=== PATIENT | female | born 1970 | race Caucasian/White ===

== ENCOUNTER 2017-02-18 22:52 | Inpatient (IN) | payer OTHER ==
[~2017-02-18] VITALS: Ht 149.9 cm; Wt 57.0 kg
[~2017-02-18 22:52] MED LIST: ATOR40TA68 PO; ESCI10TA48 PO; Hydrocodone/Apap (10/325) PO; IBUP-1542 PO; LANT3I SC; METF500T PO; TERB250T9 PO
[2017-02-18] MEDS ORDERED: ONDANSETRON 4 MG INJ IV STA (23:28)
[2017-02-18] MEDS ORDERED: morphine 4 MG/ML VIAL IV STA (23:28)
[2017-02-18 23:46] LABS: ADD UMIC YES; UR ASCORBIC ACID NEGATIVE (NEGATIVE); UR BILIRUBIN (Dip) NEGATIVE (NEGATIVE); UR BLOOD (Dip) NEGATIVE (NEGATIVE); UR CLARITY CLEAR (CLEAR); UR COLOR COLORLESS (YELLOW); UR GLUCOSE (Dip) 3+ mg/dL (NEGATIVE); UR KETONES (Dip) NEGATIVE (NEGATIVE); UR LEUKOCYTE ESTERASE (Dip) 1+ Leu/ul (NEGATIVE); UR NITRITE (Dip) NEGATIVE (NEGATIVE); UR RBC 0 /HPF (0-5); UR SPECIFIC GRAVITY (Dip) 1.002 (1.003-1.030); UR TOTAL PROTEIN (Dip) NEGATIVE (NEGATIVE); UR UROBILINOGEN (Dip) NEGATIVE (NEGATIVE)
[2017-02-18] MEDS ORDERED: HYDROmorphONE 1 MG/ML SYG ONE (23:50)
[2017-02-18] MEDS ORDERED: HYDROmorphONE 1 MG/ML SYG IV STA (23:57)
[2017-02-19 00:04] LABS: BASOPHILS % 0.1 % (0.0-2.0); EOSINOPHILS # 0.2 10^3/ul (0.0-0.5); EOSINOPHILS % 1.1 % (0.0-7.0); HEMATOCRIT 42.8 % (37.0-47.0); HEMOGLOBIN 14.7 g/dl (12.0-16.0); LYMPHOCYTES # 2.7 10^3/ul (0.8-2.9); MEAN CORPUSCULAR HEMOGLOBIN 29.6 pg (29.0-33.0); MEAN CORPUSCULAR HGB CONC 34.3 g/dl (32.0-37.0); MEAN CORPUSCULAR VOLUME 86.1 fl (82.0-101.0); MEAN PLATELET VOLUME 9.9 fl (7.4-10.4); MONOCYTE # 0.9 10^3/ul (0.3-0.9); MONOCYTES % 6.6 % (0.0-11.0); NEUTROPHIL # 10.3 10^3/ul (1.6-7.5); NEUTROPHILS % 72.8 % (39.0-77.0); PLATELET COUNT 345 10^3/UL (140-415); RED BLOOD COUNT 4.97 10^6/ul (4.20-5.40); RED CELL DISTRIBUTION WIDTH 12.4 % (11.5-14.5); WHITE BLOOD COUNT 14.2 10^3/ul (4.8-10.8)
[2017-02-19 00:33] LABS: ALBUMIN 4.2 g/dl (3.3-4.9); ALBUMIN/GLOBULIN RATIO 1.13; BILIRUBIN,INDIRECT 0.2 mg/dl (0-1.1); BILIRUBIN,TOTAL 0.2 mg/dl (0.2-1.3); CALCIUM 9.9 mg/dl (8.4-10.2); CREATININE 0.59 mg/dl (0.44-1.00); POTASSIUM 3.3 mmol/L (3.5-5.1); TOTAL PROTEIN 7.9 g/dl (6.1-8.1)
--- NOTE | 2017-02-19 01:05 | RADRPT ---
PROCEDURE: CT abdomen and pelvis with intravenous contrast. CLINICAL INDICATION: Pain. TECHNIQUE: CT of the abdomen/pelvis was performed utilizing axial images with reconstructions in s agittal and coronal planes after uneventful administration of 80 cc Omnipaque 300. The administered radiation dose is CTDI 8 mGy, DLP 450 mGy-cm. COMPARISON: 03/24/2016 FINDINGS: Visualized Chest: The visualized lung bases are clear. Abdomen: The spleen, pancreas, gallbladder,and adrenal glands are unremarkable. There is a new, hypoattenuating lesion with heterogeneous enhancement within the posterior aspect of the right hepatic lobe. This measures up to 2.2 cm in greatest axial dimension. There is a small amount of perihepatic free fluid. Small amounts of free fluid are scattered throughout the abdomen, mostly in the lower anterior abdomen. Some of this may be loculated against the anterior peritoneu m. There is possibly some minimal thickening of the peritoneum anteriorly in the left abdomen, for e xample on image 120 of series 3. Some mild mesenteric inflammatory changes are also present througho ut the abdomen. The kidneys are without hydronephrosis. No definite urinary calculi are seen. A small right renal c yst is noted. Prior partial resection of the rectosigmoid colon is noted. There is no evidence of bowel obstructi on. Prior appendectomy is noted. No intra-abdominal free air is seen. There is no evidence of intra-abdominal adenopathy. Pelvis: Prior hysterectomy is noted. The urinary bladder is unremarkable. There is no pelvic adenopathy of free fluid. Osseous structures: A 6 mm rounded sclerotic lesion within the right sacral ala is unchanged. IMPRESSION: New enhancing liver lesion which is of indeterminate origin. Neoplasm should be considered, especia lly given other findings of mild intra-abdominal free fluid with questionable loculation and periton eal thickening. Unchanged small sclerotic lesion in the right sacral ala. RPTAT: HIKT .Adan Lorenzo MD, MD Date Time Electronically viewed and signed by .Adan Lorenzo MD, on 02/19/2017 01:05 .T/
[2017-02-19] MEDS ORDERED: CEFTRIAXONE 1 GM/50 ML (PMX) 50 ML IVPB STA (01:09)
[2017-02-19] MEDS ORDERED: metroNIDAZOLE 500 MG/NS (PMX) 100 ML IVPB STA (01:09)
[2017-02-19] MEDS ORDERED: IOHEXOL 300MG/ML 150 ML BTL ONE (01:18)
[2017-02-19] MEDS ORDERED: SOD CHLORIDE 0.9% 100 ML ONE (01:18)
[2017-02-19] MEDS ORDERED: ONDANSETRON 4 MG INJ IV STA (01:46)
[2017-02-19] MEDS ORDERED: SOD CHLORIDE 0.9% 1,000 ML IV SCH (02:09)
[2017-02-19] MEDS ORDERED: SODIUM CHLORIDE 0.9% 1L BAG IV* STA (02:16)
--- NOTE | 2017-02-19 02:16 | ERA ---
ER Documentation Chief Complaint Date/Time DATE: 02/19/17 TIME: 02:12 Chief Complaint abdominal pain radiating to back HPI This is a 46-year-old female who presents to the emergency room for evaluation of abdominal pain. The patient does state she has a history of ovarian cancer with previous chemotherapy in 2013. She localizes the abdominal pain to the right portion of her abdomen with mild radiation to her back and is associated with mild nausea and one episode of vomiting. No fevers diarrhea. She describes her pain as a sharp pain with no relieving factors at this time. She does state that she had a previous oophorectomy done ROS All systems reviewed and are negative except as per history of present illness. Medications Home Meds Active Scripts Insulin Glargine* (Lantus*) 100 Unit/Ml Soln, 10 UNIT SC DAILY for 30 Days, #1 VIAL 1 Refill Prov:ARLINE QUINTANILLAAlejandro Meyer 04/06/16 [Hydrocodone/Apap ()] 1 TAB TAB No Conflict Check, 1 TAB PO Q6H Y for pain , #30 Prov:EUGENE QUINTANILLA Mitch 04/06/16 Reported Medications Atorvastatin* (Atorvastatin*) 40 Mg Tablet, 40 MG PO DAILY, #30 TAB 03/27/16 Metformin Hcl (Glucophage) 500 Mg Tablet, 1000 MG PO WITH BREAKFAST, #30 TAB 03/27/16 Ibuprofen* (Ibuprofen*) 600 Mg Tablet, 600 MG PO Q6 Y for PAIN, TAB 03/27/16 Terbinafine Hcl* (Terbinafine Hcl*) 250 Mg Tablet, 250 MG PO DAILY for INFECTION , TAB 03/27/16 Escitalopram Oxalate* (Escitalopram Oxalate*) 10 Mg Tablet, 10 MG PO DAILY Y for DEPRESSION, #30 TAB 03/27/16 Allergies Allergies: Coded Allergies: No Known Allergy (Unverified , 04/05/16) PMhx/Soc History of Surgery: Yes (OVARIAN SURGERY 2013 AND 2014, COLON RESECTION) Anesthesia Reaction: No (DENIES) Hx Neurological Disorder: Yes (C/O HEADACHE) Hx Respiratory Disorders: No (DENIES) Hx Cardiac Disorders: No (DENIES) Hx Psychiatric Problems: No (DENIES) Hx Alcohol Use: No (DENIES) Hx Substance Use: No (DENIES) Smoking Status: Unknown if ever smoked Physical Exam Vitals Vital Signs Date Time Temp Pulse Resp B/P Pulse Ox O2 Delivery O2 Flow Rate FiO2 02/18/17 23:08 98.3 120 22 145/66 100 Physical Exam INITIAL VITAL SIGNS: Reviewed by me GENERAL: The patient appears to be in moderate distress secondary to pain HEENT: Pupils equal, round, and reactive to light. EOMI. There is no scleral icterus. NECK: C-spine is soft and supple, there is no meningismus. There is no cervical lymphadenopathy. LUNGS: Clear to auscultation bilaterally. There are no rales, wheezes or rhonchi. HEART: Regular rate and rhythm, no murmurs, clicks, rubs or gallops. ABDOMEN: Right upper quadrant tenderness palpation, right lower quadrant tenderness to palpation, mild rebound and guarding tenderness, no CVAT EXTREMITIES: There is no peripheral cyanosis or edema. No focal swelling or erythema. NEUROLOGICAL: The patient moves all four extremities with 5/5 strength. Cranial nerves II - XII are intact. Normal gait. Alert and oriented SKIN: There is no apparent rash or petechiae. HEME/LYMPHATIC: There is no evidence of excessive bruising or lymphedema. PSYCHIATRIC: The patient does not appear anxious or depressed. Result Diagram: 02/18/17 2335 02/18/17 2335 Results 24 hrs Laboratory Tests Test 02/18/17 23:24 02/18/17 23:35 Urine Color COLORLESS Urine Clarity CLEAR Urine pH 7.0 Urine Specific [place] 1.002 Urine Ketones NEGATIVEmg/dL Urine Nitrite NEGATIVEmg/dL Urine Bilirubin NEGATIVEmg/dL Urine Urobilinogen NEGATIVEmg/dL Urine Leukocyte Esterase 1+Devang/ul Urine Microscopic RBC 0/HPF Urine Microscopic WBC 1/HPF Urine Hemoglobin NEGATIVEmg/dL Urine Glucose 3+mg/dL Urine Total Protein NEGATIVEmg/dl White Blood Count 14.210^3/ul Red Blood Count 4.9710^6/ul Hemoglobin 14.7g/dl Hematocrit 42.8% Mean Corpuscular Volume 86.1fl Mean Corpuscular Hemoglobin 29.6pg Mean Corpuscular Hemoglobin Concent 34.3g/dl Red Cell Distribution Width 12.4% Platelet Count 18904^3/UL Mean Platelet Volume 9.9fl Neutrophils % 72.8% Lymphocytes % 19.0% Monocytes % 6.6% Eosinophils % 1.1% Basophils % 0.1% Nucleated Red Blood Cells % 0.0/100WBC Neutrophils # 10.310^3/ul Lymphocytes # 2.710^3/ul Monocytes # 0.910^3/ul Eosinophils # 0.210^3/ul Basophils # 0.010^3/ul Nucleated Red Blood Cells # 0.010^3/ul Sodium Level 140mmol/L Potassium Level 3.3mmol/L Chloride Level 93mmol/L Carbon Dioxide Level 31mmol/L Anion Gap 19 Blood Urea Nitrogen 16mg/dl Creatinine 0.59mg/dl Glucose Level 269mg/dl Calcium Level 9.9mg/dl Total Bilirubin 0.2mg/dl Direct Bilirubin 0.00mg/dl Indirect Bilirubin 0.2mg/dl Aspartate Amino Transf (AST/SGOT) 21IU/L Alanine Aminotransferase (ALT/SGPT) 31IU/L Alkaline Phosphatase 154IU/L Total Protein 7.9g/dl Albumin 4.2g/dl Globulin 3.70g/dl Albumin/Globulin Ratio 1.13 Lipase 157U/L Current Medications Medications (Trade) Dose Ordered Sig/Zane Route PRN Reason Start Time Stop Time Status Last Admin Dose Admin Ondansetron HCl (Zofran Inj) 4 mg ONCE STAT IV 02/18/17 23:28 02/18/17 23:30 DC 02/18/17 23:38 Morphine Sulfate (morphine) 4 mg ONCE STAT IV 02/18/17 23:28 02/18/17 23:30 DC 02/18/17 23:38 Hydromorphone HCl (Dilaudid) 1 mg STK-MED ONCE .ROUTE 02/18/17 23:50 02/18/17 23:51 DC Hydromorphone HCl 1 mg 1 mg ONCE STAT IV 02/18/17 23:57 02/18/17 23:58 DC 02/19/17 00:03 Ceftriaxone Sodium 50 ml @ 100 mls/hr ONCE STAT IVPB 02/19/17 01:09 02/19/17 01:38 DC 02/19/17 01:53 Metronidazole (Flagyl 500 Mg (Pmx)) 100 ml @ 100 mls/hr ONCE STAT IVPB 02/19/17 01:09 02/19/17 02:08 DC 02/19/17 01:54 IV Flush 10 ml 10 ml STK-MED ONCE .ROUTE 02/19/17 01:18 02/19/17 01:19 DC 02/19/17 01:33 Sodium Chloride (NS) 100 ml @ ud STK-MED ONCE .ROUTE 02/19/17 01:18 02/19/17 01:19 DC 02/19/17 01:33 Iohexol (Omnipaque 300mg/ ml) 150 ml STK-MED ONCE .ROUTE 02/19/17 01:18 02/19/17 01:19 DC 02/19/17 01:33 Ondansetron HCl 4 mg 4 mg ONCE STAT IV 02/19/17 01:46 02/19/17 01:47 DC 02/19/17 01:53 Sodium Chloride (NS) 1,000 ml @ 80 mls/hr [id number] IV 02/19/17 02:09 02/19/17 14:38 Ondansetron HCl (Zofran Inj) 4 mg BRIDGE ORDER PRN IV NAUSEA AND/OR VOMITING 02/19/17 02:30 02/20/17 02:29 Acetaminophen (Tylenol Tab) 650 mg ER BRIDGE PRN PO MILD PAIN/FEVER 02/19/17 02:30 02/20/17 02:29 Procedures/MDM New enhancing liver lesion which is of indeterminate origin. Neoplasm should be considered, especially given other findings of mild intra-abdominal free fluid with questionable loculation and peritoneal thickening. Unchanged small sclerotic lesion in the right sacral ala. This is a 46-year-old female who presents to the emergency room for evaluation of abdominal pain. This patient does have a history of previous ovarian cancer with oophorectomy. She does see her surgeon, Dr. tapia. When I evaluated this patient she was in a moderate amount of pain. The patient was given morphine without relief of pain, she was given Dilaudid with moderate relief of her pain. I did obtain lab work and a CAT scan which does show a leukocytosis with some mild intra-abdominal free fluid in peritoneal thickening possibly peritonitis. This patient had blood cultures drawn. She was started on Rocephin and Flagyl. She was given 30 cc/kg of IV normal saline as she does meet criteria with tachycardia, leukocytosis and source of infection I have spoken to Dr. Tapia who is in agreement with the plan of care for admission to [facility] at this time. This patient is afebrile, with no signs of hemodynamic instability. Critical Care: Time: 35 minutes Treatments/Evaluations: Close monitoring and treatment of unstable vital signs, cardiorespiratory, and neurologic status, while maintaining tight balance of fluid, respiratory, and cardiac interventions. Departure Diagnosis: Primary Impression: Sepsis Additional Impressions: Peritonitis Liver metastases Condition: Stable SAMANTHA JIMENEZ DO Feb 19, 2017 02:16
[2017-02-19] MEDS ORDERED: ACETAMINOPHEN 325 MG TAB PO PRN (02:30)
[2017-02-19] MEDS ORDERED: ONDANSETRON 4 MG INJ IV PRN (02:30)
[2017-02-19 03:00] VITALS: Ht 149.9 cm; Wt 57.0 kg
[2017-02-19] MEDS ORDERED: GLUCOSE GEL 15 GRAM TUBE PO PRN ×2 (04:30)
[2017-02-19] MEDS ORDERED: GLUCAGON 1 MG INJ IM PRN (04:30)
[2017-02-19] MEDS ORDERED: GLUCOSE GEL 15 GRAM TUBE BUCCAL PRN (04:30)
[2017-02-19] MEDS ORDERED: DEXTROSE 50% 50 ML SYRINGE IV PRN ×2 (04:30)
[2017-02-19] MEDS: HYDROmorphONE 1 MG/ML SYG IV PRN ×3 (05:22→21:48)
[2017-02-19 05:37] LABS: BASOPHILS % 0.1 % (0.0-2.0); EOSINOPHILS % 0.2 % (0.0-7.0); HEMATOCRIT 41.1 % (37.0-47.0); HEMOGLOBIN 13.7 g/dl (12.0-16.0); LYMPHOCYTES # 1.4 10^3/ul (0.8-2.9); LYMPHOCYTES % 8.4 % (15.0-51.0); MEAN CORPUSCULAR HEMOGLOBIN 28.8 pg (29.0-33.0); MEAN CORPUSCULAR HGB CONC 33.3 g/dl (32.0-37.0); MEAN CORPUSCULAR VOLUME 86.3 fl (82.0-101.0); MEAN PLATELET VOLUME 10.3 fl (7.4-10.4); MONOCYTE # 0.7 10^3/ul (0.3-0.9); MONOCYTES % 4.2 % (0.0-11.0); NEUTROPHIL # 14.5 10^3/ul (1.6-7.5); NEUTROPHILS % 86.6 % (39.0-77.0); PLATELET COUNT 300 10^3/UL (140-415); RED BLOOD COUNT 4.76 10^6/ul (4.20-5.40); RED CELL DISTRIBUTION WIDTH 12.6 % (11.5-14.5); WHITE BLOOD COUNT 16.7 10^3/ul (4.8-10.8)
[2017-02-19 07:30] LABS: ALBUMIN 4.1 g/dl (3.3-4.9); ALBUMIN/GLOBULIN RATIO 1.28; BILIRUBIN,INDIRECT 0.1 mg/dl (0-1.1); BILIRUBIN,TOTAL 0.1 mg/dl (0.2-1.3); CALCIUM 9.3 mg/dl (8.4-10.2); CREATININE 0.46 mg/dl (0.44-1.00); POTASSIUM 3.4 mmol/L (3.5-5.1); TOTAL PROTEIN 7.3 g/dl (6.1-8.1)
[2017-02-19 08:01] VITALS: BP 119/55; RESP 20
[2017-02-19] MEDS: INSULIN ASPART [NOVOLOG] 3 ML PEN SC SCH ×4 (09:14→20:19)
[2017-02-19] MEDS: ONDANSETRON 4 MG INJ IV PRN ×3 (09:19→23:45)
[2017-02-19 14:11] VITALS: BP 99/52; RESP 19
[2017-02-19] MEDS ORDERED: POTASSIUM CHLORIDE (SR) 10 MEQ TAB PO ONE (16:00)
--- NOTE | 2017-02-19 17:02 | HP ---
Date/Time of Note Date/Time of Note DATE: 02/19/17 TIME: 17:00 Assessment/Plan VTE Prophylaxis VTE Prophylaxis Intervention: SCD's Lines/Catheters IV [facility]ter Type (from [facility] HPI/ROS Admit Date/Time Admit Date/Time Feb 19, 2017 at 02:10 Hx of Present Illness Obi Morris M.D. [facility] History and Physical Examination Bianca Calzada Feb 19, 2017 Age:46 :1970 Physicians: Fact Checker Jewel Hole Driller Oncologist: Referring MD: History of the Present Illness: This is a 46 year old female who had a primary ovarian cancer operated on with a complete response to [place]-based chemotherapy. The operation was 2013. Now, 26 months after completion of primary therapy she has recurrent disease.Ca 125-541, He4-121 and pelvic nodes on PET/CT. She is admitted prior to the schuled procedure due to intactable pain 12 hours and developed nausea as well. Medical history/ROS: Thyroid d/o,High Cholesterol, Diabetes, Depression. Ab1 Surgical history: Appendectomy, CSx2, Primary Cytoreduction 2013. Flu yes, 2 yrs ago, Pneumococcal no, declined Colonoscopy: never Medications: Allergies: No active allergies recorded Family History: Noncontributory Social History: Noncontributory Review of Systems: Negative except for above noted Physical Examination Vitals (02/18/2017): Weight 127, Height 58.5, BP 130/80, BMI 26.5. General: Alert. HEENT: Pupils are equal, round, reactive to light and accommodation. Neck: Supple with no masses of lymphadenopathy. Breast: Deferred due to recent examination and responsibility of primary care physician. Chest: Clear to auscultation and percussion with no rales, ronchi, or wheeze. Heart: Normal rhythm with no murmur. Abdominal exam: mild s/p and RLQ tender, mildly distended, no masses, no ascites. location: N/A Pelvic exam: no masses or cul-de-sac nodularity noted Rectal: confirmatory with pelvic exam. Neurological: Grossly intact Assessment: Ovarian cancer with recurrence. Plan: Pain management and will involve IM. Will possibly repeat CT with oral contrast and try to bowel prep and possible move up scheduled surgery. Secondary cytoreduction, possible bowel resection, possible fecal diversion. All risks and benefits of this procedure have been discussed in detail with the patient, as well as alternative treatment strategies and their implications. The patient is aware that there is some possibility of a blood transfusion and its associated risks and benefits. She wishes to proceed and gives her informed consent. Obi Morris M.D. PMH/Family/Social Past Surgical History Past Surgical Hx: appendectomy Social History Smoking Status: Never smoker Exam/Review of Systems Vital Signs Vitals Vital Signs Date Time Temp Pulse Resp B/P Pulse Ox O2 Delivery O2 Flow Rate FiO2 02/19/17 14:11 98.0 71 19 99/52 97 02/19/17 02:37 Room Air Intake and Output 02/18/17 02/18/17 02/19/17 15:00 23:00 07:00 Intake Total 580 ml Balance 580 ml Labs Result Diagram: 02/19/17 0426 02/19/17 0426 Medications Medications Current Medications Hydromorphone HCl (Dilaudid) 0.5 mg Q3H PRN IV PAIN Last administered on 08:59; Admin Dose 0.5 MG; Start 02/19/17 at 04:00 Ondansetron HCl (Zofran Inj) 4 mg Q6H PRN IV NAUSEA AND/OR VOMITING Last administered on 02/19/17 09:19; Admin Dose 4 MG; Start 02/19/17 at 04:00 Diagnostic Test (Pha) (Accu-Chek) 1 ea 02 XX ; Start 02/20/17 at 02:00 Diagnostic Test (Pha) (Accu-Chek) 1 ea 02 XX ; Start 02/20/17 at 02:00 Miscellaneous Information 1 ea NOTE XX ; Start 02/19/17 at 04:30 Glucose (Glutose) 15 gm Q15M PRN PO DECREASED GLUCOSE; Start 02/19/17 at 04:30 Glucose (Glutose) 22.5 gm Q15M PRN PO DECREASED GLUCOSE; Start 02/19/17 at 04:30 Dextrose (D50w Syringe) 25 ml Q15M PRN IV DECREASED GLUCOSE; Start 02/19/17 at 04:30 Dextrose (D50w Syringe) 50 ml Q15M PRN IV DECREASED GLUCOSE; Start 02/19/17 at 04:30 Glucagon (Glucagen) 1 mg Q15M PRN IM DECREASED GLUCOSE; Start 02/19/17 at 04:30 Glucose 15 gm 15 gm Q15M PRN BUCCAL DECREASED GLUCOSE; Start 02/19/17 at 04:30 Potassium Chloride/Sodium Chloride (NS-KCl 20 Meq) 1,000 ml @ 80 mls/hr [id number] IV ; Start 02/19/17 at 16:00 OBI MORRIS MD Feb 19, 2017 17:02
[2017-02-19] MEDS: NS + KCL 20 MEQ 1,000 ML IV SCH (17:28)
[2017-02-19 19:38] VITALS: BP 108/55; RESP 18
[2017-02-19 23:56] VITALS: BP 100/61; PULSE 74; RESP 18
[2017-02-20] MEDS: ACCU-CHEK XX SCH ×2 (02:00)
[2017-02-20] MEDS: NS + KCL 20 MEQ 1,000 ML IV SCH ×2 (04:35→18:17)
[2017-02-20 04:42] VITALS: BP 114/55; PULSE 66; RESP 18
[2017-02-20 05:21] LABS: WHITE BLOOD COUNT 8.8 10^3/ul (4.8-10.8)
[2017-02-20 05:22] LABS: BASOPHILS % 0.2 % (0.0-2.0); EOSINOPHILS # 0.1 10^3/ul (0.0-0.5); EOSINOPHILS % 1.5 % (0.0-7.0); HEMATOCRIT 37.2 % (37.0-47.0); HEMOGLOBIN 12.6 g/dl (12.0-16.0); LYMPHOCYTES # 2.3 10^3/ul (0.8-2.9); LYMPHOCYTES % 26.2 % (15.0-51.0); MEAN CORPUSCULAR HEMOGLOBIN 29.7 pg (29.0-33.0); MEAN CORPUSCULAR HGB CONC 33.9 g/dl (32.0-37.0); MEAN CORPUSCULAR VOLUME 87.7 fl (82.0-101.0); MONOCYTE # 0.5 10^3/ul (0.3-0.9); MONOCYTES % 5.5 % (0.0-11.0); NEUTROPHIL # 5.8 10^3/ul (1.6-7.5); NEUTROPHILS % 66.4 % (39.0-77.0); PLATELET COUNT 288 10^3/UL (140-415); RED BLOOD COUNT 4.24 10^6/ul (4.20-5.40); RED CELL DISTRIBUTION WIDTH 12.8 % (11.5-14.5)
[2017-02-20] MEDS: ONDANSETRON 4 MG INJ IV PRN ×3 (05:32→23:23)
[2017-02-20 05:41] LABS: INR 0.99; PROTIME 13.1 Sec (12.2-14.2)
[2017-02-20 06:05] LABS: ALBUMIN 3.5 g/dl (3.3-4.9); ALBUMIN/GLOBULIN RATIO 1.2; BILIRUBIN,INDIRECT 0.2 mg/dl (0-1.1); BILIRUBIN,TOTAL 0.2 mg/dl (0.2-1.3); CALCIUM 8.6 mg/dl (8.4-10.2); CREATININE 0.49 mg/dl (0.44-1.00); POTASSIUM 3.9 mmol/L (3.5-5.1); TOTAL PROTEIN 6.4 g/dl (6.1-8.1)
[2017-02-20] MEDS: HYDROmorphONE 1 MG/ML SYG IV PRN ×3 (07:35→19:54)
[2017-02-20 07:47] VITALS: BP 92/53; RESP 19
[2017-02-20] MEDS: INSULIN ASPART [NOVOLOG] 3 ML PEN SC SCH ×4 (08:38→20:36)
--- NOTE | 2017-02-20 13:01 | HP ---
Date/Time of Note Date/Time of Note DATE: 02/20/17 TIME: 12:56 Assessment/Plan VTE Prophylaxis VTE Prophylaxis Intervention: SCD's Lines/Catheters IV Catheter Type (from Nrsg): Peripheral IV Assessment/Plan Assessment/Plan -Intractable of abdominal pain, nausea and vomiting secondary to recurrent ovarian cancer. Continue Zofran as needed for nausea and Dilaudid as needed for pain. -Recurrent Ovarian CA, status post primary cytoreduction chemotherapy. Patient is followed by Dr. Morris. Plan for secondary cytoreduction on Monday. -Diabetes mellitus type 2, will check hemoglobin A1c, continue metformin Lantus and NovoLog. -Hyperlipidemia, continue statin. Further recommendations based on clinical course. Plan of care discussed with Dr. Hester. HPI/ROS Admit Date/Time Admit Date/Time Feb 19, 2017 at 02:10 Hx of Present Illness The patient is a 46-year-old female with history of ovarian cancer, status post primary cytoreduction in February 2014, status post [place] based chemotherapy. Patient noted to have recurrent disease and pelvic nodes on PET scan. Patient presented with increased abdominal pain as well as nausea and vomiting. Patient is admitted for possible secondary cytoreduction by Dr. Morris. Patient has a history of diabetes mellitus type 2 and hyperlipidemia. Patient is started on Dilaudid for pain and Zofran as needed for nausea. Patient denies any fever chills denies any shortness of breath denies any chest pain. ROS Per HPI PMH/Family/Social Past Medical History Medical History: diabetes, high cholesterol, other (Ovarian CA) Past Surgical History Primary cytoreduction in February 2014, 2 Past Surgical Hx: appendectomy Family History Significant Family History: no pertinent family hx Social History Alcohol Use: none Smoking Status: Former smoker Drug Use: none Exam/Review of Systems Vital Signs Vitals Vital Signs Date Time Temp Pulse Resp B/P Pulse Ox O2 Delivery O2 Flow Rate FiO2 02/20/17 07:47 97.5 83 19 92/53 96 02/20/17 04:42 Room Air Intake and Output 02/19/17 02/19/17 02/20/17 15:00 23:00 07:00 Intake Total 1040 ml 1600 ml Balance 1040 ml 1600 ml Exam Constitutional: alert, oriented Psych: no complaints Head: normocephalic Eyes: nl conjunctiva ENMT: nl external ears & nose Neck: supple Respiratory: normal air movement Cardiovascular: nl pulses Gastrointestinal: soft, tender Musculoskeletal: nl extremities to inspection Extremities: normal pulses Neurological: nl mental status Skin: nl turgor Labs Result Diagram: 02/20/1743202/20/173 Medications Medications Current Medications Hydromorphone HCl (Dilaudid) 0.5 mg Q3H PRN IV PAIN Last administered on 07:35; Admin Dose 0.5 MG; Start 02/19/17 at 04:00 Ondansetron HCl (Zofran Inj) 4 mg Q6H PRN IV NAUSEA AND/OR VOMITING Last administered on 02/20/17 05:32; Admin Dose 4 MG; Start 02/19/17 at 04:00 Diagnostic Test (Pha) (Accu-Chek) 1 ea 02 XX ; Start 02/20/17 at 02:00 Diagnostic Test (Pha) (Accu-Chek) 1 ea 02 XX ; Start 02/20/17 at 02:00 Miscellaneous Information 1 ea NOTE XX ; Start 02/19/17 at 04:30 Glucose (Glutose) 15 gm Q15M PRN PO DECREASED GLUCOSE; Start 02/19/17 at 04:30 Glucose (Glutose) 22.5 gm Q15M PRN PO DECREASED GLUCOSE; Start 02/19/17 at 04:30 Dextrose (D50w Syringe) 25 ml Q15M PRN IV DECREASED GLUCOSE; Start 02/19/17 at 04:30 Dextrose (D50w Syringe) 50 ml Q15M PRN IV DECREASED GLUCOSE; Start 02/19/17 at 04:30 Glucagon (Glucagen) 1 mg Q15M PRN IM DECREASED GLUCOSE; Start 02/19/17 at 04:30 Glucose 15 gm 15 gm Q15M PRN BUCCAL DECREASED GLUCOSE; Start 02/19/17 at 04:30 Potassium Chloride/Sodium Chloride (NS-KCl 20 Meq) 1,000 ml @ 80 mls/hr [id number] IV Last administered on 02/20/17 04:35; Admin Dose 80 MLS/HR; Start 02/19/17 at 16:00 GLENN PALMER Feb 20, 2017 13:01
[2017-02-20] MEDS ORDERED: Discontinue current oral sulfonylureas (glyburide, glipizide, and/or glimepiride) prior to XX ONE (13:30)
[2017-02-20] MEDS ORDERED: HYPOGLYCEMIA PROTOCOL when Glucose is <70 mg/dL or symptomatic <90 mg/dL. XX ONE (13:30)
[2017-02-20 15:15] VITALS: BP 109/53; RESP 18
[2017-02-20 19:30] VITALS: BP_SYST 107; BP_SYST 147; BP_DIAS 52; BP_DIAS 64; RESP 18; RESP 20
[2017-02-20 23:58] VITALS: BP 98/52; PULSE 58; RESP 18
[2017-02-21] MEDS: ACCU-CHEK XX SCH ×2 (01:50)
[2017-02-21] MEDS ORDERED: ACCU-CHEK XX SCH (02:00)
[2017-02-21 02:21] VITALS: BP 119/60; RESP 17
[2017-02-21] MEDS: ONDANSETRON 4 MG INJ IV PRN ×4 (05:01→22:29)
[2017-02-21] MEDS: NS + KCL 20 MEQ 1,000 ML IV SCH ×2 (05:07→17:55)
[2017-02-21 05:31] VITALS: BP 100/54; PULSE 60; RESP 18
[2017-02-21 05:33] LABS: BASOPHILS % 0.2 % (0.0-2.0); EOSINOPHILS # 0.2 10^3/ul (0.0-0.5); EOSINOPHILS % 1.9 % (0.0-7.0); HEMATOCRIT 41.7 % (37.0-47.0); HEMOGLOBIN 13.7 g/dl (12.0-16.0); LYMPHOCYTES # 2.2 10^3/ul (0.8-2.9); LYMPHOCYTES % 24.5 % (15.0-51.0); MEAN CORPUSCULAR HGB CONC 32.9 g/dl (32.0-37.0); MEAN CORPUSCULAR VOLUME 88.2 fl (82.0-101.0); MEAN PLATELET VOLUME 9.8 fl (7.4-10.4); MONOCYTE # 0.5 10^3/ul (0.3-0.9); MONOCYTES % 5.3 % (0.0-11.0); NEUTROPHIL # 6.2 10^3/ul (1.6-7.5); NEUTROPHILS % 67.8 % (39.0-77.0); PLATELET COUNT 332 10^3/UL (140-415); RED BLOOD COUNT 4.73 10^6/ul (4.20-5.40); RED CELL DISTRIBUTION WIDTH 12.6 % (11.5-14.5); WHITE BLOOD COUNT 9.2 10^3/ul (4.8-10.8)
[2017-02-21 05:57] LABS: CALCIUM 9.3 mg/dl (8.4-10.2); CREATININE 0.52 mg/dl (0.44-1.00); POTASSIUM 3.9 mmol/L (3.5-5.1)
[2017-02-21] MEDS ORDERED: metFORMIN 500 MG TAB PO SCH (07:50)
[2017-02-21 08:07] VITALS: BP 110/56; RESP 18
[2017-02-21] MEDS: ATORVASTATIN 40 MG TAB PO SCH (08:59)
[2017-02-21] MEDS: INSULIN ASPART [NOVOLOG] 3 ML PEN SC SCH ×5 (09:03→20:34)
[2017-02-21] MEDS: HYDROmorphONE 1 MG/ML SYG IV PRN ×3 (09:07→20:34)
[2017-02-21 13:17] VITALS: BP 125/61; RESP 18
--- NOTE | 2017-02-21 13:28 | QN ---
Documentation Comment Will start bowel prep today as surgery must occur on as scheduled due to OR time and assistat availability; and will be better tolerated over two days MARIA DE JESUS MENDOZA MD Feb 21, 2017 13:28
[2017-02-21] MEDS ORDERED: PEG/ELECTROLYTES 4L BTL PO ONE (14:00)
--- NOTE | 2017-02-21 14:55 | PN ---
Date/Time of Note Date/Time of Note DATE: 02/21/17 TIME: 14:52 Assessment/Plan VTE Prophylaxis VTE Prophylaxis Intervention: SCD's Lines/Catheters IV Catheter Type (from Nrs): Peripheral IV Assessment/Plan Chief Complaint/Hosp Course Patient pain is well controlled, patient tolerates clear liquid diet well, denies any nausea vomiting. Assessment/Plan -Intractable of abdominal pain, nausea and vomiting secondary to recurrent ovarian cancer. Continue Zofran as needed for nausea and Dilaudid as needed for pain. -Recurrent Ovarian CA, status post primary cytoreduction chemotherapy. Patient is followed by Dr. Morris. Plan for secondary cytoreduction on . -Diabetes mellitus type 2, hemoglobin A1c is 8.6, continue metformin, Lantus and NovoLog. -Hyperlipidemia, continue statin. Further recommendations based on clinical course. Plan of care discussed with Dr. Hester. Problems: Exam/Review of Systems Vital Signs Vitals Vital Signs Date Time Temp Pulse Resp B/P Pulse Ox O2 Delivery O2 Flow Rate FiO2 02/21/17 13:17 98.1 71 18 125/61 99 02/20/17 23:58 Room Air Intake and Output 02/20/17 02/20/17 02/21/17 15:00 23:00 07:00 Intake Total 920 ml 1920 ml Balance 920 ml 1920 ml Exam Constitutional: alert, oriented Head: normocephalic Neck: supple Respiratory: normal air movement Cardiovascular: nl pulses Gastrointestinal: soft, tender Extremities: normal pulses Neurological: nl mental status Skin: nl turgor Results Result Diagram: 02/21/17 0448 02/21/17 0448 Results 24 hrs Laboratory Tests Test 02/20/17 18:12 02/20/17 20:31 02/21/17 01:44 02/21/17 04:48 Bedside Glucose 154 195 135 White Blood Count 9.2 Red Blood Count 4.73 Hemoglobin 13.7 Hematocrit 41.7 Mean Corpuscular Volume 88.2 Mean Corpuscular Hemoglobin 29.0 Mean Corpuscular Hemoglobin Concent 32.9 Red Cell Distribution Width 12.6 Platelet Count 332 Mean Platelet Volume 9.8 Neutrophils % 67.8 Lymphocytes % 24.5 Monocytes % 5.3 Eosinophils % 1.9 Basophils % 0.2 Nucleated Red Blood Cells % 0.0 Neutrophils # 6.2 Lymphocytes # 2.2 Monocytes # 0.5 Eosinophils # 0.2 Basophils # 0.0 Nucleated Red Blood Cells # 0.0 Sodium Level 144 Potassium Level 3.9 Chloride Level 103 Carbon Dioxide Level 27 Anion Gap 18 H Blood Urea Nitrogen 8 Creatinine 0.52 Glucose Level 179 Hemoglobin A1c 8.6 H Calcium Level 9.3 Test 02/21/17 08:27 02/21/17 12:36 Bedside Glucose 153 192 Medications Medications Current Medications Hydromorphone HCl (Dilaudid) 0.5 mg Q3H PRN IV PAIN Last administered on 09:07; Admin Dose 0.5 MG; Start 02/19/17 at 04:00 Ondansetron HCl (Zofran Inj) 4 mg Q6H PRN IV NAUSEA AND/OR VOMITING Last administered on 02/21/17 13:17; Admin Dose 4 MG; Start 02/19/17 at 04:00 Diagnostic Test (Pha) (Accu-Chek) 1 ea 02 XX ; Start 02/20/17 at 02:00 Diagnostic Test (Pha) (Accu-Chek) 1 ea 02 XX ; Start 02/20/17 at 02:00 Miscellaneous Information 1 ea NOTE XX ; Start 02/19/17 at 04:30 Glucose (Glutose) 15 gm Q15M PRN PO DECREASED GLUCOSE; Start 02/19/17 at 04:30 Glucose (Glutose) 22.5 gm Q15M PRN PO DECREASED GLUCOSE; Start 02/19/17 at 04:30 Dextrose (D50w Syringe) 25 ml Q15M PRN IV DECREASED GLUCOSE; Start 02/19/17 at 04:30 Dextrose (D50w Syringe) 50 ml Q15M PRN IV DECREASED GLUCOSE; Start 02/19/17 at 04:30 Glucagon (Glucagen) 1 mg Q15M PRN IM DECREASED GLUCOSE; Start 02/19/17 at 04:30 Glucose 15 gm 15 gm Q15M PRN BUCCAL DECREASED GLUCOSE; Start 02/19/17 at 04:30 Potassium Chloride/Sodium Chloride (NS-KCl 20 Meq) 1,000 ml @ 80 mls/hr [id number] IV Last administered on 02/21/17 05:07; Admin Dose 80 MLS/HR; Start 02/19/17 at 16:00 Atorvastatin Calcium (Lipitor) 40 mg DAILY PO Last administered on 02/21/17t 08: 59; Admin Dose 40 MG; Start 02/21/17 at 09:00 Escitalopram Oxalate (Lexapro) 10 mg DAILY PRN PO DEPRESSION; Start 02/20/17 at 13:30 Insulin Glargine (Lantus) 9 unit DAILY SC ; Start 02/21/17 at 20:00 Diagnostic Test (Pha) (Accu-Chek) 1 ea 02 XX ; Start 02/21/17 at 02:00 GLENN PALMER Feb 21, 2017 14:55
--- NOTE | 2017-02-21 17:40 | RADRPT ---
Vent Rate: 71 bpm RR Interval: 0 msec TX Interval: 148 msec QRS Duration: 76 msec QT Interval: 402 msec QTC Interval: 436 msec P-R-T [place]: 65 - 56 - 61 degrees Normal sinus rhythm Normal ECG Electronically Signed By: Daljit Olson [id number]
[2017-02-21] MEDS ORDERED: INSULIN GLARGINE [LANtus] 3 ML PEN SC SCH ×3 (20:00→21:00)
[2017-02-21 20:34] VITALS: BP 111/59; RESP 18
[2017-02-21] MEDS: FAMOTIDINE 20 MG INJ IV SCH (20:34)
[2017-02-22] MEDS ORDERED: ACCU-CHEK XX SCH (02:00)
[2017-02-22] MEDS: ONDANSETRON 4 MG INJ IV PRN ×4 (02:27→22:03)
[2017-02-22 05:44] LABS: BASOPHILS % 0.2 % (0.0-2.0); EOSINOPHILS # 0.1 10^3/ul (0.0-0.5); HEMATOCRIT 40.6 % (37.0-47.0); HEMOGLOBIN 13.7 g/dl (12.0-16.0); LYMPHOCYTES # 2.5 10^3/ul (0.8-2.9); LYMPHOCYTES % 22.5 % (15.0-51.0); MEAN CORPUSCULAR HEMOGLOBIN 29.4 pg (29.0-33.0); MEAN CORPUSCULAR HGB CONC 33.7 g/dl (32.0-37.0); MEAN CORPUSCULAR VOLUME 87.1 fl (82.0-101.0); MEAN PLATELET VOLUME 9.8 fl (7.4-10.4); MONOCYTE # 0.5 10^3/ul (0.3-0.9); MONOCYTES % 4.9 % (0.0-11.0); NEUTROPHIL # 7.8 10^3/ul (1.6-7.5); NEUTROPHILS % 71.2 % (39.0-77.0); PLATELET COUNT 354 10^3/UL (140-415); RED BLOOD COUNT 4.66 10^6/ul (4.20-5.40); RED CELL DISTRIBUTION WIDTH 12.6 % (11.5-14.5)
[2017-02-22] MEDS: NS + KCL 20 MEQ 1,000 ML IV SCH ×2 (06:08→18:08)
[2017-02-22 06:23] LABS: CALCIUM 9.2 mg/dl (8.4-10.2); CREATININE 0.47 mg/dl (0.44-1.00); POTASSIUM 3.7 mmol/L (3.5-5.1)
[2017-02-22 08:17] VITALS: BP 124/60; RESP 18
[2017-02-22] MEDS: ATORVASTATIN 40 MG TAB PO SCH (08:42)
[2017-02-22] MEDS: FAMOTIDINE 20 MG INJ IV SCH ×2 (08:43→20:41)
[2017-02-22] MEDS: INSULIN ASPART [NOVOLOG] 3 ML PEN SC SCH ×7 (08:44→20:43)
[2017-02-22] MEDS: HYDROmorphONE 1 MG/ML SYG IV PRN ×4 (08:53→22:03)
--- NOTE | 2017-02-22 12:55 | PN ---
Date/Time of Note Date/Time of Note DATE: 02/22/17 TIME: 12:54 Assessment/Plan VTE Prophylaxis VTE Prophylaxis Intervention: SCD's Lines/Catheters IV Catheter Type (from Nrs): Peripheral IV Assessment/Plan Chief Complaint/Hosp Course Patient's complains of nausea, abdominal pain is well controlled. Plan for surgery by Dr. Leandro Matta tomorrow. Assessment/Plan -Intractable of abdominal pain, nausea and vomiting secondary to recurrent ovarian cancer. Continue Zofran as needed for nausea and Dilaudid as needed for pain. -Recurrent Ovarian CA, status post primary cytoreduction chemotherapy. Patient is followed by Dr. Morris. Plan for secondary cytoreduction on . -Diabetes mellitus type 2, hemoglobin A1c is 8.6, continue metformin, Lantus and NovoLog. -Hyperlipidemia, continue statin. Further recommendations based on clinical course. Plan of care discussed with Dr. Hester. Problems: Exam/Review of Systems Vital Signs Vitals Vital Signs Date Time Temp Pulse Resp B/P Pulse Ox O2 Delivery O2 Flow Rate FiO2 02/22/17 08:17 98.2 62 18 124/60 100 02/20/17 23:58 Room Air Intake and Output 02/21/17 02/21/17 02/22/17 15:00 23:00 07:00 Intake Total 2100 ml 2140 ml Balance 2100 ml 2140 ml Exam Constitutional: alert, oriented Head: normocephalic Neck: supple Respiratory: normal air movement Cardiovascular: nl pulses Gastrointestinal: soft, tender Extremities: normal pulses Neurological: nl mental status Skin: nl turgor Results Result Diagram: 02/22/17 0456 02/22/17 0457 Results 24 hrs Laboratory Tests Test 02/21/17 17:37 02/21/17 20:33 02/22/17 02:27 02/22/17 04:56 Bedside Glucose 122 132 139 White Blood Count 11.0 H Red Blood Count 4.66 Hemoglobin 13.7 Hematocrit 40.6 Mean Corpuscular Volume 87.1 Mean Corpuscular Hemoglobin 29.4 Mean Corpuscular Hemoglobin Concent 33.7 Red Cell Distribution Width 12.6 Platelet Count 354 Mean Platelet Volume 9.8 Neutrophils % 71.2 Lymphocytes % 22.5 Monocytes % 4.9 Eosinophils % 1.0 Basophils % 0.2 Nucleated Red Blood Cells % 0.0 Neutrophils # 7.8 H Lymphocytes # 2.5 Monocytes # 0.5 Eosinophils # 0.1 Basophils # 0.0 Nucleated Red Blood Cells # 0.0 Test 02/22/17 04:57 02/22/17 08:41 02/22/17 12:49 Sodium Level 141 Potassium Level 3.7 Chloride Level 98 Carbon Dioxide Level 28 Anion Gap 19 H Blood Urea Nitrogen 7 Creatinine 0.47 Glucose Level 131 # Calcium Level 9.2 Bedside Glucose 221 H 272 H Medications Medications Current Medications Hydromorphone HCl (Dilaudid) 0.5 mg Q3H PRN IV PAIN Last administered on 08:53; Admin Dose 0.5 MG; Start 02/19/17 at 04:00 Miscellaneous Information 1 ea NOTE XX ; Start 02/19/17 at 04:30 Glucose (Glutose) 15 gm Q15M PRN PO DECREASED GLUCOSE; Start 02/19/17 at 04:30 Glucose (Glutose) 22.5 gm Q15M PRN PO DECREASED GLUCOSE; Start 02/19/17 at 04:30 Dextrose (D50w Syringe) 25 ml Q15M PRN IV DECREASED GLUCOSE; Start 02/19/17 at 04:30 Dextrose (D50w Syringe) 50 ml Q15M PRN IV DECREASED GLUCOSE; Start 02/19/17 at 04:30 Glucagon (Glucagen) 1 mg Q15M PRN IM DECREASED GLUCOSE; Start 02/19/17 at 04:30 Glucose 15 gm 15 gm Q15M PRN BUCCAL DECREASED GLUCOSE; Start 02/19/17 at 04:30 Potassium Chloride/Sodium Chloride (NS-KCl 20 Meq) 1,000 ml @ 80 mls/hr [id number] IV Last administered on 02/22/17 06:08; Admin Dose 80 MLS/HR; Start 02/19/17 at 16:00 Atorvastatin Calcium (Lipitor) 40 mg DAILY PO Last administered on 02/22/17 08: 42; Admin Dose 40 MG; Start 02/21/17 at 09:00 Escitalopram Oxalate (Lexapro) 10 mg DAILY PRN PO DEPRESSION; Start 02/20/17 at 13:30 Diagnostic Test (Pha) (Accu-Chek) 1 ea 02 XX ; Start 02/22/17 at 02:00 Ondansetron HCl (Zofran Inj) 4 mg Q4 PRN IV NAUSEA AND/OR VOMITING Last administered on 02/22/17 06:08; Admin Dose 4 MG; Start 02/21/17 at 17:00 Famotidine (Pepcid Iv) 20 mg BID IV Last administered on 02/22/17 08:43; Admin Dose 20 MG; Start 02/21/17 at 21:00 Insulin Glargine (Lantus) 6 unit DAILY@20 SC Last administered on 02/21/17 21: 24; Admin Dose 6 UNIT; Start 02/21/17 at 21:00 GLENN PALMER Feb 22, 2017 12:55
[2017-02-22 15:33] VITALS: BP 117/58; RESP 18
--- NOTE | 2017-02-22 16:46 | RADRPT ---
PROCEDURE: XR Chest. CLINICAL INDICATION: Preoperative. TECHNIQUE: Single frontal view. COMPARISON: None. FINDINGS: The lungs are clear. There is right internal jugular vein implanted port central venous catheter wi th the tip in the cavoatrial junction region. The heart size is normal. There is no pleural effusion. There is no pneumothorax. IMPRESSION: 1. Central line in satisfactory position. 2. Clear lungs. RPTAT: QQ .Alfonzo Bullock MD, MD Date Time Electronically viewed and signed by .Alfonzo Bullock MD, MD on 02/22/2017 16:46 .R/
[2017-02-22 20:02] VITALS: BP 132/62; RESP 18
[2017-02-22] MEDS: INSULIN GLARGINE [LANtus] 3 ML PEN SC SCH (20:44)
[2017-02-22] MEDS: METOCLOPRAMIDE 10 MG INJ IV SCH (20:50)
[2017-02-23] VITALS (35 sets, daily range): BP systolic 115–160; BP diastolic 41–83; PULSE 65–147; RESP 9–29
[2017-02-23] MEDS ORDERED: D5-NS + KCL 20 MEQ 1,000 ML IV SCH
[2017-02-23] MEDS: INSULIN ASPART [NOVOLOG] 3 ML PEN SC SCH ×6 (01:45→20:29)
[2017-02-23] MEDS: METOCLOPRAMIDE 10 MG INJ IV SCH ×4 (02:00→18:09)
[2017-02-23] MEDS ORDERED: ACCU-CHEK XX SCH (02:00)
[2017-02-23] MEDS: HYDROmorphONE 1 MG/ML SYG IV PRN (02:26)
[2017-02-23 05:14] LABS: BASOPHILS % 0.2 % (0.0-2.0); EOSINOPHILS # 0.2 10^3/ul (0.0-0.5); EOSINOPHILS % 1.7 % (0.0-7.0); HEMATOCRIT 39.5 % (37.0-47.0); HEMOGLOBIN 12.9 g/dl (12.0-16.0); LYMPHOCYTES # 2.7 10^3/ul (0.8-2.9); LYMPHOCYTES % 27.3 % (15.0-51.0); MEAN CORPUSCULAR HEMOGLOBIN 28.2 pg (29.0-33.0); MEAN CORPUSCULAR HGB CONC 32.7 g/dl (32.0-37.0); MEAN CORPUSCULAR VOLUME 86.2 fl (82.0-101.0); MEAN PLATELET VOLUME 10.6 fl (7.4-10.4); MONOCYTE # 0.6 10^3/ul (0.3-0.9); MONOCYTES % 6.1 % (0.0-11.0); NEUTROPHIL # 6.4 10^3/ul (1.6-7.5); NEUTROPHILS % 64.4 % (39.0-77.0); PLATELET COUNT 292 10^3/UL (140-415); RED BLOOD COUNT 4.58 10^6/ul (4.20-5.40); RED CELL DISTRIBUTION WIDTH 12.9 % (11.5-14.5)
[2017-02-23 05:29] LABS: INR 0.97; PARTIAL THROMBOPLASTIN TIME 20.2 Sec (25.0-35.0); PROTIME 12.9 Sec (12.2-14.2)
[2017-02-23 05:30] LABS: THROMBIN TIME 14.8 SEC (13.8-19.1)
[2017-02-23 05:46] LABS: CALCIUM 9.1 mg/dl (8.4-10.2); CREATININE 0.48 mg/dl (0.44-1.00); POTASSIUM 3.6 mmol/L (3.5-5.1)
[2017-02-23] MEDS ORDERED: THROMBIN 5000 UNIT VIAL ONE (06:56)
[2017-02-23] MEDS ORDERED: VASOPRESSIN 20 UNITS INJ ONE (06:56)
[2017-02-23] MEDS ORDERED: GELATIN SIZE 100 SPONGE ONE (06:56)
[2017-02-23] MEDS ORDERED: METHYLENE BLUE 1% 10 ML INJ ONE (06:57)
[2017-02-23] MEDS ORDERED: FENTAnyl 50 MCG/ML VIAL ONE ×3 (07:16→13:49)
[2017-02-23] MEDS ORDERED: SUCCINYLCHOLINE CHLORIDE 100 MG/5 ML SYG IV ONE (07:16)
[2017-02-23] MEDS ORDERED: PROPOFOL 20 ML ONE (07:16)
[2017-02-23] MEDS ORDERED: MIDAZOLAM 1 MG/ML 2 ML INJ ONE (07:16)
[2017-02-23] MEDS ORDERED: LIDOCAINE 2% (SDV) 5 ML INJ ONE (07:16)
--- NOTE | 2017-02-23 07:25 | HPN ---
Date/Time of Note Date/Time of Note DATE: 02/23/17 TIME: 07:25 Interval H&P Admission Note Pt. seen H&P reviewed: No system changes MARIA DE JESUS MENDOZA MD Feb 23, 2017 07:25
[2017-02-23] MEDS ORDERED: ONDANSETRON 4 MG INJ IV PRN (08:00)
[2017-02-23] MEDS ORDERED: HYDROmorphONE (0.2 MG/ML) 10ML SYG IV PRN (08:00)
[2017-02-23] MEDS ORDERED: FENTAnyl 50 MCG/ML VIAL IV PRN (08:00)
[2017-02-23] MEDS ORDERED: DIPHENHYDRAMINE 50 MG INJ IV PRN (08:00)
[2017-02-23] MEDS ORDERED: MEPERIDINE 25 MG INJ IV PRN (08:00)
[2017-02-23] MEDS ORDERED: PROCHLORPERAZINE 10 MG INJ IV PRN (08:00)
[2017-02-23] MEDS: FAMOTIDINE 20 MG INJ IV SCH ×2 (08:15→20:34)
[2017-02-23] MEDS: ATORVASTATIN 40 MG TAB PO SCH (08:15)
[2017-02-23] MEDS ORDERED: ACETAMINOPHEN 1000MG/100ML IV 100 ML ONE ×2 (09:11→13:59)
[2017-02-23] MEDS ORDERED: metroNIDAZOLE 500 MG/NS (PMX) 100 ML IVPB ONE (09:11)
[2017-02-23] MEDS ORDERED: ROCURONIUM 50 MG INJ ONE ×2 (09:11→11:14)
[2017-02-23] MEDS ORDERED: CEFAZOLIN 1 GM INJ ONE ×2 (09:11→12:09)
[2017-02-23] MEDS ORDERED: METOCLOPRAMIDE 10 MG INJ ONE (09:13)
[2017-02-23] MEDS ORDERED: ONDANSETRON 4 MG INJ ONE ×2 (09:13→14:22)
[2017-02-23] MEDS ORDERED: EPHEDrine SULFATE 50 MG/5 ML SYG ONE (09:16)
[2017-02-23] MEDS ORDERED: HYDROmorphONE 2 MG/ML SYG ONE (09:39)
[2017-02-23] MEDS ORDERED: KETAMINE 500 MG INJ ONE (10:24)
[2017-02-23] MEDS ORDERED: ALBUMIN HUMAN 5% 250 ML ONE ×2 (10:55→13:25)
[2017-02-23] MEDS ORDERED: PHENYLephrine (100 MCG/ML) 5ML SYG ONE (12:46)
--- NOTE | 2017-02-23 13:08 | QN ---
Documentation Comment Patient off floor for surgery. staff CUATE HAGEN Feb 23, 2017 13:08
[2017-02-23] MEDS ORDERED: ROPIVACAINE 0.2% 20 ML VIAL ONE (13:46)
[2017-02-23] MEDS ORDERED: SUGAMMADEX SODIUM 200 MG/2 ML VIAL IV ONE (14:00)
[2017-02-23] MEDS: HYDROmorphONE (0.2 MG/ML) 10ML SYG IV PRN ×3 (15:28→15:52)
[2017-02-23] MEDS ORDERED: HYDROmorphONE 1 MG/ML SYG IV PRN (15:30)
--- NOTE | 2017-02-23 15:35 | OPPN ---
Date/Time of Note Date/Time of Note DATE: 02/23/17 TIME: 15:29 Operative Report Preoperative Diagnosis recurrent ov ca Postoperative Diagnosis same with partial SBO, LBO and ureteral stricture Operation/Procedure Performed 1- Low rectal resection and anastamosis 2- bilateral UD 3- small bowel resection and anastamosis x2 4- extensive cytoreduction 5- retroperitoneal LND Provider: MARIA DE JESUS MENDOZA MD investigative assistant: MISTY CALABRESE MD Anesthesia Type: general Estimated blood loss: 250 - 300 ml's Transfusion Required: no Specimens multiple Complications: no MARIA DE JESUS MENDOZA MD Feb 23, 2017 15:35
[2017-02-23 15:52] LABS: BASOPHILS % 0.2 % (0.0-2.0); HEMATOCRIT 35.9 % (37.0-47.0); HEMOGLOBIN 11.9 g/dl (12.0-16.0); LYMPHOCYTES # 1.2 10^3/ul (0.8-2.9); LYMPHOCYTES % 9.4 % (15.0-51.0); MEAN CORPUSCULAR HGB CONC 33.1 g/dl (32.0-37.0); MEAN CORPUSCULAR VOLUME 87.3 fl (82.0-101.0); MEAN PLATELET VOLUME 9.3 fl (7.4-10.4); MONOCYTE # 0.9 10^3/ul (0.3-0.9); MONOCYTES % 6.9 % (0.0-11.0); NEUTROPHIL # 10.8 10^3/ul (1.6-7.5); NEUTROPHILS % 83.3 % (39.0-77.0); PLATELET COUNT 319 10^3/UL (140-415); RED BLOOD COUNT 4.11 10^6/ul (4.20-5.40); RED CELL DISTRIBUTION WIDTH 12.7 % (11.5-14.5)
[2017-02-23 16:14] LABS: ALBUMIN 3.3 g/dl (3.3-4.9); ALBUMIN/GLOBULIN RATIO 1.57; BILIRUBIN,INDIRECT 0.3 mg/dl (0-1.1); BILIRUBIN,TOTAL 0.3 mg/dl (0.2-1.3); TOTAL PROTEIN 5.4 g/dl (6.1-8.1)
[2017-02-23 16:15] LABS: CALCIUM 7.6 mg/dl (8.4-10.2); CREATININE 0.47 mg/dl (0.44-1.00); POTASSIUM 3.7 mmol/L (3.5-5.1)
[2017-02-23 16:19] LABS: HOLD TRANSMISSIONS 1
[2017-02-23] MEDS ORDERED: CEFAZOLIN 1 GM in SOD CHLORIDE 0.9% 100 ML IVPB SCH (17:30)
[2017-02-23] MEDS: metroNIDAZOLE 500 MG/NS (PMX) 100 ML IVPB SCH (18:02)
[2017-02-23] MEDS: POTASSIUM CHLORIDE 20 MEQ in LACTATED RINGER'S 1,000 ML IV SCH (18:04)
[2017-02-23] MEDS: CEFAZOLIN 1 GM/50 ML (PMX) 50 ML IVPB SCH (18:09)
[2017-02-23] MEDS: INSULIN GLARGINE [LANtus] 3 ML PEN SC SCH (20:25)
[2017-02-23] MEDS: HYDROmorphONE 0.2 MG/ML PCA IV SCH (20:36)
--- NOTE | 2017-02-23 22:11 | PN ---
Date/Time of Note Date/Time of Note DATE: 02/23/17 TIME: 21:58 Assessment/Plan VTE Prophylaxis VTE Prophylaxis Intervention: SCD's Lines/Catheters IV Catheter Type (from Nrsg): A Line Urinary Cath still in place: Yes Reason Cath still needed: urinary retention Assessment/Plan Assessment/Plan - SP Low rectal resection and anastomosis, bilateral UD, small bowel resection and anastamosis x2. extensive cytoreduction, retroperitoneal LND today - per surgery - ICU monitoring - IVF - Dilaudid [employer] LEAD[employer] - NPO -Intractable of abdominal pain, nausea and vomiting secondary to recurrent ovarian cancer. -Continue Zofran as needed for nausea and Dilaudid as needed for pain. - Partial Small Bowel Obstruction - Ureteral stricture -Recurrent Ovarian CA, status post primary cytoreduction chemotherapy. Patient is followed by Dr. Morris. Plan for secondary cytoreduction on . -Diabetes mellitus type 2, hemoglobin A1c is 8.6, Lantus and NovoLog. -Hyperlipidemia,will hold off po statin. Total critical care time spent in 45 mins.. Further recommendations based on clinical course. Plan of care discussed with Dr. Hester/ staff Subjective 24 Hr Interval Summary Free Text/Dictation alert/awake/ answers simple Qs. family at bed side. 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 Constitutional: requiring IVF, requiring O2 Respiratory: no complaints Cardiovascular: no complaints Gastrointestinal: other (surgical pain) Genitourinary: no complaints Musculoskeletal: no complaints Exam/Review of Systems Vital Signs Vitals Vital Signs Date Time Temp Pulse Resp B/P Pulse Ox O2 Delivery O2 Flow Rate FiO2 02/23/17 21:00 120 14 130/78 100 02/23/17 20:00 Nasal Cannula 4.0 02/23/17 20:00 96.8 Intake and Output 02/22/17 02/22/17 02/23/17 15:00 23:00 07:00 Intake Total 2720 ml 2440 ml Balance 2720 ml 2440 ml Exam Constitutional: alert, oriented, well developed Respiratory: diminished breath sounds Cardiovascular: nl pulses, other (tachycardia) Gastrointestinal: other (surgical abdomen- abdominal dressing noted- DDI.), tender Musculoskeletal: nl extremities to inspection Extremities: normal pulses Neurological: nl speech, other (sleepy but is able to answer simple questions) Results Result Diagram: 02/23/17 1537 02/23/17 1537 Results 24 hrs Laboratory Tests Test 02/23/17 01:39 02/23/17 04:39 02/23/17 05:02 02/23/17 07:05 Bedside Glucose 75 122 White Blood Count 10.0 Red Blood Count 4.58 Hemoglobin 12.9 Hematocrit 39.5 Mean Corpuscular Volume 86.2 Mean Corpuscular Hemoglobin 28.2 L Mean Corpuscular Hemoglobin Concent 32.7 Red Cell Distribution Width 12.9 Platelet Count 320 Mean Platelet Volume 10.6 H Neutrophils % 64.4 Lymphocytes % 27.3 Monocytes % 6.1 Eosinophils % 1.7 Basophils % 0.2 Nucleated Red Blood Cells % 0.0 Neutrophils # 6.4 Lymphocytes # 2.7 Monocytes # 0.6 Eosinophils # 0.2 Basophils # 0.0 Nucleated Red Blood Cells # 0.0 Prothrombin Time 12.9 Prothrombin Time Ratio 1.0 INR International Normalized Ratio 0.97 Activated Partial Thromboplast Time 20.2 L Thrombin Time 14.8 Sodium Level 142 Potassium Level 3.6 Chloride Level 100 Carbon Dioxide Level 27 Anion Gap 19 H Blood Urea Nitrogen 5 L Creatinine 0.48 Glucose Level 126 Calcium Level 9.1 Urine Test NEGATIVE Test 02/23/17 07:50 02/23/17 15:13 02/23/17 15:37 02/23/17 18:00 Bedside Glucose 115 158 193 White Blood Count 13.0 #H Red Blood Count 4.11 L Hemoglobin 11.9 L Hematocrit 35.9 L Mean Corpuscular Volume 87.3 Mean Corpuscular Hemoglobin 29.0 Mean Corpuscular Hemoglobin Concent 33.1 Red Cell Distribution Width 12.7 Platelet Count 319 Mean Platelet Volume 9.3 Neutrophils % 83.3 H Lymphocytes % 9.4 L Monocytes % 6.9 Eosinophils % 0.0 Basophils % 0.2 Nucleated Red Blood Cells % 0.0 Neutrophils # 10.8 H Lymphocytes # 1.2 Monocytes # 0.9 Eosinophils # 0.0 Basophils # 0.0 Nucleated Red Blood Cells # 0.0 CBC Results Faxed/Phoned 1 *H Sodium Level 139 Potassium Level 3.7 Chloride Level 104 Carbon Dioxide Level 22 Anion Gap 17 H Blood Urea Nitrogen 5 L Creatinine 0.47 Glucose Level 201 Calcium Level 7.6 L Total Bilirubin 0.3 Direct Bilirubin 0.00 Indirect Bilirubin 0.3 Aspartate Amino Transf (AST/SGOT) 299 H Alanine Aminotransferase (ALT/SGPT) 269 H Alkaline Phosphatase 69 Total Protein 5.4 L Albumin 3.3 Globulin 2.10 Albumin/Globulin Ratio 1.57 Test 02/23/17 20:20 Bedside Glucose 197 Medications Medications Current Medications Hydromorphone HCl (Dilaudid) 0.5 mg Q3H PRN IV PAIN Last administered on 02:26; Admin Dose 0.5 MG; Start 02/19/17 at 04:00 Miscellaneous Information 1 ea NOTE XX ; Start 02/19/17 at 04:30 Glucose (Glutose) 15 gm Q15M PRN PO DECREASED GLUCOSE; Start 02/19/17 at 04:30 Glucose (Glutose) 22.5 gm Q15M PRN PO DECREASED GLUCOSE; Start 02/19/17 at 04:30 Dextrose (D50w Syringe) 25 ml Q15M PRN IV DECREASED GLUCOSE; Start 02/19/17 at 04:30 Dextrose (D50w Syringe) 50 ml Q15M PRN IV DECREASED GLUCOSE; Start 02/19/17 at 04:30 Glucagon (Glucagen) 1 mg Q15M PRN IM DECREASED GLUCOSE; Start 02/19/17 at 04:30 Glucose (Glutose) 15 gm Q15M PRN BUCCAL DECREASED GLUCOSE; Start 02/19/17 at 04: 30 Atorvastatin Calcium (Lipitor) 40 mg DAILY PO Last administered on 02/22/17 08: 42; Admin Dose 40 MG; Start 02/21/17 at 09:00 Escitalopram Oxalate (Lexapro) 10 mg DAILY PRN PO DEPRESSION; Start 02/20/17 at 13:30 Ondansetron HCl (Zofran Inj) 4 mg Q4 PRN IV NAUSEA AND/OR VOMITING Last administered on 02/22/17 22:03; Admin Dose 4 MG; Start 02/21/17 at 17:00 Insulin Glargine (Lantus) 10 unit DAILY@20 SC Last administered on 02/23/17 20 :25; Admin Dose 10 UNIT; Start 02/22/17 at 20:00 Metoclopramide HCl (Reglan) 10 mg Q6 IV Last administered on 02/23/17 18:09; Admin Dose 10 MG; Start 02/22/17 at 21:00 Insulin Aspart NOVOLOG *MILD* ALGORI... Q4 SC Last administered on 02/23/17 20 :29; Admin Dose 2 UNIT; Start 02/23/17 at 01:00 Metronidazole (Flagyl 500 Mg (Pmx)) 100 ml @ 100 mls/hr Q8H IVPB Last administered on 02/23/17 18:02; Admin Dose 100 MLS/HR; Start 02/23/17 at 17:30 ; Stop 02/24/17 at 17:29 Hydromorphone HCl (Dilaudid) 1 mg Q2H PRN IV PAIN LEVEL 6-10 Last administered on 02/23/17 17:46; Admin Dose 1 MG; Start 02/23/17 at 15:30 Ondansetron HCl (Zofran Inj) 4 mg Q6H PRN IV NAUSEA AND/OR VOMITING; Start 05/02 at 15:30 Famotidine 20 mg 20 mg Q12 IV Last administered on 02/23/17 20:34; Admin Dose 20 MG; Start 02/23/17 at 21:00 Potassium Chloride 20 meq/ Lactated Ringer's 1,010 ml @ 150 mls/hr Q6H44M IV Last administered on 02/23/17 18:04; Admin Dose 150 MLS/HR; Start 02/23/17 at 17:30 Cefazolin Sodium (Ancef 1 Gm/50 ml (Pmx)) 50 ml @ 100 mls/hr Q8H IVPB Last administered on 02/23/17 18:09; Admin Dose 100 MLS/HR; Start 02/23/17 at 18:00 ; Stop 02/24/17 at 10:29 Hydromorphone HCl (Dilaudid [employer] TE[employer] LEADER) MG/HR CONTINUOUS RATE ... Q4PCA IV Last administered on 02/23/17 20:36; Admin Dose 0.2 MG; Start 02/23/17 at 19:30 CUATE HAGEN Feb 23, 2017 22:08
[2017-02-24] VITALS (63 sets, daily range): BP systolic 85–140; BP diastolic 45–119; PULSE 124–158; RESP 11–32
[2017-02-24] MEDS: METOCLOPRAMIDE 10 MG INJ IV SCH ×5 (00:37→23:51)
[2017-02-24] MEDS: POTASSIUM CHLORIDE 20 MEQ in LACTATED RINGER'S 1,000 ML IV SCH ×4 (00:38→19:41)
[2017-02-24] MEDS: metroNIDAZOLE 500 MG/NS (PMX) 100 ML IVPB SCH ×2 (00:38→08:52)
[2017-02-24] MEDS: INSULIN ASPART [NOVOLOG] 3 ML PEN SC SCH ×6 (01:00→20:53)
[2017-02-24] MEDS: CEFAZOLIN 1 GM/50 ML (PMX) 50 ML IVPB SCH ×2 (01:52→09:59)
[2017-02-24] MEDS: HYDROmorphONE 0.2 MG/ML PCA IV SCH ×2 (05:49→17:42)
[2017-02-24 05:55] LABS: BASOPHILS % 0.1 % (0.0-2.0); HEMATOCRIT 40.1 % (37.0-47.0); HEMOGLOBIN 13.2 g/dl (12.0-16.0); LYMPHOCYTES % 5.3 % (15.0-51.0); MEAN CORPUSCULAR HEMOGLOBIN 28.8 pg (29.0-33.0); MEAN CORPUSCULAR HGB CONC 32.9 g/dl (32.0-37.0); MEAN CORPUSCULAR VOLUME 87.4 fl (82.0-101.0); MEAN PLATELET VOLUME 9.9 fl (7.4-10.4); MONOCYTE # 0.9 10^3/ul (0.3-0.9); MONOCYTES % 4.6 % (0.0-11.0); NEUTROPHIL # 17.3 10^3/ul (1.6-7.5); NEUTROPHILS % 89.5 % (39.0-77.0); PLATELET COUNT 402 10^3/UL (140-415); RED BLOOD COUNT 4.59 10^6/ul (4.20-5.40); RED CELL DISTRIBUTION WIDTH 12.9 % (11.5-14.5); WHITE BLOOD COUNT 19.4 10^3/ul (4.8-10.8)
[2017-02-24 06:17] LABS: INR 1.17; PT RATIO 1.2
[2017-02-24 06:39] LABS: ALBUMIN/GLOBULIN RATIO 1.36; BILIRUBIN,INDIRECT 0.3 mg/dl (0-1.1); BILIRUBIN,TOTAL 0.3 mg/dl (0.2-1.3); CALCIUM 8.2 mg/dl (8.4-10.2); CREATININE 0.62 mg/dl (0.44-1.00); POTASSIUM 4.1 mmol/L (3.5-5.1); TOTAL PROTEIN 5.2 g/dl (6.1-8.1)
[2017-02-24] MEDS: FAMOTIDINE 20 MG INJ IV SCH ×2 (08:52→20:45)
[2017-02-24] MEDS: ATORVASTATIN 40 MG TAB PO SCH (09:49)
--- NOTE | 2017-02-24 12:50 | PN ---
Date/Time of Note Date/Time of Note DATE: 02/24/17 TIME: 12:46 Assessment/Plan VTE Prophylaxis VTE Prophylaxis Intervention: SCD's Lines/Catheters IV Catheter Type (from Nrs): A Line Urinary Cath still in place: Yes Reason Cath still needed: urinary retention Assessment/Plan Chief Complaint/Hosp Course Patient is postop day #1. Patient it currently on [employer] morphine for pain control. Patient is tachycardic, with a borderline BP, awake alert, currently on IV fluids at 150 cc/h, adequate urine output. Continue ICU care. Will increased Lantus continue NovoLog per sliding scale with Accu-Chek every 4 hours. Assessment/Plan -Recurrent Ovarian CA, status post secondary cytoreduction by Dr. Morris on . Continue to follow-up surgical recommendation. -Intractable of abdominal pain, nausea and vomiting secondary to recurrent ovarian cancer. Continue Zofran as needed for nausea and Dilaudid as needed for pain. -Diabetes mellitus type 2, hemoglobin A1c is 8.6, continue Lantus and NovoLog. -Hyperlipidemia, continue statin. Further recommendations based on clinical course. Plan of care discussed with Dr. Hester. Problems: Exam/Review of Systems Vital Signs Vitals Vital Signs Date Time Temp Pulse Resp B/P Pulse Ox O2 Delivery O2 Flow Rate FiO2 02/24/17 11:15 131 13 91/56 98 02/24/17 11:00 Nasal Cannula 2.0 02/24/17 08:00 98.2 Intake and Output 02/23/17 02/23/17 02/24/17 15:00 23:00 07:00 Intake Total 4950 ml 1275 ml Output Total 920 ml 460 ml Balance 4030 ml 815 ml Exam Constitutional: alert, oriented Neck: supple Respiratory: normal air movement Cardiovascular: nl pulses, other Gastrointestinal: other (Status post surgery), soft, tender Extremities: normal pulses Neurological: nl mental status Results Result Diagram: 02/24/17 0524 02/24/17 0524 Results 24 hrs Laboratory Tests Test 02/23/17 15:13 02/23/17 15:37 02/23/17 18:00 02/23/17 20:20 Bedside Glucose 158 193 197 White Blood Count 13.0 #H Red Blood Count 4.11 L Hemoglobin 11.9 L Hematocrit 35.9 L Mean Corpuscular Volume 87.3 Mean Corpuscular Hemoglobin 29.0 Mean Corpuscular Hemoglobin Concent 33.1 Red Cell Distribution Width 12.7 Platelet Count 319 Mean Platelet Volume 9.3 Neutrophils % 83.3 H Lymphocytes % 9.4 L Monocytes % 6.9 Eosinophils % 0.0 Basophils % 0.2 Nucleated Red Blood Cells % 0.0 Neutrophils # 10.8 H Lymphocytes # 1.2 Monocytes # 0.9 Eosinophils # 0.0 Basophils # 0.0 Nucleated Red Blood Cells # 0.0 CBC Results Faxed/Phoned 1 *H Sodium Level 139 Potassium Level 3.7 Chloride Level 104 Carbon Dioxide Level 22 Anion Gap 17 H Blood Urea Nitrogen 5 L Creatinine 0.47 Glucose Level 201 Calcium Level 7.6 L Total Bilirubin 0.3 Direct Bilirubin 0.00 Indirect Bilirubin 0.3 Aspartate Amino Transf (AST/SGOT) 299 H Alanine Aminotransferase (ALT/SGPT) 269 H Alkaline Phosphatase 69 Total Protein 5.4 L Albumin 3.3 Globulin 2.10 Albumin/Globulin Ratio 1.57 Test 02/24/17 00:52 02/24/17 04:49 02/24/17 05:24 02/24/17 09:02 Bedside Glucose 195 205 181 White Blood Count 19.4 #H Red Blood Count 4.59 Hemoglobin 13.2 Hematocrit 40.1 Mean Corpuscular Volume 87.4 Mean Corpuscular Hemoglobin 28.8 L Mean Corpuscular Hemoglobin Concent 32.9 Red Cell Distribution Width 12.9 Platelet Count 402 # Mean Platelet Volume 9.9 Neutrophils % 89.5 H Lymphocytes % 5.3 L Monocytes % 4.6 Eosinophils % 0.0 Basophils % 0.1 Nucleated Red Blood Cells % 0.0 Neutrophils # 17.3 H Lymphocytes # 1.0 Monocytes # 0.9 Eosinophils # 0.0 Basophils # 0.0 Nucleated Red Blood Cells # 0.0 Prothrombin Time 15.0 H Prothrombin Time Ratio 1.2 INR International Normalized Ratio 1.17 Sodium Level 141 Potassium Level 4.1 Chloride Level 102 Carbon Dioxide Level 24 Anion Gap 19 H Blood Urea Nitrogen 9 Creatinine 0.62 Glucose Level 224 H Calcium Level 8.2 L Total Bilirubin 0.3 Direct Bilirubin 0.00 Indirect Bilirubin 0.3 Aspartate Amino Transf (AST/SGOT) 110 H Alanine Aminotransferase (ALT/SGPT) 150 H Alkaline Phosphatase 63 Total Protein 5.2 L Albumin 3.0 L Globulin 2.20 Albumin/Globulin Ratio 1.36 Medications Medications Current Medications Hydromorphone HCl (Dilaudid) 0.5 mg Q3H PRN IV PAIN Last administered on 02:26; Admin Dose 0.5 MG; Start 02/19/17 at 04:00 Miscellaneous Information 1 ea NOTE XX ; Start 02/19/17 at 04:30 Glucose (Glutose) 15 gm Q15M PRN PO DECREASED GLUCOSE; Start 02/19/17 at 04:30 Glucose (Glutose) 22.5 gm Q15M PRN PO DECREASED GLUCOSE; Start 02/19/17 at 04:30 Dextrose (D50w Syringe) 25 ml Q15M PRN IV DECREASED GLUCOSE; Start 02/19/17 at 04:30 Dextrose (D50w Syringe) 50 ml Q15M PRN IV DECREASED GLUCOSE; Start 02/19/17 at 04:30 Glucagon (Glucagen) 1 mg Q15M PRN IM DECREASED GLUCOSE; Start 02/19/17 at 04:30 Glucose (Glutose) 15 gm Q15M PRN BUCCAL DECREASED GLUCOSE; Start 02/19/17 at 04: 30 Atorvastatin Calcium (Lipitor) 40 mg DAILY PO Last administered on 02/24/17 09 :49; Admin Dose 40 MG; Start 02/21/17 at 09:00 Escitalopram Oxalate (Lexapro) 10 mg DAILY PRN PO DEPRESSION; Start 02/20/17 at 13:30 Ondansetron HCl (Zofran Inj) 4 mg Q4 PRN IV NAUSEA AND/OR VOMITING Last administered on 02/22/17 22:03; Admin Dose 4 MG; Start 02/21/17 at 17:00 Insulin Glargine (Lantus) 10 unit DAILY@20 SC Last administered on 02/23/17 20 :25; Admin Dose 10 UNIT; Start 02/22/17 at 20:00 Metoclopramide HCl (Reglan) 10 mg Q6 IV Last administered on 02/24/17 11:46; Admin Dose 10 MG; Start 02/22/17 at 21:00 Insulin Aspart NOVOLOG *MILD* ALGORI... Q4 SC Last administered on 02/24/17 09 :07; Admin Dose 2 UNIT; Start 02/23/17 at 01:00 Metronidazole (Flagyl 500 Mg (Pmx)) 100 ml @ 100 mls/hr Q8H IVPB Last administered on 02/24/17 08:52; Admin Dose 100 MLS/HR; Start 02/23/17 at 17:30 ; Stop 02/24/17 at 17:29 Hydromorphone HCl (Dilaudid) 1 mg Q2H PRN IV PAIN LEVEL 6-10 Last administered on 02/23/17 17:46; Admin Dose 1 MG; Start 02/23/17 at 15:30 Ondansetron HCl (Zofran Inj) 4 mg Q6H PRN IV NAUSEA AND/OR VOMITING; Start 05/02 at 15:30 Famotidine 20 mg 20 mg Q12 IV Last administered on 02/24/17 08:52; Admin Dose 20 MG; Start 02/23/17 at 21:00 Potassium Chloride/Lactated Ringer's (KCl/Lr) 1,010 ml @ 150 mls/hr Q6H44M IV Last administered on 02/24/17 10:42; Admin Dose 150 MLS/HR; Start 02/23/17 at 17:30 Hydromorphone HCl (Dilaudid [employer]) MG/HR CONTINUOUS RATE ... Q4PCA IV Last administered on 02/24/17 05:49; Admin Dose 6 MG; Start 02/23/17 at 19:30 GLENN PALMER Feb 24, 2017 12:50
--- NOTE | 2017-02-24 15:53 | PN ---
Date/Time of Note Date/Time of Note DATE: 02/24/17 TIME: 15:49 Assessment/Plan VTE Prophylaxis VTE Prophylaxis Intervention: SCD's Lines/Catheters IV Catheter Type (from Nrsg): A Line Urinary Cath still in place: Yes Reason Cath still needed: urinary retention Assessment/Plan Chief Complaint/Hosp Course ovarian cancer Problems: Assessment/Plan A- doing OK other than tachycardia and some hypotension due to third spacing. P- Must stay in ICU; keep high IV and add 500 ml 5% albumen. Subjective 24 Hr Interval Summary Free Text/Dictation Pain controlled but somewhat interested in going to 4th floor per patient. Exam/Review of Systems Vital Signs Vitals Vital Signs Date Time Temp Pulse Resp B/P Pulse Ox O2 Delivery O2 Flow Rate FiO2 02/24/17 14:00 126 13 99/56 99 Nasal Cannula 2.0 02/24/17 12:00 98.6 Intake and Output 02/23/17 02/23/17 02/24/17 15:00 23:00 07:00 Intake Total 4950 ml 1275 ml Output Total 920 ml 460 ml Balance 4030 ml 815 ml Exam Resp- clear CVS- NSR Abd- soft , mild tender, clean Ext- NT no edema Results Result Diagram: 02/24/17 0524 02/24/17 0524 Results 24 hrs Laboratory Tests Test 02/23/17 18:00 02/23/17 20:20 02/24/17 00:52 02/24/17 04:49 Bedside Glucose 193 197 195 205 Test 02/24/17 05:24 02/24/17 09:02 02/24/17 13:05 White Blood Count 19.4 #H Red Blood Count 4.59 Hemoglobin 13.2 Hematocrit 40.1 Mean Corpuscular Volume 87.4 Mean Corpuscular Hemoglobin 28.8 L Mean Corpuscular Hemoglobin Concent 32.9 Red Cell Distribution Width 12.9 Platelet Count 402 # Mean Platelet Volume 9.9 Neutrophils % 89.5 H Lymphocytes % 5.3 L Monocytes % 4.6 Eosinophils % 0.0 Basophils % 0.1 Nucleated Red Blood Cells % 0.0 Neutrophils # 17.3 H Lymphocytes # 1.0 Monocytes # 0.9 Eosinophils # 0.0 Basophils # 0.0 Nucleated Red Blood Cells # 0.0 Prothrombin Time 15.0 H Prothrombin Time Ratio 1.2 INR International Normalized Ratio 1.17 Sodium Level 141 Potassium Level 4.1 Chloride Level 102 Carbon Dioxide Level 24 Anion Gap 19 H Blood Urea Nitrogen 9 Creatinine 0.62 Glucose Level 224 H Calcium Level 8.2 L Total Bilirubin 0.3 Direct Bilirubin 0.00 Indirect Bilirubin 0.3 Aspartate Amino Transf (AST/SGOT) 110 H Alanine Aminotransferase (ALT/SGPT) 150 H Alkaline Phosphatase 63 Total Protein 5.2 L Albumin 3.0 L Globulin 2.20 Albumin/Globulin Ratio 1.36 Bedside Glucose 181 179 Medications Medications Current Medications Hydromorphone HCl (Dilaudid) 0.5 mg Q3H PRN IV PAIN Last administered on 02:26; Admin Dose 0.5 MG; Start 02/19/17 at 04:00 Miscellaneous Information 1 ea NOTE XX ; Start 02/19/17 at 04:30 Glucose (Glutose) 15 gm Q15M PRN PO DECREASED GLUCOSE; Start 02/19/17 at 04:30 Glucose (Glutose) 22.5 gm Q15M PRN PO DECREASED GLUCOSE; Start 02/19/17 at 04:30 Dextrose (D50w Syringe) 25 ml Q15M PRN IV DECREASED GLUCOSE; Start 02/19/17 at 04:30 Dextrose (D50w Syringe) 50 ml Q15M PRN IV DECREASED GLUCOSE; Start 02/19/17 at 04:30 Glucagon (Glucagen) 1 mg Q15M PRN IM DECREASED GLUCOSE; Start 02/19/17 at 04:30 Glucose (Glutose) 15 gm Q15M PRN BUCCAL DECREASED GLUCOSE; Start 02/19/17 at 04: 30 Atorvastatin Calcium (Lipitor) 40 mg DAILY PO Last administered on 02/24/17 09 :49; Admin Dose 40 MG; Start 02/21/17 at 09:00 Escitalopram Oxalate (Lexapro) 10 mg DAILY PRN PO DEPRESSION; Start 02/20/17 at 13:30 Ondansetron HCl (Zofran Inj) 4 mg Q4 PRN IV NAUSEA AND/OR VOMITING Last administered on 02/22/17 22:03; Admin Dose 4 MG; Start 02/21/17 at 17:00 Metoclopramide HCl (Reglan) 10 mg Q6 IV Last administered on 02/24/17 11:46; Admin Dose 10 MG; Start 02/22/17 at 21:00 Insulin Aspart NOVOLOG *MILD* ALGORI... Q4 SC Last administered on 02/24/17 13 :09; Admin Dose 1 UNIT; Start 02/23/17 at 01:00 Metronidazole (Flagyl 500 Mg (Pmx)) 100 ml @ 100 mls/hr Q8H IVPB Last administered on 02/24/17 08:52; Admin Dose 100 MLS/HR; Start 02/23/17 at 17:30 ; Stop 02/24/17 at 17:29 Hydromorphone HCl (Dilaudid) 1 mg Q2H PRN IV PAIN LEVEL 6-10 Last administered on 02/23/17 17:46; Admin Dose 1 MG; Start 02/23/17 at 15:30 Ondansetron HCl (Zofran Inj) 4 mg Q6H PRN IV NAUSEA AND/OR VOMITING; Start 05/02 at 15:30 Famotidine 20 mg 20 mg Q12 IV Last administered on 02/24/17 08:52; Admin Dose 20 MG; Start 02/23/17 at 21:00 Potassium Chloride/Lactated Ringer's (KCl/Lr) 1,010 ml @ 150 mls/hr Q6H44M IV Last administered on 02/24/17 10:42; Admin Dose 150 MLS/HR; Start 02/23/17 at 17:30 Hydromorphone HCl (Dilaudid [employer]ER) MG/HR CONTINUOUS RATE ... Q4PCA IV Last administered on 02/24/17 05:49; Admin Dose 6 MG; Start 02/23/17 at 19:30 Insulin Glargine (Lantus) 14 unit DAILY@20 SC ; Start 02/24/17 at 20:00 MARIA DE JESUS MENDOZA MD Feb 24, 2017 15:53
[2017-02-24] MEDS: ALBUMIN HUMAN 5% 250 ML IV SCH ×2 (17:48→18:58)
[2017-02-24] MEDS: ONDANSETRON 4 MG INJ IV PRN (20:44)
[2017-02-24] MEDS: INSULIN GLARGINE [LANtus] 3 ML PEN SC SCH (20:53)
[2017-02-25] VITALS (22 sets, daily range): BP systolic 99–149; BP diastolic 47–92; PULSE 104–135; RESP 12–26
[2017-02-25] MEDS: INSULIN ASPART [NOVOLOG] 3 ML PEN SC SCH ×6 (01:33→20:41)
[2017-02-25] MEDS: POTASSIUM CHLORIDE 20 MEQ in LACTATED RINGER'S 1,000 ML IV SCH ×4 (03:56→23:22)
[2017-02-25 05:01] LABS: BASOPHILS % 0.1 % (0.0-2.0); EOSINOPHILS % 0.1 % (0.0-7.0); HEMATOCRIT 27.7 % (37.0-47.0); HEMOGLOBIN 9.4 g/dl (12.0-16.0); LYMPHOCYTES # 1.3 10^3/ul (0.8-2.9); LYMPHOCYTES % 7.1 % (15.0-51.0); MEAN CORPUSCULAR HEMOGLOBIN 29.8 pg (29.0-33.0); MEAN CORPUSCULAR HGB CONC 33.9 g/dl (32.0-37.0); MEAN CORPUSCULAR VOLUME 87.9 fl (82.0-101.0); MEAN PLATELET VOLUME 9.4 fl (7.4-10.4); MONOCYTE # 1.3 10^3/ul (0.3-0.9); MONOCYTES % 7.4 % (0.0-11.0); NEUTROPHIL # 15.3 10^3/ul (1.6-7.5); NEUTROPHILS % 84.6 % (39.0-77.0); PLATELET COUNT 257 10^3/UL (140-415); RED BLOOD COUNT 3.15 10^6/ul (4.20-5.40); RED CELL DISTRIBUTION WIDTH 13.1 % (11.5-14.5); WHITE BLOOD COUNT 18.1 10^3/ul (4.8-10.8)
[2017-02-25 05:17] LABS: ALBUMIN 2.8 g/dl (3.3-4.9); ALBUMIN/GLOBULIN RATIO 1.21; BILIRUBIN,INDIRECT 0.3 mg/dl (0-1.1); BILIRUBIN,TOTAL 0.3 mg/dl (0.2-1.3); CALCIUM 8.8 mg/dl (8.4-10.2); CREATININE 0.48 mg/dl (0.44-1.00); POTASSIUM 3.5 mmol/L (3.5-5.1); TOTAL PROTEIN 5.1 g/dl (6.1-8.1)
[2017-02-25] MEDS: HYDROmorphONE 0.2 MG/ML PCA IV SCH ×2 (05:25→21:42)
[2017-02-25] MEDS: METOCLOPRAMIDE 10 MG INJ IV SCH ×3 (05:31→17:29)
[2017-02-25 05:39] LABS: INR 1.42; PROTIME 17.4 Sec (12.2-14.2); PT RATIO 1.4
[2017-02-25] MEDS: FAMOTIDINE 20 MG INJ IV SCH ×2 (09:03→20:45)
[2017-02-25] MEDS: ATORVASTATIN 40 MG TAB PO SCH (09:04)
--- NOTE | 2017-02-25 11:43 | PN ---
Date/Time of Note Date/Time of Note DATE: 02/25/17 TIME: 11:33 Assessment/Plan VTE Prophylaxis VTE Prophylaxis Intervention: SCD's Lines/Catheters IV Catheter Type (from Nrsg): A Line Urinary Cath still in place: Yes Reason Cath still needed: urinary retention Assessment/Plan Assessment/Plan -Leukocytosis-trending down from yesterday. Continue to monitor. -Tachycardia -Recurrent Ovarian CA, status post secondary cytoreduction by Dr. Morris on . - Post OP day # 2 - Continue to follow-up surgical recommendation. 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 -Intractable of abdominal pain, nausea and vomiting secondary to recurrent ovarian cancer. Continue Zofran as needed for nausea and Dilaudid as needed for pain. -Diabetes mellitus type 2, hemoglobin A1c is 8.6, continue Lantus and NovoLog. -Hyperlipidemia, continue statin. -SCDs for DVT prophylaxis -Pepcid for GI prophylaxis Further recommendations based on clinical course. Plan of care discussed with Dr. Hester. Subjective 24 Hr Interval Summary Free Text/Dictation Patient awake alert, postop day #2., Afebrile, tachycardic ,WBCs are elevated but down from yesterday, remains on [employer]CHANT [employer]ROLL[employer] morphine for pain control , currently on IV fluids at 150 cc/h, adequate urine output. Continue ICU care. Discussed with staff Constitutional: requiring IVF, requiring O2 Respiratory: no complaints Cardiovascular: no complaints Skin: no complaints Exam/Review of Systems Vital Signs Vitals Vital Signs Date Time Temp Pulse Resp B/P Pulse Ox O2 Delivery O2 Flow Rate FiO2 02/25/17 08:00 98.6 121 14 102/52 99 Nasal Cannula 02/25/17 08:00 2.0 Intake and Output 02/24/17 02/24/17 02/25/17 15:00 23:00 07:00 Intake Total 1350 ml 700 ml 450 ml Output Total 370 ml 335 ml 1170 ml Balance 980 ml 365 ml -720 ml Exam Constitutional: alert, well developed Respiratory: clear to auscultation, normal air movement Cardiovascular: nl pulses, other (Tachycardia), regular rate and rhythm Gastrointestinal: non-tender, other (Surgical abdomen dressing dry and intact) , soft Musculoskeletal: nl extremities to inspection Extremities: normal pulses Neurological: nl mental status, nl speech Results Result Diagram: 02/25/177 02/25/17 0437 Results 24 hrs Laboratory Tests Test 02/24/17 13:05 02/24/17 18:25 02/24/17 20:14 02/25/17 01:15 Bedside Glucose 179 178 173 149 Test 02/25/17 04:37 02/25/17 05:33 02/25/17 09:01 White Blood Count 18.1 H Red Blood Count 3.15 #L Hemoglobin 9.4 #L Hematocrit 27.7 #L Mean Corpuscular Volume 87.9 Mean Corpuscular Hemoglobin 29.8 Mean Corpuscular Hemoglobin Concent 33.9 Red Cell Distribution Width 13.1 Platelet Count 257 # Mean Platelet Volume 9.4 Neutrophils % 84.6 H Lymphocytes % 7.1 L Monocytes % 7.4 Eosinophils % 0.1 Basophils % 0.1 Nucleated Red Blood Cells % 0.0 Neutrophils # 15.3 H Lymphocytes # 1.3 Monocytes # 1.3 H Eosinophils # 0.0 Basophils # 0.0 Nucleated Red Blood Cells # 0.0 Prothrombin Time 17.4 H Prothrombin Time Ratio 1.4 INR International Normalized Ratio 1.42 Sodium Level 137 Potassium Level 3.5 Chloride Level 94 L Carbon Dioxide Level 31 Anion Gap 16 Blood Urea Nitrogen 7 Creatinine 0.48 Glucose Level 125 # Calcium Level 8.8 Total Bilirubin 0.3 Direct Bilirubin 0.00 Indirect Bilirubin 0.3 Aspartate Amino Transf (AST/SGOT) 34 Alanine Aminotransferase (ALT/SGPT) 69 Alkaline Phosphatase 59 Total Protein 5.1 L Albumin 2.8 L Globulin 2.30 Albumin/Globulin Ratio 1.21 Bedside Glucose 130 122 Medications Medications Current Medications Hydromorphone HCl (Dilaudid) 0.5 mg Q3H PRN IV PAIN Last administered on t 02:26; Admin Dose 0.5 MG; Start 02/19/17 at 04:00 Miscellaneous Information 1 ea NOTE XX ; Start 02/19/17 at 04:30 Glucose (Glutose) 15 gm Q15M PRN PO DECREASED GLUCOSE; Start 02/19/17 at 04:30 Glucose (Glutose) 22.5 gm Q15M PRN PO DECREASED GLUCOSE; Start 02/19/17 at 04:30 Dextrose (D50w Syringe) 25 ml Q15M PRN IV DECREASED GLUCOSE; Start 02/19/17 at 04:30 Dextrose (D50w Syringe) 50 ml Q15M PRN IV DECREASED GLUCOSE; Start 02/19/17 at 04:30 Glucagon (Glucagen) 1 mg Q15M PRN IM DECREASED GLUCOSE; Start 02/19/17 at 04:30 Glucose (Glutose) 15 gm Q15M PRN BUCCAL DECREASED GLUCOSE; Start 02/19/17 at 04: 30 Atorvastatin Calcium (Lipitor) 40 mg DAILY PO Last administered on 02/25/17 09 :04; Admin Dose 40 MG; Start 02/21/17 at 09:00 Escitalopram Oxalate (Lexapro) 10 mg DAILY PRN PO DEPRESSION; Start 02/20/17 at 13:30 Ondansetron HCl (Zofran Inj) 4 mg Q4 PRN IV NAUSEA AND/OR VOMITING Last administered on 02/24/17 20:44; Admin Dose 4 MG; Start 02/21/17 at 17:00 Metoclopramide HCl (Reglan) 10 mg Q6 IV Last administered on 02/25/17 05:31; Admin Dose 10 MG; Start 02/22/17 at 21:00 Insulin Aspart (Novolog Insulin Pen) NOVOLOG *MILD* ALGORI... Q4 SC Last administered on 02/25/17 01:33; Admin Dose 1 UNIT; Start 02/23/17 at 01:00 Hydromorphone HCl (Dilaudid) 1 mg Q2H PRN IV PAIN LEVEL 6-10 Last administered on 02/23/17 17:46; Admin Dose 1 MG; Start 02/23/17 at 15:30 Ondansetron HCl (Zofran Inj) 4 mg Q6H PRN IV NAUSEA AND/OR VOMITING; Start 05/02 at 15:30 Famotidine 20 mg 20 mg Q12 IV Last administered on 02/25/17 09:03; Admin Dose 20 MG; Start 02/23/17 at 21:00 Potassium Chloride/Lactated Ringer's (KCl/Lr) 1,010 ml @ 150 mls/hr Q6H44M IV Last administered on 02/25/17 10:58; Admin Dose 150 MLS/HR; Start 02/23/17 at 17:30 Hydromorphone HCl (Dilaudid MER[employer] PATROLLER) MG/HR CONTINUOUS RATE ... Q4PCA IV Last administered on 02/25/17 05:25; Admin Dose 6 MG; Start 02/23/17 at 19:30 Insulin Glargine (Lantus) 14 unit DAILY@20 SC Last administered on 02/24/17t 20 :53; Admin Dose 14 UNIT; Start 02/24/17 at 20:00 CUATE HAGEN Feb 25, 2017 11:43
[2017-02-25] MEDS: ALBUMIN HUMAN 5% 250 ML IV SCH ×2 (12:49→13:46)
--- NOTE | 2017-02-25 13:52 | RADRPT ---
PROCEDURE: XR Chest. CLINICAL INDICATION: NG tube placement TECHNIQUE: Anterior chest x-ray. COMPARISON: 02/22/2017 FINDINGS: Right-sided Port-A-Cath catheter demonstrates stable and satisfactory position. Interval abdominal laparotomy with new skin kumar on midline abdomen. Interval placement of nasogastric tube which terminates the body of the stomach. The lung volumes are low. There is mild bibasilar atelectasis. The lungs are otherwise clear. No pleural effusion identified. There is no evidence of pneumothorax. The cardiomediastinal silhouette is unremarkable. The soft tissues are normal. Osseous structures are unremarkable. IMPRESSION: 1. Interval placement of nasogastric tube is satisfactory position. 2. Interval abdominal laparotomy with skin kumar over midline. 3. Low lung volumes with bibasilar atelectasis. RPTAT: QQ .Edgar Chavez MD, Date Time Electronically viewed and signed by .Edgar Chavez MD, on 02/25/2017 13:52 .M/
[2017-02-25] MEDS: INSULIN GLARGINE [LANtus] 3 ML PEN SC SCH (20:09)
[2017-02-26] VITALS (24 sets, daily range): BP systolic 112–147; BP diastolic 54–88; PULSE 95–122; RESP 11–31
[2017-02-26] MEDS: METOCLOPRAMIDE 10 MG INJ IV SCH ×5 (00:42→23:45)
[2017-02-26] MEDS: INSULIN ASPART [NOVOLOG] 3 ML PEN SC SCH ×6 (00:44→21:00)
[2017-02-26] MEDS: POTASSIUM CHLORIDE 20 MEQ in LACTATED RINGER'S 1,000 ML IV SCH ×3 (02:32→21:00)
[2017-02-26 05:08] LABS: BASOPHILS % 0.1 % (0.0-2.0); EOSINOPHILS # 0.1 10^3/ul (0.0-0.5); EOSINOPHILS % 0.3 % (0.0-7.0); HEMATOCRIT 26.7 % (37.0-47.0); HEMOGLOBIN 8.7 g/dl (12.0-16.0); LYMPHOCYTES # 1.8 10^3/ul (0.8-2.9); LYMPHOCYTES % 8.9 % (15.0-51.0); MEAN CORPUSCULAR HEMOGLOBIN 28.6 pg (29.0-33.0); MEAN CORPUSCULAR HGB CONC 32.6 g/dl (32.0-37.0); MEAN CORPUSCULAR VOLUME 87.8 fl (82.0-101.0); MEAN PLATELET VOLUME 9.5 fl (7.4-10.4); MONOCYTE # 1.2 10^3/ul (0.3-0.9); MONOCYTES % 5.8 % (0.0-11.0); NEUTROPHIL # 17.1 10^3/ul (1.6-7.5); NEUTROPHILS % 84.1 % (39.0-77.0); PLATELET COUNT 279 10^3/UL (140-415); RED BLOOD COUNT 3.04 10^6/ul (4.20-5.40); RED CELL DISTRIBUTION WIDTH 13.1 % (11.5-14.5); WHITE BLOOD COUNT 20.3 10^3/ul (4.8-10.8)
[2017-02-26 05:19] LABS: ALBUMIN 3.5 g/dl (3.3-4.9); ALBUMIN/GLOBULIN RATIO 1.45; BILIRUBIN,INDIRECT 0.5 mg/dl (0-1.1); BILIRUBIN,TOTAL 0.5 mg/dl (0.2-1.3); CREATININE 0.43 mg/dl (0.44-1.00); POTASSIUM 3.4 mmol/L (3.5-5.1); TOTAL PROTEIN 5.9 g/dl (6.1-8.1)
[2017-02-26] MEDS: ATORVASTATIN 40 MG TAB PO SCH (08:45)
[2017-02-26] MEDS: FAMOTIDINE 20 MG INJ IV SCH ×2 (08:45→21:05)
[2017-02-26] MEDS: HYDROmorphONE 0.2 MG/ML PCA IV SCH ×2 (08:51→21:51)
[2017-02-26] MEDS ORDERED: POTASSIUM CHLORIDE 250 ML IVPB ONE (12:00)
[2017-02-26] MEDS ORDERED: VANCOMYCIN IV PER PHARMACY XX SCH (13:00)
[2017-02-26] MEDS ORDERED: VANCOMYCIN 1.25 GM in SOD CHLORIDE 0.9% 250 ML IVPB SCH (14:00)
[2017-02-26] MEDS: PIPER-TAZO 3.375 GM IV (PMX) 100 ML IVPB SCH ×3 (14:10→23:45)
[2017-02-26] MEDS: OCTREOTIDE 50 MCG INJ SC SCH ×2 (14:14→21:05)
[2017-02-26] MEDS ORDERED: TPN 1,000 ML IV SCH (17:30)
--- NOTE | 2017-02-26 17:38 | PN ---
Date/Time of Note Date/Time of Note DATE: 02/26/17 TIME: 17:33 Assessment/Plan VTE Prophylaxis VTE Prophylaxis Intervention: SCD's Lines/Catheters IV Catheter Type (from Nrsg): Peripheral IV Urinary Cath still in place: Yes Reason Cath still needed: other (indicate) Assessment/Plan Chief Complaint/Hosp Course ovarian cancer, recurrent, partial SBO/LBO, ureteral stricture Problems: Assessment/Plan A- gradually inproving P- will start TPN and sandostatin due to the risk of the anastomoses Agree with TPN Concur with possible transfer to Onc in a.m. Subjective 24 Hr Interval Summary Free Text/Dictation pain better controlled. still anxious about NGT and some hunger. Exam/Review of Systems Vital Signs Vitals Vital Signs Date Time Temp Pulse Resp B/P Pulse Ox O2 Delivery O2 Flow Rate FiO2 02/26/17 16:00 112 02/26/17 14:00 26 141/68 97 Nasal Cannula 2.0 02/26/17 12:00 97.6 Intake and Output 02/25/17 02/25/17 02/26/17 15:00 23:00 07:00 Intake Total 500 ml 1500 ml 1200 ml Output Total 1675 ml 1500 ml 840 ml Balance -1175 ml 0 ml 360 ml Exam Resp- clear CVS- NSR Abd- soft NTand incision clean and dry Ext- nt no edema Results Result Diagram: 02/26/178 02/26/17 0438 Results 24 hrs Laboratory Tests Test 02/25/17 20:06 02/26/17 00:41 02/26/17 04:38 02/26/17 04:50 Bedside Glucose 110 110 98 White Blood Count 20.3 H Red Blood Count 3.04 L Hemoglobin 8.7 L Hematocrit 26.7 L Mean Corpuscular Volume 87.8 Mean Corpuscular Hemoglobin 28.6 L Mean Corpuscular Hemoglobin Concent 32.6 Red Cell Distribution Width 13.1 Platelet Count 279 Mean Platelet Volume 9.5 Neutrophils % 84.1 H Lymphocytes % 8.9 L Monocytes % 5.8 Eosinophils % 0.3 Basophils % 0.1 Nucleated Red Blood Cells % 0.0 Neutrophils # 17.1 H Lymphocytes # 1.8 Monocytes # 1.2 H Eosinophils # 0.1 Basophils # 0.0 Nucleated Red Blood Cells # 0.0 Sodium Level 133 L Potassium Level 3.4 L Chloride Level 93 L Carbon Dioxide Level 29 Anion Gap 14 Blood Urea Nitrogen 6 L Creatinine 0.43 L Glucose Level 95 Calcium Level 9.0 Total Bilirubin 0.5 Direct Bilirubin 0.00 Indirect Bilirubin 0.5 Aspartate Amino Transf (AST/SGOT) 24 Alanine Aminotransferase (ALT/SGPT) 52 Alkaline Phosphatase 83 Total Protein 5.9 L Albumin 3.5 Globulin 2.40 Albumin/Globulin Ratio 1.45 Test 02/26/17 08:53 02/26/17 12:31 Bedside Glucose 111 104 Medications Medications Current Medications Hydromorphone HCl (Dilaudid) 0.5 mg Q3H PRN IV PAIN Last administered on 02:26; Admin Dose 0.5 MG; Start 02/19/17 at 04:00 Miscellaneous Information 1 ea NOTE XX ; Start 02/19/17 at 04:30 Glucose (Glutose) 15 gm Q15M PRN PO DECREASED GLUCOSE; Start 02/19/17 at 04:30 Glucose (Glutose) 22.5 gm Q15M PRN PO DECREASED GLUCOSE; Start 02/19/17 at 04:30 Dextrose (D50w Syringe) 25 ml Q15M PRN IV DECREASED GLUCOSE; Start 02/19/17 at 04:30 Dextrose (D50w Syringe) 50 ml Q15M PRN IV DECREASED GLUCOSE; Start 02/19/17 at 04:30 Glucagon (Glucagen) 1 mg Q15M PRN IM DECREASED GLUCOSE; Start 02/19/17 at 04:30 Glucose (Glutose) 15 gm Q15M PRN BUCCAL DECREASED GLUCOSE; Start 02/19/17 at 04: 30 Atorvastatin Calcium (Lipitor) 40 mg DAILY PO Last administered on 02/26/17 08 :45; Admin Dose 40 MG; Start 02/21/17 at 09:00 Escitalopram Oxalate (Lexapro) 10 mg DAILY PRN PO DEPRESSION; Start 02/20/17 at 13:30 Ondansetron HCl (Zofran Inj) 4 mg Q4 PRN IV NAUSEA AND/OR VOMITING Last administered on 02/24/17 20:44; Admin Dose 4 MG; Start 02/21/17 at 17:00 Metoclopramide HCl (Reglan) 10 mg Q6 IV Last administered on 02/26/17 12:11; Admin Dose 10 MG; Start 02/22/17 at 21:00 Insulin Aspart (Novolog Insulin Pen) NOVOLOG *MILD* ALGORI... Q4 SC Last administered on 02/25/17 01:33; Admin Dose 1 UNIT; Start 02/23/17 at 01:00 Hydromorphone HCl (Dilaudid) 1 mg Q2H PRN IV PAIN LEVEL 6-10 Last administered on 02/23/17 17:46; Admin Dose 1 MG; Start 02/23/17 at 15:30 Ondansetron HCl (Zofran Inj) 4 mg Q6H PRN IV NAUSEA AND/OR VOMITING; Start 05/02 at 15:30 Famotidine 20 mg 20 mg Q12 IV Last administered on 02/26/17 08:45; Admin Dose 20 MG; Start 02/23/17 at 21:00 Potassium Chloride/Lactated Ringer's (KCl/Lr) 1,010 ml @ 150 mls/hr Q6H44M IV Last administered on 02/26/17 12:11; Admin Dose 150 MLS/HR; Start 02/23/17 at 17:30 Hydromorphone HCl (Dilaudid EMT INTERMEDIATE) MG/HR CONTINUOUS RATE ... Q4PCA IV Last administered on 02/26/17 08:51; Admin Dose 0.2 MG; Start 02/23/17 at 19:30 Insulin Glargine 14 unit 14 unit DAILY@20 SC Last administered on 02/25/17 20: 09; Admin Dose 14 UNIT; Start 02/24/17 at 20:00 Piperacillin Sod/ Tazobactam Sod (Zosyn 3.375gm/ 100 ml (Pmx)) 100 ml @ 200 mls /hr Q6 IVPB Last administered on 02/26/17 14:10; Admin Dose 200 MLS/HR; Start 02/26/17 at 13:00 Octreotide Acetate 50 mcg 50 mcg TID SC Last administered on 02/26/17 14:14; Admin Dose 50 MCG; Start 02/26/17 at 14:00 Vancomycin HCl 1.25 gm/Sodium Chloride 250 ml @ 83.333 mls/ hr ONCE@14 IVPB Last administered on 02/26/17 14:21; Admin Dose 83.333 MLS/HR; Start 02/26/17 at 14:00; Stop 02/26/17 at 18:00 Vancomycin HCl/ Sodium Chloride (Vancocin/NS) 150 ml @ 75 mls/hr Q8H IVPB ; Start 02/26/17 at 22:00 Miscellaneous Information (*Rx Drug Level Order Reminder*) VANCOMYCIN TROUGH AT 1400 ONCE ONCE XX ; Start 02/27/17 at 14:00; Stop 02/27/17 at 14:01 MARIA DE JESUS MENDOZA MD Feb 26, 2017 17:38
[2017-02-26] MEDS ORDERED: LIDOCAINE 1% (MPF) 5 ML VIAL SC ONE (18:30)
--- NOTE | 2017-02-26 18:59 | RADRPT ---
PROCEDURE: Chest radiograph CLINICAL INDICATION: Infiltrate. TECHNIQUE: Single portable frontal view. COMPARISON: Radiograph, a 05/2017. FINDINGS: The enteric tube terminates in the gastric body. Skin kumar related to recent laparotomy. Low lung volumes with bibasilar atelectasis. No large pleural effusion or pneumonia. The cardiomediastinal silhouette is normal. No suspicious bone lesion. IMPRESSION: Low lung volumes with bibasilar atelectasis. No interval change. RPTAT: PP Daniel Schaffer Physician Date Time Electronically viewed and signed by Daniel Schaffer Physician on 02/26/2017 18:58 LG/
[2017-02-26] MEDS: INSULIN GLARGINE [LANtus] 3 ML PEN SC SCH (20:00)
--- NOTE | 2017-02-26 20:32 | PN ---
Date/Time of Note Date/Time of Note DATE: 02/26/17 TIME: 20:25 Assessment/Plan VTE Prophylaxis VTE Prophylaxis Intervention: other Lines/Catheters IV Catheter Type (from Nrsg): Peripheral IV Urinary Cath still in place: Yes Reason Cath still needed: urinary retention Assessment/Plan Assessment/Plan -Leukocytosis- Continue to monitor. - on Vnco, Zosyn -Tachycardia -Recurrent Ovarian CA, status post secondary cytoreduction by Dr. Morris on . - Post OP day # 3 - Continue to follow-up surgical recommendation. 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 -Intractable of abdominal pain, nausea and vomiting secondary to recurrent ovarian cancer. Continue Zofran as needed for nausea and Dilaudid as needed for pain. -Diabetes mellitus type 2, hemoglobin A1c is 8.6, continue Lantus and NovoLog. -Hyperlipidemia, continue statin. -SCDs for DVT prophylaxis -Pepcid for GI prophylaxis Further recommendations based on clinical course. Plan of care discussed with Dr. Hester. Subjective 24 Hr Interval Summary Free Text/Dictation nad, NGT noted. Plan for TPN/Lipids tonight, PICC line AM, afebrile. dw staff Constitutional: requiring IVF, requiring O2 Respiratory: no complaints Cardiovascular: no complaints Gastrointestinal: no complaints Genitourinary: no complaints Musculoskeletal: back pain Exam/Review of Systems Vital Signs Vitals Vital Signs Date Time Temp Pulse Resp B/P Pulse Ox O2 Delivery O2 Flow Rate FiO2 02/26/17 20:00 97.3 98 12 117/64 97 Nasal Cannula 2.0 Intake and Output 02/25/17 02/25/17 02/26/17 15:00 23:00 07:00 Intake Total 500 ml 1500 ml 1200 ml Output Total 1675 ml 1500 ml 840 ml Balance -1175 ml 0 ml 360 ml Exam Constitutional: alert, oriented, well developed Respiratory: clear to auscultation, normal air movement Cardiovascular: nl pulses, regular rate and rhythm Gastrointestinal: other (surgiccal abdomen, ngt connected to Low Interrmittent Suction), soft Musculoskeletal: nl extremities to inspection Extremities: normal pulses Neurological: nl mental status, nl speech Results Result Diagram: 02/26/17 0438 02/26/17 0438 Results 24 hrs Laboratory Tests Test 02/26/17 00:41 02/26/17 04:38 02/26/17 04:50 02/26/17 08:53 Bedside Glucose 110 98 111 White Blood Count 20.3 H Red Blood Count 3.04 L Hemoglobin 8.7 L Hematocrit 26.7 L Mean Corpuscular Volume 87.8 Mean Corpuscular Hemoglobin 28.6 L Mean Corpuscular Hemoglobin Concent 32.6 Red Cell Distribution Width 13.1 Platelet Count 279 Mean Platelet Volume 9.5 Neutrophils % 84.1 H Lymphocytes % 8.9 L Monocytes % 5.8 Eosinophils % 0.3 Basophils % 0.1 Nucleated Red Blood Cells % 0.0 Neutrophils # 17.1 H Lymphocytes # 1.8 Monocytes # 1.2 H Eosinophils # 0.1 Basophils # 0.0 Nucleated Red Blood Cells # 0.0 Sodium Level 133 L Potassium Level 3.4 L Chloride Level 93 L Carbon Dioxide Level 29 Anion Gap 14 Blood Urea Nitrogen 6 L Creatinine 0.43 L Glucose Level 95 Calcium Level 9.0 Total Bilirubin 0.5 Direct Bilirubin 0.00 Indirect Bilirubin 0.5 Aspartate Amino Transf (AST/SGOT) 24 Alanine Aminotransferase (ALT/SGPT) 52 Alkaline Phosphatase 83 Total Protein 5.9 L Albumin 3.5 Globulin 2.40 Albumin/Globulin Ratio 1.45 Test 02/26/17 12:31 02/26/17 17:39 Bedside Glucose 104 109 Medications Medications Current Medications Hydromorphone HCl (Dilaudid) 0.5 mg Q3H PRN IV PAIN Last administered on t 02:26; Admin Dose 0.5 MG; Start 02/19/17 at 04:00 Miscellaneous Information 1 ea NOTE XX ; Start 02/19/17 at 04:30 Glucose (Glutose) 15 gm Q15M PRN PO DECREASED GLUCOSE; Start 02/19/17 at 04:30 Glucose (Glutose) 22.5 gm Q15M PRN PO DECREASED GLUCOSE; Start 02/19/17 at 04:30 Dextrose (D50w Syringe) 25 ml Q15M PRN IV DECREASED GLUCOSE; Start 02/19/17 at 04:30 Dextrose (D50w Syringe) 50 ml Q15M PRN IV DECREASED GLUCOSE; Start 02/19/17 at 04:30 Glucagon (Glucagen) 1 mg Q15M PRN IM DECREASED GLUCOSE; Start 02/19/17 at 04:30 Glucose (Glutose) 15 gm Q15M PRN BUCCAL DECREASED GLUCOSE; Start 02/19/17 at 04: 30 Atorvastatin Calcium (Lipitor) 40 mg DAILY PO Last administered on 02/26/17 08 :45; Admin Dose 40 MG; Start 02/21/17 at 09:00 Escitalopram Oxalate (Lexapro) 10 mg DAILY PRN PO DEPRESSION; Start 02/20/17 at 13:30 Ondansetron HCl (Zofran Inj) 4 mg Q4 PRN IV NAUSEA AND/OR VOMITING Last administered on 02/24/17 20:44; Admin Dose 4 MG; Start 02/21/17 at 17:00 Metoclopramide HCl (Reglan) 10 mg Q6 IV Last administered on 02/26/17 17:47; Admin Dose 10 MG; Start 02/22/17 at 21:00 Insulin Aspart (Novolog Insulin Pen) NOVOLOG *MILD* ALGORI... Q4 SC Last administered on 02/25/17 01:33; Admin Dose 1 UNIT; Start 02/23/17 at 01:00 Hydromorphone HCl (Dilaudid) 1 mg Q2H PRN IV PAIN LEVEL 6-10 Last administered on 02/23/17 17:46; Admin Dose 1 MG; Start 02/23/17 at 15:30 Ondansetron HCl (Zofran Inj) 4 mg Q6H PRN IV NAUSEA AND/OR VOMITING; Start 05/02 at 15:30 Famotidine 20 mg 20 mg Q12 IV Last administered on 02/26/17 08:45; Admin Dose 20 MG; Start 02/23/17 at 21:00 Potassium Chloride/Lactated Ringer's (KCl/Lr) 1,010 ml @ 150 mls/hr Q6H44M IV Last administered on 02/26/17 12:11; Admin Dose 150 MLS/HR; Start 02/23/17 at 17:30; Stop 02/26/17 at 21:00 Hydromorphone HCl (Dilaudid [employer]IS ENGINEER) MG/HR CONTINUOUS RATE ... Q4PCA IV Last administered on 02/26/17 08:51; Admin Dose 0.2 MG; Start 02/23/17 at 19:30 Insulin Glargine 14 unit 14 unit DAILY@20 SC Last administered on 02/25/17 20: 09; Admin Dose 14 UNIT; Start 02/24/17 at 20:00 Piperacillin Sod/ Tazobactam Sod (Zosyn 3.375gm/ 100 ml (Pmx)) 100 ml @ 200 mls /hr Q6 IVPB Last administered on 02/26/17 18:59; Admin Dose 200 MLS/HR; Start 02/26/17 at 13:00 Octreotide Acetate 50 mcg 50 mcg TID SC Last administered on 02/26/17 14:14; Admin Dose 50 MCG; Start 02/26/17 at 14:00 Vancomycin HCl/ Sodium Chloride (Vancocin/NS) 150 ml @ 75 mls/hr Q8H IVPB ; Start 02/26/17 at 22:00 Miscellaneous Information VANCOMYCIN TROUGH AT 1400 ONCE ONCE XX ; Start 02/27/17 at 14:00; Stop 02/27/17 at 14:01 Total Parenteral Nutrition 1,000 ml @ 125 mls/hr Q8H IV ; Start 02/26/17 at 21: 00 Fat Emulsion Intravenous (Liposyn Ii 20%) 500 ml @ 21 mls/hr [id number] IV ; Start 02/26/17 at 21:00 CUATE HAGEN Feb 26, 2017 20:32
[2017-02-26] MEDS: TPN 1,000 ML IV SCH (21:07)
[2017-02-26] MEDS: FAT EMULSION 20% 500 ML IV SCH (21:07)
[2017-02-26] MEDS: VANCOMYCIN 750 MG in SOD CHLORIDE 0.9% 150 ML IVPB SCH (22:10)
[2017-02-27] VITALS (24 sets, daily range): BP systolic 112–147; BP diastolic 61–84; PULSE 88–133; RESP 13–29
[2017-02-27] MEDS: INSULIN ASPART [NOVOLOG] 3 ML PEN SC SCH ×6 (00:51→21:06)
[2017-02-27] MEDS: TPN 1,000 ML IV SCH ×3 (05:05→21:09)
[2017-02-27] MEDS: VANCOMYCIN 750 MG in SOD CHLORIDE 0.9% 150 ML IVPB SCH (05:42)
[2017-02-27] MEDS: PIPER-TAZO 3.375 GM IV (PMX) 100 ML IVPB SCH ×3 (05:42→17:20)
[2017-02-27] MEDS: METOCLOPRAMIDE 10 MG INJ IV SCH ×3 (05:42→17:20)
[2017-02-27 05:54] LABS: BASOPHILS % 0.1 % (0.0-2.0); EOSINOPHILS # 0.1 10^3/ul (0.0-0.5); EOSINOPHILS % 0.7 % (0.0-7.0); HEMATOCRIT 28.9 % (37.0-47.0); HEMOGLOBIN 9.7 g/dl (12.0-16.0); LYMPHOCYTES # 1.1 10^3/ul (0.8-2.9); LYMPHOCYTES % 10.1 % (15.0-51.0); MEAN CORPUSCULAR HGB CONC 33.6 g/dl (32.0-37.0); MEAN CORPUSCULAR VOLUME 86.5 fl (82.0-101.0); MEAN PLATELET VOLUME 9.3 fl (7.4-10.4); MONOCYTE # 0.7 10^3/ul (0.3-0.9); MONOCYTES % 6.3 % (0.0-11.0); NEUTROPHIL # 8.9 10^3/ul (1.6-7.5); NEUTROPHILS % 81.9 % (39.0-77.0); PLATELET COUNT 351 10^3/UL (140-415); RED BLOOD COUNT 3.34 10^6/ul (4.20-5.40); WHITE BLOOD COUNT 10.8 10^3/ul (4.8-10.8)
[2017-02-27 06:38] LABS: ALBUMIN 3.2 g/dl (3.3-4.9); ALBUMIN/GLOBULIN RATIO 1.14; BILIRUBIN,INDIRECT 0.2 mg/dl (0-1.1); BILIRUBIN,TOTAL 0.2 mg/dl (0.2-1.3); CREATININE 0.45 mg/dl (0.44-1.00); POTASSIUM 3.2 mmol/L (3.5-5.1)
[2017-02-27] MEDS: FAMOTIDINE 20 MG INJ IV SCH ×2 (08:21→20:50)
[2017-02-27] MEDS: ATORVASTATIN 40 MG TAB PO SCH (08:21)
[2017-02-27] MEDS: OCTREOTIDE 50 MCG INJ SC SCH ×3 (08:50→22:30)
--- NOTE | 2017-02-27 11:53 | PN ---
Date/Time of Note Date/Time of Note DATE: 02/27/17 TIME: 11:50 Assessment/Plan VTE Prophylaxis VTE Prophylaxis Intervention: SCD's Lines/Catheters IV Catheter Type (from Nrs): Peripheral IV Urinary Cath still in place: Yes Reason Cath still needed: urinary retention Assessment/Plan Chief Complaint/Hosp Course Patient is awake alert, pain is well controlled, remains hemodynamically stable , blood sugar is elevated patient is currently on TPN and lipids, will adjust Lantus. Potassium replacement ordered. Assessment/Plan -Partial small bowel obstruction, continue TPN and lipids. -Recurrent Ovarian CA, status post secondary cytoreduction by Dr. Morris on . Continue to follow-up surgical recommendation. -Urethral stricture continue [place] catheter, follow-up surgical recommendations. -Intractable of abdominal pain, nausea and vomiting secondary to recurrent ovarian cancer. Continue Zofran as needed for nausea and Dilaudid as needed for pain. -Diabetes mellitus type 2, hemoglobin A1c is 8.6, continue Lantus and NovoLog per sliding scale with Accu-Chek every 4 hours. -Hyperlipidemia. Further recommendations based on clinical course. Plan of care discussed with Dr. Hester. Problems: Exam/Review of Systems Vital Signs Vitals Vital Signs Date Time Temp Pulse Resp B/P Pulse Ox O2 Delivery O2 Flow Rate FiO2 02/27/17 11:00 98 17 118/75 98 Nasal Cannula 02/27/17 07:00 2.0 02/27/17 04:00 99.9 Intake and Output 02/26/17 02/26/17 02/27/17 15:00 23:00 07:00 Intake Total 1120.83 ml 921.17 ml 1539 ml Output Total 1375 ml 2040 ml 2628 ml Balance -254.17 ml -1118.83 ml -1089 ml Exam Constitutional: alert, oriented Head: normocephalic Neck: supple Respiratory: normal air movement Cardiovascular: nl pulses Gastrointestinal: other (Hypoactive bowel sounds), soft, surgical scars Genitourinary - Female: other ([place] catheter) Extremities: normal pulses Neurological: nl mental status Results Result Diagram: 02/27/17 0522 02/27/17 0522 Results 24 hrs Laboratory Tests Test 02/26/17 12:31 02/26/17 17:39 02/26/17 21:03 02/27/17 00:47 Bedside Glucose 104 109 106 300 H Test 02/27/17 05:04 02/27/17 05:22 02/27/17 10:28 Bedside Glucose 310 H 294 H White Blood Count 10.8 # Red Blood Count 3.34 L Hemoglobin 9.7 L Hematocrit 28.9 L Mean Corpuscular Volume 86.5 Mean Corpuscular Hemoglobin 29.0 Mean Corpuscular Hemoglobin Concent 33.6 Red Cell Distribution Width 13.0 Platelet Count 351 # Mean Platelet Volume 9.3 Neutrophils % 81.9 H Lymphocytes % 10.1 L Monocytes % 6.3 Eosinophils % 0.7 Basophils % 0.1 Nucleated Red Blood Cells % 0.0 Neutrophils # 8.9 H Lymphocytes # 1.1 Monocytes # 0.7 Eosinophils # 0.1 Basophils # 0.0 Nucleated Red Blood Cells # 0.0 Sodium Level 137 Potassium Level 3.2 L Chloride Level 87 L Carbon Dioxide Level 35 H Anion Gap 18 H Blood Urea Nitrogen 10 Creatinine 0.45 Glucose Level 303 #H Calcium Level 9.0 Total Bilirubin 0.2 Direct Bilirubin 0.00 Indirect Bilirubin 0.2 Aspartate Amino Transf (AST/SGOT) 19 Alanine Aminotransferase (ALT/SGPT) 46 Alkaline Phosphatase 94 Total Protein 6.0 L Albumin 3.2 L Globulin 2.80 Albumin/Globulin Ratio 1.14 Medications Medications Current Medications Hydromorphone HCl (Dilaudid) 0.5 mg Q3H PRN IV PAIN Last administered on t 02:26; Admin Dose 0.5 MG; Start 02/19/17 at 04:00 Miscellaneous Information 1 ea NOTE XX ; Start 02/19/17 at 04:30 Glucose (Glutose) 15 gm Q15M PRN PO DECREASED GLUCOSE; Start 02/19/17 at 04:30 Glucose (Glutose) 22.5 gm Q15M PRN PO DECREASED GLUCOSE; Start 02/19/17 at 04:30 Dextrose (D50w Syringe) 25 ml Q15M PRN IV DECREASED GLUCOSE; Start 02/19/17 at 04:30 Dextrose (D50w Syringe) 50 ml Q15M PRN IV DECREASED GLUCOSE; Start 02/19/17 at 04:30 Glucagon (Glucagen) 1 mg Q15M PRN IM DECREASED GLUCOSE; Start 02/19/17 at 04:30 Glucose (Glutose) 15 gm Q15M PRN BUCCAL DECREASED GLUCOSE; Start 02/19/17 at 04: 30 Atorvastatin Calcium (Lipitor) 40 mg DAILY PO Last administered on 02/27/17 08 :21; Admin Dose 40 MG; Start 02/21/17 at 09:00 Escitalopram Oxalate (Lexapro) 10 mg DAILY PRN PO DEPRESSION; Start 02/20/17 at 13:30 Ondansetron HCl (Zofran Inj) 4 mg Q4 PRN IV NAUSEA AND/OR VOMITING Last administered on 02/24/17 20:44; Admin Dose 4 MG; Start 02/21/17 at 17:00 Metoclopramide HCl (Reglan) 10 mg Q6 IV Last administered on 02/27/17 05:42; Admin Dose 10 MG; Start 02/22/17 at 21:00 Insulin Aspart (Novolog Insulin Pen) NOVOLOG *MILD* ALGORI... Q4 SC Last administered on 02/27/17 10:32; Admin Dose 4 UNIT; Start 02/23/17 at 01:00 Hydromorphone HCl (Dilaudid) 1 mg Q2H PRN IV PAIN LEVEL 6-10 Last administered on 02/23/17 17:46; Admin Dose 1 MG; Start 02/23/17 at 15:30 Ondansetron HCl (Zofran Inj) 4 mg Q6H PRN IV NAUSEA AND/OR VOMITING; Start 05/02 at 15:30 Famotidine (Pepcid Iv) 20 mg Q12 IV Last administered on 02/27/17 08:21; Admin Dose 20 MG; Start 02/23/17 at 21:00 Hydromorphone HCl (Dilaudid [employer]) MG/HR CONTINUOUS RATE ... Q4PCA IV Last administered on 02/26/17 21:51; Admin Dose 6 MG; Start 02/23/17 at 19:30 Insulin Glargine 14 unit 14 unit DAILY@20 SC Last administered on 02/25/17 20: 09; Admin Dose 14 UNIT; Start 02/24/17 at 20:00 Piperacillin Sod/ Tazobactam Sod (Zosyn 3.375gm/ 100 ml (Pmx)) 100 ml @ 200 mls /hr Q6 IVPB Last administered on 02/27/17 05:42; Admin Dose 200 MLS/HR; Start 02/26/17 at 13:00 Octreotide Acetate 50 mcg 50 mcg TID SC Last administered on 02/27/17 08:50; Admin Dose 50 MCG; Start 02/26/17 at 14:00 Vancomycin HCl/ Sodium Chloride (Vancocin/NS) 150 ml @ 75 mls/hr Q8H IVPB Last administered on 02/27/17 05:42; Admin Dose 75 MLS/HR; Start 02/26/17 at 22 :00 Miscellaneous Information VANCOMYCIN TROUGH AT 1400 ONCE ONCE XX ; Start 02/27/17 at 14:00; Stop 02/27/17 at 14:01 Total Parenteral Nutrition 1,000 ml @ 125 mls/hr Q8H IV Last administered on 05:05; Admin Dose 125 MLS/HR; Start 02/26/17 at 21:00 Fat Emulsion Intravenous (Liposyn Ii 20%) 500 ml @ 21 mls/hr [id number] IV Last administered on 02/26/17 21:07; Admin Dose 21 MLS/HR; Start 02/26/17 at 21:00 GLENN PALMER Feb 27, 2017 11:53
--- NOTE | 2017-02-27 14:53 | RADRPT ---
PROCEDURE: US guidance for PICC line CLINICAL INDICATION: PICC line placement TECHNIQUE: Multiple real-time images were acquired of the patient's arm utilizing a high resolutio n transducer. This was performed by the PICC line nurse for venous access. COMPARISON: None FINDINGS: Ultrasound guidance for PICC line placement. IMPRESSION: Ultrasound guidance for PICC line placement. RPTAT: AA .Deon Licona MD, MD Date Time Electronically viewed and signed by .Deon Licona MD, on 02/27/2017 14:52 .S/
--- NOTE | 2017-02-27 14:54 | RADRPT ---
PROCEDURE: XR Chest. CLINICAL INDICATION: Check Line Placement TECHNIQUE: Single frontal view of the chest was obtained. COMPARISON: Chest x-ray from a 02/26/2017 FINDINGS: There has been interval placement of a left-sided PICC line with its tip at the superior cavoatrial junction. A right-sided Port-A-Cath is again noted. An enteric tube is again noted with its tip in the stomach. The heart and mediastinum are within normal limits. There are stable low lung volumes with increased prominence of interstitial markings, likely due to new mild congestive changes. There is stable elevation of the right hemidiaphragm. There is no significant pleural effusion or pneumothorax. IMPRESSION: Interval placement of a left-sided PICC line with its tip at the superior cavoatrial junction. Stable low lung volumes with new mild pulmonary vascular congestion. Enteric tube and right-sided Port-A-Cath are again noted. RPTAT: EE Physician Dior Date Time Electronically viewed and signed by Physician Dior on 02/27/2017 14:54 /
[2017-02-27] MEDS ORDERED: VANCOMYCIN 750 MG in SOD CHLORIDE 0.9% 150 ML IVPB SCH (15:00)
[2017-02-27] MEDS: POTASSIUM CHLORIDE 50 ML IVPB PRN ×2 (15:47→17:05)
[2017-02-27] MEDS ORDERED: SOD CHLORIDE 0.9% 100 ML ONE (17:43)
[2017-02-27] MEDS ORDERED: INSULIN GLARGINE [LANtus] 3 ML PEN SC SCH (20:00)
[2017-02-27] MEDS: FAT EMULSION 20% 500 ML IV SCH (20:50)
[2017-02-27] MEDS: VANCOMYCIN 1 GM in NS 250 ML IVPB SCH (22:00)
[2017-02-28] VITALS (22 sets, daily range): BP systolic 78–133; BP diastolic 59–80; PULSE 85–104; RESP 14–31
[2017-02-28] MEDS: PIPER-TAZO 3.375 GM IV (PMX) 100 ML IVPB SCH ×4 (00:28→18:02)
[2017-02-28] MEDS: METOCLOPRAMIDE 10 MG INJ IV SCH ×4 (00:28→18:02)
[2017-02-28] MEDS: INSULIN ASPART [NOVOLOG] 3 ML PEN SC SCH ×6 (00:40→22:01)
[2017-02-28] MEDS: HYDROmorphONE 0.2 MG/ML PCA IV SCH (01:11)
[2017-02-28 05:00] LABS: BASOPHILS % 0.2 % (0.0-2.0); EOSINOPHILS # 0.1 10^3/ul (0.0-0.5); EOSINOPHILS % 1.2 % (0.0-7.0); HEMATOCRIT 28.6 % (37.0-47.0); HEMOGLOBIN 9.5 g/dl (12.0-16.0); LYMPHOCYTES # 1.5 10^3/ul (0.8-2.9); LYMPHOCYTES % 16.6 % (15.0-51.0); MEAN CORPUSCULAR HEMOGLOBIN 29.4 pg (29.0-33.0); MEAN CORPUSCULAR HGB CONC 33.2 g/dl (32.0-37.0); MEAN CORPUSCULAR VOLUME 88.5 fl (82.0-101.0); MEAN PLATELET VOLUME 9.4 fl (7.4-10.4); MONOCYTE # 0.9 10^3/ul (0.3-0.9); MONOCYTES % 9.8 % (0.0-11.0); NEUTROPHILS % 70.4 % (39.0-77.0); PLATELET COUNT 360 10^3/UL (140-415); RED BLOOD COUNT 3.23 10^6/ul (4.20-5.40); WHITE BLOOD COUNT 9.3 10^3/ul (4.8-10.8)
[2017-02-28 05:30] LABS: CALCIUM 8.8 mg/dl (8.4-10.2); CREATININE 0.47 mg/dl (0.44-1.00); MAGNESIUM 1.8 mg/dl (1.7-2.5); PHOSPHORUS 3.5 mg/dl (2.5-4.9); POTASSIUM 3.8 mmol/L (3.5-5.1)
[2017-02-28] MEDS: TPN 1,000 ML IV SCH (05:56)
[2017-02-28] MEDS: VANCOMYCIN 1 GM in NS 250 ML IVPB SCH ×3 (06:11→21:54)
[2017-02-28] MEDS: FAMOTIDINE 20 MG INJ IV SCH ×2 (09:18→21:53)
[2017-02-28] MEDS: OCTREOTIDE 50 MCG INJ SC SCH ×3 (09:18→22:09)
[2017-02-28] MEDS: ATORVASTATIN 40 MG TAB PO SCH (09:23)
[2017-02-28] MEDS ORDERED: QUETIAPINE 25 MG TAB PO ONE (11:30)
[2017-02-28] MEDS ORDERED: FAT EMULSION 20% 250 ML IV SCH ×2 (13:22→15:00)
--- NOTE | 2017-02-28 13:28 | PN ---
Date/Time of Note Date/Time of Note DATE: 02/28/17 TIME: 13:25 Assessment/Plan VTE Prophylaxis VTE Prophylaxis Intervention: SCD's Lines/Catheters IV Catheter Type (from Nrs): PICC Line Central line still needed: Yes Urinary Cath still in place: Yes Reason Cath still needed: urinary retention Assessment/Plan Chief Complaint/Hosp Course Patient remains hemodynamically stable, afebrile. Patient with elevated blood sugar above 300, patient is currently on TPN and lipids according to nutrition consult TPN decreased to 80cc/hr and lipids to 250cc daily. Will increase Lantus to 30 units, continue NovoLog coverage with sliding scale and Accu-Chek every 4 hours. Patient's pain is well controlled good urine output Via [place], bowel sounds are hypoactive. Assessment/Plan -Partial small bowel obstruction, continue TPN and lipids. -Recurrent Ovarian CA, status post secondary cytoreduction by Dr. Morris on . Continue to follow-up surgical recommendation. -Urethral stricture continue [place] catheter, follow-up surgical recommendations. -Intractable of abdominal pain, nausea and vomiting secondary to recurrent ovarian cancer. Continue Zofran as needed for nausea and Dilaudid as needed for pain. -Diabetes mellitus type 2, hemoglobin A1c is 8.6, continue Lantus and NovoLog per sliding scale with Accu-Chek every 4 hours. -Hyperlipidemia. Further recommendations based on clinical course. Plan of care discussed with Dr. Hester. Problems: Exam/Review of Systems Vital Signs Vitals Vital Signs Date Time Temp Pulse Resp B/P Pulse Ox O2 Delivery O2 Flow Rate FiO2 02/28/17 12:00 97.4 87 19 108/61 100 Nasal Cannula 02/28/17 07:02 2.0 Intake and Output 02/27/17 02/27/17 02/28/17 15:00 23:00 07:00 Intake Total 1168 ml 642 ml Output Total 1565 ml 1200 ml 1433 ml Balance -397 ml -558 ml -1433 ml Exam Constitutional: alert, oriented Head: normocephalic Neck: supple Respiratory: normal air movement Cardiovascular: nl pulses Gastrointestinal: other (Hypoactive bowel sounds), soft, surgical scars Genitourinary - Female: other ([place] catheter) Extremities: normal pulses Neurological: nl mental status Results Result Diagram: 02/28/17 0408 02/28/17 0408 Results 24 hrs Laboratory Tests Test 02/27/17 13:38 02/27/17 13:50 02/27/17 16:52 02/27/17 20:48 Bedside Glucose 275 H 278 H 333 H Vancomycin Level Trough 8.7 L Test 02/28/17 00:26 02/28/17 04:08 02/28/17 05:56 02/28/17 09:37 Bedside Glucose 321 H 309 H 311 H White Blood Count 9.3 Red Blood Count 3.23 L Hemoglobin 9.5 L Hematocrit 28.6 L Mean Corpuscular Volume 88.5 Mean Corpuscular Hemoglobin 29.4 Mean Corpuscular Hemoglobin Concent 33.2 Red Cell Distribution Width 13.0 Platelet Count 360 Mean Platelet Volume 9.4 Neutrophils % 70.4 Lymphocytes % 16.6 Monocytes % 9.8 Eosinophils % 1.2 Basophils % 0.2 Nucleated Red Blood Cells % 0.0 Neutrophils # (Manual) 6.5 Lymphocytes # 1.5 Monocytes # 0.9 Eosinophils # 0.1 Basophils # 0.0 Nucleated Red Blood Cells # 0.0 Sodium Level 135 Potassium Level 3.8 Chloride Level 97 # Carbon Dioxide Level 31 Anion Gap 11 # Blood Urea Nitrogen 13 Creatinine 0.47 Glucose Level 349 H Calcium Level 8.8 Phosphorus Level 3.5 Magnesium Level 1.8 Test 02/28/17 12:56 Bedside Glucose 354 H Medications Medications Current Medications Hydromorphone HCl (Dilaudid) 0.5 mg Q3H PRN IV PAIN Last administered on t 02:26; Admin Dose 0.5 MG; Start 02/19/17 at 04:00 Miscellaneous Information 1 ea NOTE XX ; Start 02/19/17 at 04:30 Glucose (Glutose) 15 gm Q15M PRN PO DECREASED GLUCOSE; Start 02/19/17 at 04:30 Glucose (Glutose) 22.5 gm Q15M PRN PO DECREASED GLUCOSE; Start 02/19/17 at 04:30 Dextrose (D50w Syringe) 25 ml Q15M PRN IV DECREASED GLUCOSE; Start 02/19/17 at 04:30 Dextrose (D50w Syringe) 50 ml Q15M PRN IV DECREASED GLUCOSE; Start 02/19/17 at 04:30 Glucagon (Glucagen) 1 mg Q15M PRN IM DECREASED GLUCOSE; Start 02/19/17 at 04:30 Glucose (Glutose) 15 gm Q15M PRN BUCCAL DECREASED GLUCOSE; Start 02/19/17 at 04: 30 Atorvastatin Calcium (Lipitor) 40 mg DAILY PO Last administered on 02/28/17 09 :23; Admin Dose 40 MG; Start 02/21/17 at 09:00 Escitalopram Oxalate (Lexapro) 10 mg DAILY PRN PO DEPRESSION; Start 02/20/17 at 13:30 Ondansetron HCl (Zofran Inj) 4 mg Q4 PRN IV NAUSEA AND/OR VOMITING Last administered on 02/24/17 20:44; Admin Dose 4 MG; Start 02/21/17 at 17:00 Metoclopramide HCl (Reglan) 10 mg Q6 IV Last administered on 02/28/17 13:03; Admin Dose 10 MG; Start 02/22/17 at 21:00 Insulin Aspart (Novolog Insulin Pen) NOVOLOG *MILD* ALGORI... Q4 SC Last administered on 02/28/17 13:02; Admin Dose 7 UNIT; Start 02/23/17 at 01:00 Hydromorphone HCl (Dilaudid) 1 mg Q2H PRN IV PAIN LEVEL 6-10 Last administered on 02/23/17 17:46; Admin Dose 1 MG; Start 02/23/17 at 15:30 Ondansetron HCl (Zofran Inj) 4 mg Q6H PRN IV NAUSEA AND/OR VOMITING; Start 05/02 at 15:30 Famotidine (Pepcid Iv) 20 mg Q12 IV Last administered on 02/28/17 09:18; Admin Dose 20 MG; Start 02/23/17 at 21:00 Hydromorphone HCl MG/HR CONTINUOUS RATE ... Q4PCA IV Last administered on 02/28 01:11; Admin Dose 6 MG; Start 02/23/17 at 19:30 Piperacillin Sod/ Tazobactam Sod (Zosyn 3.375gm/ 100 ml (Pmx)) 100 ml @ 200 mls /hr Q6 IVPB Last administered on 02/28/17 13:05; Admin Dose 200 MLS/HR; Start 02/26/17 at 13:00 Octreotide Acetate 50 mcg 50 mcg TID SC Last administered on 02/28/17 13:18; Admin Dose 50 MCG; Start 02/26/17 at 14:00 Total Parenteral Nutrition (Tpn) 1,000 ml @ 80 mls/hr [id number] IV Last administered on 02/28/17 05:56; Admin Dose 125 MLS/HR; Start 02/26/17 at 21:00 Insulin Glargine (Lantus) 20 unit DAILY@20 SC Last administered on 02/27/17 21 :06; Admin Dose 20 UNIT; Start 02/27/17 at 20:00 IV Flush 10 ml 10 ml PRN PRN IV IV PROTOCOL; Start 02/27/17 at 15:00 Vancomycin HCl 250 ml @ 125 mls/hr Q8H IVPB Last administered on 02/28/17 06: 11; Admin Dose 125 MLS/HR; Start 02/27/17 at 22:00 Fat Emulsion Intravenous (Liposyn Ii 20%) 250 ml @ 21 mls/hr [id number] IV ; Start 02/28/17 at 13:22; Status GLENN MCLEAN Feb 28, 2017 13:28
[2017-02-28] MEDS: POTASSIUM CHLORIDE 50 ML IVPB PRN (13:41)
[2017-02-28] MEDS: HYDROmorphONE 1 MG/ML SYG IV PRN (18:43)
[2017-02-28] MEDS ORDERED: INSULIN GLARGINE [LANtus] 3 ML PEN SC SCH (20:00)
--- NOTE | 2017-02-28 21:19 | OPR ---
Date/Time of Note Date/Time of Note DATE: 02/28/17 TIME: 21:19 Operative Report Free Text/Dictation OPERATIVE REPORT [facility] Name: Bianca [facility] Date: 02.23.17 Preoperative Diagnosis: 1- Recurrent ovarian cancer 2- Impending small bowel obstruction Postoperative Diagnosis: 1- Recurrent ovarian cancer 2- Partial small bowel obstruction 3- Extensive adhesions 4- Ureteral stricture Procedures: 1- modified posterior exenteration with low anastomosis 2- Small bowel resection and anastamosis x2 3- Ureteral dissection with repositioning bilaterally 4- Extensive cytoreduction 5- Common iliac and aortic LND 6- Superficial bladder resection and repair Surgeon: Dr. Morris Plaster Block Layer: Dr. Byrne Anesthesia: General Indications for surgery: The patient is a 46- year old female with recurrent ovarian cancer cancer after a significant enough disease-free interval and evidence of recurrence of disease on the basis of elevated markers, radiographic findings, and some symptoms for whom a secondary cytoreduction was undertaken after addressing all options Name: [facility]ca [facility] with risks and benefits. Findings and Summary After opening and exploration we noted absence of ascites and noted upper abdominal disease involving a small amount of diaphragm adjacent to the liver on the right side with a cyst which was ablated with the argon beam shoe cleaner and there were multiple loops of small bowel densely involved with metastatic disease densely adherent to the sidewalls and cul-de-sac as well as sigmoid colon with the pelvic disease adherent to the bladder base and sigmoid colon. The retroperitoneal nodes were involved with some gross metastatic disease. At the completion of the procedure the patient was rendered visibly free of disease although distribution and desmoplastic reaction would suggest residual disease that was sub-millimeter to millimeter. Procedure: After being prepped and draped in the usual manner a midline skin incision was made of appropriate length. The electrocautery was then used to dissect thru the adipose tissue to the level of the fascia. The fascia was elevated and entered with a scalpel and traction/counter-traction, and upon entering the peritoneal cavity no ascetic fluid was observed and the opening was extended with the scalpel. At this time very extensive adhesions of intestine to the anterior abdominal wall were lysed with great care and any sero-muscular defects encountered were repaired with interrupted 3-0 Silk suture. Additional enterolysis was accomplished throughout the abdomen and in the process multiple loops of small bowel were noted to be densely adherent to the sidewall and cul- de-sac with metastatic disease and partly obstructed and with additional exploration accomplished as we searched the abdominal and pelvic contents we found that the left upper quadrant metastatic disease involved minimal [facility] was resected with the Ligasure (rank 1). The right upper quadrant diseases involved approximately 10 % of the diaphragm surface with confluent cystic disease against the liver that was biopsied although not entirely cancerous and ablated with the argon beam shoe cleaner (rank 1). Exploration of the central abdomen revealed approximately 200 implants involving the mesentery , intestinal, and gutter regions with dimensions of 1 mm to 5 mm (rank # ) with two areas requiring a resection and anastamosis. The pelvis was noted to be encased in metastatic disease. The largest metastatic disease was 5 cm in dimension and involved the left sidewall but was involved with. We then placed a aortic Bellfower retractor. Additional enterolysis was accomplished and in the process sero-muscular defects encountered were repaired with interrupted 3-0 Silk suture although a segment of proximal small bowel needed an anastamosis and ileum that was densely adherent to the recto-sigmoid and cul- de-sac needed a small bowel resection and anastomosis. The right retroperitoneum was then opened laterally with sharp dissection and the vasculature palpated. Subsequently a right angle and peanut was used to open and identify the vasculature after which the ureter was identified and a degree of hydroureter noted. Subsequently the right angle and peanut were used and a ureteral dissection with repositioning was completed and some mobilization accomplished digitally, permitting the small densely adherent to the sidewall to be dissected and mobilized with sharp dissection and a peanut as the ureter was visualized. Any sero-muscular defects encountered were repaired with interrupted 3-0 Silk suture. Additionally, the ureter was further dissected and the ureterolysis was completed to the area of stricture due to scar tissue and perhaps metastatic disease with tissue sent to pathology and adjacent tissue removed with the CUSA and ablated with the argon beam shoe cleaner at low wattage. At this time, the segment of terminal ileum/small intestine densely involved with disease and deserosalized was addressed. The involved bowel was from the mesentery proximal and distal to the bulky disease with Name: Bianca [facility] a tonsil clamp used without incident. The bowel was transected both proximally and distally with a 75 mm CE stapler using regular kumar. The mesentery was divided using a Ligasure successively, cauterizing in duplicate. Thin and vascular areas of mesentery were also divided with the Gyrus bipolar cutting forceps. Any bleeding areas were addressed with 3-0 silk suture. The specimen was removed and anastomosis deferred until the pelvic procedure competed to avoid manipulation. Subsequently the proximal segment of small bowel was addressed. At this time, the proximal segment of small bowel densely involved with disease was addressed and previously dissected was addressed. The involved bowel was from the mesentery proximal and distal to the bulky disease with a tonsil clamp used without incident. The bowel was transected both proximally and distally with a 75 mm CE stapler using regular kumar. The mesentery was divided using a Ligasure successively, cauterizing in duplicate. Thin and vascular areas of mesentery were also divided with the Gyrus bipolar cutting forceps. Any bleeding areas were addressed with 3-0 silk suture. The specimen was removed and anastomosis deferred until the pelvic procedure competed to avoid manipulation. Subsequently the small bowel and mesentery were thoroughly evaluated. At this time, the entire small and large bowel was thoroughly inspected and palpated. There were approximately 400 implants on the mesentery and serosal surfaces of the small intestine and colon , excluding cul-de-sac disease. The size of the implants ranged from .5 to 5 millimeters. All mesenteric implants were ablated with an argon beam shoe cleaner using a setting of 150 bean. Larger implants were excised either sharply a CUSA was used with an argon carlson shoe cleaner. Mesenteric implants immediately adjacent to the intestinal serosa or involving the serosa with or without mucosa were aspirated with a CUSA if permitted with adequate water content. Otherwise, serosal implants were excised sharply and any defects were closed with multiple sutures of 3-0 silk. Most implants were ablated, aspirated , or excised; however, the large number involving the intestinal surface and location Name: [facility] directly precluded elimination of all disease as there was probably sub-mm residual disease. At this time, the pelvic disease was addressed. Because of the extensive metastatic disease involving the pelvic peritoneum and recto- sigmoid colon, an en-bloc modified posterior pelvic exenteration was needed to resect the disease. Initially the remnant of right round ligaments was transected with a Ligasure uneventfully. The retroperitoneal area were opened and the ureter was identified. Due to extensive pelvic anatomic ureteral distortion and some element of ureteral stricture with hydroureter it was essential to thoroughly dissect and reposition the ureter laterally for exposure and to permit the ongoing dissection. This was accomplished by dissecting the right ureter from the retroperitoneum with care due to peritoneal infiltration with metastatic disease with a right-angle clamp and a peanut as well as digitally and lateralizing throughout the length, after which it was observed to peristalses. Subsequently, the remnant of left round ligament was transected with a Ligasure uneventfully. The retroperitoneal area was opened and the ureter was identified. Due to extensive pelvic anatomic ureteral distortion by the recurrent ovarian cancer with metastatic disease in the peritoneum and some element of ureteral stricture with hydroureter it was essential to thoroughly dissect and reposition the ureter laterally for exposure and to permit the ongoing dissection. This was accomplished by dissecting the left ureter from the retroperitoneum with care due to peritoneal and mesenteric infiltration with metastatic disease with a right angle clamp and a peanut as well as digitally and lateralizing throughout the length, after which it was observed to peristalses. After repositioning the ureters laterally away from the adherent peritoneum that was densely involved with disease, the proximal infundibulopelvic ligaments were cauterized with the Ligasure bilaterally and reinforced with interrupted ties of 0- Vicryl suture. Subsequently, the colon, proximal to the macroscopic disease was dissected away from the mesentery with a tonsil clamp and transected with a 75 mm CE stapler. The presacral area was then developed digitally and the specimen mobilized, after which the Name: Bianca [facility] presacral space was further developed with a Ligasure and Gyrus bipolar cutting forceps. With both ureters identified and traced out the colonic mesentery was divided using an Gyrus bipolar cutting forceps and Ligasure as well as endo- CE. Any bleeding areas involving adjacent tissue was addressed with clips and/ or 3-0 silk suture. The bladder flap was then developed but required that the entire bladder peritoneum be dissected from the bladder with sharp dissection and the argon beam shoe cleaner as it was infiltrated with metastatic disease. At this time, a large right angle clamp was used to dissect the ureters bilaterally, away from the old uterine vessels in a manner used during a type-2 hysterectomy. The uterine arteries were clipped and cut, along with the veins with the ureters visualized. The ureters were then tunneled through the parametria with a large right-angle clamp, and the parametrial pedicles were transected with an endo-CE bilaterally. The bladder pillars were then dissected and clipped, after which the ureters were confirmed to be undamaged. The bladder, which was previously deperitonealized, was reinforced with continuous 3-0 Vicryl suture. Hence, remaining parametrial tissue was transected with the endo-CE and Ligasure. The disease was from the vagina and any vaginal opening due to vagina adherent to disease closed with figure of eight sutures using 0-vicryl. Subsequently, the perirectal tissue was dissected from the distal colon and proximal rectum. Large pedicles were addressed with the endo-CE or Ligasure while smaller ones were clipped and cut. The rectum was stapled with a Contour and the central pelvic mass, pelvic peritoneum, and segment of recto-sigmoid removed en-bloc. After confirming hemostasis, we addressed the lymph node dissection since we had excellent exposure. Initially grossly positive lymph node tissue adjacent to the right pelvic vasculature was removed with sharp and blunt dissection, using the Gyrus bipolar cutting forceps for hemostasis and lymphostasis. The dissection was continued to include norma tissue adjacent to the common iliac vessels. The retractors were adjusted and any suspicious norma tissue adjacent to the vena cava, as well as aorto-caval nodes were Name: Bianca [facility] removed using identical technique. At this time we adjusted the retractors and left positive nodes adjacent to vasculature were removed with sharp and blunt dissection, using the Gyrus bipolar cutting forceps for hemostasis and lymphostasis. The dissection was continued to include norma tissue adjacent to the common iliac vessels. Subsequently, the retractors were adjusted and any norma tissue adjacent to the aorta was dissected using sharp and blunt dissection with the Thunderbeat for hemostasis and lymphostasis. After confirming hemostasis the proximal large bowel was mobilized and a purse string maker placed. After using the purses string devise the detachable part of an EEA (29 mm) devise was sutured in place, the rectal segment inserted appropriately, and the anastamosis completed uneventfully. The integrity was confirmed by inserting air in the rectum and noting an minimal leakage. The area was addressed with continuous 3-0 Vicryl suture and interrupted 3-0 silk suture. Integrity was confirmed. Subsequently the aforementioned small bowel had the anastamosis completed. At this time, previously resected distal small bowel segments were reanastamosed. Small enterotomies were created in both segments of bowel and the CE stapler inserted. The bowel was than partly joined with the 75 mm CE stapler and the enterotomy closed with a 60 mm TA 60 stapler. The mesenteric defect was closed with multiple sutures of 3-0 silk. The anastamosis was reinforced with a suture if 3-0 silk as needed and appropriate. Subsequently, previously resected proximal small bowel segments were reanastamosed. Small enterotomies were created in both segments of bowel and the CE stapler inserted. The bowel was than partly joined with the 80 mm CE stapler and the enterotomy closed with a 60 mm TA 60 stapler. The mesenteric defect was closed with multiple sutures of 3-0 silk. The anastamosis was reinforced with a suture if 3-0 silk as needed and appropriate. At this time, after all packing was removed, the abdomen thoroughly irrigated, hemostasis confirmed, and a Zechariah drain placed in the pelvic area. The fascial edges were exposed by resecting the ventral hernia sac with electrocautery. [facility]. A figure of eight suture was placed at the caudal apex of the incision with 1- Prolene suture and used for exposure by elevating with a Pean clamp. Interrupted 1- Prolene suture was used from the rostral apex and repeated to the supra-pubic area. Sepra film was used. The final suture was tied appropriately, after which the figure of eight was tied. The subcutaneous tissue was irrigated and the skin was closed with a subcutaneous layer of 3-0 Vicryl suture and skin clips. The sponge, needle, and instrument were correct two times. The estimated blood loss was 400 cc. The patient tolerated the procedure well and left the OR in good condition. It should be noted that all visible disease was resected although considering the disease distribution and desmoplastic reaction there is a probability of sub-millimeter residual disease. Maria De Jesus Morris M.D. Surgeon: MARIA DE JESUS MORRIS MD kindergarten teacher assistant: MISTY BYRNE MD Anesthesia Type: general Estimated Blood Loss: 250 - 300 ml's Transfusion Required: no Complications: no MARIA DE JESUS MORRIS MD Feb 28, 2017 21:19
--- NOTE | 2017-02-28 21:24 | PN ---
Date/Time of Note Date/Time of Note DATE: 02/28/17 TIME: 21:20 Assessment/Plan VTE Prophylaxis VTE Prophylaxis Intervention: SCD's Lines/Catheters IV Catheter Type (from Nrs): PICC Line Central line still needed: Yes Urinary Cath still in place: Yes Reason Cath still needed: urinary retention Assessment/Plan Chief Complaint/Hosp Course ovarian cancer, recurrent, partial SBO/LBO, ureteral stricture Problems: Assessment/Plan A- adequate to transfer to Oncology 4w; awaiting bed P- Transfer to onc but must have [place] and NGT Subjective 24 Hr Interval Summary Free Text/Dictation Feels better. No flatus as expected . Exam/Review of Systems Vital Signs Vitals Vital Signs Date Time Temp Pulse Resp B/P Pulse Ox O2 Delivery O2 Flow Rate FiO2 02/28/17 20:01 97 02/28/17 20:00 98.7 17 128/67 96 Room Air 02/28/17 14:56 1.0 Intake and Output 02/27/17 02/27/17 02/28/17 15:00 23:00 07:00 Intake Total 1168 ml 642 ml 250 ml Output Total 1565 ml 1200 ml 1433 ml Balance -397 ml -558 ml -1183 ml Exam Resp- clear CVS- NSR Abd- soft and clean Ext- NT no edema Results Result Diagram: 02/28/178 02/28/17 0408 Results 24 hrs Laboratory Tests Test 02/28/17 00:26 02/28/17 04:08 02/28/17 05:56 02/28/17 09:37 Bedside Glucose 321 H 309 H 311 H White Blood Count 9.3 Red Blood Count 3.23 L Hemoglobin 9.5 L Hematocrit 28.6 L Mean Corpuscular Volume 88.5 Mean Corpuscular Hemoglobin 29.4 Mean Corpuscular Hemoglobin Concent 33.2 Red Cell Distribution Width 13.0 Platelet Count 360 Mean Platelet Volume 9.4 Neutrophils % 70.4 Lymphocytes % 16.6 Monocytes % 9.8 Eosinophils % 1.2 Basophils % 0.2 Nucleated Red Blood Cells % 0.0 Neutrophils # (Manual) 6.5 Lymphocytes # 1.5 Monocytes # 0.9 Eosinophils # 0.1 Basophils # 0.0 Nucleated Red Blood Cells # 0.0 Sodium Level 135 Potassium Level 3.8 Chloride Level 97 # Carbon Dioxide Level 31 Anion Gap 11 # Blood Urea Nitrogen 13 Creatinine 0.47 Glucose Level 349 H Calcium Level 8.8 Phosphorus Level 3.5 Magnesium Level 1.8 Test 02/28/17 12:56 02/28/17 17:58 Bedside Glucose 354 H 228 H Medications Medications Current Medications Hydromorphone HCl (Dilaudid) 0.5 mg Q3H PRN IV PAIN Last administered on 18:43; Admin Dose 0.5 MG; Start 02/19/17 at 04:00 Miscellaneous Information 1 ea NOTE XX ; Start 02/19/17 at 04:30 Glucose (Glutose) 15 gm Q15M PRN PO DECREASED GLUCOSE; Start 02/19/17 at 04:30 Glucose (Glutose) 22.5 gm Q15M PRN PO DECREASED GLUCOSE; Start 02/19/17 at 04:30 Dextrose (D50w Syringe) 25 ml Q15M PRN IV DECREASED GLUCOSE; Start 02/19/17 at 04:30 Dextrose (D50w Syringe) 50 ml Q15M PRN IV DECREASED GLUCOSE; Start 02/19/17 at 04:30 Glucagon (Glucagen) 1 mg Q15M PRN IM DECREASED GLUCOSE; Start 02/19/17 at 04:30 Glucose (Glutose) 15 gm Q15M PRN BUCCAL DECREASED GLUCOSE; Start 02/19/17 at 04: 30 Atorvastatin Calcium (Lipitor) 40 mg DAILY PO Last administered on 02/28/17 09 :23; Admin Dose 40 MG; Start 02/21/17 at 09:00 Escitalopram Oxalate (Lexapro) 10 mg DAILY PRN PO DEPRESSION; Start 02/20/17 at 13:30 Metoclopramide HCl (Reglan) 10 mg Q6 IV Last administered on 02/28/17 18:02; Admin Dose 10 MG; Start 02/22/17 at 21:00 Insulin Aspart (Novolog Insulin Pen) NOVOLOG *MILD* ALGORI... Q4 SC Last administered on 02/28/17 18:06; Admin Dose 3 UNIT; Start 02/23/17 at 01:00 Hydromorphone HCl (Dilaudid) 1 mg Q2H PRN IV PAIN LEVEL 6-10 Last administered on 02/23/17 17:46; Admin Dose 1 MG; Start 02/23/17 at 15:30 Ondansetron HCl (Zofran Inj) 4 mg Q6H PRN IV NAUSEA AND/OR VOMITING; Start 05/02 at 15:30 Famotidine (Pepcid Iv) 20 mg Q12 IV Last administered on 02/28/17 09:18; Admin Dose 20 MG; Start 02/23/17 at 21:00 Hydromorphone HCl MG/HR CONTINUOUS RATE ... Q4PCA IV Last administered on 02/28 01:11; Admin Dose 6 MG; Start 02/23/17 at 19:30 Piperacillin Sod/ Tazobactam Sod (Zosyn 3.375gm/ 100 ml (Pmx)) 100 ml @ 200 mls /hr Q6 IVPB Last administered on 02/28/17 18:02; Admin Dose 200 MLS/HR; Start 02/26/17 at 13:00 Octreotide Acetate 50 mcg 50 mcg TID SC Last administered on 02/28/17 13:18; Admin Dose 50 MCG; Start 02/26/17 at 14:00 Total Parenteral Nutrition (Tpn) 1,000 ml @ 80 mls/hr [id number] IV Last administered on 02/28/17 05:56; Admin Dose 125 MLS/HR; Start 02/26/17 at 21:00 IV Flush 10 ml 10 ml PRN PRN IV IV PROTOCOL; Start 02/27/17 at 15:00 Vancomycin HCl (Vancocin) 250 ml @ 125 mls/hr Q8H IVPB Last administered on 13:44; Admin Dose 125 MLS/HR; Start 02/27/17 at 22:00 Insulin Glargine (Lantus) 30 unit DAILY@20 SC ; Start 02/28/17 at 20:00 Miscellaneous Information 1 ONCE ONCE XX ; Start 03/01/17 at 05:00; Stop at 05:01 Fat Emulsion Intravenous (Liposyn Ii 20%) 250 ml @ 21 mls/hr Q24H IV Last administered on 02/28/17 15:31; Admin Dose 21 MLS/HR; Start 02/28/17 at 15:00 MARIA DE JESUS MENDOZA MD Feb 28, 2017 21:24
[2017-03-01] MEDS: PIPER-TAZO 3.375 GM IV (PMX) 100 ML IVPB SCH ×4 (00:26→17:40)
[2017-03-01] MEDS: METOCLOPRAMIDE 10 MG INJ IV SCH ×4 (00:26→17:40)
[2017-03-01] MEDS: TPN 1,000 ML IV SCH ×4 (00:57→15:58)
[2017-03-01] MEDS: INSULIN ASPART [NOVOLOG] 3 ML PEN SC SCH ×6 (01:13→21:01)
[2017-03-01 01:40] VITALS: BP 106/58; RESP 18
[2017-03-01] MEDS: HYDROmorphONE 0.2 MG/ML PCA IV SCH ×2 (04:24→22:19)
[2017-03-01] MEDS: VANCOMYCIN 1 GM in NS 250 ML IVPB SCH ×3 (06:43→21:01)
[2017-03-01 07:19] LABS: CALCIUM 8.3 mg/dl (8.4-10.2); CREATININE 0.54 mg/dl (0.44-1.00); POTASSIUM 5.3 mmol/L (3.5-5.1)
[2017-03-01 07:32] VITALS: BP 106/89; RESP 19
[2017-03-01 08:42] LABS: BASOPHILS % 0.2 % (0.0-2.0); EOSINOPHILS # 0.2 10^3/ul (0.0-0.5); EOSINOPHILS % 1.3 % (0.0-7.0); HEMATOCRIT 26.9 % (37.0-47.0); HEMOGLOBIN 9.4 g/dl (12.0-16.0); LYMPHOCYTES # 1.6 10^3/ul (0.8-2.9); LYMPHOCYTES % 13.3 % (15.0-51.0); MEAN CORPUSCULAR HEMOGLOBIN 31.2 pg (29.0-33.0); MEAN CORPUSCULAR HGB CONC 34.9 g/dl (32.0-37.0); MEAN CORPUSCULAR VOLUME 89.4 fl (82.0-101.0); MONOCYTES % 8.3 % (0.0-11.0); NEUTROPHILS % 74.5 % (39.0-77.0); NUCLEATED RED BLOOD CELLS% 0.3 /100WBC (0.0-0.0); PLATELET COUNT 336 10^3/UL (140-415); RED BLOOD COUNT 3.01 10^6/ul (4.20-5.40); RED CELL DISTRIBUTION WIDTH 12.9 % (11.5-14.5); WHITE BLOOD COUNT 11.9 10^3/ul (4.8-10.8)
[2017-03-01] MEDS: ATORVASTATIN 40 MG TAB PO SCH (09:00)
[2017-03-01] MEDS: FAMOTIDINE 20 MG INJ IV SCH ×2 (09:20→20:51)
[2017-03-01] MEDS: OCTREOTIDE 50 MCG INJ SC SCH ×3 (09:20→21:03)
[2017-03-01 10:38] LABS: CALCIUM 8.8 mg/dl (8.4-10.2); CREATININE 0.42 mg/dl (0.44-1.00); POTASSIUM 3.9 mmol/L (3.5-5.1)
--- NOTE | 2017-03-01 13:38 | PN ---
Date/Time of Note Date/Time of Note DATE: 03/01/17 TIME: 13:34 Assessment/Plan VTE Prophylaxis VTE Prophylaxis Intervention: SCD's Lines/Catheters IV Catheter Type (from Nrs): Saline Lock Urinary Cath still in place: Yes Reason Cath still needed: urinary retention Assessment/Plan Chief Complaint/Hosp Course Patient with significantly elevated triglycerides, will decrease TPN to 60 cc an hour, hold lipids for 72 hours, continue IV fluids. Patient's continues to have hyperglycemia will adjust Lantus, continue to monitor blood sugar with sliding scale coverage every 4 hours, continue NG tube to low intermittent wall suctioning and [place] catheter. Assessment/Plan -Partial small bowel obstruction, continue TPN. -Recurrent Ovarian CA, status post secondary cytoreduction by Dr. Morris on . Continue to follow-up surgical recommendation. -Urethral stricture continue [place] catheter, follow-up surgical recommendations. -Intractable of abdominal pain, nausea and vomiting secondary to recurrent ovarian cancer. Continue Zofran as needed for nausea and Dilaudid as needed for pain. -Diabetes mellitus type 2, hemoglobin A1c is 8.6, continue Lantus and NovoLog per sliding scale with Accu-Chek every 4 hours. -Hyperlipidemia. Further recommendations based on clinical course. Plan of care discussed with Dr. Hester. Problems: Exam/Review of Systems Vital Signs Vitals Vital Signs Date Time Temp Pulse Resp B/P Pulse Ox O2 Delivery O2 Flow Rate FiO2 03/01/17 07:32 97.6 92 19 106/89 96 02/28/17 20:00 Room Air 02/28/17 14:56 1.0 Intake and Output 02/28/17 02/28/17 03/01/17 15:00 23:00 07:00 Intake Total 1275 ml 912 ml Output Total 1100 ml 300 ml 920 ml Balance 175 ml -300 ml -8 ml Exam Constitutional: alert, oriented Head: normocephalic Neck: supple Respiratory: normal air movement Cardiovascular: nl pulses Gastrointestinal: other (Hypoactive bowel sounds), soft, surgical scars Genitourinary - Female: other ([place] catheter) Extremities: normal pulses Neurological: nl mental status Results Result Diagram: 03/01/17 0505 03/01/17 0933 Results 24 hrs Laboratory Tests Test 02/28/17 17:58 02/28/17 21:57 03/01/17 01:10 03/01/17 05:02 Bedside Glucose 228 H 203 225 H 278 H Test 03/01/17 05:05 03/01/17 08:20 03/01/17 09:33 White Blood Count 11.9 #H Red Blood Count 3.01 L Hemoglobin 9.4 L Hematocrit 26.9 L Mean Corpuscular Volume 89.4 Mean Corpuscular Hemoglobin 31.2 Mean Corpuscular Hemoglobin Concent 34.9 Red Cell Distribution Width 12.9 Platelet Count 336 Mean Platelet Volume 10.0 Neutrophils % 74.5 Lymphocytes % 13.3 L Monocytes % 8.3 Eosinophils % 1.3 Basophils % 0.2 Nucleated Red Blood Cells % 0.3 H Neutrophils # (Manual) 8.9 H Lymphocytes # 1.6 Monocytes # 1.0 H Eosinophils # 0.2 Basophils # 0.0 Nucleated Red Blood Cells # 0.0 Sodium Level 127 L 135 Potassium Level 5.3 H 3.9 Chloride Level 93 L 93 L Carbon Dioxide Level 26 29 Anion Gap 13 17 H Blood Urea Nitrogen 10 10 Creatinine 0.54 0.42 L Glucose Level 531 #*H 290 #H Calcium Level 8.3 L 8.8 Triglycerides Level 659 H Vancomycin Level Trough 11.4 Bedside Glucose 282 H Medications Medications Current Medications Hydromorphone HCl (Dilaudid) 0.5 mg Q3H PRN IV PAIN Last administered on t 18:43; Admin Dose 0.5 MG; Start 02/19/17 at 04:00 Miscellaneous Information 1 ea NOTE XX ; Start 02/19/17 at 04:30 Glucose (Glutose) 15 gm Q15M PRN PO DECREASED GLUCOSE; Start 02/19/17 at 04:30 Glucose (Glutose) 22.5 gm Q15M PRN PO DECREASED GLUCOSE; Start 02/19/17 at 04:30 Dextrose (D50w Syringe) 25 ml Q15M PRN IV DECREASED GLUCOSE; Start 02/19/17 at 04:30 Dextrose (D50w Syringe) 50 ml Q15M PRN IV DECREASED GLUCOSE; Start 02/19/17 at 04:30 Glucagon (Glucagen) 1 mg Q15M PRN IM DECREASED GLUCOSE; Start 02/19/17 at 04:30 Glucose (Glutose) 15 gm Q15M PRN BUCCAL DECREASED GLUCOSE; Start 02/19/17 at 04: 30 Atorvastatin Calcium (Lipitor) 40 mg DAILY PO Last administered on 02/28/17 09 :23; Admin Dose 40 MG; Start 02/21/17 at 09:00 Escitalopram Oxalate (Lexapro) 10 mg DAILY PRN PO DEPRESSION; Start 02/20/17 at 13:30 Metoclopramide HCl (Reglan) 10 mg Q6 IV Last administered on 03/01/17 11:46; Admin Dose 10 MG; Start 02/22/17 at 21:00 Insulin Aspart (Novolog Insulin Pen) NOVOLOG *MILD* ALGORI... Q4 SC Last administered on 03/01/17 11:03; Admin Dose 4 UNIT; Start 02/23/17 at 01:00 Hydromorphone HCl (Dilaudid) 1 mg Q2H PRN IV PAIN LEVEL 6-10 Last administered on 02/23/17 17:46; Admin Dose 1 MG; Start 02/23/17 at 15:30 Ondansetron HCl (Zofran Inj) 4 mg Q6H PRN IV NAUSEA AND/OR VOMITING; Start 05/02 at 15:30 Famotidine (Pepcid Iv) 20 mg Q12 IV Last administered on 03/01/17 09:20; Admin Dose 20 MG; Start 02/23/17 at 21:00 Hydromorphone HCl MG/HR CONTINUOUS RATE ... Q4PCA IV Last administered on 03/01 04:24; Admin Dose 6 MG; Start 02/23/17 at 19:30 Piperacillin Sod/ Tazobactam Sod 100 ml @ 200 mls/hr Q6 IVPB Last administered on 03/01/17 11:46; Admin Dose 200 MLS/HR; Start 02/26/17 at 13:00 Total Parenteral Nutrition (Tpn) 1,000 ml @ 60 mls/hr [id number] IV Last administered on 03/01/17 00:57; Admin Dose 80 MLS/HR; Start 02/26/17 at 21:00 IV Flush 10 ml 10 ml PRN PRN IV IV PROTOCOL; Start 02/27/17 at 15:00 Vancomycin HCl (Vancocin) 250 ml @ 125 mls/hr Q8H IVPB Last administered on 06:43; Admin Dose 125 MLS/HR; Start 02/27/17 at 22:00 Insulin Glargine 30 unit 30 unit DAILY@20 SC Last administered on 02/28/17 22: 07; Admin Dose 30 UNIT; Start 02/28/17 at 20:00 Fat Emulsion Intravenous (Liposyn Ii 20%) 250 ml @ 21 mls/hr Q24H IV Last administered on 02/28/17 15:31; Admin Dose 21 MLS/HR; Start 02/28/17 at 15:00; Status Future Hold Octreotide Acetate (Sandostatin) 75 mcg TID SC Last administered on 03/01/17 09:20; Admin Dose 75 MCG; Start 02/28/17 at 22:00 GLENN PALMER Mar 01, 2017 13:38
[2017-03-01] MEDS: SOD CHLORIDE 0.9% 1,000 ML IV SCH (14:23)
[2017-03-01 20:24] VITALS: BP 119/61; RESP 20
[2017-03-01] MEDS: INSULIN GLARGINE [LANtus] 3 ML PEN SC SCH (21:00)
[2017-03-02] MEDS: METOCLOPRAMIDE 10 MG INJ IV SCH ×4 (00:48→17:56)
[2017-03-02] MEDS: PIPER-TAZO 3.375 GM IV (PMX) 100 ML IVPB SCH ×4 (00:49→18:48)
[2017-03-02] MEDS: INSULIN ASPART [NOVOLOG] 3 ML PEN SC SCH ×6 (00:58→20:56)
[2017-03-02 02:22] VITALS: BP 112/60; RESP 20
[2017-03-02 05:19] LABS: BASOPHILS % 0.1 % (0.0-2.0); EOSINOPHILS # 0.2 10^3/ul (0.0-0.5); EOSINOPHILS % 1.3 % (0.0-7.0); HEMATOCRIT 25.7 % (37.0-47.0); HEMOGLOBIN 8.4 g/dl (12.0-16.0); LYMPHOCYTES # 1.9 10^3/ul (0.8-2.9); LYMPHOCYTES % 14.3 % (15.0-51.0); MEAN CORPUSCULAR HEMOGLOBIN 28.6 pg (29.0-33.0); MEAN CORPUSCULAR HGB CONC 32.7 g/dl (32.0-37.0); MEAN CORPUSCULAR VOLUME 87.4 fl (82.0-101.0); MEAN PLATELET VOLUME 9.3 fl (7.4-10.4); MONOCYTE # 1.1 10^3/ul (0.3-0.9); MONOCYTES % 8.2 % (0.0-11.0); NEUTROPHILS % 73.2 % (39.0-77.0); NUCLEATED RED BLOOD CELLS% 0.2 /100WBC (0.0-0.0); PLATELET COUNT 341 10^3/UL (140-415); RED BLOOD COUNT 2.94 10^6/ul (4.20-5.40); WHITE BLOOD COUNT 13.4 10^3/ul (4.8-10.8)
[2017-03-02 05:34] LABS: CALCIUM 7.9 mg/dl (8.4-10.2); CREATININE 0.41 mg/dl (0.44-1.00); MAGNESIUM 1.6 mg/dl (1.7-2.5); PHOSPHORUS 3.8 mg/dl (2.5-4.9); POTASSIUM 3.2 mmol/L (3.5-5.1)
[2017-03-02] MEDS: VANCOMYCIN 1 GM in NS 250 ML IVPB SCH ×3 (05:37→21:52)
[2017-03-02] MEDS: SOD CHLORIDE 0.9% 1,000 ML IV SCH (06:40)
[2017-03-02 08:16] VITALS: BP 116/59; RESP 20
[2017-03-02] MEDS: TPN 1,000 ML IV SCH (09:09)
[2017-03-02] MEDS: FAMOTIDINE 20 MG INJ IV SCH ×2 (09:21→20:46)
[2017-03-02] MEDS: OCTREOTIDE 50 MCG INJ SC SCH ×3 (09:22→21:51)
[2017-03-02] MEDS: ONDANSETRON 4 MG INJ IV PRN (10:39)
--- NOTE | 2017-03-02 13:47 | PN ---
Date/Time of Note Date/Time of Note DATE: 03/02/17 TIME: 13:45 Assessment/Plan VTE Prophylaxis VTE Prophylaxis Intervention: SCD's Lines/Catheters IV Catheter Type (from Nrsg): PICC Line Central line still needed: Yes Urinary Cath still in place: Yes Reason Cath still needed: other (indicate) Assessment/Plan Chief Complaint/Hosp Course ovarian cancer, recurrent, partial SBO/LBO, ureteral stricture Problems: Assessment/Plan A- doing well P- maintain TPN and sandostatin due to3 high risk bowel anastamoses Subjective 24 Hr Interval Summary Free Text/Dictation less pain and feels better but minimally OOB Exam/Review of Systems Vital Signs Vitals Vital Signs Date Time Temp Pulse Resp B/P Pulse Ox O2 Delivery O2 Flow Rate FiO2 03/02/17 08:16 98.2 79 20 116/59 97 02/28/17 20:00 Room Air 02/28/17 14:56 1.0 Intake and Output 03/01/17 03/01/17 03/02/17 15:00 23:00 07:00 Intake Total 354 ml 1050 ml 1440 ml Output Total 2000 ml 1005 ml Balance 354 ml -950 ml 435 ml Exam Resp- clear CVS- NSR Abd- soft NT Ext- nt no edema Results Result Diagram: 03/02/17 0445 03/02/17 0428 Results 24 hrs Laboratory Tests Test 03/01/17 17:46 03/01/17 20:56 03/02/17 00:52 03/02/17 04:28 Bedside Glucose 240 H 224 H 206 Sodium Level 139 Potassium Level 3.2 L Chloride Level 99 Carbon Dioxide Level 28 Anion Gap 15 Blood Urea Nitrogen 10 Creatinine 0.41 L Glucose Level 168 # Calcium Level 7.9 L Phosphorus Level 3.8 Magnesium Level 1.6 L Test 03/02/17 04:45 03/02/17 04:48 03/02/17 09:07 White Blood Count 13.4 H Red Blood Count 2.94 L Hemoglobin 8.4 L Hematocrit 25.7 L Mean Corpuscular Volume 87.4 Mean Corpuscular Hemoglobin 28.6 L Mean Corpuscular Hemoglobin Concent 32.7 Red Cell Distribution Width 13.0 Platelet Count 341 Mean Platelet Volume 9.3 Neutrophils % 73.2 Lymphocytes % 14.3 L Monocytes % 8.2 Eosinophils % 1.3 Basophils % 0.1 Nucleated Red Blood Cells % 0.2 H Neutrophils # (Manual) 9.8 H Lymphocytes # 1.9 Monocytes # 1.1 H Eosinophils # 0.2 Basophils # 0.0 Nucleated Red Blood Cells # 0.0 Prealbumin 9.8 L Bedside Glucose 165 234 H Medications Medications Current Medications Hydromorphone HCl (Dilaudid) 0.5 mg Q3H PRN IV PAIN Last administered on 18:43; Admin Dose 0.5 MG; Start 02/19/17 at 04:00 Miscellaneous Information 1 ea NOTE XX ; Start 02/19/17 at 04:30 Glucose (Glutose) 15 gm Q15M PRN PO DECREASED GLUCOSE; Start 02/19/17 at 04:30 Glucose (Glutose) 22.5 gm Q15M PRN PO DECREASED GLUCOSE; Start 02/19/17 at 04:30 Dextrose (D50w Syringe) 25 ml Q15M PRN IV DECREASED GLUCOSE; Start 02/19/17 at 04:30 Dextrose (D50w Syringe) 50 ml Q15M PRN IV DECREASED GLUCOSE; Start 02/19/17 at 04:30 Glucagon (Glucagen) 1 mg Q15M PRN IM DECREASED GLUCOSE; Start 02/19/17 at 04:30 Glucose (Glutose) 15 gm Q15M PRN BUCCAL DECREASED GLUCOSE; Start 02/19/17 at 04: 30 Atorvastatin Calcium (Lipitor) 40 mg DAILY PO Last administered on 02/28/17 09 :23; Admin Dose 40 MG; Start 02/21/17 at 09:00 Escitalopram Oxalate (Lexapro) 10 mg DAILY PRN PO DEPRESSION; Start 02/20/17 at 13:30 Metoclopramide HCl (Reglan) 10 mg Q6 IV Last administered on 03/02/17 11:59; Admin Dose 10 MG; Start 02/22/17 at 21:00 Insulin Aspart (Novolog Insulin Pen) NOVOLOG *MILD* ALGORI... Q4 SC Last administered on 03/02/17 09:18; Admin Dose 3 UNIT; Start 02/23/17 at 01:00 Hydromorphone HCl (Dilaudid) 1 mg Q2H PRN IV PAIN LEVEL 6-10 Last administered on 02/23/17 17:46; Admin Dose 1 MG; Start 02/23/17 at 15:30 Ondansetron HCl (Zofran Inj) 4 mg Q6H PRN IV NAUSEA AND/OR VOMITING Last administered on 03/02/17 10:39; Admin Dose 4 MG; Start 02/23/17 at 15:30 Famotidine (Pepcid Iv) 20 mg Q12 IV Last administered on 03/02/17 09:21; Admin Dose 20 MG; Start 02/23/17 at 21:00 Hydromorphone HCl MG/HR CONTINUOUS RATE ... Q4PCA IV Last administered on 03/01 22:19; Admin Dose 6 MG; Start 02/23/17 at 19:30 Piperacillin Sod/ Tazobactam Sod 100 ml @ 200 mls/hr Q6 IVPB Last administered on 03/02/17 12:00; Admin Dose 200 MLS/HR; Start 02/26/17 at 13:00 Total Parenteral Nutrition (Tpn) 1,000 ml @ 60 mls/hr [id number] IV Last administered on 03/02/17 09:09; Admin Dose 60 MLS/HR; Start 02/26/17 at 21:00 IV Flush 10 ml 10 ml PRN PRN IV IV PROTOCOL; Start 02/27/17 at 15:00 Vancomycin HCl 250 ml @ 125 mls/hr Q8H IVPB Last administered on 03/02/17 05: 37; Admin Dose 125 MLS/HR; Start 02/27/17 at 22:00 Fat Emulsion Intravenous (Liposyn Ii 20%) 250 ml @ 21 mls/hr Q24H IV Last administered on 02/28/17 15:31; Admin Dose 21 MLS/HR; Start 02/28/17 at 15:00; Status Future Hold Octreotide Acetate (Sandostatin) 75 mcg TID SC Last administered on 03/02/17 09:22; Admin Dose 75 MCG; Start 02/28/17 at 22:00 Insulin Glargine 34 unit 34 unit DAILY@20 SC Last administered on 03/01/17 21: 00; Admin Dose 34 UNIT; Start 03/01/17 at 20:00 Sodium Chloride (NS) 1,000 ml @ 60 mls/hr [id number] IV Last administered on 03/01 14:23; Admin Dose 60 MLS/HR; Start 03/01/17 at 14:00 MARIA DE JESUS MENDOZA MD Mar 02, 2017 13:46
--- NOTE | 2017-03-02 14:30 | PN ---
Date/Time of Note Date/Time of Note DATE: 03/02/17 TIME: 14:27 Assessment/Plan VTE Prophylaxis VTE Prophylaxis Intervention: SCD's Lines/Catheters IV Catheter Type (from Nrs): PICC Line Central line still needed: Yes Urinary Cath still in place: Yes Reason Cath still needed: urinary retention Assessment/Plan Assessment/Plan - Electrolyte imbalance. sean pharmacist Nadeem rendon Mag, kcl AND patients persistent BS- ok to replace Mag/kcl - Hypokalemia- replace, an BMP - Hypomagnesium- replace MG, an Mag level -Partial small bowel obstruction, continue TPN. -Recurrent Ovarian CA, status post secondary cytoreduction by Dr. Morris on . Continue to follow-up surgical recommendation. -Urethral stricture continue [place] catheter, follow-up surgical recommendations. -Intractable of abdominal pain, nausea and vomiting secondary to recurrent ovarian cancer. Continue Zofran as needed for nausea and Dilaudid as needed for pain. -Diabetes mellitus type 2, hemoglobin A1c is 8.6, continue Lantus and NovoLog per sliding scale with Accu-Chek every 4 hours. -Hyperlipidemia. Further recommendations based on clinical course. Plan of care discussed with Dr. Hester. Subjective 24 Hr Interval Summary Free Text/Dictation Patient with significantly elevated triglycerides, will decrease TPN to 60 cc an hour, hold lipids for 72 hours, continue IV fluids. Patient's continues to have hyperglycemia will adjust Lantus, continue to monitor blood sugar with sliding scale coverage every 4 hours, continue NG tube to low intermittent wall suctioning and [place] catheter. Exam/Review of Systems Vital Signs Vitals Vital Signs Date Time Temp Pulse Resp B/P Pulse Ox O2 Delivery O2 Flow Rate FiO2 03/02/17 08:16 98.2 79 20 116/59 97 02/28/17 20:00 Room Air 02/28/17 14:56 1.0 Intake and Output 03/01/17 03/01/17 03/02/17 15:00 23:00 07:00 Intake Total 354 ml 1050 ml 1440 ml Output Total 2000 ml 1005 ml Balance 354 ml -950 ml 435 ml Exam Constitutional: alert, oriented, well developed Respiratory: clear to auscultation, normal air movement Cardiovascular: nl pulses, regular rate and rhythm Gastrointestinal: other ( NG tube to low intermittent wall suctioning ), soft Genitourinary - Female: other ( [place] catheter- INTACT) Musculoskeletal: nl extremities to inspection Extremities: normal pulses Neurological: nl mental status, nl speech Skin: other Results Result Diagram: 03/02/17 0445 03/02/17 0428 Results 24 hrs Laboratory Tests Test 03/01/17 17:46 03/01/17 20:56 03/02/17 00:52 03/02/17 04:28 Bedside Glucose 240 H 224 H 206 Sodium Level 139 Potassium Level 3.2 L Chloride Level 99 Carbon Dioxide Level 28 Anion Gap 15 Blood Urea Nitrogen 10 Creatinine 0.41 L Glucose Level 168 # Calcium Level 7.9 L Phosphorus Level 3.8 Magnesium Level 1.6 L Test 03/02/17 04:45 03/02/17 04:48 03/02/17 09:07 03/02/17 13:47 White Blood Count 13.4 H Red Blood Count 2.94 L Hemoglobin 8.4 L Hematocrit 25.7 L Mean Corpuscular Volume 87.4 Mean Corpuscular Hemoglobin 28.6 L Mean Corpuscular Hemoglobin Concent 32.7 Red Cell Distribution Width 13.0 Platelet Count 341 Mean Platelet Volume 9.3 Neutrophils % 73.2 Lymphocytes % 14.3 L Monocytes % 8.2 Eosinophils % 1.3 Basophils % 0.1 Nucleated Red Blood Cells % 0.2 H Neutrophils # (Manual) 9.8 H Lymphocytes # 1.9 Monocytes # 1.1 H Eosinophils # 0.2 Basophils # 0.0 Nucleated Red Blood Cells # 0.0 Prealbumin 9.8 L Bedside Glucose 165 234 H 252 H Medications Medications Current Medications Hydromorphone HCl (Dilaudid) 0.5 mg Q3H PRN IV PAIN Last administered on t 18:43; Admin Dose 0.5 MG; Start 02/19/17 at 04:00 Miscellaneous Information 1 ea NOTE XX ; Start 02/19/17 at 04:30 Glucose (Glutose) 15 gm Q15M PRN PO DECREASED GLUCOSE; Start 02/19/17 at 04:30 Glucose (Glutose) 22.5 gm Q15M PRN PO DECREASED GLUCOSE; Start 02/19/17 at 04:30 Dextrose (D50w Syringe) 25 ml Q15M PRN IV DECREASED GLUCOSE; Start 02/19/17 at 04:30 Dextrose (D50w Syringe) 50 ml Q15M PRN IV DECREASED GLUCOSE; Start 02/19/17 at 04:30 Glucagon (Glucagen) 1 mg Q15M PRN IM DECREASED GLUCOSE; Start 02/19/17 at 04:30 Glucose (Glutose) 15 gm Q15M PRN BUCCAL DECREASED GLUCOSE; Start 02/19/17 at 04: 30 Atorvastatin Calcium (Lipitor) 40 mg DAILY PO Last administered on 02/28/17 09 :23; Admin Dose 40 MG; Start 02/21/17 at 09:00 Escitalopram Oxalate (Lexapro) 10 mg DAILY PRN PO DEPRESSION; Start 02/20/17 at 13:30 Metoclopramide HCl (Reglan) 10 mg Q6 IV Last administered on 03/02/17 11:59; Admin Dose 10 MG; Start 02/22/17 at 21:00 Insulin Aspart (Novolog Insulin Pen) NOVOLOG *MILD* ALGORI... Q4 SC Last administered on 03/02/17 13:57; Admin Dose 3 UNIT; Start 02/23/17 at 01:00 Hydromorphone HCl (Dilaudid) 1 mg Q2H PRN IV PAIN LEVEL 6-10 Last administered on 02/23/17 17:46; Admin Dose 1 MG; Start 02/23/17 at 15:30 Ondansetron HCl (Zofran Inj) 4 mg Q6H PRN IV NAUSEA AND/OR VOMITING Last administered on 03/02/17 10:39; Admin Dose 4 MG; Start 02/23/17 at 15:30 Famotidine (Pepcid Iv) 20 mg Q12 IV Last administered on 03/02/17 09:21; Admin Dose 20 MG; Start 02/23/17 at 21:00 Hydromorphone HCl MG/HR CONTINUOUS RATE ... Q4PCA IV Last administered on 03/01 22:19; Admin Dose 6 MG; Start 02/23/17 at 19:30 Piperacillin Sod/ Tazobactam Sod 100 ml @ 200 mls/hr Q6 IVPB Last administered on 03/02/17 12:00; Admin Dose 200 MLS/HR; Start 02/26/17 at 13:00 Total Parenteral Nutrition (Tpn) 1,000 ml @ 60 mls/hr [id number] IV Last administered on 03/02/17 09:09; Admin Dose 60 MLS/HR; Start 02/26/17 at 21:00 IV Flush 10 ml 10 ml PRN PRN IV IV PROTOCOL; Start 02/27/17 at 15:00 Vancomycin HCl 250 ml @ 125 mls/hr Q8H IVPB Last administered on 03/02/17 05: 37; Admin Dose 125 MLS/HR; Start 02/27/17 at 22:00 Fat Emulsion Intravenous (Liposyn Ii 20%) 250 ml @ 21 mls/hr Q24H IV Last administered on 02/28/17 15:31; Admin Dose 21 MLS/HR; Start 02/28/17 at 15:00; Status Future Hold Octreotide Acetate (Sandostatin) 75 mcg TID SC Last administered on 03/02/17 13:51; Admin Dose 75 MCG; Start 02/28/17 at 22:00 Insulin Glargine 34 unit 34 unit DAILY@20 SC Last administered on 03/01/17 21: 00; Admin Dose 34 UNIT; Start 03/01/17 at 20:00 Sodium Chloride (NS) 1,000 ml @ 60 mls/hr [id number] IV Last administered on 03/01 14:23; Admin Dose 60 MLS/HR; Start 03/01/17 at 14:00 CUATE HAGEN Mar 02, 2017 14:30
[2017-03-02 15:00] VITALS: BP 135/55; RESP 20
[2017-03-02] MEDS ORDERED: POTASSIUM CHLORIDE 20 MEQ in SOD CHLORIDE 0.9% 100 ML IVPB ONE (15:00)
[2017-03-02] MEDS ORDERED: MAGNESIUM SULFATE 1 GM/D5W 100 ML IVPB ONE (15:00)
[2017-03-02] MEDS: ATORVASTATIN 40 MG TAB PO SCH (15:03)
[2017-03-02] MEDS: HYDROmorphONE 0.2 MG/ML PCA IV SCH (15:14)
[2017-03-02 20:42] VITALS: BP 103/50; RESP 20
[2017-03-02] MEDS: INSULIN GLARGINE [LANtus] 3 ML PEN SC SCH (20:56)
[2017-03-03] MEDS: PIPER-TAZO 3.375 GM IV (PMX) 100 ML IVPB SCH ×4 (00:44→18:16)
[2017-03-03] MEDS: METOCLOPRAMIDE 10 MG INJ IV SCH ×4 (00:44→18:19)
[2017-03-03] MEDS: INSULIN ASPART [NOVOLOG] 3 ML PEN SC SCH ×6 (00:48→20:49)
[2017-03-03 02:49] VITALS: BP 109/53; RESP 20
[2017-03-03] MEDS: SOD CHLORIDE 0.9% 1,000 ML IV SCH ×2 (03:40→16:00)
[2017-03-03] MEDS: TPN 1,000 ML IV SCH ×3 (03:41→21:16)
[2017-03-03 05:12] LABS: BASOPHILS % 0.2 % (0.0-2.0); EOSINOPHILS # 0.1 10^3/ul (0.0-0.5); EOSINOPHILS % 0.8 % (0.0-7.0); HEMATOCRIT 27.7 % (37.0-47.0); LYMPHOCYTES # 1.6 10^3/ul (0.8-2.9); LYMPHOCYTES % 9.4 % (15.0-51.0); MEAN CORPUSCULAR HEMOGLOBIN 28.1 pg (29.0-33.0); MEAN CORPUSCULAR HGB CONC 32.5 g/dl (32.0-37.0); MEAN CORPUSCULAR VOLUME 86.6 fl (82.0-101.0); MEAN PLATELET VOLUME 9.3 fl (7.4-10.4); MONOCYTE # 1.4 10^3/ul (0.3-0.9); MONOCYTES % 8.3 % (0.0-11.0); NEUTROPHILS % 78.9 % (39.0-77.0); NUCLEATED RED BLOOD CELLS% 0.2 /100WBC (0.0-0.0); PLATELET COUNT 411 10^3/UL (140-415); RED CELL DISTRIBUTION WIDTH 13.3 % (11.5-14.5); WHITE BLOOD COUNT 17.2 10^3/ul (4.8-10.8)
[2017-03-03 05:34] LABS: CREATININE 0.43 mg/dl (0.44-1.00); MAGNESIUM 1.7 mg/dl (1.7-2.5); POTASSIUM 3.3 mmol/L (3.5-5.1)
[2017-03-03] MEDS: VANCOMYCIN 1 GM in NS 250 ML IVPB SCH ×4 (07:03→23:01)
[2017-03-03] MEDS: HYDROmorphONE 0.2 MG/ML PCA IV SCH (07:08)
[2017-03-03 08:24] VITALS: BP 119/59; RESP 18
[2017-03-03] MEDS: FAMOTIDINE 20 MG INJ IV SCH ×2 (09:34→20:43)
[2017-03-03] MEDS: ATORVASTATIN 40 MG TAB PO SCH (09:34)
[2017-03-03] MEDS: OCTREOTIDE 50 MCG INJ SC SCH ×2 (10:11→13:43)
[2017-03-03 13:25] VITALS: BP 103/57; RESP 18
--- NOTE | 2017-03-03 13:51 | PN ---
Date/Time of Note Date/Time of Note DATE: 03/03/17 TIME: 13:47 Assessment/Plan VTE Prophylaxis VTE Prophylaxis Intervention: SCD's Lines/Catheters IV Catheter Type (from Nrs): PICC Line Central line still needed: Yes Urinary Cath still in place: Yes Reason Cath still needed: urinary retention Assessment/Plan Chief Complaint/Hosp Course Patient's complains of NG tube discomfort, remains hemodynamically stable, afebrile. Assessment/Plan -Partial small bowel obstruction, continue TPN. -Recurrent Ovarian CA, status post secondary cytoreduction by Dr. Morris on . Continue to follow-up surgical recommendation. -Urethral stricture continue [place] catheter, follow-up surgical recommendations. -Intractable of abdominal pain, nausea and vomiting secondary to recurrent ovarian cancer. Continue Zofran as needed for nausea and Dilaudid as needed for pain. -Diabetes mellitus type 2, hemoglobin A1c is 8.6, continue Lantus and NovoLog per sliding scale with Accu-Chek every 4 hours. -Hyperlipidemia. Further recommendations based on clinical course. Plan of care discussed with Dr. Hester. Problems: Exam/Review of Systems Vital Signs Vitals Vital Signs Date Time Temp Pulse Resp B/P Pulse Ox O2 Delivery O2 Flow Rate FiO2 03/03/17 13:25 98.4 90 18 103/57 95 02/28/17 20:00 Room Air 02/28/17 14:56 1.0 Intake and Output 03/02/17 03/02/17 03/03/17 15:00 23:00 07:00 Intake Total 530 ml 1420 ml 1190 ml Output Total 1800 ml 1930 ml Balance -1270 ml 1420 ml -740 ml Exam Constitutional: alert, oriented Head: normocephalic, NG tube Neck: supple Respiratory: normal air movement Cardiovascular: nl pulses Gastrointestinal: other (Hypoactive bowel sounds), soft, surgical scars Genitourinary - Female: other ([place] catheter) Extremities: normal pulses Neurological: nl mental status Results Result Diagram: 03/03/17 0439 03/03/17 0439 Results 24 hrs Laboratory Tests Test 03/02/17 17:49 03/02/17 20:44 03/03/17 00:46 03/03/17 04:39 Bedside Glucose 294 H 274 H 210 White Blood Count 17.2 #H Red Blood Count 3.20 L Hemoglobin 9.0 L Hematocrit 27.7 L Mean Corpuscular Volume 86.6 Mean Corpuscular Hemoglobin 28.1 L Mean Corpuscular Hemoglobin Concent 32.5 Red Cell Distribution Width 13.3 Platelet Count 411 # Mean Platelet Volume 9.3 Neutrophils % 78.9 H Lymphocytes % 9.4 L Monocytes % 8.3 Eosinophils % 0.8 Basophils % 0.2 Nucleated Red Blood Cells % 0.2 H Neutrophils # (Manual) 14 H Lymphocytes # 1.6 Monocytes # 1.4 H Eosinophils # 0.1 Basophils # 0.0 Nucleated Red Blood Cells # 0.0 Sodium Level 137 Potassium Level 3.3 L Chloride Level 94 L Carbon Dioxide Level 29 Anion Gap 17 H Blood Urea Nitrogen 10 Creatinine 0.43 L Glucose Level 170 Calcium Level 8.0 L Magnesium Level 1.7 Test 03/03/17 05:51 03/03/17 09:33 Bedside Glucose 192 176 Medications Medications Current Medications Hydromorphone HCl (Dilaudid) 0.5 mg Q3H PRN IV PAIN Last administered on 18:43; Admin Dose 0.5 MG; Start 02/19/17 at 04:00 Miscellaneous Information 1 ea NOTE XX ; Start 02/19/17 at 04:30 Glucose (Glutose) 15 gm Q15M PRN PO DECREASED GLUCOSE; Start 02/19/17 at 04:30 Glucose (Glutose) 22.5 gm Q15M PRN PO DECREASED GLUCOSE; Start 02/19/17 at 04:30 Dextrose (D50w Syringe) 25 ml Q15M PRN IV DECREASED GLUCOSE; Start 02/19/17 at 04:30 Dextrose (D50w Syringe) 50 ml Q15M PRN IV DECREASED GLUCOSE; Start 02/19/17 at 04:30 Glucagon (Glucagen) 1 mg Q15M PRN IM DECREASED GLUCOSE; Start 02/19/17 at 04:30 Glucose (Glutose) 15 gm Q15M PRN BUCCAL DECREASED GLUCOSE; Start 02/19/17 at 04: 30 Atorvastatin Calcium (Lipitor) 40 mg DAILY PO Last administered on 03/03/17 09 :34; Admin Dose 40 MG; Start 02/21/17 at 09:00 Escitalopram Oxalate (Lexapro) 10 mg DAILY PRN PO DEPRESSION; Start 02/20/17 at 13:30 Metoclopramide HCl (Reglan) 10 mg Q6 IV Last administered on 03/03/17 11:31; Admin Dose 10 MG; Start 02/22/17 at 21:00 Insulin Aspart (Novolog Insulin Pen) NOVOLOG *MILD* ALGORI... Q4 SC Last administered on 03/03/17 10:07; Admin Dose 1 UNIT; Start 02/23/17 at 01:00 Hydromorphone HCl (Dilaudid) 1 mg Q2H PRN IV PAIN LEVEL 6-10 Last administered on 02/23/17 17:46; Admin Dose 1 MG; Start 02/23/17 at 15:30 Ondansetron HCl (Zofran Inj) 4 mg Q6H PRN IV NAUSEA AND/OR VOMITING Last administered on 03/02/17 10:39; Admin Dose 4 MG; Start 02/23/17 at 15:30 Famotidine (Pepcid Iv) 20 mg Q12 IV Last administered on 03/03/17 09:34; Admin Dose 20 MG; Start 02/23/17 at 21:00 Hydromorphone HCl MG/HR CONTINUOUS RATE ... Q4PCA IV Last administered on 03/03 07:08; Admin Dose 6 MG; Start 02/23/17 at 19:30 Piperacillin Sod/ Tazobactam Sod 100 ml @ 200 mls/hr Q6 IVPB Last administered on 03/03/17 11:31; Admin Dose 200 MLS/HR; Start 02/26/17 at 13:00 ; Stop 03/05/17 at 06:29 Total Parenteral Nutrition (Tpn) 1,000 ml @ 60 mls/hr [id number] IV Last administered on 03/03/17 03:41; Admin Dose 60 MLS/HR; Start 02/26/17 at 21:00 IV Flush 10 ml 10 ml PRN PRN IV IV PROTOCOL; Start 02/27/17 at 15:00 Vancomycin HCl 250 ml @ 125 mls/hr Q8H IVPB Last administered on 03/03/17 07: 03; Admin Dose 125 MLS/HR; Start 02/27/17 at 22:00; Stop 03/04/17 at 23:59 Fat Emulsion Intravenous (Liposyn Ii 20%) 250 ml @ 21 mls/hr Q24H IV Last administered on 02/28/17 15:31; Admin Dose 21 MLS/HR; Start 02/28/17 at 15:00; Status Future Hold Octreotide Acetate (Sandostatin) 75 mcg TID SC Last administered on 03/03/17 10:11; Admin Dose 75 MCG; Start 02/28/17 at 22:00 Insulin Glargine 34 unit 34 unit DAILY@20 SC Last administered on 03/02/17 20: 56; Admin Dose 34 UNIT; Start 03/01/17 at 20:00 Sodium Chloride (NS) 1,000 ml @ 60 mls/hr [id number] IV Last administered on 03/03 03:40; Admin Dose 60 MLS/HR; Start 03/01/17 at 14:00 Miscellaneous Information (*Rx Drug Level Order Reminder*) VANCO TROUGH @ 2, 100 ON... ONCE ONCE XX ; Start 03/03/17 at 21:00; Stop 03/03/17 at 21:01 GLENN PALMER Mar 03, 2017 13:50
--- NOTE | 2017-03-03 14:56 | PN ---
Date/Time of Note Date/Time of Note DATE: 03/03/17 TIME: 14:53 Assessment/Plan VTE Prophylaxis VTE Prophylaxis Intervention: SCD's Lines/Catheters IV Catheter Type (from Nrsg): PICC Line Central line still needed: Yes Urinary Cath still in place: Yes Reason Cath still needed: urinary retention, other (indicate) Assessment/Plan Chief Complaint/Hosp Course ovarian cancer, recurrent, partial SBO/LBO, ureteral stricture Problems: Assessment/Plan A- clinically improving but MANDY and WBC of concern P- will culture MANDY and pending WBC tomorrow will consider imaging Subjective 24 Hr Interval Summary Free Text/Dictation Slightly less pain and minimally OOB. Exam/Review of Systems Vital Signs Vitals Vital Signs Date Time Temp Pulse Resp B/P Pulse Ox O2 Delivery O2 Flow Rate FiO2 03/03/17 13:25 98.4 90 18 103/57 95 02/28/17 20:00 Room Air 02/28/17 14:56 1.0 Intake and Output 03/02/17 03/02/17 03/03/17 15:00 23:00 07:00 Intake Total 530 ml 1420 ml 1190 ml Output Total 1800 ml 1930 ml Balance -1270 ml 1420 ml -740 ml Exam Resp- clear CVS- NSR Abd- soft NT clean, but MANDY darkened and of concern; old blood vs infected blood vs stool (unlikely) Ext- nt no edema Results Result Diagram: 03/03/17 0439 03/03/17 0439 Results 24 hrs Laboratory Tests Test 03/02/17 17:49 03/02/17 20:44 03/03/17 00:46 03/03/17 04:39 Bedside Glucose 294 H 274 H 210 White Blood Count 17.2 #H Red Blood Count 3.20 L Hemoglobin 9.0 L Hematocrit 27.7 L Mean Corpuscular Volume 86.6 Mean Corpuscular Hemoglobin 28.1 L Mean Corpuscular Hemoglobin Concent 32.5 Red Cell Distribution Width 13.3 Platelet Count 411 # Mean Platelet Volume 9.3 Neutrophils % 78.9 H Lymphocytes % 9.4 L Monocytes % 8.3 Eosinophils % 0.8 Basophils % 0.2 Nucleated Red Blood Cells % 0.2 H Neutrophils # (Manual) 14 H Lymphocytes # 1.6 Monocytes # 1.4 H Eosinophils # 0.1 Basophils # 0.0 Nucleated Red Blood Cells # 0.0 Sodium Level 137 Potassium Level 3.3 L Chloride Level 94 L Carbon Dioxide Level 29 Anion Gap 17 H Blood Urea Nitrogen 10 Creatinine 0.43 L Glucose Level 170 Calcium Level 8.0 L Magnesium Level 1.7 Test 03/03/17 05:51 03/03/17 09:33 03/03/17 13:47 Bedside Glucose 192 176 193 Medications Medications Current Medications Hydromorphone HCl (Dilaudid) 0.5 mg Q3H PRN IV PAIN Last administered on 18:43; Admin Dose 0.5 MG; Start 02/19/17 at 04:00 Miscellaneous Information 1 ea NOTE XX ; Start 02/19/17 at 04:30 Glucose (Glutose) 15 gm Q15M PRN PO DECREASED GLUCOSE; Start 02/19/17 at 04:30 Glucose (Glutose) 22.5 gm Q15M PRN PO DECREASED GLUCOSE; Start 02/19/17 at 04:30 Dextrose (D50w Syringe) 25 ml Q15M PRN IV DECREASED GLUCOSE; Start 02/19/17 at 04:30 Dextrose (D50w Syringe) 50 ml Q15M PRN IV DECREASED GLUCOSE; Start 02/19/17 at 04:30 Glucagon (Glucagen) 1 mg Q15M PRN IM DECREASED GLUCOSE; Start 02/19/17 at 04:30 Glucose (Glutose) 15 gm Q15M PRN BUCCAL DECREASED GLUCOSE; Start 02/19/17 at 04: 30 Atorvastatin Calcium (Lipitor) 40 mg DAILY PO Last administered on 03/03/17 09 :34; Admin Dose 40 MG; Start 02/21/17 at 09:00 Escitalopram Oxalate (Lexapro) 10 mg DAILY PRN PO DEPRESSION; Start 02/20/17 at 13:30 Metoclopramide HCl (Reglan) 10 mg Q6 IV Last administered on 03/03/17 11:31; Admin Dose 10 MG; Start 02/22/17 at 21:00 Insulin Aspart (Novolog Insulin Pen) NOVOLOG *MILD* ALGORI... Q4 SC Last administered on 03/03/17 13:50; Admin Dose 2 UNIT; Start 02/23/17 at 01:00 Hydromorphone HCl (Dilaudid) 1 mg Q2H PRN IV PAIN LEVEL 6-10 Last administered on 02/23/17 17:46; Admin Dose 1 MG; Start 02/23/17 at 15:30 Ondansetron HCl (Zofran Inj) 4 mg Q6H PRN IV NAUSEA AND/OR VOMITING Last administered on 03/02/17 10:39; Admin Dose 4 MG; Start 02/23/17 at 15:30 Famotidine (Pepcid Iv) 20 mg Q12 IV Last administered on 03/03/17 09:34; Admin Dose 20 MG; Start 02/23/17 at 21:00 Hydromorphone HCl MG/HR CONTINUOUS RATE ... Q4PCA IV Last administered on 03/03 07:08; Admin Dose 6 MG; Start 02/23/17 at 19:30 Piperacillin Sod/ Tazobactam Sod 100 ml @ 200 mls/hr Q6 IVPB Last administered on 03/03/17 11:31; Admin Dose 200 MLS/HR; Start 02/26/17 at 13:00 ; Stop 03/05/17 at 06:29 Total Parenteral Nutrition (Tpn) 1,000 ml @ 60 mls/hr [id number] IV Last administered on 03/03/17 03:41; Admin Dose 60 MLS/HR; Start 02/26/17 at 21:00 IV Flush 10 ml 10 ml PRN PRN IV IV PROTOCOL; Start 02/27/17 at 15:00 Vancomycin HCl 250 ml @ 125 mls/hr Q8H IVPB Last administered on 03/03/17 13: 41; Admin Dose 125 MLS/HR; Start 02/27/17 at 22:00; Stop 03/04/17 at 23:59 Fat Emulsion Intravenous (Liposyn Ii 20%) 250 ml @ 21 mls/hr Q24H IV Last administered on 02/28/17 15:31; Admin Dose 21 MLS/HR; Start 02/28/17 at 15:00; Status Future Hold Insulin Glargine 34 unit 34 unit DAILY@20 SC Last administered on 03/02/17 20: 56; Admin Dose 34 UNIT; Start 03/01/17 at 20:00 Sodium Chloride (NS) 1,000 ml @ 60 mls/hr [id number] IV Last administered on 03/03 03:40; Admin Dose 60 MLS/HR; Start 03/01/17 at 14:00 Miscellaneous Information (*Rx Drug Level Order Reminder*) VANCO TROUGH @ 2, 100 ON... ONCE ONCE XX ; Start 03/03/17 at 21:00; Stop 03/03/17 at 21:01 Octreotide Acetate 100 mcg 100 mcg TID SC ; Start 03/03/17 at 21:00 Ferric Sodium Gluconate Complex/ Sodium Chloride (Ferrlecit/NS) 110 ml @ 100 mls/hr Q24H IVPB ; Start 03/03/17 at 16:00; Stop 03/05/17 at 17:05 MARIA DE JESUS MENDOZA MD Mar 03, 2017 14:56
[2017-03-03] MEDS: SOD FERRIC GLUC COMPLX 125 MG in SOD CHLORIDE 0.9% 100 ML IVPB SCH (17:03)
--- NOTE | 2017-03-03 19:13 | RADRPT ---
PROCEDURE: XR Chest. CLINICAL INDICATION: New pneumonia TECHNIQUE: Single AP portable chest. COMPARISON: 02/27/2017 Chest x-ray FINDINGS: The cardiomediastinal silhouette is within normal limits of size. Right MediPort catheter tip overly ing the cavoatrial junction. Left PICC line catheter tip adjacent to the MediPort catheter tip at t he cavoatrial junction. NG tube tip overlying the fundus of the stomach. Minimal right base atelec tasis. Chronic elevation of the right hemidiaphragm. Atherosclerotic calcification of the aorta. The lungs are clear without pleural effusion or focal consolidation. No pneumothorax. The osseous s tructures and soft tissues are unremarkable. IMPRESSION: 1. No evidence for active cardiopulmonary disease. 2. Support devices stable and satisfactory position. RPTAT:AAJJ Physician Maxine Date Time Electronically viewed and signed by Physician Maxine on 03/03/2017 19:13 MANDY/
[2017-03-03 19:52] VITALS: BP 99/51; RESP 20
[2017-03-03] MEDS: OCTREOTIDE 100 MCG INJ SC SCH (20:43)
[2017-03-03] MEDS: INSULIN GLARGINE [LANtus] 3 ML PEN SC SCH (20:49)
[2017-03-04] VITALS (10 sets, daily range): BP systolic 90–119; BP diastolic 46–66; PULSE 85–95; RESP 17–22
[2017-03-04] MEDS: HYDROmorphONE 0.2 MG/ML PCA IV SCH (00:52)
[2017-03-04] MEDS: PIPER-TAZO 3.375 GM IV (PMX) 100 ML IVPB SCH ×4 (01:00→18:42)
[2017-03-04] MEDS: METOCLOPRAMIDE 10 MG INJ IV SCH ×4 (01:02→17:46)
[2017-03-04] MEDS: INSULIN ASPART [NOVOLOG] 3 ML PEN SC SCH ×6 (01:24→20:56)
[2017-03-04] MEDS: SOD CHLORIDE 0.9% 1,000 ML IV SCH (04:42)
[2017-03-04 05:15] LABS: BASOPHILS % 0.1 % (0.0-2.0); EOSINOPHILS # 0.1 10^3/ul (0.0-0.5); EOSINOPHILS % 0.5 % (0.0-7.0); HEMATOCRIT 25.3 % (37.0-47.0); HEMOGLOBIN 8.2 g/dl (12.0-16.0); LYMPHOCYTES # 1.7 10^3/ul (0.8-2.9); LYMPHOCYTES % 10.3 % (15.0-51.0); MEAN CORPUSCULAR HEMOGLOBIN 27.9 pg (29.0-33.0); MEAN CORPUSCULAR HGB CONC 32.4 g/dl (32.0-37.0); MEAN CORPUSCULAR VOLUME 86.1 fl (82.0-101.0); MEAN PLATELET VOLUME 9.3 fl (7.4-10.4); MONOCYTE # 1.2 10^3/ul (0.3-0.9); MONOCYTES % 7.2 % (0.0-11.0); NEUTROPHILS % 79.4 % (39.0-77.0); NUCLEATED RED BLOOD CELLS% 0.1 /100WBC (0.0-0.0); PLATELET COUNT 432 10^3/UL (140-415); RED BLOOD COUNT 2.94 10^6/ul (4.20-5.40); RED CELL DISTRIBUTION WIDTH 13.2 % (11.5-14.5); WHITE BLOOD COUNT 16.1 10^3/ul (4.8-10.8)
[2017-03-04 05:47] LABS: CALCIUM 8.4 mg/dl (8.4-10.2); CREATININE 0.43 mg/dl (0.44-1.00); MAGNESIUM 1.7 mg/dl (1.7-2.5); PHOSPHORUS 3.1 mg/dl (2.5-4.9)
[2017-03-04] MEDS: VANCOMYCIN 1 GM in NS 250 ML IVPB SCH ×3 (06:45→23:22)
[2017-03-04] MEDS ORDERED: NITROGLYCERIN (SL) 0.4 MG TAB SL PRN (07:00)
[2017-03-04] MEDS: ATORVASTATIN 40 MG TAB PO SCH (09:00)
[2017-03-04] MEDS: FAMOTIDINE 20 MG INJ IV SCH ×2 (09:43→20:56)
--- NOTE | 2017-03-04 10:14 | PN ---
Date/Time of Note Date/Time of Note DATE: 03/04/17 TIME: 10:13 Assessment/Plan VTE Prophylaxis VTE Prophylaxis Intervention: other Lines/Catheters IV Catheter Type (from Nrsg): PICC Line Central line still needed: Yes Urinary Cath still in place: Yes Reason Cath still needed: skin wounds contaminated by urine Assessment/Plan Chief Complaint/Hosp Course -Partial small bowel obstruction, continue TPN. -Recurrent Ovarian CA, status post secondary cytoreduction by Dr. Morris on . Continue to follow-up surgical recommendation. -Urethral stricture continue [place] catheter, follow-up surgical recommendations. -Intractable of abdominal pain, nausea and vomiting secondary to recurrent ovarian cancer. Continue Zofran as needed for nausea and Dilaudid as needed for pain. -Diabetes mellitus type 2, hemoglobin A1c is 8.6, continue Lantus and NovoLog per sliding scale with Accu-Chek every 4 hours. -Hyperlipidemia. -Chest pain. Rule out myocardial infarction Problems: Subjective 24 Hr Interval Summary Free Text/Dictation Patient had chest pain. She was transferred to telemetry and will rule out for myocardial infarction. Troponin negative so far Exam/Review of Systems Vital Signs Vitals Vital Signs Date Time Temp Pulse Resp B/P Pulse Ox O2 Delivery O2 Flow Rate FiO2 03/04/17 08:06 88 03/04/17 06:29 98.6 19 98/66 98 02/28/17 20:00 Room Air 02/28/17 14:56 1.0 Intake and Output 03/03/17 03/03/17 03/04/17 15:00 23:00 07:00 Intake Total 200 ml 2020 ml 1270 ml Output Total 20 ml 1350 ml 1500 ml Balance 180 ml 670 ml -230 ml Exam Constitutional: well developed Head: atraumatic, normocephalic Neck: supple Respiratory: clear to auscultation Cardiovascular: regular rate and rhythm Gastrointestinal: non-tender, soft Extremities: normal pulses Results Result Diagram: 03/04/1744103/04/17441 Results 24 hrs Laboratory Tests Test 03/03/17 13:47 03/03/17 18:19 03/03/17 20:42 03/03/17 21:14 Bedside Glucose 193 192 205 Vancomycin Level Trough 11.9 Test 03/04/17 01:21 03/04/17 04:42 03/04/17 05:12 03/04/17 06:50 Bedside Glucose 155 147 White Blood Count 16.1 H Red Blood Count 2.94 L Hemoglobin 8.2 L Hematocrit 25.3 L Mean Corpuscular Volume 86.1 Mean Corpuscular Hemoglobin 27.9 L Mean Corpuscular Hemoglobin Concent 32.4 Red Cell Distribution Width 13.2 Platelet Count 432 H Mean Platelet Volume 9.3 Neutrophils % 79.4 H Lymphocytes % 10.3 L Monocytes % 7.2 Eosinophils % 0.5 Basophils % 0.1 Nucleated Red Blood Cells % 0.1 H Neutrophils # (Manual) 13 H Lymphocytes # 1.7 Monocytes # 1.2 H Eosinophils # 0.1 Basophils # 0.0 Nucleated Red Blood Cells # 0.0 Sodium Level 139 Potassium Level 3.0 L Chloride Level 95 L Carbon Dioxide Level 31 Anion Gap 16 Blood Urea Nitrogen 7 Creatinine 0.43 L Glucose Level 152 Calcium Level 8.4 Phosphorus Level 3.1 Magnesium Level 1.7 Troponin I < 0.012 Test 03/04/17 09:18 Bedside Glucose 159 Medications Medications Current Medications Hydromorphone HCl (Dilaudid) 0.5 mg Q3H PRN IV PAIN Last administered on 18:43; Admin Dose 0.5 MG; Start 02/19/17 at 04:00 Miscellaneous Information 1 ea NOTE XX ; Start 02/19/17 at 04:30 Glucose (Glutose) 15 gm Q15M PRN PO DECREASED GLUCOSE; Start 02/19/17 at 04:30 Glucose (Glutose) 22.5 gm Q15M PRN PO DECREASED GLUCOSE; Start 02/19/17 at 04:30 Dextrose (D50w Syringe) 25 ml Q15M PRN IV DECREASED GLUCOSE; Start 02/19/17 at 04:30 Dextrose (D50w Syringe) 50 ml Q15M PRN IV DECREASED GLUCOSE; Start 02/19/17 at 04:30 Glucagon (Glucagen) 1 mg Q15M PRN IM DECREASED GLUCOSE; Start 02/19/17 at 04:30 Glucose (Glutose) 15 gm Q15M PRN BUCCAL DECREASED GLUCOSE; Start 02/19/17 at 04: 30 Atorvastatin Calcium (Lipitor) 40 mg DAILY PO Last administered on 03/03/17 09 :34; Admin Dose 40 MG; Start 02/21/17 at 09:00 Escitalopram Oxalate (Lexapro) 10 mg DAILY PRN PO DEPRESSION; Start 02/20/17 at 13:30 Metoclopramide HCl (Reglan) 10 mg Q6 IV Last administered on 03/04/17 05:23; Admin Dose 10 MG; Start 02/22/17 at 21:00 Insulin Aspart (Novolog Insulin Pen) NOVOLOG *MILD* ALGORI... Q4 SC Last administered on 03/04/17 05:18; Admin Dose 1 UNIT; Start 02/23/17 at 01:00 Hydromorphone HCl (Dilaudid) 1 mg Q2H PRN IV PAIN LEVEL 6-10 Last administered on 02/23/17 17:46; Admin Dose 1 MG; Start 02/23/17 at 15:30 Ondansetron HCl (Zofran Inj) 4 mg Q6H PRN IV NAUSEA AND/OR VOMITING Last administered on 03/02/17 10:39; Admin Dose 4 MG; Start 02/23/17 at 15:30 Famotidine (Pepcid Iv) 20 mg Q12 IV Last administered on 03/04/17 09:43; Admin Dose 20 MG; Start 02/23/17 at 21:00 Hydromorphone HCl MG/HR CONTINUOUS RATE ... Q4PCA IV Last administered on 03/04 00:52; Admin Dose 6 MG; Start 02/23/17 at 19:30 Piperacillin Sod/ Tazobactam Sod 100 ml @ 200 mls/hr Q6 IVPB Last administered on 03/04/17 05:25; Admin Dose 200 MLS/HR; Start 02/26/17 at 13:00 ; Stop 03/05/17 at 06:29 Total Parenteral Nutrition (Tpn) 1,000 ml @ 60 mls/hr [id number] IV Last administered on 03/03/17 21:16; Admin Dose 60 MLS/HR; Start 02/26/17 at 21:00 IV Flush 10 ml 10 ml PRN PRN IV IV PROTOCOL; Start 02/27/17 at 15:00 Vancomycin HCl 250 ml @ 125 mls/hr Q8H IVPB Last administered on 03/04/17 06: 45; Admin Dose 125 MLS/HR; Start 02/27/17 at 22:00; Stop 03/04/17 at 23:59 Fat Emulsion Intravenous (Liposyn Ii 20%) 250 ml @ 21 mls/hr Q24H IV Last administered on 02/28/17 15:31; Admin Dose 21 MLS/HR; Start 02/28/17 at 15:00; Status Future Hold Insulin Glargine 34 unit 34 unit DAILY@20 SC Last administered on 03/03/17 20: 49; Admin Dose 34 UNIT; Start 03/01/17 at 20:00 Sodium Chloride (NS) 1,000 ml @ 60 mls/hr [id number] IV Last administered on 03/04 04:42; Admin Dose 60 MLS/HR; Start 03/01/17 at 14:00 Octreotide Acetate 100 mcg 100 mcg TID SC Last administered on 03/03/17 20:43 ; Admin Dose 100 MCG; Start 03/03/17 at 21:00 Ferric Sodium Gluconate Complex/ Sodium Chloride (Ferrlecit/NS) 110 ml @ 100 mls/hr Q24H IVPB Last administered on 03/03/17 17:03; Admin Dose 100 MLS/HR; Start 03/03/17 at 16:00; Stop 03/05/17 at 17:05 Nitroglycerin (Nitroglycerin (Sl Tab) 0.4 Mg) 1 tab Q5M PRN SL ANGINA; Start at 07:00 CAITLYN STRANGE Mar 04, 2017 10:14
[2017-03-04] MEDS ORDERED: POTASSIUM CHLORIDE 250 ML IVPB ONE (12:00)
[2017-03-04] MEDS: OCTREOTIDE 100 MCG INJ SC SCH ×3 (12:54→22:11)
[2017-03-04] MEDS: TPN 1,000 ML IV SCH (13:06)
--- NOTE | 2017-03-04 14:27 | PN ---
Date/Time of Note Date/Time of Note DATE: 03/04/17 TIME: 14:22 Assessment/Plan VTE Prophylaxis VTE Prophylaxis Intervention: SCD's Lines/Catheters IV Catheter Type (from Nrsg): PICC Line Central line still needed: Yes Urinary Cath still in place: Yes Reason Cath still needed: urinary retention Assessment/Plan Chief Complaint/Hosp Course ovarian cancer, recurrent, partial SBO/LBO, ureteral stricture Problems: Assessment/Plan A- improved clinically but issues are behind on fluids and possibly pinhole leakage of low anastomosis P- continue conservative rx with Sandostatin and TPN and NPO and increase fluids. Subjective 24 Hr Interval Summary Free Text/Dictation Feels better overall; less SOB and less pain. Exam/Review of Systems Vital Signs Vitals Vital Signs Date Time Temp Pulse Resp B/P Pulse Ox O2 Delivery O2 Flow Rate FiO2 03/04/17 12:30 18 03/04/17 11:45 99.0 88 94/54 97 02/28/17 20:00 Room Air 02/28/17 14:56 1.0 Intake and Output 03/03/17 03/03/17 03/04/17 15:00 23:00 07:00 Intake Total 200 ml 2020 ml 1270 ml Output Total 20 ml 1350 ml 1500 ml Balance 180 ml 670 ml -230 ml Exam Resp- clear CVS- NSR Abd- soft NT clean, but MANDY darkened and of concern; old blood vs infected blood vs stool Rectal: staple line of low anastomosis intact Ext- nt no edema Results Result Diagram: 03/04/17 0442 03/04/17 0442 Results 24 hrs Laboratory Tests Test 03/03/17 18:19 03/03/17 20:42 03/03/17 21:14 03/04/17 01:21 Bedside Glucose 192 205 155 Vancomycin Level Trough 11.9 Test 03/04/17 04:42 03/04/17 05:12 03/04/17 06:50 03/04/17 09:18 White Blood Count 16.1 H Red Blood Count 2.94 L Hemoglobin 8.2 L Hematocrit 25.3 L Mean Corpuscular Volume 86.1 Mean Corpuscular Hemoglobin 27.9 L Mean Corpuscular Hemoglobin Concent 32.4 Red Cell Distribution Width 13.2 Platelet Count 432 H Mean Platelet Volume 9.3 Neutrophils % 79.4 H Lymphocytes % 10.3 L Monocytes % 7.2 Eosinophils % 0.5 Basophils % 0.1 Nucleated Red Blood Cells % 0.1 H Neutrophils # (Manual) 13 H Lymphocytes # 1.7 Monocytes # 1.2 H Eosinophils # 0.1 Basophils # 0.0 Nucleated Red Blood Cells # 0.0 Sodium Level 139 Potassium Level 3.0 L Chloride Level 95 L Carbon Dioxide Level 31 Anion Gap 16 Blood Urea Nitrogen 7 Creatinine 0.43 L Glucose Level 152 Calcium Level 8.4 Phosphorus Level 3.1 Magnesium Level 1.7 Bedside Glucose 147 159 Troponin I < 0.012 Test 03/04/17 10:18 03/04/17 12:59 Bedside Glucose 175 199 Medications Medications Current Medications Hydromorphone HCl (Dilaudid) 0.5 mg Q3H PRN IV PAIN Last administered on 18:43; Admin Dose 0.5 MG; Start 02/19/17 at 04:00 Miscellaneous Information 1 ea NOTE XX ; Start 02/19/17 at 04:30 Glucose (Glutose) 15 gm Q15M PRN PO DECREASED GLUCOSE; Start 02/19/17 at 04:30 Glucose (Glutose) 22.5 gm Q15M PRN PO DECREASED GLUCOSE; Start 02/19/17 at 04:30 Dextrose (D50w Syringe) 25 ml Q15M PRN IV DECREASED GLUCOSE; Start 02/19/17 at 04:30 Dextrose (D50w Syringe) 50 ml Q15M PRN IV DECREASED GLUCOSE; Start 02/19/17 at 04:30 Glucagon (Glucagen) 1 mg Q15M PRN IM DECREASED GLUCOSE; Start 02/19/17 at 04:30 Glucose (Glutose) 15 gm Q15M PRN BUCCAL DECREASED GLUCOSE; Start 02/19/17 at 04: 30 Atorvastatin Calcium (Lipitor) 40 mg DAILY PO Last administered on 03/03/17 09 :34; Admin Dose 40 MG; Start 02/21/17 at 09:00 Escitalopram Oxalate (Lexapro) 10 mg DAILY PRN PO DEPRESSION; Start 02/20/17 at 13:30 Metoclopramide HCl (Reglan) 10 mg Q6 IV Last administered on 03/04/17 12:54; Admin Dose 10 MG; Start 02/22/17 at 21:00 Insulin Aspart (Novolog Insulin Pen) NOVOLOG *MILD* ALGORI... Q4 SC Last administered on 03/04/17 13:04; Admin Dose 2 UNIT; Start 02/23/17 at 01:00 Hydromorphone HCl (Dilaudid) 1 mg Q2H PRN IV PAIN LEVEL 6-10 Last administered on 02/23/17 17:46; Admin Dose 1 MG; Start 02/23/17 at 15:30 Ondansetron HCl (Zofran Inj) 4 mg Q6H PRN IV NAUSEA AND/OR VOMITING Last administered on 03/02/17 10:39; Admin Dose 4 MG; Start 02/23/17 at 15:30 Famotidine (Pepcid Iv) 20 mg Q12 IV Last administered on 03/04/17 09:43; Admin Dose 20 MG; Start 02/23/17 at 21:00 Hydromorphone HCl MG/HR CONTINUOUS RATE ... Q4PCA IV Last administered on 03/04 00:52; Admin Dose 6 MG; Start 02/23/17 at 19:30 Piperacillin Sod/ Tazobactam Sod 100 ml @ 200 mls/hr Q6 IVPB Last administered on 03/04/17 12:54; Admin Dose 200 MLS/HR; Start 02/26/17 at 13:00 ; Stop 03/05/17 at 06:29 Total Parenteral Nutrition (Tpn) 1,000 ml @ 60 mls/hr [id number] IV Last administered on 03/04/17 13:06; Admin Dose 60 MLS/HR; Start 02/26/17 at 21:00 IV Flush 10 ml 10 ml PRN PRN IV IV PROTOCOL; Start 02/27/17 at 15:00 Vancomycin HCl 250 ml @ 125 mls/hr Q8H IVPB Last administered on 03/04/17 06: 45; Admin Dose 125 MLS/HR; Start 02/27/17 at 22:00; Stop 03/04/17 at 23:59 Fat Emulsion Intravenous (Liposyn Ii 20%) 250 ml @ 21 mls/hr Q24H IV Last administered on 02/28/17 15:31; Admin Dose 21 MLS/HR; Start 02/28/17 at 15:00; Status Future Hold Insulin Glargine 34 unit 34 unit DAILY@20 SC Last administered on 03/03/17 20: 49; Admin Dose 34 UNIT; Start 03/01/17 at 20:00 Sodium Chloride (NS) 1,000 ml @ 60 mls/hr [id number] IV Last administered on 03/04 04:42; Admin Dose 60 MLS/HR; Start 03/01/17 at 14:00 Octreotide Acetate 100 mcg 100 mcg TID SC Last administered on 03/04/17 13:09 ; Admin Dose 100 MCG; Start 03/03/17 at 21:00 Ferric Sodium Gluconate Complex/ Sodium Chloride (Ferrlecit/NS) 110 ml @ 100 mls/hr Q24H IVPB Last administered on 03/03/17 17:03; Admin Dose 100 MLS/HR; Start 03/03/17 at 16:00; Stop 03/05/17 at 17:05 Nitroglycerin 1 tab 1 tab Q5M PRN SL ANGINA; Start 03/04/17 at 07:00 Potassium Chloride (KCl 40 MEQ/250 ML NS) 250 ml @ 62.5 mls/hr ONCE ONCE IVPB ; Start 03/04/17 at 12:00; Stop 03/04/17 at 15:59 MARIA DE JESUS MENDOZA MD Mar 04, 2017 14:26
[2017-03-04] MEDS: SOD FERRIC GLUC COMPLX 125 MG in SOD CHLORIDE 0.9% 100 ML IVPB SCH (20:54)
[2017-03-04] MEDS: INSULIN GLARGINE [LANtus] 3 ML PEN SC SCH (20:55)
[2017-03-05] VITALS (11 sets, daily range): BP systolic 83–129; BP diastolic 47–57; PULSE 77–114; RESP 18–20
[2017-03-05] MEDS: METOCLOPRAMIDE 10 MG INJ IV SCH ×4 (00:04→18:19)
[2017-03-05] MEDS: PIPER-TAZO 3.375 GM IV (PMX) 100 ML IVPB SCH ×2 (00:04→05:22)
[2017-03-05] MEDS: INSULIN ASPART [NOVOLOG] 3 ML PEN SC SCH ×6 (01:07→22:12)
[2017-03-05] MEDS: SOD CHLORIDE 0.9% 1,000 ML IV SCH ×2 (01:20→05:53)
[2017-03-05] MEDS: HYDROmorphONE 0.2 MG/ML PCA IV SCH (03:05)
[2017-03-05] MEDS: ONDANSETRON 4 MG INJ IV PRN (04:35)
[2017-03-05] MEDS: TPN 1,000 ML IV SCH ×2 (05:26→18:39)
[2017-03-05 08:28] LABS: BASOPHILS % 0.1 % (0.0-2.0); EOSINOPHILS # 0.1 10^3/ul (0.0-0.5); EOSINOPHILS % 0.6 % (0.0-7.0); HEMATOCRIT 26.7 % (37.0-47.0); HEMOGLOBIN 8.8 g/dl (12.0-16.0); LYMPHOCYTES # 1.6 10^3/ul (0.8-2.9); LYMPHOCYTES % 10.9 % (15.0-51.0); MEAN CORPUSCULAR HEMOGLOBIN 28.9 pg (29.0-33.0); MEAN CORPUSCULAR VOLUME 87.8 fl (82.0-101.0); MEAN PLATELET VOLUME 9.5 fl (7.4-10.4); MONOCYTE # 0.9 10^3/ul (0.3-0.9); MONOCYTES % 6.1 % (0.0-11.0); NEUTROPHILS % 80.1 % (39.0-77.0); NUCLEATED RED BLOOD CELLS% 0.1 /100WBC (0.0-0.0); PLATELET COUNT 571 10^3/UL (140-415); RED BLOOD COUNT 3.04 10^6/ul (4.20-5.40); RED CELL DISTRIBUTION WIDTH 13.5 % (11.5-14.5); WHITE BLOOD COUNT 14.8 10^3/ul (4.8-10.8)
[2017-03-05 08:48] LABS: BILIRUBIN,INDIRECT 0.3 mg/dl (0-1.1); BILIRUBIN,TOTAL 0.3 mg/dl (0.2-1.3); CALCIUM 8.5 mg/dl (8.4-10.2); CREATININE 0.45 mg/dl (0.44-1.00)
[2017-03-05] MEDS: ATORVASTATIN 40 MG TAB PO SCH (08:50)
[2017-03-05] MEDS: OCTREOTIDE 100 MCG INJ SC SCH ×3 (08:51→22:13)
[2017-03-05] MEDS: FAMOTIDINE 20 MG INJ IV SCH ×2 (08:51→22:13)
[2017-03-05 08:53] LABS: POTASSIUM 2.9 mmol/L (3.5-5.1)
[2017-03-05] MEDS: POTASSIUM CHLORIDE 250 ML IVPB SCH ×2 (10:33→16:27)
--- NOTE | 2017-03-05 12:13 | PN ---
Date/Time of Note Date/Time of Note DATE: 03/05/17 TIME: 12:12 Assessment/Plan VTE Prophylaxis VTE Prophylaxis Intervention: other Lines/Catheters IV Catheter Type (from Nrsg): PICC Line Central line still needed: Yes Urinary Cath still in place: Yes Reason Cath still needed: skin wounds contaminated by urine Assessment/Plan Chief Complaint/Hosp Course -Partial small bowel obstruction, continue TPN. -Recurrent Ovarian CA, status post secondary cytoreduction by Dr. Morris on . Continue to follow-up surgical recommendation. -Urethral stricture continue [place] catheter, follow-up surgical recommendations. -Intractable of abdominal pain, nausea and vomiting secondary to recurrent ovarian cancer. Continue Zofran as needed for nausea and Dilaudid as needed for pain. -Diabetes mellitus type 2, hemoglobin A1c is 8.6, continue Lantus and NovoLog per sliding scale with Accu-Chek every 4 hours. -Hyperlipidemia. -Chest pain. Myocardial infarction ruled out, will transfer the patient back to [facility] Problems: Subjective 24 Hr Interval Summary Free Text/Dictation Patient continues to have chest pain. Troponins were negative. Chest pain is noncardiac in nature Exam/Review of Systems Vital Signs Vitals Vital Signs Date Time Temp Pulse Resp B/P Pulse Ox O2 Delivery O2 Flow Rate FiO2 03/05/17 11:49 98.5 78 20 94/48 98 Intake and Output 03/04/17 03/04/17 03/05/17 15:00 23:00 07:00 Intake Total 110 ml 0 ml Output Total 50 ml 1160 ml 2025 ml Balance -50 ml -1050 ml -2025 ml Exam Constitutional: well developed Head: atraumatic, normocephalic Neck: supple Respiratory: diminished breath sounds Cardiovascular: regular rate and rhythm Gastrointestinal: non-tender, soft Extremities: normal pulses Results Result Diagram: 03/05/17 0750 03/05/17 0750 Results 24 hrs Laboratory Tests Test 03/04/17 12:59 03/04/17 13:55 03/04/17 17:45 03/04/17 19:16 Bedside Glucose 199 199 Troponin I < 0.012 < 0.012 Test 03/04/17 20:52 03/05/17 01:01 03/05/17 05:12 03/05/17 07:50 Bedside Glucose 188 178 158 White Blood Count 14.8 H Red Blood Count 3.04 L Hemoglobin 8.8 L Hematocrit 26.7 L Mean Corpuscular Volume 87.8 Mean Corpuscular Hemoglobin 28.9 L Mean Corpuscular Hemoglobin Concent 33.0 Red Cell Distribution Width 13.5 Platelet Count 571 #H Mean Platelet Volume 9.5 Neutrophils % 80.1 H Lymphocytes % 10.9 L Monocytes % 6.1 Eosinophils % 0.6 Basophils % 0.1 Nucleated Red Blood Cells % 0.1 H Neutrophils # (Manual) 12 H Lymphocytes # 1.6 Monocytes # 0.9 Eosinophils # 0.1 Basophils # 0.0 Nucleated Red Blood Cells # 0.0 Sodium Level 140 Potassium Level 2.9 *L Chloride Level 99 Carbon Dioxide Level 27 Anion Gap 17 H Blood Urea Nitrogen 8 Creatinine 0.45 Glucose Level 183 Calcium Level 8.5 Total Bilirubin 0.3 Direct Bilirubin 0.00 Indirect Bilirubin 0.3 Aspartate Amino Transf (AST/SGOT) 16 Alanine Aminotransferase (ALT/SGPT) 26 Alkaline Phosphatase 107 Total Protein 6.0 L Albumin 3.0 L Globulin 3.00 Albumin/Globulin Ratio 1.00 Test 03/05/17 08:49 Bedside Glucose 188 Medications Medications Current Medications Hydromorphone HCl (Dilaudid) 0.5 mg Q3H PRN IV PAIN Last administered on 18:43; Admin Dose 0.5 MG; Start 02/19/17 at 04:00 Miscellaneous Information 1 ea NOTE XX ; Start 02/19/17 at 04:30 Glucose (Glutose) 15 gm Q15M PRN PO DECREASED GLUCOSE; Start 02/19/17 at 04:30 Glucose (Glutose) 22.5 gm Q15M PRN PO DECREASED GLUCOSE; Start 02/19/17 at 04:30 Dextrose (D50w Syringe) 25 ml Q15M PRN IV DECREASED GLUCOSE; Start 02/19/17 at 04:30 Dextrose (D50w Syringe) 50 ml Q15M PRN IV DECREASED GLUCOSE; Start 02/19/17 at 04:30 Glucagon (Glucagen) 1 mg Q15M PRN IM DECREASED GLUCOSE; Start 02/19/17 at 04:30 Glucose (Glutose) 15 gm Q15M PRN BUCCAL DECREASED GLUCOSE; Start 02/19/17 at 04: 30 Atorvastatin Calcium (Lipitor) 40 mg DAILY PO Last administered on 03/03/17 09 :34; Admin Dose 40 MG; Start 02/21/17 at 09:00 Escitalopram Oxalate (Lexapro) 10 mg DAILY PRN PO DEPRESSION; Start 02/20/17 at 13:30 Metoclopramide HCl (Reglan) 10 mg Q6 IV Last administered on 03/05/17 05:22; Admin Dose 10 MG; Start 02/22/17 at 21:00 Insulin Aspart (Novolog Insulin Pen) NOVOLOG *MILD* ALGORI... Q4 SC Last administered on 03/05/17 08:52; Admin Dose 2 UNIT; Start 02/23/17 at 01:00 Hydromorphone HCl (Dilaudid) 1 mg Q2H PRN IV PAIN LEVEL 6-10 Last administered on 02/23/17 17:46; Admin Dose 1 MG; Start 02/23/17 at 15:30 Ondansetron HCl (Zofran Inj) 4 mg Q6H PRN IV NAUSEA AND/OR VOMITING Last administered on 03/05/17 04:35; Admin Dose 4 MG; Start 02/23/17 at 15:30 Famotidine (Pepcid Iv) 20 mg Q12 IV Last administered on 03/05/17 08:51; Admin Dose 20 MG; Start 02/23/17 at 21:00 Hydromorphone HCl MG/HR CONTINUOUS RATE ... Q4PCA IV Last administered on 03/05 03:05; Admin Dose 6 MG; Start 02/23/17 at 19:30 Total Parenteral Nutrition (Tpn) 1,000 ml @ 80 mls/hr [id number] IV Last administered on 03/05/17 05:26; Admin Dose 80 MLS/HR; Start 02/26/17 at 21:00 IV Flush 10 ml 10 ml PRN PRN IV IV PROTOCOL Last administered on 03/03/17 04: 21; Admin Dose 10 ML; Start 02/27/17 at 15:00 Fat Emulsion Intravenous (Liposyn Ii 20%) 250 ml @ 21 mls/hr Q24H IV Last administered on 02/28/17 15:31; Admin Dose 21 MLS/HR; Start 02/28/17 at 15:00; Status Future Hold Insulin Glargine 34 unit 34 unit DAILY@20 SC Last administered on 03/04/17 20: 55; Admin Dose 34 UNIT; Start 03/01/17 at 20:00 Sodium Chloride (NS) 1,000 ml @ 60 mls/hr [id number] IV Last administered on 03/05 05:53; Admin Dose 60 MLS/HR; Start 03/01/17 at 14:00 Octreotide Acetate 100 mcg 100 mcg TID SC Last administered on 03/05/17 08:51 ; Admin Dose 100 MCG; Start 03/03/17 at 21:00 Ferric Sodium Gluconate Complex/ Sodium Chloride (Ferrlecit/NS) 110 ml @ 100 mls/hr Q24H IVPB Last administered on 03/04/17 20:54; Admin Dose 100 MLS/HR; Start 03/03/17 at 16:00; Stop 03/05/17 at 17:05 Nitroglycerin 1 tab 1 tab Q5M PRN SL ANGINA; Start 03/04/17 at 07:00 Potassium Chloride (KCl 40 MEQ/250 ML NS) 250 ml @ 62.5 mls/hr Q6H IVPB Last administered on 03/05/17 10:33; Admin Dose 62.5 MLS/HR; Start 03/05/17 at 10:30 ; Stop 03/05/17 at 20:29 CAITLYN STRANGE Mar 05, 2017 12:13
--- NOTE | 2017-03-05 15:00 | RADRPT ---
PROCEDURE: XR Chest. CLINICAL INDICATION: NGT placement. TECHNIQUE: Single frontal view of the chest was obtained COMPARISON: Chest x-ray 03/03/2017 FINDINGS: The Mediport catheter with tip projecting over the cavoatrial junction is stable in position. The left PICC line with tip projecting over the cavoatrial junction region is stable in position. The nasogastric tube terminates in the gastric body region and the side port projects approximately 5 cm distal to the expected region of the gastroesophageal junction. The cardiomediastinal silhouette is within normal limits. No pneumothorax, pleural effusion, or consolidation is identified. Ill-defined linear opacities in the lower lungs bilaterally are likely represent atelectasis and / o r scarring, not significantly changed. There is no evidence of pulmonary vascular congestion. The osseous structures, as visualized, are unremarkable. IMPRESSION: 1. The nasogastric tube and other support lines appear in adequate positions, as described above. 2. Mild atelectasis and / or scarring in the bilateral lower lungs, not significantly changed. RPTAT: QQ Physician Julian Date Time Electronically viewed and signed by Physician Julian on 03/05/2017 14:59 /
[2017-03-05] MEDS: LORAZEPAM 2 MG INJ IV PRN (16:21)
[2017-03-05] MEDS: SOD FERRIC GLUC COMPLX 125 MG in SOD CHLORIDE 0.9% 100 ML IVPB SCH (17:16)
[2017-03-05] MEDS: INSULIN GLARGINE [LANtus] 3 ML PEN SC SCH (22:11)
[2017-03-06] MEDS: METOCLOPRAMIDE 10 MG INJ IV SCH ×5 (00:07→23:58)
[2017-03-06] MEDS: INSULIN ASPART [NOVOLOG] 3 ML PEN SC SCH ×6 (01:40→21:47)
[2017-03-06 02:33] VITALS: BP 132/56; RESP 20
[2017-03-06] MEDS: SOD CHLORIDE 0.9% 1,000 ML IV SCH ×2 (05:22→21:23)
[2017-03-06 05:42] LABS: BASOPHILS % 0.2 % (0.0-2.0); EOSINOPHILS # 0.2 10^3/ul (0.0-0.5); EOSINOPHILS % 1.2 % (0.0-7.0); HEMATOCRIT 28.6 % (37.0-47.0); HEMOGLOBIN 8.9 g/dl (12.0-16.0); LYMPHOCYTES # 2.1 10^3/ul (0.8-2.9); LYMPHOCYTES % 12.6 % (15.0-51.0); MEAN CORPUSCULAR HEMOGLOBIN 27.7 pg (29.0-33.0); MEAN CORPUSCULAR HGB CONC 31.1 g/dl (32.0-37.0); MEAN CORPUSCULAR VOLUME 89.1 fl (82.0-101.0); MEAN PLATELET VOLUME 9.4 fl (7.4-10.4); MONOCYTE # 1.1 10^3/ul (0.3-0.9); NEUTROPHILS % 75.2 % (39.0-77.0); NUCLEATED RED BLOOD CELLS% 0.2 /100WBC (0.0-0.0); PLATELET COUNT 607 10^3/UL (140-415); RED BLOOD COUNT 3.21 10^6/ul (4.20-5.40); WHITE BLOOD COUNT 16.4 10^3/ul (4.8-10.8)
[2017-03-06 06:11] LABS: CALCIUM 8.9 mg/dl (8.4-10.2); CREATININE 0.47 mg/dl (0.44-1.00)
[2017-03-06 07:56] VITALS: BP 104/57; RESP 20
[2017-03-06] MEDS: ATORVASTATIN 40 MG TAB PO SCH (08:05)
[2017-03-06] MEDS: FAMOTIDINE 20 MG INJ IV SCH ×2 (08:06→21:34)
[2017-03-06] MEDS: TPN 1,000 ML IV SCH ×3 (08:26→21:24)
[2017-03-06] MEDS: OCTREOTIDE 100 MCG INJ SC SCH ×3 (10:03→21:39)
[2017-03-06 15:18] VITALS: BP 106/55; RESP 20
--- NOTE | 2017-03-06 16:42 | PN ---
Date/Time of Note Date/Time of Note DATE: 03/06/17 TIME: 16:40 Assessment/Plan VTE Prophylaxis VTE Prophylaxis Intervention: SCD's Lines/Catheters IV Catheter Type (from Nrs): PICC Line Central line still needed: Yes Urinary Cath still in place: Yes Reason Cath still needed: urinary retention Assessment/Plan Chief Complaint/Hosp Course Blood sugars with episodes of hyperglycemia above 200 will adjust Lantus, and remains afebrile. Assessment/Plan -Partial small bowel obstruction, continue TPN. -Recurrent Ovarian CA, status post secondary cytoreduction by Dr. Morris on . Continue to follow-up surgical recommendation. -Urethral stricture continue [place] catheter, follow-up surgical recommendations. -Intractable of abdominal pain, nausea and vomiting secondary to recurrent ovarian cancer. Continue Zofran as needed for nausea and Dilaudid as needed for pain. -Diabetes mellitus type 2, hemoglobin A1c is 8.6, continue Lantus and NovoLog per sliding scale with Accu-Chek every 4 hours. -Hyperlipidemia. Further recommendations based on clinical course. Plan of care discussed with Dr. Hester. Problems: Exam/Review of Systems Vital Signs Vitals Vital Signs Date Time Temp Pulse Resp B/P Pulse Ox O2 Delivery O2 Flow Rate FiO2 03/06/17 15:18 98.3 84 20 106/55 98 Intake and Output 03/05/17 03/05/17 03/06/17 15:00 23:00 07:00 Intake Total 360 ml 1560 ml Output Total 2300 ml 2660 ml Balance -1940 ml -1100 ml Exam Constitutional: alert, oriented Head: normocephalic, NG tube Neck: supple Respiratory: normal air movement Cardiovascular: nl pulses Gastrointestinal: other (Hypoactive bowel sounds), soft, surgical incision Genitourinary - Female: other ([place] catheter) Extremities: normal pulses Neurological: nl mental status Results Result Diagram: 03/06/17 0458 03/06/17 0458 Results 24 hrs Laboratory Tests Test 03/05/17 17:14 03/05/17 22:06 03/06/17 01:32 03/06/17 04:58 Bedside Glucose 146 178 193 White Blood Count 16.4 H Red Blood Count 3.21 L Hemoglobin 8.9 L Hematocrit 28.6 L Mean Corpuscular Volume 89.1 Mean Corpuscular Hemoglobin 27.7 L Mean Corpuscular Hemoglobin Concent 31.1 L Red Cell Distribution Width 14.0 Platelet Count 607 H Mean Platelet Volume 9.4 Neutrophils % 75.2 Lymphocytes % 12.6 L Monocytes % 7.0 Eosinophils % 1.2 Basophils % 0.2 Nucleated Red Blood Cells % 0.2 H Neutrophils # (Manual) 12 H Lymphocytes # 2.1 Monocytes # 1.1 H Eosinophils # 0.2 Basophils # 0.0 Nucleated Red Blood Cells # 0.0 Sodium Level 141 Potassium Level 4.0 Chloride Level 101 Carbon Dioxide Level 26 Anion Gap 18 H Blood Urea Nitrogen 9 Creatinine 0.47 Glucose Level 164 Calcium Level 8.9 Test 03/06/17 05:24 03/06/17 08:49 03/06/17 12:58 Bedside Glucose 159 168 228 H Medications Medications Current Medications Hydromorphone HCl (Dilaudid) 0.5 mg Q3H PRN IV PAIN Last administered on 18:43; Admin Dose 0.5 MG; Start 02/19/17 at 04:00 Miscellaneous Information 1 ea NOTE XX ; Start 02/19/17 at 04:30 Glucose (Glutose) 15 gm Q15M PRN PO DECREASED GLUCOSE; Start 02/19/17 at 04:30 Glucose (Glutose) 22.5 gm Q15M PRN PO DECREASED GLUCOSE; Start 02/19/17 at 04:30 Dextrose (D50w Syringe) 25 ml Q15M PRN IV DECREASED GLUCOSE; Start 02/19/17 at 04:30 Dextrose (D50w Syringe) 50 ml Q15M PRN IV DECREASED GLUCOSE; Start 02/19/17 at 04:30 Glucagon (Glucagen) 1 mg Q15M PRN IM DECREASED GLUCOSE; Start 02/19/17 at 04:30 Glucose (Glutose) 15 gm Q15M PRN BUCCAL DECREASED GLUCOSE; Start 02/19/17 at 04: 30 Atorvastatin Calcium (Lipitor) 40 mg DAILY PO Last administered on 03/06/17 08 :05; Admin Dose 40 MG; Start 02/21/17 at 09:00 Escitalopram Oxalate (Lexapro) 10 mg DAILY PRN PO DEPRESSION; Start 02/20/17 at 13:30 Metoclopramide HCl (Reglan) 10 mg Q6 IV Last administered on 03/06/17 11:20; Admin Dose 10 MG; Start 02/22/17 at 21:00 Insulin Aspart (Novolog Insulin Pen) NOVOLOG *MILD* ALGORI... Q4 SC Last administered on 03/06/17 13:05; Admin Dose 3 UNIT; Start 02/23/17 at 01:00 Hydromorphone HCl (Dilaudid) 1 mg Q2H PRN IV PAIN LEVEL 6-10 Last administered on 02/23/17 17:46; Admin Dose 1 MG; Start 02/23/17 at 15:30 Ondansetron HCl (Zofran Inj) 4 mg Q6H PRN IV NAUSEA AND/OR VOMITING Last administered on 03/05/17 04:35; Admin Dose 4 MG; Start 02/23/17 at 15:30 Famotidine (Pepcid Iv) 20 mg Q12 IV Last administered on 03/06/17 08:06; Admin Dose 20 MG; Start 02/23/17 at 21:00 Hydromorphone HCl MG/HR CONTINUOUS RATE ... Q4PCA IV Last administered on 03/05 03:05; Admin Dose 6 MG; Start 02/23/17 at 19:30 Total Parenteral Nutrition (Tpn) 1,000 ml @ 80 mls/hr [id number] IV Last administered on 03/06/17 08:26; Admin Dose 80 MLS/HR; Start 02/26/17 at 21:00 IV Flush 10 ml 10 ml PRN PRN IV IV PROTOCOL Last administered on 03/03/17 04: 21; Admin Dose 10 ML; Start 02/27/17 at 15:00 Fat Emulsion Intravenous (Liposyn Ii 20%) 250 ml @ 21 mls/hr Q24H IV Last administered on 02/28/17 15:31; Admin Dose 21 MLS/HR; Start 02/28/17 at 15:00; Status Future Hold Insulin Glargine 34 unit 34 unit DAILY@20 SC Last administered on 03/05/17 22: 11; Admin Dose 34 UNIT; Start 03/01/17 at 20:00 Sodium Chloride (NS) 1,000 ml @ 60 mls/hr [id number] IV Last administered on 03/06 05:22; Admin Dose 60 MLS/HR; Start 03/01/17 at 14:00 Octreotide Acetate (Sandostatin) 100 mcg TID SC Last administered on 03/06/17 13:20; Admin Dose 100 MCG; Start 03/03/17 at 21:00 Nitroglycerin (Nitroglycerin (Sl Tab) 0.4 Mg) 1 tab Q5M PRN SL ANGINA; Start at 07:00 Lorazepam (Ativan) 0.5 mg Q6H PRN IV ANXIETY Last administered on 03/05/17 16: 21; Admin Dose 0.5 MG; Start 03/05/17 at 16:07 GLENN PALMER Mar 06, 2017 16:42
[2017-03-06 19:25] VITALS: BP 112/54; RESP 18
[2017-03-06] MEDS: INSULIN GLARGINE [LANtus] 3 ML PEN SC SCH (21:45)
[2017-03-06] MEDS: HYDROmorphONE 0.2 MG/ML PCA IV SCH (23:06)
[2017-03-07] MEDS: INSULIN ASPART [NOVOLOG] 3 ML PEN SC SCH ×6 (01:31→20:42)
[2017-03-07 02:39] VITALS: BP 93/52; RESP 18
[2017-03-07 05:12] LABS: BASOPHILS % 0.2 % (0.0-2.0); EOSINOPHILS # 0.3 10^3/ul (0.0-0.5); EOSINOPHILS % 1.7 % (0.0-7.0); HEMATOCRIT 28.3 % (37.0-47.0); HEMOGLOBIN 8.9 g/dl (12.0-16.0); LYMPHOCYTES # 2.4 10^3/ul (0.8-2.9); LYMPHOCYTES % 14.7 % (15.0-51.0); MEAN CORPUSCULAR HEMOGLOBIN 28.4 pg (29.0-33.0); MEAN CORPUSCULAR HGB CONC 31.4 g/dl (32.0-37.0); MEAN CORPUSCULAR VOLUME 90.4 fl (82.0-101.0); MEAN PLATELET VOLUME 9.2 fl (7.4-10.4); MONOCYTES % 6.3 % (0.0-11.0); NEUTROPHILS % 74.2 % (39.0-77.0); NUCLEATED RED BLOOD CELLS% 0.1 /100WBC (0.0-0.0); PLATELET COUNT 651 10^3/UL (140-415); RED BLOOD COUNT 3.13 10^6/ul (4.20-5.40); RED CELL DISTRIBUTION WIDTH 14.5 % (11.5-14.5); WHITE BLOOD COUNT 16.1 10^3/ul (4.8-10.8)
[2017-03-07 05:28] LABS: CALCIUM 8.8 mg/dl (8.4-10.2); CREATININE 0.53 mg/dl (0.44-1.00); POTASSIUM 3.8 mmol/L (3.5-5.1)
[2017-03-07] MEDS: METOCLOPRAMIDE 10 MG INJ IV SCH ×3 (05:42→17:34)
[2017-03-07 07:49] VITALS: BP 93/55; RESP 18
[2017-03-07] MEDS: ATORVASTATIN 40 MG TAB PO SCH (09:51)
[2017-03-07] MEDS: FAMOTIDINE 20 MG INJ IV SCH ×2 (09:53→20:37)
[2017-03-07] MEDS: OCTREOTIDE 100 MCG INJ SC SCH ×3 (10:20→20:37)
[2017-03-07] MEDS: TPN 1,000 ML IV SCH ×2 (10:21→22:32)
[2017-03-07] MEDS: SOD CHLORIDE 0.9% 1,000 ML IV SCH (13:28)
[2017-03-07 14:30] VITALS: BP 100/50; RESP 18
--- NOTE | 2017-03-07 16:42 | PN ---
Date/Time of Note Date/Time of Note DATE: 03/07/17 TIME: 16:40 Assessment/Plan VTE Prophylaxis VTE Prophylaxis Intervention: SCD's Lines/Catheters IV Catheter Type (from Nrs): PICC Line Central line still needed: Yes Urinary Cath still in place: Yes Reason Cath still needed: urinary retention Assessment/Plan Chief Complaint/Hosp Course Patient's complains of abdominal pain, continue current pain medication as needed, blood sugar is better controlled, she is continues on TPN, started on ice chips per surgery. Patient was able to work with physical therapy. Triglycerides triglycerides 128, continue TPN and resume lipids. Assessment/Plan -Partial small bowel obstruction, continue TPN. -Recurrent Ovarian CA, status post secondary cytoreduction by Dr. Morris on . Continue to follow-up surgical recommendation. -Urethral stricture continue [place] catheter, follow-up surgical recommendations. -Intractable of abdominal pain, nausea and vomiting secondary to recurrent ovarian cancer. Continue Zofran as needed for nausea and Dilaudid as needed for pain. -Diabetes mellitus type 2, hemoglobin A1c is 8.6, continue Lantus and NovoLog per sliding scale with Accu-Chek every 4 hours. -Hyperlipidemia. Further recommendations based on clinical course. Plan of care discussed with Dr. Hester. Problems: Exam/Review of Systems Vital Signs Vitals Vital Signs Date Time Temp Pulse Resp B/P Pulse Ox O2 Delivery O2 Flow Rate FiO2 03/07/17 13:00 16 03/07/17 07:49 97.9 71 93/55 98 Intake and Output 03/06/17 03/06/17 03/07/17 15:00 23:00 07:00 Intake Total 140 ml 1940 ml 1130 ml Output Total 100 ml 2245 ml 1610 ml Balance 40 ml -305 ml -480 ml Exam Constitutional: alert, oriented Head: normocephalic, NG tube Neck: supple Respiratory: normal air movement Cardiovascular: nl pulses Gastrointestinal: other (Hypoactive bowel sounds), soft, surgical incision Genitourinary - Female: other ([place] catheter) Extremities: normal pulses Neurological: nl mental status Results Result Diagram: 03/07/17 0427 03/07/17 0427 Results 24 hrs Laboratory Tests Test 03/06/17 17:11 03/06/17 21:38 03/07/17 01:29 03/07/17 04:27 Bedside Glucose 204 171 171 White Blood Count 16.1 H Red Blood Count 3.13 L Hemoglobin 8.9 L Hematocrit 28.3 L Mean Corpuscular Volume 90.4 Mean Corpuscular Hemoglobin 28.4 L Mean Corpuscular Hemoglobin Concent 31.4 L Red Cell Distribution Width 14.5 Platelet Count 651 H Mean Platelet Volume 9.2 Neutrophils % 74.2 Lymphocytes % 14.7 L Monocytes % 6.3 Eosinophils % 1.7 Basophils % 0.2 Nucleated Red Blood Cells % 0.1 H Neutrophils # (Manual) 12 H Lymphocytes # 2.4 Monocytes # 1.0 H Eosinophils # 0.3 Basophils # 0.0 Nucleated Red Blood Cells # 0.0 Sodium Level 136 Potassium Level 3.8 Chloride Level 101 Carbon Dioxide Level 25 Anion Gap 14 Blood Urea Nitrogen 12 Creatinine 0.53 Glucose Level 158 Calcium Level 8.8 Triglycerides Level 128 Test 03/07/17 05:41 03/07/17 09:25 03/07/17 13:34 Bedside Glucose 158 137 191 Medications Medications Current Medications Hydromorphone HCl (Dilaudid) 0.5 mg Q3H PRN IV PAIN Last administered on 18:43; Admin Dose 0.5 MG; Start 02/19/17 at 04:00 Miscellaneous Information 1 ea NOTE XX ; Start 02/19/17 at 04:30 Glucose (Glutose) 15 gm Q15M PRN PO DECREASED GLUCOSE; Start 02/19/17 at 04:30 Glucose (Glutose) 22.5 gm Q15M PRN PO DECREASED GLUCOSE; Start 02/19/17 at 04:30 Dextrose (D50w Syringe) 25 ml Q15M PRN IV DECREASED GLUCOSE; Start 02/19/17 at 04:30 Dextrose (D50w Syringe) 50 ml Q15M PRN IV DECREASED GLUCOSE; Start 02/19/17 at 04:30 Glucagon (Glucagen) 1 mg Q15M PRN IM DECREASED GLUCOSE; Start 02/19/17 at 04:30 Glucose (Glutose) 15 gm Q15M PRN BUCCAL DECREASED GLUCOSE; Start 02/19/17 at 04: 30 Atorvastatin Calcium (Lipitor) 40 mg DAILY PO Last administered on 03/07/17 09 :51; Admin Dose 40 MG; Start 02/21/17 at 09:00 Escitalopram Oxalate (Lexapro) 10 mg DAILY PRN PO DEPRESSION; Start 02/20/17 at 13:30 Metoclopramide HCl (Reglan) 10 mg Q6 IV Last administered on 03/07/17 13:43; Admin Dose 10 MG; Start 02/22/17 at 21:00 Insulin Aspart (Novolog Insulin Pen) NOVOLOG *MILD* ALGORI... Q4 SC Last administered on 03/07/17 13:42; Admin Dose 2 UNIT; Start 02/23/17 at 01:00 Hydromorphone HCl (Dilaudid) 1 mg Q2H PRN IV PAIN LEVEL 6-10 Last administered on 02/23/17 17:46; Admin Dose 1 MG; Start 02/23/17 at 15:30 Ondansetron HCl (Zofran Inj) 4 mg Q6H PRN IV NAUSEA AND/OR VOMITING Last administered on 03/05/17 04:35; Admin Dose 4 MG; Start 02/23/17 at 15:30 Famotidine (Pepcid Iv) 20 mg Q12 IV Last administered on 03/07/17 09:53; Admin Dose 20 MG; Start 02/23/17 at 21:00 Hydromorphone HCl MG/HR CONTINUOUS RATE ... Q4PCA IV Last administered on 03/06 23:06; Admin Dose 6 MG; Start 02/23/17 at 19:30 Total Parenteral Nutrition (Tpn) 1,000 ml @ 80 mls/hr [id number] IV Last administered on 03/07/17 10:21; Admin Dose 80 MLS/HR; Start 02/26/17 at 21:00 IV Flush 10 ml 10 ml PRN PRN IV IV PROTOCOL Last administered on 03/03/17 04: 21; Admin Dose 10 ML; Start 02/27/17 at 15:00 Fat Emulsion Intravenous 250 ml @ 21 mls/hr Q24H IV Last administered on 15:31; Admin Dose 21 MLS/HR; Start 02/28/17 at 15:00; Status Future Hold Sodium Chloride (NS) 1,000 ml @ 60 mls/hr [id number] IV Last administered on 03/07 13:28; Admin Dose 60 MLS/HR; Start 03/01/17 at 14:00 Octreotide Acetate (Sandostatin) 100 mcg TID SC Last administered on 03/07/17 13:43; Admin Dose 100 MCG; Start 03/03/17 at 21:00 Nitroglycerin (Nitroglycerin (Sl Tab) 0.4 Mg) 1 tab Q5M PRN SL ANGINA; Start at 07:00 Lorazepam (Ativan) 0.5 mg Q6H PRN IV ANXIETY Last administered on 03/05/17 16: 21; Admin Dose 0.5 MG; Start 03/05/17 at 16:07 Insulin Glargine (Lantus) 38 unit DAILY@20 SC Last administered on 03/06/17 21 :45; Admin Dose 38 UNIT; Start 03/06/17 at 20:00 GLENN PALMER Mar 07, 2017 16:42
[2017-03-07 19:30] VITALS: BP 104/54; RESP 18
[2017-03-07] MEDS: INSULIN GLARGINE [LANtus] 3 ML PEN SC SCH (20:41)
[2017-03-07] MEDS: HYDROmorphONE 0.2 MG/ML PCA IV SCH (20:44)
[2017-03-08] MEDS: METOCLOPRAMIDE 10 MG INJ IV SCH ×4 (00:53→18:10)
[2017-03-08] MEDS: INSULIN ASPART [NOVOLOG] 3 ML PEN SC SCH ×6 (01:03→21:42)
[2017-03-08 05:27] LABS: BASOPHILS % 0.2 % (0.0-2.0); EOSINOPHILS # 0.3 10^3/ul (0.0-0.5); EOSINOPHILS % 1.8 % (0.0-7.0); HEMATOCRIT 30.4 % (37.0-47.0); HEMOGLOBIN 9.3 g/dl (12.0-16.0); LYMPHOCYTES # 1.8 10^3/ul (0.8-2.9); LYMPHOCYTES % 11.8 % (15.0-51.0); MEAN CORPUSCULAR HEMOGLOBIN 27.6 pg (29.0-33.0); MEAN CORPUSCULAR HGB CONC 30.6 g/dl (32.0-37.0); MEAN CORPUSCULAR VOLUME 90.2 fl (82.0-101.0); MEAN PLATELET VOLUME 9.2 fl (7.4-10.4); MONOCYTES % 6.7 % (0.0-11.0); NEUTROPHILS % 77.6 % (39.0-77.0); PLATELET COUNT 694 10^3/UL (140-415); RED BLOOD COUNT 3.37 10^6/ul (4.20-5.40); RED CELL DISTRIBUTION WIDTH 15.1 % (11.5-14.5); WHITE BLOOD COUNT 14.9 10^3/ul (4.8-10.8)
[2017-03-08] MEDS: SOD CHLORIDE 0.9% 1,000 ML IV SCH ×2 (05:36→21:37)
[2017-03-08 06:35] LABS: CALCIUM 9.2 mg/dl (8.4-10.2); CREATININE 0.46 mg/dl (0.44-1.00); POTASSIUM 3.9 mmol/L (3.5-5.1)
[2017-03-08 08:21] VITALS: BP 101/58; RESP 18
[2017-03-08] MEDS: ATORVASTATIN 40 MG TAB PO SCH ×2 (09:00→09:25)
[2017-03-08] MEDS: FAMOTIDINE 20 MG INJ IV SCH ×2 (09:24→21:45)
[2017-03-08] MEDS: OCTREOTIDE 100 MCG INJ SC SCH ×3 (09:41→21:46)
[2017-03-08] MEDS: TPN 1,000 ML IV SCH (11:47)
--- NOTE | 2017-03-08 13:44 | PN ---
Date/Time of Note Date/Time of Note DATE: 03/08/17 TIME: 13:41 Assessment/Plan VTE Prophylaxis VTE Prophylaxis Intervention: SCD's Lines/Catheters IV Catheter Type (from Nrs): PICC Line Central line still needed: Yes Urinary Cath still in place: Yes Reason Cath still needed: urinary retention Assessment/Plan Chief Complaint/Hosp Course Patient's complains of nausea had a small emesis in a.m., currently stable, afebrile. Patient's continues on TPN and lipids. Abdominal pain is well controlled. Assessment/Plan -Partial small bowel obstruction, continue TPN and Lipids. -Recurrent Ovarian CA, status post secondary cytoreduction by Dr. Morris on . Continue to follow-up surgical recommendation. -Urethral stricture continue [place] catheter, follow-up surgical recommendations. -Intractable of abdominal pain, nausea and vomiting secondary to recurrent ovarian cancer. Continue Zofran as needed for nausea and Dilaudid as needed for pain. -Diabetes mellitus type 2, hemoglobin A1c is 8.6, continue Lantus and NovoLog per sliding scale with Accu-Chek every 4 hours. -Hyperlipidemia. Further recommendations based on clinical course. Plan of care discussed with Dr. Hester. Problems: Exam/Review of Systems Vital Signs Vitals Vital Signs Date Time Temp Pulse Resp B/P Pulse Ox O2 Delivery O2 Flow Rate FiO2 03/08/17 09:00 18 03/08/17 08:21 97.8 75 101/58 96 Intake and Output 03/07/17 03/07/17 03/08/17 15:00 23:00 07:00 Intake Total 700 ml 1050 ml 980 ml Output Total 1701 ml 2500 ml Balance 700 ml -651 ml -1520 ml Exam Constitutional: alert, oriented Head: normocephalic, NG tube Respiratory: normal air movement Cardiovascular: nl pulses Gastrointestinal: other (Hypoactive bowel sounds), soft, surgical incision Genitourinary - Female: other (L[place]is catheter) Results Result Diagram: 03/08/172 03/08/17 044 Results 24 hrs Laboratory Tests Test 03/07/17 16:51 03/07/17 20:35 03/08/17 00:57 03/08/17 04:41 Bedside Glucose 206 153 150 Sodium Level 139 Potassium Level 3.9 Chloride Level 96 L Carbon Dioxide Level 27 Anion Gap 20 H Blood Urea Nitrogen 14 Creatinine 0.46 Glucose Level 118 # Calcium Level 9.2 Test 03/08/17 04:42 03/08/17 05:38 03/08/17 09:30 White Blood Count 14.9 H Red Blood Count 3.37 L Hemoglobin 9.3 L Hematocrit 30.4 L Mean Corpuscular Volume 90.2 Mean Corpuscular Hemoglobin 27.6 L Mean Corpuscular Hemoglobin Concent 30.6 L Red Cell Distribution Width 15.1 H Platelet Count 694 H Mean Platelet Volume 9.2 Neutrophils % 77.6 H Lymphocytes % 11.8 L Monocytes % 6.7 Eosinophils % 1.8 Basophils % 0.2 Nucleated Red Blood Cells % 0.0 Neutrophils # (Manual) 12 H Lymphocytes # 1.8 Monocytes # 1.0 H Eosinophils # 0.3 Basophils # 0.0 Nucleated Red Blood Cells # 0.0 Bedside Glucose 133 151 Medications Medications Current Medications Hydromorphone HCl (Dilaudid) 0.5 mg Q3H PRN IV PAIN Last administered on 18:43; Admin Dose 0.5 MG; Start 02/19/17 at 04:00 Miscellaneous Information 1 ea NOTE XX ; Start 02/19/17 at 04:30 Glucose (Glutose) 15 gm Q15M PRN PO DECREASED GLUCOSE; Start 02/19/17 at 04:30 Glucose (Glutose) 22.5 gm Q15M PRN PO DECREASED GLUCOSE; Start 02/19/17 at 04:30 Dextrose (D50w Syringe) 25 ml Q15M PRN IV DECREASED GLUCOSE; Start 02/19/17 at 04:30 Dextrose (D50w Syringe) 50 ml Q15M PRN IV DECREASED GLUCOSE; Start 02/19/17 at 04:30 Glucagon (Glucagen) 1 mg Q15M PRN IM DECREASED GLUCOSE; Start 02/19/17 at 04:30 Glucose (Glutose) 15 gm Q15M PRN BUCCAL DECREASED GLUCOSE; Start 02/19/17 at 04: 30 Atorvastatin Calcium (Lipitor) 40 mg DAILY PO Last administered on 03/07/17 09 :51; Admin Dose 40 MG; Start 02/21/17 at 09:00 Escitalopram Oxalate (Lexapro) 10 mg DAILY PRN PO DEPRESSION; Start 02/20/17 at 13:30 Metoclopramide HCl (Reglan) 10 mg Q6 IV Last administered on 03/08/17 13:28; Admin Dose 10 MG; Start 02/22/17 at 21:00 Insulin Aspart (Novolog Insulin Pen) NOVOLOG *MILD* ALGORI... Q4 SC Last administered on 03/08/17 09:35; Admin Dose 1 UNIT; Start 02/23/17 at 01:00 Hydromorphone HCl (Dilaudid) 1 mg Q2H PRN IV PAIN LEVEL 6-10 Last administered on 02/23/17 17:46; Admin Dose 1 MG; Start 02/23/17 at 15:30 Ondansetron HCl (Zofran Inj) 4 mg Q6H PRN IV NAUSEA AND/OR VOMITING Last administered on 03/05/17 04:35; Admin Dose 4 MG; Start 02/23/17 at 15:30 Famotidine (Pepcid Iv) 20 mg Q12 IV Last administered on 03/08/17 09:24; Admin Dose 20 MG; Start 02/23/17 at 21:00 Hydromorphone HCl MG/HR CONTINUOUS RATE ... Q4PCA IV Last administered on 03/07 20:44; Admin Dose 6 MG; Start 02/23/17 at 19:30 Total Parenteral Nutrition (Tpn) 1,000 ml @ 80 mls/hr [id number] IV Last administered on 03/08/17 11:47; Admin Dose 80 MLS/HR; Start 02/26/17 at 21:00 IV Flush 10 ml 10 ml PRN PRN IV IV PROTOCOL Last administered on 03/03/17 04: 21; Admin Dose 10 ML; Start 02/27/17 at 15:00 Sodium Chloride (NS) 1,000 ml @ 60 mls/hr [id number] IV Last administered on 03/08 05:36; Admin Dose 60 MLS/HR; Start 03/01/17 at 14:00 Octreotide Acetate (Sandostatin) 100 mcg TID SC Last administered on 03/08/17 13:31; Admin Dose 100 MCG; Start 03/03/17 at 21:00 Nitroglycerin (Nitroglycerin (Sl Tab) 0.4 Mg) 1 tab Q5M PRN SL ANGINA; Start at 07:00 Lorazepam (Ativan) 0.5 mg Q6H PRN IV ANXIETY Last administered on 03/05/17 16: 21; Admin Dose 0.5 MG; Start 03/05/17 at 16:07 Insulin Glargine 38 unit 38 unit DAILY@20 SC Last administered on 03/07/17 20: 41; Admin Dose 38 UNIT; Start 03/06/17 at 20:00 Fat Emulsion Intravenous (Liposyn Ii 20%) 250 ml @ 21 mls/hr 15 IV ; Start at 15:00 GLENN PALMER Mar 08, 2017 13:43
[2017-03-08 14:54] VITALS: BP 109/53; RESP 18
[2017-03-08] MEDS: FAT EMULSION 20% 250 ML IV SCH (15:49)
[2017-03-08] MEDS: HYDROmorphONE 0.2 MG/ML PCA IV SCH (16:12)
[2017-03-08 19:20] VITALS: BP 126/57; RESP 18
[2017-03-08] MEDS: INSULIN GLARGINE [LANtus] 3 ML PEN SC SCH (21:41)
--- NOTE | 2017-03-08 21:56 | PN ---
Date/Time of Note Date/Time of Note DATE: 03/08/17 TIME: 21:54 Assessment/Plan VTE Prophylaxis VTE Prophylaxis Intervention: SCD's Lines/Catheters IV Catheter Type (from Nrsg): PICC Line Central line still needed: Yes Urinary Cath still in place: Yes Reason Cath still needed: other (indicate) Assessment/Plan Chief Complaint/Hosp Course ovarian cancer, recurrent, partial SBO/LBO, ureteral stricture Problems: Assessment/Plan A- improving will less evidence of fistula P- continue current rx Subjective 24 Hr Interval Summary Free Text/Dictation Feels better. No flatus. Exam/Review of Systems Vital Signs Vitals Vital Signs Date Time Temp Pulse Resp B/P Pulse Ox O2 Delivery O2 Flow Rate FiO2 03/08/17 19:20 98.2 85 18 126/57 98 Intake and Output 03/07/17 03/07/17 03/08/17 15:00 23:00 07:00 Intake Total 700 ml 1050 ml 980 ml Output Total 1701 ml 2500 ml Balance 700 ml -651 ml -1520 ml Exam Resp- clear CVS- NSR Abd- soft NT clean, but MANDY darkened and of concern; old blood vs infected blood vs stool Rectal: staple line of low anastomosis intact Ext- nt no edema Results Result Diagram: 03/08/17 0442 03/08/17 0441 Results 24 hrs Laboratory Tests Test 03/08/17 00:57 03/08/17 04:41 03/08/17 04:42 03/08/17 05:38 Bedside Glucose 150 133 Sodium Level 139 Potassium Level 3.9 Chloride Level 96 L Carbon Dioxide Level 27 Anion Gap 20 H Blood Urea Nitrogen 14 Creatinine 0.46 Glucose Level 118 # Calcium Level 9.2 White Blood Count 14.9 H Red Blood Count 3.37 L Hemoglobin 9.3 L Hematocrit 30.4 L Mean Corpuscular Volume 90.2 Mean Corpuscular Hemoglobin 27.6 L Mean Corpuscular Hemoglobin Concent 30.6 L Red Cell Distribution Width 15.1 H Platelet Count 694 H Mean Platelet Volume 9.2 Neutrophils % 77.6 H Lymphocytes % 11.8 L Monocytes % 6.7 Eosinophils % 1.8 Basophils % 0.2 Nucleated Red Blood Cells % 0.0 Neutrophils # (Manual) 12 H Lymphocytes # 1.8 Monocytes # 1.0 H Eosinophils # 0.3 Basophils # 0.0 Nucleated Red Blood Cells # 0.0 Test 03/08/17 09:30 03/08/17 13:45 03/08/17 17:32 03/08/17 21:35 Bedside Glucose 151 178 191 160 Medications Medications Current Medications Hydromorphone HCl (Dilaudid) 0.5 mg Q3H PRN IV PAIN Last administered on 18:43; Admin Dose 0.5 MG; Start 02/19/17 at 04:00 Miscellaneous Information 1 ea NOTE XX ; Start 02/19/17 at 04:30 Glucose (Glutose) 15 gm Q15M PRN PO DECREASED GLUCOSE; Start 02/19/17 at 04:30 Glucose (Glutose) 22.5 gm Q15M PRN PO DECREASED GLUCOSE; Start 02/19/17 at 04:30 Dextrose (D50w Syringe) 25 ml Q15M PRN IV DECREASED GLUCOSE; Start 02/19/17 at 04:30 Dextrose (D50w Syringe) 50 ml Q15M PRN IV DECREASED GLUCOSE; Start 02/19/17 at 04:30 Glucagon (Glucagen) 1 mg Q15M PRN IM DECREASED GLUCOSE; Start 02/19/17 at 04:30 Glucose (Glutose) 15 gm Q15M PRN BUCCAL DECREASED GLUCOSE; Start 02/19/17 at 04: 30 Atorvastatin Calcium (Lipitor) 40 mg DAILY PO Last administered on 03/07/17 09 :51; Admin Dose 40 MG; Start 02/21/17 at 09:00 Escitalopram Oxalate (Lexapro) 10 mg DAILY PRN PO DEPRESSION; Start 02/20/17 at 13:30 Metoclopramide HCl (Reglan) 10 mg Q6 IV Last administered on 03/08/17 18:10; Admin Dose 10 MG; Start 02/22/17 at 21:00 Insulin Aspart (Novolog Insulin Pen) NOVOLOG *MILD* ALGORI... Q4 SC Last administered on 03/08/17 21:42; Admin Dose 1 UNIT; Start 02/23/17 at 01:00 Hydromorphone HCl (Dilaudid) 1 mg Q2H PRN IV PAIN LEVEL 6-10 Last administered on 02/23/17 17:46; Admin Dose 1 MG; Start 02/23/17 at 15:30 Ondansetron HCl (Zofran Inj) 4 mg Q6H PRN IV NAUSEA AND/OR VOMITING Last administered on 03/05/17 04:35; Admin Dose 4 MG; Start 02/23/17 at 15:30 Famotidine (Pepcid Iv) 20 mg Q12 IV Last administered on 03/08/17 21:45; Admin Dose 20 MG; Start 02/23/17 at 21:00 Hydromorphone HCl MG/HR CONTINUOUS RATE ... Q4PCA IV Last administered on 03/08 16:12; Admin Dose 6 MG; Start 02/23/17 at 19:30 Total Parenteral Nutrition (Tpn) 1,000 ml @ 80 mls/hr [id number] IV Last administered on 03/08/17 11:47; Admin Dose 80 MLS/HR; Start 02/26/17 at 21:00 IV Flush 10 ml 10 ml PRN PRN IV IV PROTOCOL Last administered on 03/03/17 04: 21; Admin Dose 10 ML; Start 02/27/17 at 15:00 Sodium Chloride (NS) 1,000 ml @ 60 mls/hr [id number] IV Last administered on 03/08 21:37; Admin Dose 60 MLS/HR; Start 03/01/17 at 14:00 Octreotide Acetate (Sandostatin) 100 mcg TID SC Last administered on 03/08/17 21:46; Admin Dose 100 MCG; Start 03/03/17 at 21:00 Nitroglycerin (Nitroglycerin (Sl Tab) 0.4 Mg) 1 tab Q5M PRN SL ANGINA; Start at 07:00 Lorazepam (Ativan) 0.5 mg Q6H PRN IV ANXIETY Last administered on 03/05/17 16: 21; Admin Dose 0.5 MG; Start 03/05/17 at 16:07 Insulin Glargine 38 unit 38 unit DAILY@20 SC Last administered on 03/08/17 21: 41; Admin Dose 38 UNIT; Start 03/06/17 at 20:00 Fat Emulsion Intravenous (Liposyn Ii 20%) 250 ml @ 21 mls/hr 15 IV Last administered on 03/08/17 15:49; Admin Dose 21 MLS/HR; Start 03/08/17 at 15:00 MARIA DE JESUS MENDOZA MD Mar 08, 2017 21:56
[2017-03-08] MEDS: ONDANSETRON 4 MG INJ IV PRN (22:08)
[2017-03-09] MEDS: TPN 1,000 ML IV SCH ×2 (00:33→13:43)
[2017-03-09] MEDS: METOCLOPRAMIDE 10 MG INJ IV SCH ×4 (00:33→17:50)
[2017-03-09] MEDS: INSULIN ASPART [NOVOLOG] 3 ML PEN SC SCH ×6 (00:50→20:47)
[2017-03-09 02:20] VITALS: BP 112/53; RESP 18
[2017-03-09] MEDS: SOD CHLORIDE 0.9% 1,000 ML IV SCH ×2 (05:20→13:43)
[2017-03-09 06:10] LABS: BASOPHILS % 0.3 % (0.0-2.0); EOSINOPHILS # 0.3 10^3/ul (0.0-0.5); EOSINOPHILS % 2.1 % (0.0-7.0); HEMATOCRIT 30.2 % (37.0-47.0); HEMOGLOBIN 9.6 g/dl (12.0-16.0); MEAN CORPUSCULAR HEMOGLOBIN 28.2 pg (29.0-33.0); MEAN CORPUSCULAR HGB CONC 31.8 g/dl (32.0-37.0); MEAN CORPUSCULAR VOLUME 88.8 fl (82.0-101.0); MEAN PLATELET VOLUME 9.1 fl (7.4-10.4); MONOCYTES % 6.4 % (0.0-11.0); NEUTROPHILS % 76.5 % (39.0-77.0); PLATELET COUNT 671 10^3/UL (140-415); WHITE BLOOD COUNT 15.5 10^3/ul (4.8-10.8)
[2017-03-09 06:35] LABS: CALCIUM 9.1 mg/dl (8.4-10.2); CREATININE 0.5 mg/dl (0.44-1.00); MAGNESIUM 1.5 mg/dl (1.7-2.5); POTASSIUM 3.5 mmol/L (3.5-5.1)
[2017-03-09 07:58] VITALS: BP 119/59; RESP 18
[2017-03-09] MEDS: ATORVASTATIN 40 MG TAB PO SCH (09:29)
[2017-03-09] MEDS: FAMOTIDINE 20 MG INJ IV SCH ×2 (09:30→20:34)
[2017-03-09] MEDS: OCTREOTIDE 100 MCG INJ SC SCH ×3 (09:36→20:56)
--- NOTE | 2017-03-09 15:57 | PN ---
Date/Time of Note Date/Time of Note DATE: 03/09/17 TIME: 15:41 Assessment/Plan VTE Prophylaxis VTE Prophylaxis Intervention: SCD's Lines/Catheters IV Catheter Type (from Nrsg): PICC Line Central line still needed: Yes Urinary Cath still in place: Yes Reason Cath still needed: urinary retention Assessment/Plan Assessment/Plan -Partial small bowel obstruction, continue TPN and Lipids. -Recurrent Ovarian CA, status post secondary cytoreduction by Dr. Morris on . Continue to follow-up surgical recommendation. -Urethral stricture continue [place] catheter, follow-up surgical recommendations. -Intractable of abdominal pain, nausea and vomiting secondary to recurrent ovarian cancer. Continue Zofran as needed for nausea and Dilaudid as needed for pain. -Diabetes mellitus type 2, hemoglobin A1c is 8.6, continue Lantus and NovoLog per sliding scale with Accu-Chek every 4 hours. -Hyperlipidemia. - Hypomagnesium - replet Mag,- dw pharmacist - am Mag levell Further recommendations based on clinical course. Plan of care discussed with Dr. Hester. Subjective 24 Hr Interval Summary Free Text/Dictation afebrile. Constitutional: requiring IVF, requiring O2 Respiratory: no complaints Cardiovascular: no complaints Gastrointestinal: pain Genitourinary: no complaints Musculoskeletal: no complaints Skin: no complaints Exam/Review of Systems Vital Signs Vitals Vital Signs Date Time Temp Pulse Resp B/P Pulse Ox O2 Delivery O2 Flow Rate FiO2 03/09/17 07:58 97.7 72 18 119/59 100 Intake and Output 03/08/17 03/08/17 03/09/17 15:00 23:00 07:00 Intake Total 2035 ml 1250 ml Output Total 2 ml 2200 ml 1910 ml Balance -2 ml -165 ml -660 ml Exam Constitutional: alert, oriented, well developed Respiratory: clear to auscultation, normal air movement Cardiovascular: nl pulses Gastrointestinal: non-tender, soft Musculoskeletal: nl extremities to inspection Extremities: normal pulses Neurological: nl mental status, nl speech Results Result Diagram: 03/09/17 0515 03/09/17 0515 Results 24 hrs Laboratory Tests Test 03/08/17 17:32 03/08/17 21:35 03/09/17 00:44 03/09/17 05:15 Bedside Glucose 191 160 211 White Blood Count 15.5 H Red Blood Count 3.40 L Hemoglobin 9.6 L Hematocrit 30.2 L Mean Corpuscular Volume 88.8 Mean Corpuscular Hemoglobin 28.2 L Mean Corpuscular Hemoglobin Concent 31.8 L Red Cell Distribution Width 15.0 H Platelet Count 671 H Mean Platelet Volume 9.1 Neutrophils % 76.5 Lymphocytes % 13.0 L Monocytes % 6.4 Eosinophils % 2.1 Basophils % 0.3 Nucleated Red Blood Cells % 0.0 Neutrophils # (Manual) 12 H Lymphocytes # 2.0 Monocytes # 1.0 H Eosinophils # 0.3 Basophils # 0.0 Nucleated Red Blood Cells # 0.0 Sodium Level 137 Potassium Level 3.5 Chloride Level 99 Carbon Dioxide Level 27 Anion Gap 15 Blood Urea Nitrogen 13 Creatinine 0.50 Glucose Level 126 Calcium Level 9.1 Phosphorus Level 4.0 Magnesium Level 1.5 L Test 03/09/17 05:36 03/09/17 09:27 03/09/17 13:20 Bedside Glucose 132 96 113 Medications Medications Current Medications Hydromorphone HCl (Dilaudid) 0.5 mg Q3H PRN IV PAIN Last administered on 18:43; Admin Dose 0.5 MG; Start 02/19/17 at 04:00 Miscellaneous Information 1 ea NOTE XX ; Start 02/19/17 at 04:30 Glucose (Glutose) 15 gm Q15M PRN PO DECREASED GLUCOSE; Start 02/19/17 at 04:30 Glucose (Glutose) 22.5 gm Q15M PRN PO DECREASED GLUCOSE; Start 02/19/17 at 04:30 Dextrose (D50w Syringe) 25 ml Q15M PRN IV DECREASED GLUCOSE; Start 02/19/17 at 04:30 Dextrose (D50w Syringe) 50 ml Q15M PRN IV DECREASED GLUCOSE; Start 02/19/17 at 04:30 Glucagon (Glucagen) 1 mg Q15M PRN IM DECREASED GLUCOSE; Start 02/19/17 at 04:30 Glucose (Glutose) 15 gm Q15M PRN BUCCAL DECREASED GLUCOSE; Start 02/19/17 at 04: 30 Atorvastatin Calcium (Lipitor) 40 mg DAILY PO Last administered on 03/09/17 09 :29; Admin Dose 40 MG; Start 02/21/17 at 09:00 Escitalopram Oxalate (Lexapro) 10 mg DAILY PRN PO DEPRESSION; Start 02/20/17 at 13:30 Metoclopramide HCl (Reglan) 10 mg Q6 IV Last administered on 03/09/17 13:42; Admin Dose 10 MG; Start 02/22/17 at 21:00 Insulin Aspart (Novolog Insulin Pen) NOVOLOG *MILD* ALGORI... Q4 SC Last administered on 03/09/17 00:50; Admin Dose 2 UNIT; Start 02/23/17 at 01:00 Hydromorphone HCl (Dilaudid) 1 mg Q2H PRN IV PAIN LEVEL 6-10 Last administered on 02/23/17 17:46; Admin Dose 1 MG; Start 02/23/17 at 15:30 Ondansetron HCl (Zofran Inj) 4 mg Q6H PRN IV NAUSEA AND/OR VOMITING Last administered on 03/08/17 22:08; Admin Dose 4 MG; Start 02/23/17 at 15:30 Famotidine (Pepcid Iv) 20 mg Q12 IV Last administered on 03/09/17 09:30; Admin Dose 20 MG; Start 02/23/17 at 21:00 Hydromorphone HCl MG/HR CONTINUOUS RATE ... Q4PCA IV Last administered on 03/08 16:12; Admin Dose 6 MG; Start 02/23/17 at 19:30 Total Parenteral Nutrition (Tpn) 1,000 ml @ 80 mls/hr [id number] IV Last administered on 03/09/17 13:43; Admin Dose 80 MLS/HR; Start 02/26/17 at 21:00 IV Flush 10 ml 10 ml PRN PRN IV IV PROTOCOL Last administered on 03/03/17 04: 21; Admin Dose 10 ML; Start 02/27/17 at 15:00 Sodium Chloride (NS) 1,000 ml @ 60 mls/hr [id number] IV Last administered on 03/09 13:43; Admin Dose 60 MLS/HR; Start 03/01/17 at 14:00 Octreotide Acetate (Sandostatin) 100 mcg TID SC Last administered on 03/09/17 13:42; Admin Dose 100 MCG; Start 03/03/17 at 21:00 Nitroglycerin (Nitroglycerin (Sl Tab) 0.4 Mg) 1 tab Q5M PRN SL ANGINA; Start at 07:00 Lorazepam (Ativan) 0.5 mg Q6H PRN IV ANXIETY Last administered on 03/05/17 16: 21; Admin Dose 0.5 MG; Start 03/05/17 at 16:07 Insulin Glargine 38 unit 38 unit DAILY@20 SC Last administered on 03/08/17 21: 41; Admin Dose 38 UNIT; Start 03/06/17 at 20:00 Fat Emulsion Intravenous (Liposyn Ii 20%) 250 ml @ 21 mls/hr 15 IV Last administered on 03/08/17 15:49; Admin Dose 21 MLS/HR; Start 03/08/17 at 15:00 CUATE HAGEN Mar 09, 2017 15:53
[2017-03-09] MEDS ORDERED: MAGNESIUM SULFATE 1 GM/D5W 100 ML IVPB ONE (16:00)
[2017-03-09] MEDS: FAT EMULSION 20% 250 ML IV SCH (16:27)
[2017-03-09] MEDS: INSULIN GLARGINE [LANtus] 3 ML PEN SC SCH (20:36)
[2017-03-09 21:21] VITALS: BP 115/57; RESP 20
--- NOTE | 2017-03-09 21:33 | PN ---
Date/Time of Note Date/Time of Note DATE: 03/09/17 TIME: 21:29 Assessment/Plan VTE Prophylaxis VTE Prophylaxis Intervention: SCD's Lines/Catheters IV Catheter Type (from Nrsg): PICC Line Central line still needed: Yes Urinary Cath still in place: Yes Reason Cath still needed: urinary retention Assessment/Plan Chief Complaint/Hosp Course ovarian cancer, recurrent, partial SBO/LBO, ureteral stricture Problems: Assessment/Plan A- further improved. P- Continue current rx due to very high risk of low anastomosis will probably d/c NGT 2-3 d. Subjective 24 Hr Interval Summary Free Text/Dictation Less pain and minimal MANDY drainage; more clear in appearance. Exam/Review of Systems Vital Signs Vitals Vital Signs Date Time Temp Pulse Resp B/P Pulse Ox O2 Delivery O2 Flow Rate FiO2 03/09/17 21:21 98.5 77 20 115/57 98 Intake and Output 03/08/17 03/08/17 03/09/17 15:00 23:00 07:00 Intake Total 2035 ml 1250 ml Output Total 2 ml 2200 ml 1910 ml Balance -2 ml -165 ml -660 ml Exam Resp- clear CVS- NSR Abd- soft, NT clean; minimal MANDY drainage and mostly clear Ext- NT no edema Results Result Diagram: 03/09/17 0515 03/09/17 0515 Results 24 hrs Laboratory Tests Test 03/08/17 21:35 03/09/17 00:44 03/09/17 05:15 03/09/17 05:36 Bedside Glucose 160 211 132 White Blood Count 15.5 H Red Blood Count 3.40 L Hemoglobin 9.6 L Hematocrit 30.2 L Mean Corpuscular Volume 88.8 Mean Corpuscular Hemoglobin 28.2 L Mean Corpuscular Hemoglobin Concent 31.8 L Red Cell Distribution Width 15.0 H Platelet Count 671 H Mean Platelet Volume 9.1 Neutrophils % 76.5 Lymphocytes % 13.0 L Monocytes % 6.4 Eosinophils % 2.1 Basophils % 0.3 Nucleated Red Blood Cells % 0.0 Neutrophils # (Manual) 12 H Lymphocytes # 2.0 Monocytes # 1.0 H Eosinophils # 0.3 Basophils # 0.0 Nucleated Red Blood Cells # 0.0 Sodium Level 137 Potassium Level 3.5 Chloride Level 99 Carbon Dioxide Level 27 Anion Gap 15 Blood Urea Nitrogen 13 Creatinine 0.50 Glucose Level 126 Calcium Level 9.1 Phosphorus Level 4.0 Magnesium Level 1.5 L Test 03/09/17 09:27 03/09/17 13:20 03/09/17 17:26 03/09/17 20:29 Bedside Glucose 96 113 152 161 Medications Medications Current Medications Hydromorphone HCl (Dilaudid) 0.5 mg Q3H PRN IV PAIN Last administered on 18:43; Admin Dose 0.5 MG; Start 02/19/17 at 04:00 Miscellaneous Information 1 ea NOTE XX ; Start 02/19/17 at 04:30 Glucose (Glutose) 15 gm Q15M PRN PO DECREASED GLUCOSE; Start 02/19/17 at 04:30 Glucose (Glutose) 22.5 gm Q15M PRN PO DECREASED GLUCOSE; Start 02/19/17 at 04:30 Dextrose (D50w Syringe) 25 ml Q15M PRN IV DECREASED GLUCOSE; Start 02/19/17 at 04:30 Dextrose (D50w Syringe) 50 ml Q15M PRN IV DECREASED GLUCOSE; Start 02/19/17 at 04:30 Glucagon (Glucagen) 1 mg Q15M PRN IM DECREASED GLUCOSE; Start 02/19/17 at 04:30 Glucose (Glutose) 15 gm Q15M PRN BUCCAL DECREASED GLUCOSE; Start 02/19/17 at 04: 30 Atorvastatin Calcium (Lipitor) 40 mg DAILY PO Last administered on 03/09/17 09 :29; Admin Dose 40 MG; Start 02/21/17 at 09:00 Escitalopram Oxalate (Lexapro) 10 mg DAILY PRN PO DEPRESSION; Start 02/20/17 at 13:30 Metoclopramide HCl (Reglan) 10 mg Q6 IV Last administered on 03/09/17 17:50; Admin Dose 10 MG; Start 02/22/17 at 21:00 Insulin Aspart (Novolog Insulin Pen) NOVOLOG *MILD* ALGORI... Q4 SC Last administered on 03/09/17 20:47; Admin Dose 1 UNIT; Start 02/23/17 at 01:00 Hydromorphone HCl (Dilaudid) 1 mg Q2H PRN IV PAIN LEVEL 6-10 Last administered on 02/23/17 17:46; Admin Dose 1 MG; Start 02/23/17 at 15:30 Ondansetron HCl (Zofran Inj) 4 mg Q6H PRN IV NAUSEA AND/OR VOMITING Last administered on 03/08/17 22:08; Admin Dose 4 MG; Start 02/23/17 at 15:30 Famotidine (Pepcid Iv) 20 mg Q12 IV Last administered on 03/09/17 20:34; Admin Dose 20 MG; Start 02/23/17 at 21:00 Hydromorphone HCl MG/HR CONTINUOUS RATE ... Q4PCA IV Last administered on 03/08 16:12; Admin Dose 6 MG; Start 02/23/17 at 19:30 Total Parenteral Nutrition (Tpn) 1,000 ml @ 80 mls/hr [id number] IV Last administered on 03/09/17 13:43; Admin Dose 80 MLS/HR; Start 02/26/17 at 21:00 IV Flush 10 ml 10 ml PRN PRN IV IV PROTOCOL Last administered on 03/03/17 04: 21; Admin Dose 10 ML; Start 02/27/17 at 15:00 Sodium Chloride (NS) 1,000 ml @ 60 mls/hr [id number] IV Last administered on 03/09 13:43; Admin Dose 60 MLS/HR; Start 03/01/17 at 14:00 Octreotide Acetate (Sandostatin) 100 mcg TID SC Last administered on 03/09/17 20:56; Admin Dose 100 MCG; Start 03/03/17 at 21:00 Nitroglycerin (Nitroglycerin (Sl Tab) 0.4 Mg) 1 tab Q5M PRN SL ANGINA; Start at 07:00 Lorazepam (Ativan) 0.5 mg Q6H PRN IV ANXIETY Last administered on 03/05/17 16: 21; Admin Dose 0.5 MG; Start 03/05/17 at 16:07 Insulin Glargine 38 unit 38 unit DAILY@20 SC Last administered on 03/09/17 20: 36; Admin Dose 38 UNIT; Start 03/06/17 at 20:00 Fat Emulsion Intravenous (Liposyn Ii 20%) 250 ml @ 21 mls/hr 15 IV Last administered on 03/09/17 16:27; Admin Dose 21 MLS/HR; Start 03/08/17 at 15:00 MARIA DE JESUS MENDOZA MD Mar 09, 2017 21:32
[2017-03-10] VITALS (8 sets, daily range): BP systolic 105–122; BP diastolic 55–72; PULSE 77–79; RESP 17–20
[2017-03-10] MEDS: HYDROmorphONE 0.2 MG/ML PCA IV SCH (00:14)
[2017-03-10] MEDS: METOCLOPRAMIDE 10 MG INJ IV SCH ×4 (00:17→18:50)
[2017-03-10] MEDS: INSULIN ASPART [NOVOLOG] 3 ML PEN SC SCH ×6 (00:50→20:26)
[2017-03-10] MEDS: TPN 1,000 ML IV SCH ×2 (03:36→16:35)
[2017-03-10] MEDS: SOD CHLORIDE 0.9% 1,000 ML IV SCH (05:57)
[2017-03-10 06:41] LABS: CALCIUM 9.2 mg/dl (8.4-10.2); CREATININE 0.54 mg/dl (0.44-1.00); MAGNESIUM 1.7 mg/dl (1.7-2.5); POTASSIUM 3.4 mmol/L (3.5-5.1)
[2017-03-10 09:14] LABS: BASOPHILS % 0.1 % (0.0-2.0); EOSINOPHILS # 0.2 10^3/ul (0.0-0.5); EOSINOPHILS % 1.7 % (0.0-7.0); HEMATOCRIT 32.1 % (37.0-47.0); LYMPHOCYTES # 1.5 10^3/ul (0.8-2.9); MEAN CORPUSCULAR HEMOGLOBIN 27.9 pg (29.0-33.0); MEAN CORPUSCULAR HGB CONC 31.2 g/dl (32.0-37.0); MEAN CORPUSCULAR VOLUME 89.7 fl (82.0-101.0); MEAN PLATELET VOLUME 9.1 fl (7.4-10.4); MONOCYTE # 0.8 10^3/ul (0.3-0.9); MONOCYTES % 6.3 % (0.0-11.0); NEUTROPHILS % 79.8 % (39.0-77.0); RED BLOOD COUNT 3.58 10^6/ul (4.20-5.40); WHITE BLOOD COUNT 13.4 10^3/ul (4.8-10.8)
[2017-03-10 09:16] LABS: PLATELET COUNT 663 10^3/UL (140-415)
[2017-03-10 09:42] LABS: CALCIUM 8.6 mg/dl (8.4-10.2); CREATININE 0.54 mg/dl (0.44-1.00); POTASSIUM 3.9 mmol/L (3.5-5.1)
[2017-03-10] MEDS: FAMOTIDINE 20 MG INJ IV SCH ×2 (09:52→20:19)
[2017-03-10] MEDS: ATORVASTATIN 40 MG TAB PO SCH (09:52)
[2017-03-10] MEDS: OCTREOTIDE 100 MCG INJ SC SCH ×3 (09:52→20:20)
--- NOTE | 2017-03-10 15:29 | PN ---
Date/Time of Note Date/Time of Note DATE: 03/10/17 TIME: 15:26 Assessment/Plan VTE Prophylaxis VTE Prophylaxis Intervention: SCD's Lines/Catheters IV Catheter Type (from Nrsg): PICC Line Central line still needed: Yes Urinary Cath still in place: Yes Reason Cath still needed: urinary retention Assessment/Plan Chief Complaint/Hosp Course Patient remains hemodynamically stable, pain is well controlled, continue to ice chips, denies any nausea and vomiting patient's complains of NG tube discomfort. Assessment/Plan -Partial small bowel obstruction, continue TPN and Lipids. -Recurrent Ovarian CA, status post secondary cytoreduction by Dr. Morris on . Continue to follow-up surgical recommendation. -Urethral stricture continue Loomis catheter, follow-up surgical recommendations. -Intractable of abdominal pain, nausea and vomiting secondary to recurrent ovarian cancer. Continue Zofran as needed for nausea and Dilaudid as needed for pain. -Diabetes mellitus type 2, hemoglobin A1c is 8.6, continue Lantus and NovoLog per sliding scale with Accu-Chek every 4 hours. -Hyperlipidemia. Further recommendations based on clinical course. Plan of care discussed with Dr. Hester. Problems: Exam/Review of Systems Vital Signs Vitals Vital Signs Date Time Temp Pulse Resp B/P Pulse Ox O2 Delivery O2 Flow Rate FiO2 03/10/17 12:19 98.0 79 20 105/64 98 03/10/17 05:00 Room Air Intake and Output 03/09/17 03/09/17 03/10/17 15:00 23:00 07:00 Intake Total 1970 ml 1620 ml Output Total 0 ml 202 ml 2701 ml Balance 0 ml 1768 ml -1081 ml Exam Constitutional: alert, oriented Head: normocephalic, NG tube Respiratory: normal air movement Cardiovascular: nl pulses Gastrointestinal: other (Hypoactive bowel sounds), soft, surgical incision Genitourinary - Female: other (Loomis catheter) Results Result Diagram: 03/10/17 0825 03/10/17 0825 Results 24 hrs Laboratory Tests Test 03/09/17 17:26 03/09/17 20:29 03/10/17 00:49 03/10/17 04:50 Bedside Glucose 152 161 140 Sodium Level 140 Potassium Level 3.4 L Chloride Level 96 L Carbon Dioxide Level 29 Anion Gap 18 H Blood Urea Nitrogen 12 Creatinine 0.54 Glucose Level 79 # Calcium Level 9.2 Phosphorus Level 4.0 Magnesium Level 1.7 Test 03/10/17 05:01 03/10/17 08:22 03/10/17 08:25 03/10/17 12:32 Bedside Glucose 79 136 161 White Blood Count 13.4 H Red Blood Count 3.58 L Hemoglobin 10.0 L Hematocrit 32.1 L Mean Corpuscular Volume 89.7 Mean Corpuscular Hemoglobin 27.9 L Mean Corpuscular Hemoglobin Concent 31.2 L Red Cell Distribution Width 15.0 H Platelet Count 663 H Mean Platelet Volume 9.1 Neutrophils % 79.8 H Lymphocytes % 11.0 L Monocytes % 6.3 Eosinophils % 1.7 Basophils % 0.1 Nucleated Red Blood Cells % 0.0 Neutrophils # (Manual) 10.7 H Lymphocytes # 1.5 Monocytes # 0.8 Eosinophils # 0.2 Basophils # 0.0 Nucleated Red Blood Cells # 0.0 Sodium Level 141 Potassium Level 3.9 Chloride Level 97 Carbon Dioxide Level 28 Anion Gap 20 H Blood Urea Nitrogen 13 Creatinine 0.54 Glucose Level 129 # Calcium Level 8.6 Medications Medications Current Medications Hydromorphone HCl (Dilaudid) 0.5 mg Q3H PRN IV PAIN Last administered on 18:43; Admin Dose 0.5 MG; Start 02/19/17 at 04:00 Miscellaneous Information 1 ea NOTE XX ; Start 02/19/17 at 04:30 Glucose (Glutose) 15 gm Q15M PRN PO DECREASED GLUCOSE; Start 02/19/17 at 04:30 Glucose (Glutose) 22.5 gm Q15M PRN PO DECREASED GLUCOSE; Start 02/19/17 at 04:30 Dextrose (D50w Syringe) 25 ml Q15M PRN IV DECREASED GLUCOSE; Start 02/19/17 at 04:30 Dextrose (D50w Syringe) 50 ml Q15M PRN IV DECREASED GLUCOSE; Start 02/19/17 at 04:30 Glucagon (Glucagen) 1 mg Q15M PRN IM DECREASED GLUCOSE; Start 02/19/17 at 04:30 Glucose (Glutose) 15 gm Q15M PRN BUCCAL DECREASED GLUCOSE; Start 02/19/17 at 04: 30 Atorvastatin Calcium (Lipitor) 40 mg DAILY PO Last administered on 03/10/17 09 :52; Admin Dose 40 MG; Start 02/21/17 at 09:00 Escitalopram Oxalate (Lexapro) 10 mg DAILY PRN PO DEPRESSION; Start 02/20/17 at 13:30 Metoclopramide HCl (Reglan) 10 mg Q6 IV Last administered on 03/10/17 13:10; Admin Dose 10 MG; Start 02/22/17 at 21:00 Insulin Aspart (Novolog Insulin Pen) NOVOLOG *MILD* ALGORI... Q4 SC Last administered on 03/10/17 13:13; Admin Dose 1 UNIT; Start 02/23/17 at 01:00 Hydromorphone HCl (Dilaudid) 1 mg Q2H PRN IV PAIN LEVEL 6-10 Last administered on 02/23/17 17:46; Admin Dose 1 MG; Start 02/23/17 at 15:30 Ondansetron HCl (Zofran Inj) 4 mg Q6H PRN IV NAUSEA AND/OR VOMITING Last administered on 03/08/17 22:08; Admin Dose 4 MG; Start 02/23/17 at 15:30 Famotidine (Pepcid Iv) 20 mg Q12 IV Last administered on 03/10/17 09:52; Admin Dose 20 MG; Start 02/23/17 at 21:00 Hydromorphone HCl MG/HR CONTINUOUS RATE ... Q4PCA IV Last administered on 03/10 00:14; Admin Dose 6 MG; Start 02/23/17 at 19:30 Total Parenteral Nutrition (Tpn) 1,000 ml @ 80 mls/hr [id number] IV Last administered on 03/10/17 03:36; Admin Dose 80 MLS/HR; Start 02/26/17 at 21:00 IV Flush 10 ml 10 ml PRN PRN IV IV PROTOCOL Last administered on 03/03/17 04: 21; Admin Dose 10 ML; Start 02/27/17 at 15:00 Sodium Chloride (NS) 1,000 ml @ 60 mls/hr [id number] IV Last administered on 03/10 05:57; Admin Dose 60 MLS/HR; Start 03/01/17 at 14:00 Octreotide Acetate (Sandostatin) 100 mcg TID SC Last administered on 03/10/17 13:10; Admin Dose 100 MCG; Start 03/03/17 at 21:00 Nitroglycerin (Nitroglycerin (Sl Tab) 0.4 Mg) 1 tab Q5M PRN SL ANGINA; Start at 07:00 Lorazepam (Ativan) 0.5 mg Q6H PRN IV ANXIETY Last administered on 03/05/17 16: 21; Admin Dose 0.5 MG; Start 03/05/17 at 16:07 Insulin Glargine 38 unit 38 unit DAILY@20 SC Last administered on 03/09/17 20: 36; Admin Dose 38 UNIT; Start 03/06/17 at 20:00 Fat Emulsion Intravenous (Liposyn Ii 20%) 250 ml @ 21 mls/hr 15 IV Last administered on 03/09/17 16:27; Admin Dose 21 MLS/HR; Start 03/08/17 at 15:00 GLENN PALMER Mar 10, 2017 15:29
[2017-03-10] MEDS: FAT EMULSION 20% 250 ML IV SCH (16:36)
[2017-03-10] MEDS ORDERED: LORAZEPAM 2 MG INJ IV ONE (20:00)
[2017-03-10] MEDS: INSULIN GLARGINE [LANtus] 3 ML PEN SC SCH (20:26)
[2017-03-10] MEDS ORDERED: HALOPERIDOL 5 MG INJ IM ONE ×2 (22:30→22:34)
[2017-03-10] MEDS ORDERED: HALOPERIDOL 5 MG INJ ONE (22:31)
[2017-03-10] MEDS ORDERED: DIPHENHYDRAMINE 50 MG INJ ONE (22:50)
[2017-03-11] VITALS (11 sets, daily range): BP systolic 86–146; BP diastolic 45–77; PULSE 75–106; RESP 18–22
[2017-03-11] MEDS: INSULIN ASPART [NOVOLOG] 3 ML PEN SC SCH ×6 (01:00→20:47)
[2017-03-11] MEDS: SOD CHLORIDE 0.9% 1,000 ML IV SCH ×2 (04:00→22:46)
[2017-03-11] MEDS: TPN 1,000 ML IV SCH ×3 (05:15→20:49)
[2017-03-11] MEDS: METOCLOPRAMIDE 10 MG INJ IV SCH ×5 (06:00→22:46)
[2017-03-11 08:03] LABS: BASOPHILS % 0.2 % (0.0-2.0); EOSINOPHILS # 0.2 10^3/ul (0.0-0.5); EOSINOPHILS % 1.3 % (0.0-7.0); HEMATOCRIT 29.4 % (37.0-47.0); HEMOGLOBIN 9.4 g/dl (12.0-16.0); LYMPHOCYTES # 1.7 10^3/ul (0.8-2.9); LYMPHOCYTES % 12.8 % (15.0-51.0); MEAN CORPUSCULAR HEMOGLOBIN 28.8 pg (29.0-33.0); MEAN CORPUSCULAR VOLUME 90.2 fl (82.0-101.0); MEAN PLATELET VOLUME 9.3 fl (7.4-10.4); MONOCYTE # 1.1 10^3/ul (0.3-0.9); NEUTROPHILS % 76.9 % (39.0-77.0); PLATELET COUNT 582 10^3/UL (140-415); RED BLOOD COUNT 3.26 10^6/ul (4.20-5.40); RED CELL DISTRIBUTION WIDTH 14.6 % (11.5-14.5); WHITE BLOOD COUNT 13.6 10^3/ul (4.8-10.8)
[2017-03-11 08:10] LABS: INR 0.98
[2017-03-11 08:24] LABS: CALCIUM 8.9 mg/dl (8.4-10.2); CREATININE 0.52 mg/dl (0.44-1.00); POTASSIUM 3.1 mmol/L (3.5-5.1)
[2017-03-11 08:28] LABS: MAGNESIUM 1.7 mg/dl (1.7-2.5); PHOSPHORUS 3.4 mg/dl (2.5-4.9)
[2017-03-11] MEDS: ATORVASTATIN 40 MG TAB PO SCH (09:00)
--- NOTE | 2017-03-11 09:02 | PN ---
DATE: SUBJECTIVE DATA: A rapid response was called on this patient sometime in the early hours of this morning because of severe anxiety and restlessness. Upon arrival, the patient was slowly getting more and more agitated, anxious and restless. Her vital signs were stable, but she was also noted to have a tachycardia to the 140s, but her blood pressure was maintaining systolic below 150s. The patient has been in the hospital for more than 3 weeks in the treatment of ovarian cancer and is currently on Dilaudid PARTS FINISHER, as well as TPN. She had received 0.5 mg of Ativan a few hours apart and still continued to have the symptoms. OBJECTIVE DATA: GENERAL: Showed that the patient was oriented to time, place, and person, but she was just very nervous and anxious and she kept saying she was nervous and anxious. She wanted to get out of the bed and walk. She was trying to scratch her body all over. HEENT: Head was normocephalic. Pupils are equal, round, reactive. There was no scleral jaundice. Mucous membranes were slightly dry. Posterior pharynx is clear of exudates. NECK: Supple. CHEST: Fairly clear. HEART: S1, S2, but tachycardic without murmurs. ABDOMEN: Soft, but she did have a Loomis in place. She also had a drain in place. EXTREMITIES: Lower extremities were negative for edema. NEUROLOGICALLY: She had no gross focal deficits. PSYCHIATRIC: She was clearly anxious. After my quick exam, a blood sugar level was measured at 155. I then ordered the patient to receive intramuscular Haldol. This was given to the patient, and initially, the patient seemed to respond to it. However, after about 10 minutes, there was no significant improvement in her symptoms. At the, we will obtained an EKG that showed sinus tachycardia and since her blood pressure could tolerate it, I ordered the patient to receive intravenous metoprolol 2.5 mg. This she got and her heart rate improved somewhat from the 140s through 130s. We also turned off the Dilaudid PARTS FINISHER, as well as the TPN. After there was a response to the Haldol, I decided today to give her some naloxone to see if she was having an overdose from Dilaudid because she has been on it since her surgery, which was more than 2 weeks ago. There was no significant response to naloxone. Presently, she became slightly more agitated. At this point, the patient continued to remain anxious and fidgety and even though she was oriented, she was acting confused. She was answering questions appropriately. She was cooperative with exam. Patient could not seem to hold still and she continued to try to scratch her skin. I did order that patient receive intravenous Benadryl 25 mg, which she got, and again, did not seem to have significant response. At this time, it seemed like her heart rate even became faster and she became somewhat more agitated, so we had to give metoprolol again, since her heart rate went to the 160s and then I started to give 2 mg of Ativan. This seemed to calm her down somewhat and make her sleepy, but she remained agitated. At this time, we had obtained an arterial blood gas, that was almost completely normal with a pH of 7.4, pCO2 of in the 30s, PO2 140s and bicarb of 21. We had placed the patient on oxygen prior to that. With the first dose of Ativan there was some mild improvement in the heart rate and patient seemed to calm down somewhat, seemed like the medications were kicking in, but after another about 10-15 minutes at the bedside, patient is still anxious, still very fidgety, heart rate was still in the 140s, we decided to give a 2nd dose of 2 mg of Ativan, which finally seemed to help her relax, even though she was still somewhat agitated, but her heart rate came down to the 120s and based on that I ordered for her to be transferred to telemetry. I checked on patient about a half an hour later and she was calmer, but the nurses on telemetry had had to restrain her because she had a Loomis catheter, a MANDY drain and IV that she was trying to pull out, because at this time, she was somewhat somnolent and a little delirious, based on all the medications we had given, but she was definitely calmer, and she was slowly going to sleep. She was, however, maintaining her saturations. Her oxygen was left in place and she was in stable condition. At this point, I sent a plan of care to the primary attending and further interventions will depend on her response to measures. In the interim, we had obtained blood for CBC, BMP, and , as well as an ACS rule out. Overall critical care time was more than 85 minutes. For clarifications and further information, please review nurse's notes in the computer and the patient's chart and my orders. Dictated By: Mariya Nielsen MD /reno/hector /Document#: [id number]
[2017-03-11] MEDS: FAMOTIDINE 20 MG INJ IV SCH ×2 (09:42→20:49)
--- NOTE | 2017-03-11 09:47 | RADRPT ---
PROCEDURE: XR Chest. CLINICAL INDICATION: Shortness of breath. TECHNIQUE: Single frontal view. COMPARISON: 03/05/2017. FINDINGS: The nasogastric tube has been removed. The right internal jugular vein tunneled implanted port cent ral venous catheter and left arm PICC line remain in satisfactory position. There is elevation of t he right hemidiaphragm. The lungs are clear. Skin kumar are present peripherally in the upper ab domen. The heart size is normal. There is no pleural effusion. There is no pneumothorax. IMPRESSION: 1. Nasogastric tube removed. 2. Elevation of the right hemidiaphragm. 3. Clear lungs. 4. Recent abdomen surgery. RPTAT: QQ .Alfonzo Bullock MD, MD Date Time Electronically viewed and signed by .Alfonzo Bullock MD, on 03/11/2017 08:17 .R/
[2017-03-11 09:50] LABS: BASOPHILS % 0.2 % (0.0-2.0); EOSINOPHILS # 0.2 10^3/ul (0.0-0.5); EOSINOPHILS % 1.2 % (0.0-7.0); HEMATOCRIT 35.7 % (37.0-47.0); LYMPHOCYTES # 2.3 10^3/ul (0.8-2.9); LYMPHOCYTES % 13.9 % (15.0-51.0); MEAN CORPUSCULAR HGB CONC 30.8 g/dl (32.0-37.0); MEAN CORPUSCULAR VOLUME 94.2 fl (82.0-101.0); MEAN PLATELET VOLUME 9.9 fl (7.4-10.4); MONOCYTES % 6.4 % (0.0-11.0); NEUTROPHILS % 77.3 % (39.0-77.0); RED BLOOD COUNT 3.79 10^6/ul (4.20-5.40); WHITE BLOOD COUNT 16.4 10^3/ul (4.8-10.8)
[2017-03-11 09:55] LABS: PLATELET COUNT 778 10^3/UL (140-415)
[2017-03-11] MEDS ORDERED: POTASSIUM CHLORIDE 250 ML IVPB ONE (10:00)
[2017-03-11] MEDS: OCTREOTIDE 100 MCG INJ SC SCH ×3 (10:30→21:00)
[2017-03-11] MEDS ORDERED: ALTEPLASE (CATHFLO) 2 MG INJ CATHETER ONE (11:00)
--- NOTE | 2017-03-11 11:37 | PN ---
Date/Time of Note Date/Time of Note DATE: 03/11/17 TIME: 11:35 Assessment/Plan VTE Prophylaxis VTE Prophylaxis Intervention: SCD's Lines/Catheters IV Catheter Type (from Nrsg): PICC Line Central line still needed: Yes Urinary Cath still in place: Yes Reason Cath still needed: urinary retention Assessment/Plan Assessment/Plan - Hypokalemia- replet K, bmp am. -Partial small bowel obstruction, continue TPN and Lipids. -Recurrent Ovarian CA, status post secondary cytoreduction by Dr. Morris on . Continue to follow-up surgical recommendation. -Urethral stricture continue Loomis catheter, follow-up surgical recommendations. -Intractable of abdominal pain, nausea and vomiting secondary to recurrent ovarian cancer. Continue Zofran as needed for nausea and Dilaudid as needed for pain. -Diabetes mellitus type 2, hemoglobin A1c is 8.6, continue Lantus and NovoLog per sliding scale with Accu-Chek every 4 hours. -Hyperlipidemia. Further recommendations based on clinical course. Plan of care discussed with Dr. Hester. Subjective 24 Hr Interval Summary Free Text/Dictation pulled her NGT, no agitation at present, afebrile. Constitutional: requiring IVF, requiring O2 Respiratory: no complaints Cardiovascular: no complaints Exam/Review of Systems Vital Signs Vitals Vital Signs Date Time Temp Pulse Resp B/P Pulse Ox O2 Delivery O2 Flow Rate FiO2 03/11/17 08:30 98.0 88 18 113/49 19 03/11/17 06:00 Nasal Cannula Intake and Output 03/10/17 03/10/17 03/11/17 15:00 23:00 07:00 Intake Total 1731 ml 271 ml Output Total 1950 ml 1805 ml Balance -219 ml -1534 ml Exam Constitutional: alert, well developed Respiratory: clear to auscultation, normal air movement Cardiovascular: nl pulses, regular rate and rhythm Gastrointestinal: non-tender, soft Musculoskeletal: nl extremities to inspection Extremities: normal pulses Neurological: other Results Result Diagram: 03/11/17 0647 03/11/17 0647 Results 24 hrs Laboratory Tests Test 03/10/17 12:32 03/10/17 17:31 03/10/17 20:24 03/10/17 23:15 Bedside Glucose 161 135 179 White Blood Count 16.4 #H Red Blood Count 3.79 L Hemoglobin 11.0 L Hematocrit 35.7 L Mean Corpuscular Volume 94.2 Mean Corpuscular Hemoglobin 29.0 Mean Corpuscular Hemoglobin Concent 30.8 L Red Cell Distribution Width 15.0 H Platelet Count 778 H Mean Platelet Volume 9.9 Neutrophils % 77.3 H Lymphocytes % 13.9 L Monocytes % 6.4 Eosinophils % 1.2 Basophils % 0.2 Nucleated Red Blood Cells % 0.0 Neutrophils # (Manual) 12.7 H Lymphocytes # 2.3 Monocytes # 1.0 H Eosinophils # 0.2 Basophils # 0.0 Nucleated Red Blood Cells # 0.0 Prothrombin Time 13.0 # Prothrombin Time Ratio 1.0 INR International Normalized Ratio 0.98 Activated Partial Thromboplast Time 36.0 H Free Thyroxine 1.00 Test 03/11/17 06:47 White Blood Count 13.6 H Red Blood Count 3.26 L Hemoglobin 9.4 L Hematocrit 29.4 L Mean Corpuscular Volume 90.2 Mean Corpuscular Hemoglobin 28.8 L Mean Corpuscular Hemoglobin Concent 32.0 Red Cell Distribution Width 14.6 H Platelet Count 582 #H Mean Platelet Volume 9.3 Neutrophils % 76.9 Lymphocytes % 12.8 L Monocytes % 8.0 Eosinophils % 1.3 Basophils % 0.2 Nucleated Red Blood Cells % 0.0 Neutrophils # (Manual) 10.5 H Lymphocytes # 1.7 Monocytes # 1.1 H Eosinophils # 0.2 Basophils # 0.0 Nucleated Red Blood Cells # 0.0 Sodium Level 140 Potassium Level 3.1 L Chloride Level 102 Carbon Dioxide Level 27 Anion Gap 14 Blood Urea Nitrogen 12 Creatinine 0.52 Glucose Level 119 Calcium Level 8.9 Phosphorus Level 3.4 Magnesium Level 1.7 Medications Medications Current Medications Miscellaneous Information 1 ea NOTE XX ; Start 02/19/17 at 04:30 Glucose (Glutose) 15 gm Q15M PRN PO DECREASED GLUCOSE; Start 02/19/17 at 04:30 Glucose (Glutose) 22.5 gm Q15M PRN PO DECREASED GLUCOSE; Start 02/19/17 at 04:30 Dextrose (D50w Syringe) 25 ml Q15M PRN IV DECREASED GLUCOSE Last administered on 03/11/17t 01:20; Admin Dose 25 ML; Start 02/19/17 at 04:30 Dextrose (D50w Syringe) 50 ml Q15M PRN IV DECREASED GLUCOSE; Start 02/19/17 at 04:30 Glucagon (Glucagen) 1 mg Q15M PRN IM DECREASED GLUCOSE; Start 02/19/17 at 04:30 Glucose (Glutose) 15 gm Q15M PRN BUCCAL DECREASED GLUCOSE; Start 02/19/17 at 04: 30 Atorvastatin Calcium (Lipitor) 40 mg DAILY PO Last administered on 03/10/17 09 :52; Admin Dose 40 MG; Start 02/21/17 at 09:00 Escitalopram Oxalate (Lexapro) 10 mg DAILY PRN PO DEPRESSION; Start 02/20/17 at 13:30 Metoclopramide HCl (Reglan) 10 mg Q6 IV Last administered on 03/11/17 06:00; Admin Dose 10 MG; Start 02/22/17 at 21:00 Insulin Aspart (Novolog Insulin Pen) NOVOLOG *MILD* ALGORI... Q4 SC Last administered on 03/10/17 20:26; Admin Dose 1 UNIT; Start 02/23/17 at 01:00 Ondansetron HCl (Zofran Inj) 4 mg Q6H PRN IV NAUSEA AND/OR VOMITING Last administered on 03/08/17 22:08; Admin Dose 4 MG; Start 02/23/17 at 15:30 Famotidine 20 mg 20 mg Q12 IV Last administered on 03/11/17 09:42; Admin Dose 20 MG; Start 02/23/17 at 21:00 Total Parenteral Nutrition (Tpn) 1,000 ml @ 80 mls/hr [id number] IV Last administered on 03/11/17 05:15; Admin Dose 80 MLS/HR; Start 02/26/17 at 21:00 IV Flush 10 ml 10 ml PRN PRN IV IV PROTOCOL Last administered on 03/03/17 04: 21; Admin Dose 10 ML; Start 02/27/17 at 15:00 Sodium Chloride (NS) 1,000 ml @ 60 mls/hr [id number] IV Last administered on 03/11 04:00; Admin Dose 60 MLS/HR; Start 03/01/17 at 14:00 Octreotide Acetate (Sandostatin) 100 mcg TID SC Last administered on 03/10/17 20:20; Admin Dose 100 MCG; Start 03/03/17 at 21:00 Nitroglycerin (Nitroglycerin (Sl Tab) 0.4 Mg) 1 tab Q5M PRN SL ANGINA; Start at 07:00 Lorazepam (Ativan) 0.5 mg Q6H PRN IV ANXIETY Last administered on 03/05/17 16: 21; Admin Dose 0.5 MG; Start 03/05/17 at 16:07 Insulin Glargine 38 unit 38 unit DAILY@20 SC Last administered on 03/10/17 20: 26; Admin Dose 38 UNIT; Start 03/06/17 at 20:00 Fat Emulsion Intravenous (Liposyn Ii 20%) 250 ml @ 21 mls/hr 15 IV Last administered on 03/10/17 16:36; Admin Dose 21 MLS/HR; Start 03/08/17 at 15:00 Hydromorphone HCl 0.5 mg 0.5 mg Q4H PRN IV PAIN; Start 03/11/17 at 00:10 Potassium Chloride (KCl 40 MEQ/250 ML NS) 250 ml @ 62.5 mls/hr ONCE ONCE IVPB Last administered on 03/11/17 09:39; Admin Dose 62.5 MLS/HR; Start 03/11/17 at 10:00; Stop 03/11/17 at 13:59 CUATE HAGEN Mar 11, 2017 11:37
[2017-03-11 12:10] LABS: AADO2 Arterial 39.7 mmHg (7.0-24.0); Allen Test ACCEPTAB; Arterial Base Excess -2.1 mmol/L (-3.0-3); Arterial COHb 0.4 % (0.0-3.0); Arterial Fraction of Oxyhgb 97.6 % (93.0-99.0); Arterial HCO3 20.9 mmol/L (22.0-26.0); Arterial MetHb 0.3 % (0.0-1.5); Arterial Total Hemglobin 11.8 g/dl (12.0-18.0); MODE NASAL CANNULA
[2017-03-11 12:39] LABS: CALCIUM 9.5 mg/dl (8.4-10.2); CREATININE 0.52 mg/dl (0.44-1.00); MAGNESIUM 1.8 mg/dl (1.7-2.5); PHOSPHORUS 3.7 mg/dl (2.5-4.9); POTASSIUM 3.4 mmol/L (3.5-5.1)
[2017-03-11 13:09] LABS: THYROID STIMULATING HORMONE 1.2 MIU/L (0.465-4.680)
--- NOTE | 2017-03-11 15:04 | PN ---
Date/Time of Note Date/Time of Note DATE: 03/11/17 TIME: 15:01 Assessment/Plan VTE Prophylaxis VTE Prophylaxis Intervention: SCD's Lines/Catheters IV Catheter Type (from Nrsg): PICC Line Central line still needed: Yes Urinary Cath still in place: Yes Reason Cath still needed: urinary retention Assessment/Plan Chief Complaint/Hosp Course ovarian cancer, recurrent, partial SBO/LBO, ureteral stricture Problems: Assessment/Plan A- not certain of source of anxiety/tachycardia stress P- discuss with IM; continue sandostin/TPN and check drainage for amylase Subjective 24 Hr Interval Summary Free Text/Dictation some confusion Exam/Review of Systems Vital Signs Vitals Vital Signs Date Time Temp Pulse Resp B/P Pulse Ox O2 Delivery O2 Flow Rate FiO2 03/11/17 12:00 98.0 87 18 129/75 98 03/11/17 06:00 Nasal Cannula Intake and Output 03/10/17 03/10/17 03/11/17 15:00 23:00 07:00 Intake Total 1731 ml 271 ml Output Total 1950 ml 1805 ml Balance -219 ml -1534 ml Exam Resp- clear CVS- NSR Abd- soft, NT clean; minimal MANDY drainage and mostly clear possibly increased Ext- NT no edema Results Result Diagram: 03/11/17 0647 03/11/17 0647 Results 24 hrs Laboratory Tests Test 03/10/17 17:31 03/10/17 20:24 03/10/17 22:27 03/10/17 23:14 Bedside Glucose 135 179 184 159 Test 03/10/17 23:15 03/11/17 01:15 03/11/17 01:20 03/11/17 01:36 White Blood Count 16.4 #H Red Blood Count 3.79 L Hemoglobin 11.0 L Hematocrit 35.7 L Mean Corpuscular Volume 94.2 Mean Corpuscular Hemoglobin 29.0 Mean Corpuscular Hemoglobin Concent 30.8 L Red Cell Distribution Width 15.0 H Platelet Count 778 H Mean Platelet Volume 9.9 Neutrophils % 77.3 H Lymphocytes % 13.9 L Monocytes % 6.4 Eosinophils % 1.2 Basophils % 0.2 Nucleated Red Blood Cells % 0.0 Neutrophils # (Manual) 12.7 H Lymphocytes # 2.3 Monocytes # 1.0 H Eosinophils # 0.2 Basophils # 0.0 Nucleated Red Blood Cells # 0.0 Prothrombin Time 13.0 # Prothrombin Time Ratio 1.0 INR International Normalized Ratio 0.98 Activated Partial Thromboplast Time 36.0 H Sodium Level 138 Potassium Level 3.4 L Chloride Level 98 Carbon Dioxide Level 23 Anion Gap 20 H Blood Urea Nitrogen 14 Creatinine 0.52 Glucose Level 137 Calcium Level 9.5 Phosphorus Level 3.7 Magnesium Level 1.8 Thyroid Stimulating Hormone (TSH) 1.200 Free Thyroxine 1.00 Bedside Glucose 58 L 63 L 198 Test 03/11/17 01:51 03/11/17 05:25 03/11/17 06:47 03/11/17 09:41 Bedside Glucose 172 127 125 White Blood Count 13.6 H Red Blood Count 3.26 L Hemoglobin 9.4 L Hematocrit 29.4 L Mean Corpuscular Volume 90.2 Mean Corpuscular Hemoglobin 28.8 L Mean Corpuscular Hemoglobin Concent 32.0 Red Cell Distribution Width 14.6 H Platelet Count 582 #H Mean Platelet Volume 9.3 Neutrophils % 76.9 Lymphocytes % 12.8 L Monocytes % 8.0 Eosinophils % 1.3 Basophils % 0.2 Nucleated Red Blood Cells % 0.0 Neutrophils # (Manual) 10.5 H Lymphocytes # 1.7 Monocytes # 1.1 H Eosinophils # 0.2 Basophils # 0.0 Nucleated Red Blood Cells # 0.0 Sodium Level 140 Potassium Level 3.1 L Chloride Level 102 Carbon Dioxide Level 27 Anion Gap 14 Blood Urea Nitrogen 12 Creatinine 0.52 Glucose Level 119 Calcium Level 8.9 Phosphorus Level 3.4 Magnesium Level 1.7 Test 03/11/17 11:48 03/11/17 13:26 Blood Gas Specimen Source Blood arterial Arterial Blood Date Drawn 03/10/2017 11:03:00 PM Arterial Blood pH (Temp corrected) 7.454 H Arterial Blood pCO2 (Temp correct) 30.5 L Arterial Blood pO2 (Temp corrected) 116.7 H Arterial Blood HCO3 20.9 L Arterial Blood Base Excess -2.1 Arterial Blood Oxygen Saturation 98.3 H Tyrone Test ACCEPTAB Arterial Blood Gas Puncture Site Right Brachial Arterial Blood Carboxyhemoglobin 0.4 Arterial Blood Methemoglobin 0.3 Blood Gas A-a O2 Differential 39.7 H Oxyhemoglobin Percent 97.6 Total Hemoglobin 11.8 L Blood Gas Temperature 37.0 Blood Gas Modality NASAL CANNULA FiO2 27.0 Blood Gas Notified Whom MG Blood Gas Notified Time 03/10/2017 12:23:28 PM Bedside Glucose 113 Medications Medications Current Medications Miscellaneous Information 1 ea NOTE XX ; Start 02/19/17 at 04:30 Glucose (Glutose) 15 gm Q15M PRN PO DECREASED GLUCOSE; Start 02/19/17 at 04:30 Glucose (Glutose) 22.5 gm Q15M PRN PO DECREASED GLUCOSE; Start 02/19/17 at 04:30 Dextrose (D50w Syringe) 25 ml Q15M PRN IV DECREASED GLUCOSE Last administered on 03/11/17 01:20; Admin Dose 25 ML; Start 02/19/17 at 04:30 Dextrose (D50w Syringe) 50 ml Q15M PRN IV DECREASED GLUCOSE; Start 02/19/17 at 04:30 Glucagon (Glucagen) 1 mg Q15M PRN IM DECREASED GLUCOSE; Start 02/19/17 at 04:30 Glucose (Glutose) 15 gm Q15M PRN BUCCAL DECREASED GLUCOSE; Start 02/19/17 at 04: 30 Atorvastatin Calcium (Lipitor) 40 mg DAILY PO Last administered on 03/10/17 09 :52; Admin Dose 40 MG; Start 02/21/17 at 09:00 Escitalopram Oxalate (Lexapro) 10 mg DAILY PRN PO DEPRESSION; Start 02/20/17 at 13:30 Metoclopramide HCl (Reglan) 10 mg Q6 IV Last administered on 03/11/17 13:24; Admin Dose 10 MG; Start 02/22/17 at 21:00 Insulin Aspart (Novolog Insulin Pen) NOVOLOG *MILD* ALGORI... Q4 SC Last administered on 03/10/17 20:26; Admin Dose 1 UNIT; Start 02/23/17 at 01:00 Ondansetron HCl (Zofran Inj) 4 mg Q6H PRN IV NAUSEA AND/OR VOMITING Last administered on 03/08/17 22:08; Admin Dose 4 MG; Start 02/23/17 at 15:30 Famotidine 20 mg 20 mg Q12 IV Last administered on 03/11/17 09:42; Admin Dose 20 MG; Start 02/23/17 at 21:00 Total Parenteral Nutrition (Tpn) 1,000 ml @ 80 mls/hr [id number] IV Last administered on 03/11/17 05:15; Admin Dose 80 MLS/HR; Start 02/26/17 at 21:00 IV Flush 10 ml 10 ml PRN PRN IV IV PROTOCOL Last administered on 03/03/17 04: 21; Admin Dose 10 ML; Start 02/27/17 at 15:00 Sodium Chloride (NS) 1,000 ml @ 60 mls/hr [id number] IV Last administered on 03/11 04:00; Admin Dose 60 MLS/HR; Start 03/01/17 at 14:00 Octreotide Acetate (Sandostatin) 100 mcg TID SC Last administered on 03/11/17 13:24; Admin Dose 100 MCG; Start 03/03/17 at 21:00 Nitroglycerin (Nitroglycerin (Sl Tab) 0.4 Mg) 1 tab Q5M PRN SL ANGINA; Start at 07:00 Lorazepam (Ativan) 0.5 mg Q6H PRN IV ANXIETY Last administered on 03/05/17 16: 21; Admin Dose 0.5 MG; Start 03/05/17 at 16:07 Insulin Glargine 38 unit 38 unit DAILY@20 SC Last administered on 03/10/17 20: 26; Admin Dose 38 UNIT; Start 03/06/17 at 20:00 Fat Emulsion Intravenous (Liposyn Ii 20%) 250 ml @ 21 mls/hr 15 IV Last administered on 03/10/17 16:36; Admin Dose 21 MLS/HR; Start 03/08/17 at 15:00 Hydromorphone HCl (Dilaudid) 0.5 mg Q4H PRN IV PAIN; Start 03/11/17 at 00:10 MARIA DE JESUS MENDOZA MD Mar 11, 2017 15:04
[2017-03-11] MEDS: FAT EMULSION 20% 250 ML IV SCH (18:40)
[2017-03-11] MEDS: INSULIN GLARGINE [LANtus] 3 ML PEN SC SCH (21:01)
[2017-03-12] VITALS (10 sets, daily range): BP systolic 94–105; BP diastolic 48–66; PULSE 79–109; RESP 16–20
[2017-03-12 00:02] LABS: FLUID TYPE PERITONEAL FLUID
[2017-03-12 00:03] LABS: FLUID AMYLASE 218 U/L
[2017-03-12] MEDS: INSULIN ASPART [NOVOLOG] 3 ML PEN SC SCH ×6 (00:26→21:00)
[2017-03-12] MEDS: METOCLOPRAMIDE 10 MG INJ IV SCH ×3 (06:02→17:41)
[2017-03-12] MEDS ORDERED: NALOXONE (0.4 MG/ML) INJ ONE (07:00)
[2017-03-12] MEDS ORDERED: METOPROLOL 5 MG INJ ONE (07:00)
[2017-03-12] MEDS: OCTREOTIDE 100 MCG INJ SC SCH ×3 (08:20→21:35)
[2017-03-12] MEDS: FAMOTIDINE 20 MG INJ IV SCH ×2 (08:20→21:35)
[2017-03-12] MEDS: ATORVASTATIN 40 MG TAB PO SCH (08:21)
[2017-03-12 08:47] LABS: BASOPHILS % 0.3 % (0.0-2.0); EOSINOPHILS # 0.3 10^3/ul (0.0-0.5); EOSINOPHILS % 2.6 % (0.0-7.0); HEMATOCRIT 33.2 % (37.0-47.0); HEMOGLOBIN 10.2 g/dl (12.0-16.0); LYMPHOCYTES # 1.6 10^3/ul (0.8-2.9); LYMPHOCYTES % 15.9 % (15.0-51.0); MEAN CORPUSCULAR HEMOGLOBIN 27.6 pg (29.0-33.0); MEAN CORPUSCULAR HGB CONC 30.7 g/dl (32.0-37.0); MEAN PLATELET VOLUME 9.7 fl (7.4-10.4); MONOCYTE # 0.7 10^3/ul (0.3-0.9); NEUTROPHILS % 73.7 % (39.0-77.0); PLATELET COUNT 604 10^3/UL (140-415); RED BLOOD COUNT 3.69 10^6/ul (4.20-5.40); RED CELL DISTRIBUTION WIDTH 14.8 % (11.5-14.5); WHITE BLOOD COUNT 9.8 10^3/ul (4.8-10.8)
[2017-03-12 09:17] LABS: MAGNESIUM 1.7 mg/dl (1.7-2.5); PHOSPHORUS 3.5 mg/dl (2.5-4.9)
[2017-03-12 09:32] LABS: CALCIUM 9.3 mg/dl (8.4-10.2); CREATININE 0.52 mg/dl (0.44-1.00); POTASSIUM 3.9 mmol/L (3.5-5.1)
[2017-03-12] MEDS: LORAZEPAM 2 MG INJ IV PRN (09:44)
--- NOTE | 2017-03-12 12:23 | PN ---
Date/Time of Note Date/Time of Note DATE: 03/12/17 TIME: 12:18 Assessment/Plan VTE Prophylaxis VTE Prophylaxis Intervention: SCD's Lines/Catheters IV Catheter Type (from Nrs): PICC Line Central line still needed: Yes Urinary Cath still in place: Yes Reason Cath still needed: urinary retention, other (indicate) Assessment/Plan Assessment/Plan - Hypokalemia- resolved -Partial small bowel obstruction,on IVF per Dietary -Recurrent Ovarian CA, status post secondary cytoreduction by Dr. Morris on . Continue to follow-up surgical recommendation. -Urethral stricture continue [place] catheter, follow-up surgical recommendations. -Intractable of abdominal pain, nausea and vomiting secondary to recurrent ovarian cancer. Continue Zofran as needed for nausea and Dilaudid as needed for pain. -Diabetes mellitus type 2, hemoglobin A1c is 8.6, continue Lantus and NovoLog per sliding scale with Accu-Chek every 4 hours. -Hyperlipidemia. Further recommendations based on clinical course. Plan of care discussed with Dr. Hester. Subjective 24 Hr Interval Summary Free Text/Dictation alert, abdominal surgery pain is controlled, c/o being hungry- will follow surgery recommendation, [facility] transfer today.feeling hungry- wants to eat fod, dw staff- no new events reported. Constitutional: improved, requiring IVF Respiratory: no complaints Cardiovascular: no complaints Gastrointestinal: other (SURGICAL SITE Pain- better now) Musculoskeletal: no complaints Neurologic: no complaints Exam/Review of Systems Vital Signs Vitals Vital Signs Date Time Temp Pulse Resp B/P Pulse Ox O2 Delivery O2 Flow Rate FiO2 03/12/17 12:05 98.0 86 16 98/56 99 Room Air 03/12/17 08:00 2.0 Intake and Output 03/11/17 03/11/17 03/12/17 15:00 23:00 07:00 Intake Total 50 ml 50 ml Output Total 5 ml 2000 ml 2000 ml Balance -5 ml -1950 ml -1950 ml Exam Constitutional: alert, well developed Psych: nl mood/affect Respiratory: clear to auscultation, normal air movement Cardiovascular: nl pulses, regular rate and rhythm Gastrointestinal: other (surgical abdomen- DDI), soft Musculoskeletal: nl extremities to inspection Extremities: normal pulses Neurological: nl mental status, nl speech Results Result Diagram: 03/12/17 0729 03/12/17 0729 Results 24 hrs Laboratory Tests Test 03/11/17 13:26 03/11/17 17:25 03/11/17 17:30 03/11/17 20:46 Bedside Glucose 113 74 74 Body Fluid Type PERITONEAL FLUID Body Fluid Amylase 218 Test 03/11/17 23:52 03/12/17 06:00 03/12/17 07:29 03/12/17 08:12 Bedside Glucose 125 174 150 White Blood Count 9.8 # Red Blood Count 3.69 L Hemoglobin 10.2 L Hematocrit 33.2 L Mean Corpuscular Volume 90.0 Mean Corpuscular Hemoglobin 27.6 L Mean Corpuscular Hemoglobin Concent 30.7 L Red Cell Distribution Width 14.8 H Platelet Count 604 H Mean Platelet Volume 9.7 Neutrophils % 73.7 Lymphocytes % 15.9 Monocytes % 7.0 Eosinophils % 2.6 Basophils % 0.3 Nucleated Red Blood Cells % 0.0 Neutrophils # (Manual) 7.2 Lymphocytes # 1.6 Monocytes # 0.7 Eosinophils # 0.3 Basophils # 0.0 Nucleated Red Blood Cells # 0.0 Sodium Level 141 Potassium Level 3.9 Chloride Level 102 Carbon Dioxide Level 20 L Anion Gap 23 #H Blood Urea Nitrogen 13 Creatinine 0.52 Glucose Level 175 Calcium Level 9.3 Phosphorus Level 3.5 Magnesium Level 1.7 Test 03/12/17 12:16 Bedside Glucose 176 Medications Medications Current Medications Miscellaneous Information 1 ea NOTE XX ; Start 02/19/17 at 04:30 Glucose (Glutose) 15 gm Q15M PRN PO DECREASED GLUCOSE; Start 02/19/17 at 04:30 Glucose (Glutose) 22.5 gm Q15M PRN PO DECREASED GLUCOSE; Start 02/19/17 at 04:30 Dextrose (D50w Syringe) 25 ml Q15M PRN IV DECREASED GLUCOSE Last administered on 03/11/17t 01:20; Admin Dose 25 ML; Start 02/19/17 at 04:30 Dextrose (D50w Syringe) 50 ml Q15M PRN IV DECREASED GLUCOSE; Start 02/19/17 at 04:30 Glucagon (Glucagen) 1 mg Q15M PRN IM DECREASED GLUCOSE; Start 02/19/17 at 04:30 Glucose (Glutose) 15 gm Q15M PRN BUCCAL DECREASED GLUCOSE; Start 02/19/17 at 04: 30 Atorvastatin Calcium (Lipitor) 40 mg DAILY PO Last administered on 03/12/17 08 :21; Admin Dose 40 MG; Start 02/21/17 at 09:00 Escitalopram Oxalate (Lexapro) 10 mg DAILY PRN PO DEPRESSION; Start 02/20/17 at 13:30 Metoclopramide HCl (Reglan) 10 mg Q6 IV Last administered on 03/12/17 11:54; Admin Dose 10 MG; Start 02/22/17 at 21:00 Insulin Aspart (Novolog Insulin Pen) NOVOLOG *MILD* ALGORI... Q4 SC Last administered on 03/12/17 08:26; Admin Dose 1 UNIT; Start 02/23/17 at 01:00 Ondansetron HCl (Zofran Inj) 4 mg Q6H PRN IV NAUSEA AND/OR VOMITING Last administered on 03/08/17 22:08; Admin Dose 4 MG; Start 02/23/17 at 15:30 Famotidine 20 mg 20 mg Q12 IV Last administered on 03/12/17 08:20; Admin Dose 20 MG; Start 02/23/17 at 21:00 Total Parenteral Nutrition (Tpn) 1,000 ml @ 80 mls/hr [id number] IV Last administered on 03/11/17 20:49; Admin Dose 80 MLS/HR; Start 02/26/17 at 21:00 IV Flush 10 ml 10 ml PRN PRN IV IV PROTOCOL Last administered on 03/03/17 04: 21; Admin Dose 10 ML; Start 02/27/17 at 15:00 Sodium Chloride (NS) 1,000 ml @ 60 mls/hr [id number] IV Last administered on 03/11 22:46; Admin Dose 60 MLS/HR; Start 03/01/17 at 14:00 Octreotide Acetate (Sandostatin) 100 mcg TID SC Last administered on 03/12/17 08:20; Admin Dose 100 MCG; Start 03/03/17 at 21:00 Nitroglycerin (Nitroglycerin (Sl Tab) 0.4 Mg) 1 tab Q5M PRN SL ANGINA; Start at 07:00 Lorazepam 0.5 mg 0.5 mg Q6H PRN IV ANXIETY Last administered on 03/12/17 09:44 ; Admin Dose 0.5 MG; Start 03/05/17 at 16:07 Fat Emulsion Intravenous (Liposyn Ii 20%) 250 ml @ 21 mls/hr 15 IV Last administered on 03/11/17t 18:40; Admin Dose 21 MLS/HR; Start 03/08/17 at 15:00 Hydromorphone HCl (Dilaudid) 0.5 mg Q4H PRN IV PAIN; Start 03/11/17 at 00:10 Insulin Glargine (Lantus) 30 unit DAILY@20 SC ; Start 03/12/17 at 20:00 CUATE HAGEN Mar 12, 2017 12:23
[2017-03-12] MEDS: TPN 1,000 ML IV SCH (13:26)
[2017-03-12] MEDS: SOD CHLORIDE 0.9% 1,000 ML IV SCH (16:40)
--- NOTE | 2017-03-12 16:50 | PN ---
Date/Time of Note Date/Time of Note DATE: 03/12/17 TIME: 16:47 Assessment/Plan VTE Prophylaxis VTE Prophylaxis Intervention: SCD's Lines/Catheters IV Catheter Type (from Nrsg): PICC Line Central line still needed: Yes Urinary Cath still in place: Yes Reason Cath still needed: other (indicate) Assessment/Plan Chief Complaint/Hosp Course ovarian cancer, recurrent, partial SBO/LBO, ureteral stricture Problems: Assessment/Plan A- improved P- will gradually adv diet and taper Sandostatin. Subjective 24 Hr Interval Summary Free Text/Dictation + flatus and BM. minimal pain. Exam/Review of Systems Vital Signs Vitals Vital Signs Date Time Temp Pulse Resp B/P Pulse Ox O2 Delivery O2 Flow Rate FiO2 03/12/17 14:00 98.3 72 18 99/55 97 03/12/17 13:08 Room Air 03/12/17 08:00 2.0 Intake and Output 03/11/17 03/11/17 03/12/17 15:00 23:00 07:00 Intake Total 50 ml 50 ml Output Total 5 ml 2000 ml 2000 ml Balance -5 ml -1950 ml -1950 ml Exam Resp- clear CVS- NSR Abd- NT with clean wound, minimal MANDY drainage; no gas or stool, possibly purulent. Ext - NT' no edema Results Result Diagram: 03/12/17 0729 03/12/17 0729 Results 24 hrs Laboratory Tests Test 03/11/17 17:25 03/11/17 17:30 03/11/17 20:46 03/11/17 23:52 Bedside Glucose 74 74 125 Body Fluid Type PERITONEAL FLUID Body Fluid Amylase 218 Test 03/12/17 06:00 03/12/17 07:29 03/12/17 08:12 03/12/17 12:16 Bedside Glucose 174 150 176 White Blood Count 9.8 # Red Blood Count 3.69 L Hemoglobin 10.2 L Hematocrit 33.2 L Mean Corpuscular Volume 90.0 Mean Corpuscular Hemoglobin 27.6 L Mean Corpuscular Hemoglobin Concent 30.7 L Red Cell Distribution Width 14.8 H Platelet Count 604 H Mean Platelet Volume 9.7 Neutrophils % 73.7 Lymphocytes % 15.9 Monocytes % 7.0 Eosinophils % 2.6 Basophils % 0.3 Nucleated Red Blood Cells % 0.0 Neutrophils # (Manual) 7.2 Lymphocytes # 1.6 Monocytes # 0.7 Eosinophils # 0.3 Basophils # 0.0 Nucleated Red Blood Cells # 0.0 Sodium Level 141 Potassium Level 3.9 Chloride Level 102 Carbon Dioxide Level 20 L Anion Gap 23 #H Blood Urea Nitrogen 13 Creatinine 0.52 Glucose Level 175 Calcium Level 9.3 Phosphorus Level 3.5 Magnesium Level 1.7 Medications Medications Current Medications Miscellaneous Information 1 ea NOTE XX ; Start 02/19/17 at 04:30 Glucose (Glutose) 15 gm Q15M PRN PO DECREASED GLUCOSE; Start 02/19/17 at 04:30 Glucose (Glutose) 22.5 gm Q15M PRN PO DECREASED GLUCOSE; Start 02/19/17 at 04:30 Dextrose (D50w Syringe) 25 ml Q15M PRN IV DECREASED GLUCOSE Last administered on 03/11/17 01:20; Admin Dose 25 ML; Start 02/19/17 at 04:30 Dextrose (D50w Syringe) 50 ml Q15M PRN IV DECREASED GLUCOSE; Start 02/19/17 at 04:30 Glucagon (Glucagen) 1 mg Q15M PRN IM DECREASED GLUCOSE; Start 02/19/17 at 04:30 Glucose (Glutose) 15 gm Q15M PRN BUCCAL DECREASED GLUCOSE; Start 02/19/17 at 04: 30 Atorvastatin Calcium (Lipitor) 40 mg DAILY PO Last administered on 03/12/17 08 :21; Admin Dose 40 MG; Start 02/21/17 at 09:00 Escitalopram Oxalate (Lexapro) 10 mg DAILY PRN PO DEPRESSION; Start 02/20/17 at 13:30 Metoclopramide HCl (Reglan) 10 mg Q6 IV Last administered on 03/12/17 11:54; Admin Dose 10 MG; Start 02/22/17 at 21:00 Insulin Aspart (Novolog Insulin Pen) NOVOLOG *MILD* ALGORI... Q4 SC Last administered on 03/12/17 12:19; Admin Dose 1 UNIT; Start 02/23/17 at 01:00 Ondansetron HCl (Zofran Inj) 4 mg Q6H PRN IV NAUSEA AND/OR VOMITING Last administered on 03/08/17 22:08; Admin Dose 4 MG; Start 02/23/17 at 15:30 Famotidine 20 mg 20 mg Q12 IV Last administered on 03/12/17 08:20; Admin Dose 20 MG; Start 02/23/17 at 21:00 Total Parenteral Nutrition (Tpn) 1,000 ml @ 80 mls/hr [id number] IV Last administered on 03/12/17 13:26; Admin Dose 80 MLS/HR; Start 02/26/17 at 21:00 IV Flush 10 ml 10 ml PRN PRN IV IV PROTOCOL Last administered on 03/03/17 04: 21; Admin Dose 10 ML; Start 02/27/17 at 15:00 Sodium Chloride (NS) 1,000 ml @ 60 mls/hr [id number] IV Last administered on 03/11 22:46; Admin Dose 60 MLS/HR; Start 03/01/17 at 14:00 Octreotide Acetate (Sandostatin) 100 mcg TID SC Last administered on 03/12/17 14:08; Admin Dose 100 MCG; Start 03/03/17 at 21:00 Nitroglycerin (Nitroglycerin (Sl Tab) 0.4 Mg) 1 tab Q5M PRN SL ANGINA; Start at 07:00 Lorazepam 0.5 mg 0.5 mg Q6H PRN IV ANXIETY Last administered on 03/12/17 09:44 ; Admin Dose 0.5 MG; Start 03/05/17 at 16:07 Fat Emulsion Intravenous (Liposyn Ii 20%) 250 ml @ 21 mls/hr 15 IV Last administered on 03/11/17 18:40; Admin Dose 21 MLS/HR; Start 03/08/17 at 15:00 Hydromorphone HCl (Dilaudid) 0.5 mg Q4H PRN IV PAIN; Start 03/11/17 at 00:10 Insulin Glargine (Lantus) 30 unit DAILY@20 SC ; Start 03/12/17 at 20:00 MARIA DE JESUS MENDOZA MD Mar 12, 2017 16:50
[2017-03-12] MEDS: FAT EMULSION 20% 250 ML IV SCH (17:02)
[2017-03-12] MEDS ORDERED: INSULIN GLARGINE [LANtus] 3 ML PEN SC SCH (20:00)
[2017-03-13] MEDS: METOCLOPRAMIDE 10 MG INJ IV SCH ×5 (01:00→23:43)
[2017-03-13] MEDS: INSULIN ASPART [NOVOLOG] 3 ML PEN SC SCH ×6 (01:00→20:36)
[2017-03-13] MEDS: SOD CHLORIDE 0.9% 1,000 ML IV SCH ×2 (01:00→16:32)
[2017-03-13 01:50] VITALS: BP 109/56; PULSE 83; RESP 20
[2017-03-13] MEDS: LORAZEPAM 2 MG INJ IV PRN (02:08)
[2017-03-13] MEDS: TPN 1,000 ML IV SCH ×2 (02:53→16:13)
[2017-03-13] MEDS: ALTEPLASE (CATHFLO) 2 MG INJ CATHETER PRN (04:05)
[2017-03-13 05:32] LABS: BASOPHILS % 0.3 % (0.0-2.0); EOSINOPHILS # 0.3 10^3/ul (0.0-0.5); EOSINOPHILS % 2.8 % (0.0-7.0); HEMOGLOBIN 9.6 g/dl (12.0-16.0); LYMPHOCYTES # 2.8 10^3/ul (0.8-2.9); LYMPHOCYTES % 27.4 % (15.0-51.0); MEAN CORPUSCULAR HEMOGLOBIN 28.6 pg (29.0-33.0); MEAN CORPUSCULAR VOLUME 89.3 fl (82.0-101.0); MEAN PLATELET VOLUME 9.7 fl (7.4-10.4); MONOCYTE # 0.8 10^3/ul (0.3-0.9); MONOCYTES % 7.7 % (0.0-11.0); NEUTROPHILS % 61.4 % (39.0-77.0); PLATELET COUNT 607 10^3/UL (140-415); RED BLOOD COUNT 3.36 10^6/ul (4.20-5.40); RED CELL DISTRIBUTION WIDTH 14.6 % (11.5-14.5)
[2017-03-13 06:07] LABS: MAGNESIUM 1.7 mg/dl (1.7-2.5); PHOSPHORUS 3.9 mg/dl (2.5-4.9)
[2017-03-13 06:26] LABS: CALCIUM 8.9 mg/dl (8.4-10.2); CREATININE 0.54 mg/dl (0.44-1.00); POTASSIUM 3.8 mmol/L (3.5-5.1)
[2017-03-13 08:00] VITALS: BP 102/65; PULSE 82; RESP 19
[2017-03-13] MEDS: FAMOTIDINE 20 MG INJ IV SCH ×2 (09:01→20:31)
[2017-03-13] MEDS: ATORVASTATIN 40 MG TAB PO SCH (09:01)
[2017-03-13] MEDS: OCTREOTIDE 100 MCG INJ SC SCH ×2 (09:01→13:27)
[2017-03-13 15:01] VITALS: BP 98/50; RESP 22
[2017-03-13] MEDS: FAT EMULSION 20% 250 ML IV SCH (16:09)
--- NOTE | 2017-03-13 16:28 | PN ---
Date/Time of Note Date/Time of Note DATE: 03/13/17 TIME: 16:24 Assessment/Plan VTE Prophylaxis VTE Prophylaxis Intervention: SCD's Lines/Catheters IV Catheter Type (from Nrsg): PICC Line Central line still needed: Yes Urinary Cath still in place: Yes Reason Cath still needed: urinary retention Assessment/Plan Chief Complaint/Hosp Course Patient remains calm no agitation, NG tube discontinued patient tolerates ice chips without any nausea and vomiting, remains afebrile, [employer] Dilaudid was discontinued, continue Dilaudid as needed for pain, Assessment/Plan -Partial small bowel obstruction, resolving, continue TPN and Lipids. -Recurrent Ovarian CA, status post secondary cytoreduction by Dr. Morris on . Continue to follow-up surgical recommendation. -Urethral stricture continue [place] catheter, follow-up surgical recommendations. -Intractable of abdominal pain, nausea and vomiting secondary to recurrent ovarian cancer. Continue Zofran as needed for nausea and Dilaudid as needed for pain. -Diabetes mellitus type 2, hemoglobin A1c is 8.6, continue Lantus and NovoLog per sliding scale with Accu-Chek every 4 hours. -Hyperlipidemia. Further recommendations based on clinical course. Plan of care discussed with Dr. Hester. Problems: Exam/Review of Systems Vital Signs Vitals Vital Signs Date Time Temp Pulse Resp B/P Pulse Ox O2 Delivery O2 Flow Rate FiO2 03/13/17 15:01 98.1 74 22 98/50 100 03/13/17 08:00 Room Air 03/12/17 08:00 2.0 Intake and Output 03/12/17 03/12/17 03/13/17 15:00 23:00 07:00 Intake Total 621 ml 1871 ml Output Total 3 ml 7 ml 1403 ml Balance -3 ml 614 ml 468 ml Exam Constitutional: alert, oriented Head: normocephalic Respiratory: normal air movement Cardiovascular: nl pulses Gastrointestinal: other (Hypoactive bowel sounds), soft, surgical incision Genitourinary - Female: other ([place] catheter) Results Result Diagram: 03/13/1743903/13/17439 Results 24 hrs Laboratory Tests Test 03/12/17 16:51 03/12/17 16:52 03/12/17 21:37 03/13/17 01:02 Bedside Glucose 177 184 151 140 Test 03/13/17 04:40 03/13/17 05:14 03/13/17 05:41 03/13/17 06:13 White Blood Count 10.0 Red Blood Count 3.36 L Hemoglobin 9.6 L Hematocrit 30.0 L Mean Corpuscular Volume 89.3 Mean Corpuscular Hemoglobin 28.6 L Mean Corpuscular Hemoglobin Concent 32.0 Red Cell Distribution Width 14.6 H Platelet Count 607 H Mean Platelet Volume 9.7 Neutrophils % 61.4 Lymphocytes % 27.4 Monocytes % 7.7 Eosinophils % 2.8 Basophils % 0.3 Nucleated Red Blood Cells % 0.0 Neutrophils # (Manual) 6.2 Lymphocytes # 2.8 Monocytes # 0.8 Eosinophils # 0.3 Basophils # 0.0 Nucleated Red Blood Cells # 0.0 Sodium Level 144 Potassium Level 3.8 Chloride Level 103 Carbon Dioxide Level 24 Anion Gap 21 H Blood Urea Nitrogen 12 Creatinine 0.54 Glucose Level 70 # Calcium Level 8.9 Phosphorus Level 3.9 Magnesium Level 1.7 Bedside Glucose 69 L 93 111 Test 03/13/17 08:59 03/13/17 12:45 Bedside Glucose 182 136 Medications Medications Current Medications Miscellaneous Information 1 ea NOTE XX ; Start 02/19/17 at 04:30 Glucose (Glutose) 15 gm Q15M PRN PO DECREASED GLUCOSE; Start 02/19/17 at 04:30 Glucose (Glutose) 22.5 gm Q15M PRN PO DECREASED GLUCOSE; Start 02/19/17 at 04:30 Dextrose (D50w Syringe) 25 ml Q15M PRN IV DECREASED GLUCOSE Last administered on 03/11/17 01:20; Admin Dose 25 ML; Start 02/19/17 at 04:30 Dextrose (D50w Syringe) 50 ml Q15M PRN IV DECREASED GLUCOSE; Start 02/19/17 at 04:30 Glucagon (Glucagen) 1 mg Q15M PRN IM DECREASED GLUCOSE; Start 02/19/17 at 04:30 Glucose (Glutose) 15 gm Q15M PRN BUCCAL DECREASED GLUCOSE; Start 02/19/17 at 04: 30 Atorvastatin Calcium (Lipitor) 40 mg DAILY PO Last administered on 03/13/17 09 :01; Admin Dose 40 MG; Start 02/21/17 at 09:00 Escitalopram Oxalate (Lexapro) 10 mg DAILY PRN PO DEPRESSION; Start 02/20/17 at 13:30 Metoclopramide HCl (Reglan) 10 mg Q6 IV Last administered on 03/13/17 06:12; Admin Dose 10 MG; Start 02/22/17 at 21:00 Ondansetron HCl (Zofran Inj) 4 mg Q6H PRN IV NAUSEA AND/OR VOMITING Last administered on 03/08/17 22:08; Admin Dose 4 MG; Start 02/23/17 at 15:30 Famotidine 20 mg 20 mg Q12 IV Last administered on 03/13/17 09:01; Admin Dose 20 MG; Start 02/23/17 at 21:00 Total Parenteral Nutrition (Tpn) 1,000 ml @ 80 mls/hr [id number] IV Last administered on 03/13/17 16:13; Admin Dose 80 MLS/HR; Start 02/26/17 at 21:00 IV Flush 10 ml 10 ml PRN PRN IV IV PROTOCOL Last administered on 03/03/17 04: 21; Admin Dose 10 ML; Start 02/27/17 at 15:00 Sodium Chloride (NS) 1,000 ml @ 60 mls/hr [id number] IV Last administered on 03/13 01:00; Admin Dose 60 MLS/HR; Start 03/01/17 at 14:00 Octreotide Acetate (Sandostatin) 100 mcg TID SC Last administered on 03/13/17 13:27; Admin Dose 100 MCG; Start 03/03/17 at 21:00 Nitroglycerin (Nitroglycerin (Sl Tab) 0.4 Mg) 1 tab Q5M PRN SL ANGINA; Start at 07:00 Lorazepam 0.5 mg 0.5 mg Q6H PRN IV ANXIETY Last administered on 03/13/17 02:08 ; Admin Dose 0.5 MG; Start 03/05/17 at 16:07 Fat Emulsion Intravenous (Liposyn Ii 20%) 250 ml @ 21 mls/hr 15 IV Last administered on 03/13/17 16:09; Admin Dose 21 MLS/HR; Start 03/08/17 at 15:00 Hydromorphone HCl (Dilaudid) 0.5 mg Q4H PRN IV PAIN; Start 03/11/17 at 00:10 Insulin Glargine (Lantus) 30 unit DAILY@20 SC Last administered on 03/12/17t 21 :39; Admin Dose 30 UNIT; Start 03/12/17 at 20:00 GLENN PALMER Mar 13, 2017 16:28
[2017-03-13 19:33] VITALS: BP 110/73; RESP 16
[2017-03-13] MEDS: INSULIN GLARGINE [LANtus] 3 ML PEN SC SCH (20:34)
--- NOTE | 2017-03-13 21:04 | PN ---
Date/Time of Note Date/Time of Note DATE: 03/13/17 TIME: 21:01 Assessment/Plan VTE Prophylaxis VTE Prophylaxis Intervention: SCD's Lines/Catheters IV Catheter Type (from Nrsg): PICC Line Central line still needed: Yes Urinary Cath still in place: Yes Reason Cath still needed: urinary retention Assessment/Plan Chief Complaint/Hosp Course ovarian cancer, recurrent, partial SBO/LBO, ureteral stricture Problems: Assessment/Plan A- doing better P- adv diet and taper Sandostatin Subjective 24 Hr Interval Summary Free Text/Dictation No pain and + BM. Exam/Review of Systems Vital Signs Vitals Vital Signs Date Time Temp Pulse Resp B/P Pulse Ox O2 Delivery O2 Flow Rate FiO2 03/13/17 19:33 98.6 87 16 110/73 98 03/13/17 08:00 Room Air 03/12/17 08:00 2.0 Intake and Output 03/12/17 03/12/17 03/13/17 15:00 23:00 07:00 Intake Total 621 ml 1871 ml Output Total 3 ml 7 ml 1403 ml Balance -3 ml 614 ml 468 ml Exam Resp- clear CVS- NSR Abd- NT with clean wound, minimal MANDY drainage; no gas or stool, more clear. Ext - NT' no edema Results Result Diagram: 03/13/170 03/13/17 0440 Results 24 hrs Laboratory Tests Test 03/12/17 21:37 03/13/17 01:02 03/13/17 04:40 03/13/17 05:14 Bedside Glucose 151 140 69 L White Blood Count 10.0 Red Blood Count 3.36 L Hemoglobin 9.6 L Hematocrit 30.0 L Mean Corpuscular Volume 89.3 Mean Corpuscular Hemoglobin 28.6 L Mean Corpuscular Hemoglobin Concent 32.0 Red Cell Distribution Width 14.6 H Platelet Count 607 H Mean Platelet Volume 9.7 Neutrophils % 61.4 Lymphocytes % 27.4 Monocytes % 7.7 Eosinophils % 2.8 Basophils % 0.3 Nucleated Red Blood Cells % 0.0 Neutrophils # (Manual) 6.2 Lymphocytes # 2.8 Monocytes # 0.8 Eosinophils # 0.3 Basophils # 0.0 Nucleated Red Blood Cells # 0.0 Sodium Level 144 Potassium Level 3.8 Chloride Level 103 Carbon Dioxide Level 24 Anion Gap 21 H Blood Urea Nitrogen 12 Creatinine 0.54 Glucose Level 70 # Calcium Level 8.9 Phosphorus Level 3.9 Magnesium Level 1.7 Test 03/13/17 05:41 03/13/17 06:13 03/13/17 08:59 03/13/17 12:45 Bedside Glucose 93 111 182 136 Test 03/13/17 17:45 03/13/17 20:30 Bedside Glucose 174 171 Medications Medications Current Medications Miscellaneous Information 1 ea NOTE XX ; Start 02/19/17 at 04:30 Glucose (Glutose) 15 gm Q15M PRN PO DECREASED GLUCOSE; Start 02/19/17 at 04:30 Glucose (Glutose) 22.5 gm Q15M PRN PO DECREASED GLUCOSE; Start 02/19/17 at 04:30 Dextrose (D50w Syringe) 25 ml Q15M PRN IV DECREASED GLUCOSE Last administered on 03/11/17 01:20; Admin Dose 25 ML; Start 02/19/17 at 04:30 Dextrose (D50w Syringe) 50 ml Q15M PRN IV DECREASED GLUCOSE; Start 02/19/17 at 04:30 Glucagon (Glucagen) 1 mg Q15M PRN IM DECREASED GLUCOSE; Start 02/19/17 at 04:30 Glucose (Glutose) 15 gm Q15M PRN BUCCAL DECREASED GLUCOSE; Start 02/19/17 at 04: 30 Atorvastatin Calcium (Lipitor) 40 mg DAILY PO Last administered on 03/13/17 09 :01; Admin Dose 40 MG; Start 02/21/17 at 09:00 Escitalopram Oxalate (Lexapro) 10 mg DAILY PRN PO DEPRESSION; Start 02/20/17 at 13:30 Metoclopramide HCl (Reglan) 10 mg Q6 IV Last administered on 03/13/17 06:12; Admin Dose 10 MG; Start 02/22/17 at 21:00 Ondansetron HCl (Zofran Inj) 4 mg Q6H PRN IV NAUSEA AND/OR VOMITING Last administered on 03/08/17 22:08; Admin Dose 4 MG; Start 02/23/17 at 15:30 Famotidine 20 mg 20 mg Q12 IV Last administered on 03/13/17 20:31; Admin Dose 20 MG; Start 02/23/17 at 21:00 Total Parenteral Nutrition (Tpn) 1,000 ml @ 80 mls/hr [id number] IV Last administered on 03/13/17 16:13; Admin Dose 80 MLS/HR; Start 02/26/17 at 21:00 IV Flush 10 ml 10 ml PRN PRN IV IV PROTOCOL Last administered on 03/03/17 04: 21; Admin Dose 10 ML; Start 02/27/17 at 15:00 Sodium Chloride (NS) 1,000 ml @ 60 mls/hr [id number] IV Last administered on 03/13 16:32; Admin Dose 60 MLS/HR; Start 03/01/17 at 14:00 Octreotide Acetate (Sandostatin) 100 mcg TID SC Last administered on 03/13/17 13:27; Admin Dose 100 MCG; Start 03/03/17 at 21:00 Nitroglycerin (Nitroglycerin (Sl Tab) 0.4 Mg) 1 tab Q5M PRN SL ANGINA; Start at 07:00 Lorazepam 0.5 mg 0.5 mg Q6H PRN IV ANXIETY Last administered on 03/13/17 02:08 ; Admin Dose 0.5 MG; Start 03/05/17 at 16:07 Fat Emulsion Intravenous (Liposyn Ii 20%) 250 ml @ 21 mls/hr 15 IV Last administered on 03/13/17 16:09; Admin Dose 21 MLS/HR; Start 03/08/17 at 15:00 Hydromorphone HCl (Dilaudid) 0.5 mg Q4H PRN IV PAIN; Start 03/11/17 at 00:10 Insulin Glargine (Lantus) 28 unit DAILY@20 SC Last administered on 03/13/17 20 :34; Admin Dose 28 UNIT; Start 03/13/17 at 20:00 MARIA DE JESUS MENDOZA MD Mar 13, 2017 21:04
[2017-03-14] MEDS: LORAZEPAM 2 MG INJ IV PRN ×2 (01:27→12:51)
[2017-03-14 01:46] VITALS: BP 109/53; RESP 16
[2017-03-14] MEDS: ESCITALOPRAM 10 MG TAB PO PRN ×2 (02:57→20:27)
[2017-03-14] MEDS: TPN 1,000 ML IV SCH ×2 (04:51→16:39)
[2017-03-14 05:15] VITALS: BP 111/57; PULSE 73; RESP 16
[2017-03-14] MEDS: METOCLOPRAMIDE 10 MG INJ IV SCH ×4 (05:25→23:22)
[2017-03-14 05:30] LABS: BASOPHILS % 0.3 % (0.0-2.0); EOSINOPHILS # 0.3 10^3/ul (0.0-0.5); EOSINOPHILS % 3.3 % (0.0-7.0); HEMATOCRIT 29.3 % (37.0-47.0); HEMOGLOBIN 9.1 g/dl (12.0-16.0); LYMPHOCYTES # 1.9 10^3/ul (0.8-2.9); LYMPHOCYTES % 22.4 % (15.0-51.0); MEAN CORPUSCULAR HEMOGLOBIN 27.9 pg (29.0-33.0); MEAN CORPUSCULAR HGB CONC 31.1 g/dl (32.0-37.0); MEAN CORPUSCULAR VOLUME 89.9 fl (82.0-101.0); MEAN PLATELET VOLUME 9.7 fl (7.4-10.4); MONOCYTE # 0.6 10^3/ul (0.3-0.9); MONOCYTES % 6.8 % (0.0-11.0); NEUTROPHILS % 66.7 % (39.0-77.0); PLATELET COUNT 454 10^3/UL (140-415); RED BLOOD COUNT 3.26 10^6/ul (4.20-5.40); RED CELL DISTRIBUTION WIDTH 14.6 % (11.5-14.5); WHITE BLOOD COUNT 8.6 10^3/ul (4.8-10.8)
[2017-03-14 06:08] LABS: CALCIUM 8.8 mg/dl (8.4-10.2); CREATININE 0.53 mg/dl (0.44-1.00); MAGNESIUM 1.7 mg/dl (1.7-2.5); PHOSPHORUS 3.6 mg/dl (2.5-4.9); POTASSIUM 3.7 mmol/L (3.5-5.1)
[2017-03-14] MEDS: INSULIN ASPART [NOVOLOG] 3 ML PEN SC SCH ×4 (07:50→20:16)
[2017-03-14 08:00] VITALS: BP 111/71; RESP 18
[2017-03-14] MEDS: SOD CHLORIDE 0.9% 1,000 ML IV SCH (08:30)
[2017-03-14] MEDS: ATORVASTATIN 40 MG TAB PO SCH (08:59)
[2017-03-14] MEDS: FAMOTIDINE 20 MG INJ IV SCH ×2 (09:00→20:17)
[2017-03-14] MEDS: OCTREOTIDE 100 MCG INJ SC SCH ×3 (09:01→20:21)
[2017-03-14 14:00] VITALS: BP 130/60; RESP 20
[2017-03-14] MEDS: FAT EMULSION 20% 250 ML IV SCH (15:33)
--- NOTE | 2017-03-14 17:40 | PN ---
Date/Time of Note Date/Time of Note DATE: 03/14/17 TIME: 17:39 Assessment/Plan VTE Prophylaxis VTE Prophylaxis Intervention: SCD's Lines/Catheters IV Catheter Type (from Nrs): PICC Line Central line still needed: Yes Urinary Cath still in place: Yes Reason Cath still needed: urinary retention Assessment/Plan Chief Complaint/Hosp Course Patient stated that she is hungry, tolerates clear liquid diet well, pain is well controlled. Assessment/Plan -Partial small bowel obstruction, resolving, continue TPN and Lipids. -Recurrent Ovarian CA, status post secondary cytoreduction by Dr. Morris on . Continue to follow-up surgical recommendation. -Urethral stricture continue [place] catheter, follow-up surgical recommendations. -Intractable of abdominal pain, nausea and vomiting secondary to recurrent ovarian cancer. Continue Zofran as needed for nausea and Dilaudid as needed for pain. -Diabetes mellitus type 2, hemoglobin A1c is 8.6, continue Lantus and NovoLog per sliding scale with Accu-Chek every 4 hours. -Hyperlipidemia. Further recommendations based on clinical course. Plan of care discussed with Dr. Hester. Problems: Exam/Review of Systems Vital Signs Vitals Vital Signs Date Time Temp Pulse Resp B/P Pulse Ox O2 Delivery O2 Flow Rate FiO2 03/14/17 14:00 98.7 67 20 130/60 100 03/14/17 05:15 Room Air 03/12/17 08:00 2.0 Intake and Output 03/13/17 03/13/17 03/14/17 15:00 23:00 07:00 Intake Total 2863 ml 2605 ml Output Total 2305 ml 1805 ml Balance 558 ml 800 ml Exam Constitutional: alert, oriented Head: normocephalic Respiratory: normal air movement Cardiovascular: nl pulses Gastrointestinal: other (Hypoactive bowel sounds), soft, surgical incision Genitourinary - Female: other ([place] catheter) Results Result Diagram: 03/14/17 0450 03/14/17 0450 Results 24 hrs Laboratory Tests Test 03/13/17 17:45 03/13/17 20:30 03/14/17 04:50 03/14/17 08:58 Bedside Glucose 174 171 123 White Blood Count 8.6 Red Blood Count 3.26 L Hemoglobin 9.1 L Hematocrit 29.3 L Mean Corpuscular Volume 89.9 Mean Corpuscular Hemoglobin 27.9 L Mean Corpuscular Hemoglobin Concent 31.1 L Red Cell Distribution Width 14.6 H Platelet Count 454 #H Mean Platelet Volume 9.7 Neutrophils % 66.7 Lymphocytes % 22.4 Monocytes % 6.8 Eosinophils % 3.3 Basophils % 0.3 Nucleated Red Blood Cells % 0.0 Neutrophils # (Manual) 5.7 Lymphocytes # 1.9 Monocytes # 0.6 Eosinophils # 0.3 Basophils # 0.0 Nucleated Red Blood Cells # 0.0 Sodium Level 141 Potassium Level 3.7 Chloride Level 103 Carbon Dioxide Level 24 Anion Gap 18 H Blood Urea Nitrogen 14 Creatinine 0.53 Glucose Level 145 # Calcium Level 8.8 Phosphorus Level 3.6 Magnesium Level 1.7 Test 03/14/17 12:35 Bedside Glucose 126 Medications Medications Current Medications Miscellaneous Information 1 ea NOTE XX ; Start 02/19/17 at 04:30 Glucose (Glutose) 15 gm Q15M PRN PO DECREASED GLUCOSE; Start 02/19/17 at 04:30 Glucose (Glutose) 22.5 gm Q15M PRN PO DECREASED GLUCOSE; Start 02/19/17 at 04:30 Dextrose (D50w Syringe) 25 ml Q15M PRN IV DECREASED GLUCOSE Last administered on 03/11/17 01:20; Admin Dose 25 ML; Start 02/19/17 at 04:30 Dextrose (D50w Syringe) 50 ml Q15M PRN IV DECREASED GLUCOSE; Start 02/19/17 at 04:30 Glucagon (Glucagen) 1 mg Q15M PRN IM DECREASED GLUCOSE; Start 02/19/17 at 04:30 Glucose (Glutose) 15 gm Q15M PRN BUCCAL DECREASED GLUCOSE; Start 02/19/17 at 04: 30 Atorvastatin Calcium (Lipitor) 40 mg DAILY PO Last administered on 03/14/17 08 :59; Admin Dose 40 MG; Start 02/21/17 at 09:00 Escitalopram Oxalate (Lexapro) 10 mg DAILY PRN PO DEPRESSION Last administered on 03/14/17 02:57; Admin Dose 10 MG; Start 02/20/17 at 13:30 Metoclopramide HCl (Reglan) 10 mg Q6 IV Last administered on 03/14/17 05:25; Admin Dose 10 MG; Start 02/22/17 at 21:00 Ondansetron HCl (Zofran Inj) 4 mg Q6H PRN IV NAUSEA AND/OR VOMITING Last administered on 03/08/17 22:08; Admin Dose 4 MG; Start 02/23/17 at 15:30 Famotidine 20 mg 20 mg Q12 IV Last administered on 03/14/17 09:00; Admin Dose 20 MG; Start 02/23/17 at 21:00 Total Parenteral Nutrition (Tpn) 1,000 ml @ 80 mls/hr [id number] IV Last administered on 03/14/17 16:39; Admin Dose 80 MLS/HR; Start 02/26/17 at 21:00 IV Flush 10 ml 10 ml PRN PRN IV IV PROTOCOL Last administered on 03/03/17 04: 21; Admin Dose 10 ML; Start 02/27/17 at 15:00 Sodium Chloride (NS) 1,000 ml @ 60 mls/hr [id number] IV Last administered on 03/14 08:30; Admin Dose 60 MLS/HR; Start 03/01/17 at 14:00 Nitroglycerin (Nitroglycerin (Sl Tab) 0.4 Mg) 1 tab Q5M PRN SL ANGINA; Start at 07:00 Lorazepam 0.5 mg 0.5 mg Q6H PRN IV ANXIETY Last administered on 03/14/17 12:51 ; Admin Dose 0.5 MG; Start 03/05/17 at 16:07 Fat Emulsion Intravenous (Liposyn Ii 20%) 250 ml @ 21 mls/hr 15 IV Last administered on 03/14/17 15:33; Admin Dose 21 MLS/HR; Start 03/08/17 at 15:00 Hydromorphone HCl (Dilaudid) 0.5 mg Q4H PRN IV PAIN; Start 03/11/17 at 00:10 Insulin Glargine (Lantus) 28 unit DAILY@20 SC Last administered on 03/13/17 20 :34; Admin Dose 28 UNIT; Start 03/13/17 at 20:00 Octreotide Acetate (Sandostatin) 50 mcg TID SC Last administered on 03/14/17 12:51; Admin Dose 50 MCG; Start 03/14/17 at 09:00 GLENN PALMER Mar 14, 2017 17:40
[2017-03-14 19:48] VITALS: BP 120/57; RESP 20
[2017-03-14] MEDS: INSULIN GLARGINE [LANtus] 3 ML PEN SC SCH (20:15)
--- NOTE | 2017-03-14 20:45 | PN ---
Date/Time of Note Date/Time of Note DATE: 03/14/17 TIME: 20:42 Assessment/Plan VTE Prophylaxis VTE Prophylaxis Intervention: SCD's Lines/Catheters IV Catheter Type (from Nrsg): PICC Line Central line still needed: Yes Urinary Cath still in place: Yes Reason Cath still needed: urinary retention Assessment/Plan Chief Complaint/Hosp Course ovarian cancer, recurrent, partial SBO/LBO, ureteral stricture Problems: Assessment/Plan A- improving P- adv diet and d/c Sandostatin Subjective 24 Hr Interval Summary Free Text/Dictation Minimal pain. OOb more. + BM. Exam/Review of Systems Vital Signs Vitals Vital Signs Date Time Temp Pulse Resp B/P Pulse Ox O2 Delivery O2 Flow Rate FiO2 03/14/17 19:48 97.9 85 20 120/57 98 03/14/17 05:15 Room Air 03/12/17 08:00 2.0 Intake and Output 03/13/17 03/13/17 03/14/17 15:00 23:00 07:00 Intake Total 2863 ml 2605 ml Output Total 2305 ml 1805 ml Balance 558 ml 800 ml Exam Resp- clear CVS- NSR Abd- NT with clean wound, minimal MANDY drainage; no gas or stool, quite clear. Ext - NT' no edema Results Result Diagram: 03/14/17 0450 03/14/17 0450 Results 24 hrs Laboratory Tests Test 03/14/17 04:50 03/14/17 08:58 03/14/17 12:35 03/14/17 17:48 White Blood Count 8.6 Red Blood Count 3.26 L Hemoglobin 9.1 L Hematocrit 29.3 L Mean Corpuscular Volume 89.9 Mean Corpuscular Hemoglobin 27.9 L Mean Corpuscular Hemoglobin Concent 31.1 L Red Cell Distribution Width 14.6 H Platelet Count 454 #H Mean Platelet Volume 9.7 Neutrophils % 66.7 Lymphocytes % 22.4 Monocytes % 6.8 Eosinophils % 3.3 Basophils % 0.3 Nucleated Red Blood Cells % 0.0 Neutrophils # (Manual) 5.7 Lymphocytes # 1.9 Monocytes # 0.6 Eosinophils # 0.3 Basophils # 0.0 Nucleated Red Blood Cells # 0.0 Sodium Level 141 Potassium Level 3.7 Chloride Level 103 Carbon Dioxide Level 24 Anion Gap 18 H Blood Urea Nitrogen 14 Creatinine 0.53 Glucose Level 145 # Calcium Level 8.8 Phosphorus Level 3.6 Magnesium Level 1.7 Bedside Glucose 123 126 122 Test 03/14/17 20:01 Bedside Glucose 165 Medications Medications Current Medications Miscellaneous Information 1 ea NOTE XX ; Start 02/19/17 at 04:30 Glucose (Glutose) 15 gm Q15M PRN PO DECREASED GLUCOSE; Start 02/19/17 at 04:30 Glucose (Glutose) 22.5 gm Q15M PRN PO DECREASED GLUCOSE; Start 02/19/17 at 04:30 Dextrose (D50w Syringe) 25 ml Q15M PRN IV DECREASED GLUCOSE Last administered on 03/11/17 01:20; Admin Dose 25 ML; Start 02/19/17 at 04:30 Dextrose (D50w Syringe) 50 ml Q15M PRN IV DECREASED GLUCOSE; Start 02/19/17 at 04:30 Glucagon (Glucagen) 1 mg Q15M PRN IM DECREASED GLUCOSE; Start 02/19/17 at 04:30 Glucose (Glutose) 15 gm Q15M PRN BUCCAL DECREASED GLUCOSE; Start 02/19/17 at 04: 30 Atorvastatin Calcium (Lipitor) 40 mg DAILY PO Last administered on 03/14/17 08 :59; Admin Dose 40 MG; Start 02/21/17 at 09:00 Escitalopram Oxalate (Lexapro) 10 mg DAILY PRN PO DEPRESSION Last administered on 03/14/17 20:27; Admin Dose 10 MG; Start 02/20/17 at 13:30 Metoclopramide HCl (Reglan) 10 mg Q6 IV Last administered on 03/14/17 05:25; Admin Dose 10 MG; Start 02/22/17 at 21:00 Ondansetron HCl (Zofran Inj) 4 mg Q6H PRN IV NAUSEA AND/OR VOMITING Last administered on 03/08/17 22:08; Admin Dose 4 MG; Start 02/23/17 at 15:30 Famotidine 20 mg 20 mg Q12 IV Last administered on 03/14/17 20:17; Admin Dose 20 MG; Start 02/23/17 at 21:00 Total Parenteral Nutrition (Tpn) 1,000 ml @ 80 mls/hr [id number] IV Last administered on 03/14/17 16:39; Admin Dose 80 MLS/HR; Start 02/26/17 at 21:00 IV Flush 10 ml 10 ml PRN PRN IV IV PROTOCOL Last administered on 03/03/17 04: 21; Admin Dose 10 ML; Start 02/27/17 at 15:00 Sodium Chloride (NS) 1,000 ml @ 60 mls/hr [id number] IV Last administered on 03/14 08:30; Admin Dose 60 MLS/HR; Start 03/01/17 at 14:00 Nitroglycerin (Nitroglycerin (Sl Tab) 0.4 Mg) 1 tab Q5M PRN SL ANGINA; Start at 07:00 Lorazepam 0.5 mg 0.5 mg Q6H PRN IV ANXIETY Last administered on 03/14/17 12:51 ; Admin Dose 0.5 MG; Start 03/05/17 at 16:07 Fat Emulsion Intravenous (Liposyn Ii 20%) 250 ml @ 21 mls/hr 15 IV Last administered on 03/14/17 15:33; Admin Dose 21 MLS/HR; Start 03/08/17 at 15:00 Hydromorphone HCl (Dilaudid) 0.5 mg Q4H PRN IV PAIN; Start 03/11/17 at 00:10 Insulin Glargine (Lantus) 28 unit DAILY@20 SC Last administered on 03/14/17 20 :15; Admin Dose 28 UNIT; Start 03/13/17 at 20:00 Octreotide Acetate (Sandostatin) 50 mcg TID SC Last administered on 03/14/17 20:21; Admin Dose 50 MCG; Start 03/14/17 at 09:00 MARIA DE JESUS MENDOZA MD Mar 14, 2017 20:45
[2017-03-15] MEDS: LORAZEPAM 2 MG INJ IV PRN (01:17)
[2017-03-15 01:45] VITALS: BP 118/60; RESP 18
[2017-03-15] MEDS: SOD CHLORIDE 0.9% 1,000 ML IV SCH ×2 (02:14→18:08)
[2017-03-15] MEDS: METOCLOPRAMIDE 10 MG INJ IV SCH ×4 (05:02→23:08)
[2017-03-15] MEDS: TPN 1,000 ML IV SCH ×2 (05:21→18:07)
[2017-03-15 05:59] LABS: CALCIUM 8.7 mg/dl (8.4-10.2); CREATININE 0.55 mg/dl (0.44-1.00); MAGNESIUM 1.7 mg/dl (1.7-2.5); PHOSPHORUS 3.8 mg/dl (2.5-4.9); POTASSIUM 3.4 mmol/L (3.5-5.1)
[2017-03-15 07:00] VITALS: BP 133/57; RESP 20
[2017-03-15] MEDS: FAMOTIDINE 20 MG INJ IV SCH (08:29)
[2017-03-15] MEDS: ATORVASTATIN 40 MG TAB PO SCH (08:29)
[2017-03-15] MEDS: INSULIN ASPART [NOVOLOG] 3 ML PEN SC SCH ×4 (08:30→21:51)
[2017-03-15] MEDS: OCTREOTIDE 100 MCG INJ SC SCH ×4 (09:00→20:48)
[2017-03-15 14:00] VITALS: BP 115/64; RESP 20
[2017-03-15] MEDS ORDERED: POTASSIUM CHLORIDE (SR) 20 MEQ TAB PO STA (14:34)
--- NOTE | 2017-03-15 15:03 | PN ---
Date/Time of Note Date/Time of Note DATE: 03/15/17 TIME: 15:02 Assessment/Plan VTE Prophylaxis VTE Prophylaxis Intervention: SCD's Lines/Catheters IV Catheter Type (from Nrs): PICC Line Central line still needed: Yes Urinary Cath still in place: Yes Reason Cath still needed: urinary retention Assessment/Plan Chief Complaint/Hosp Course Patient tolerates full liquid diet well, had bowel movements 3, check stool for C. difficile, potassium is 3.4, potassium replacement ordered. Assessment/Plan -Partial small bowel obstruction, resolving, continue TPN and Lipids. -Recurrent Ovarian CA, status post secondary cytoreduction by Dr. Morris on . Continue to follow-up surgical recommendation. -Urethral stricture continue [place] catheter, follow-up surgical recommendations. -Intractable of abdominal pain, nausea and vomiting secondary to recurrent ovarian cancer. Continue Zofran as needed for nausea and Dilaudid as needed for pain. -Diabetes mellitus type 2, hemoglobin A1c is 8.6, continue Lantus and NovoLog per sliding scale with Accu-Chek every 4 hours. -Hyperlipidemia. Further recommendations based on clinical course. Plan of care discussed with Dr. Hester. Problems: Exam/Review of Systems Vital Signs Vitals Vital Signs Date Time Temp Pulse Resp B/P Pulse Ox O2 Delivery O2 Flow Rate FiO2 03/15/17 14:00 97.9 82 20 115/64 97 03/14/17 05:15 Room Air 03/12/17 08:00 2.0 Intake and Output 03/14/17 03/14/17 03/15/17 14:59 22:59 06:59 Intake Total 650 ml 3333 ml 2397 ml Output Total 2000 ml 3105 ml Balance 650 ml 1333 ml -708 ml Exam Constitutional: alert, oriented Head: normocephalic Respiratory: normal air movement Cardiovascular: nl pulses Gastrointestinal: other (Hypoactive bowel sounds), soft, surgical incision Genitourinary - Female: other ([place] catheter) Results Result Diagram: 03/14/17 0450 03/15/17 0447 Results 24 hrs Laboratory Tests Test 03/14/17 17:48 03/14/17 20:01 03/15/17 04:47 03/15/17 08:28 Bedside Glucose 122 165 151 Sodium Level 143 Potassium Level 3.4 L Chloride Level 102 Carbon Dioxide Level 26 Anion Gap 18 H Blood Urea Nitrogen 14 Creatinine 0.55 Glucose Level 111 Calcium Level 8.7 Phosphorus Level 3.8 Magnesium Level 1.7 Test 03/15/17 12:03 Bedside Glucose 139 Medications Medications Current Medications Miscellaneous Information 1 ea NOTE XX ; Start 02/19/17 at 04:30 Glucose (Glutose) 15 gm Q15M PRN PO DECREASED GLUCOSE; Start 02/19/17 at 04:30 Glucose (Glutose) 22.5 gm Q15M PRN PO DECREASED GLUCOSE; Start 02/19/17 at 04:30 Dextrose (D50w Syringe) 25 ml Q15M PRN IV DECREASED GLUCOSE Last administered on 03/11/17 01:20; Admin Dose 25 ML; Start 02/19/17 at 04:30 Dextrose (D50w Syringe) 50 ml Q15M PRN IV DECREASED GLUCOSE; Start 02/19/17 at 04:30 Glucagon (Glucagen) 1 mg Q15M PRN IM DECREASED GLUCOSE; Start 02/19/17 at 04:30 Glucose (Glutose) 15 gm Q15M PRN BUCCAL DECREASED GLUCOSE; Start 02/19/17 at 04: 30 Atorvastatin Calcium (Lipitor) 40 mg DAILY PO Last administered on 03/15/17 08 :29; Admin Dose 40 MG; Start 02/21/17 at 09:00 Metoclopramide HCl (Reglan) 10 mg Q6 IV Last administered on 03/15/17 12:08; Admin Dose 10 MG; Start 02/22/17 at 21:00 Ondansetron HCl (Zofran Inj) 4 mg Q6H PRN IV NAUSEA AND/OR VOMITING Last administered on 03/08/17 22:08; Admin Dose 4 MG; Start 02/23/17 at 15:30 Famotidine 20 mg 20 mg Q12 IV Last administered on 03/15/17 08:29; Admin Dose 20 MG; Start 02/23/17 at 21:00 Total Parenteral Nutrition (Tpn) 1,000 ml @ 80 mls/hr [id number] IV Last administered on 03/15/17 05:21; Admin Dose 80 MLS/HR; Start 02/26/17 at 21:00 IV Flush 10 ml 10 ml PRN PRN IV IV PROTOCOL Last administered on 03/03/17 04: 21; Admin Dose 10 ML; Start 02/27/17 at 15:00 Sodium Chloride (NS) 1,000 ml @ 60 mls/hr [id number] IV Last administered on 03/15 02:14; Admin Dose 60 MLS/HR; Start 03/01/17 at 14:00 Nitroglycerin (Nitroglycerin (Sl Tab) 0.4 Mg) 1 tab Q5M PRN SL ANGINA; Start at 07:00 Lorazepam 0.5 mg 0.5 mg Q6H PRN IV ANXIETY Last administered on 03/15/17 01:17 ; Admin Dose 0.5 MG; Start 03/05/17 at 16:07 Fat Emulsion Intravenous (Liposyn Ii 20%) 250 ml @ 21 mls/hr 15 IV Last administered on 03/14/17 15:33; Admin Dose 21 MLS/HR; Start 03/08/17 at 15:00 Hydromorphone HCl (Dilaudid) 0.5 mg Q4H PRN IV PAIN; Start 03/11/17 at 00:10 Insulin Glargine (Lantus) 28 unit DAILY@20 SC Last administered on 03/14/17 20 :15; Admin Dose 28 UNIT; Start 03/13/17 at 20:00 Octreotide Acetate (Sandostatin) 50 mcg TID SC Last administered on 03/15/17 12:04; Admin Dose 50 MCG; Start 03/14/17 at 09:00 Escitalopram Oxalate (Lexapro) 10 mg HS PO ; Start 03/15/17 at 21:00 GLENN PALMER Mar 15, 2017 15:03
[2017-03-15] MEDS: FAT EMULSION 20% 250 ML IV SCH (16:05)
[2017-03-15 20:04] VITALS: BP 108/58; RESP 18
[2017-03-15] MEDS: ALPRAZOLAM 0.5 MG TAB PO SCH (21:00)
[2017-03-15] MEDS ORDERED: ESCITALOPRAM 10 MG TAB PO SCH (21:00)
[2017-03-15] MEDS: FAMOTIDINE 20 MG TAB PO SCH (21:00)
[2017-03-15] MEDS: HYDROmorphONE 1 MG/ML SYG IV PRN (21:35)
[2017-03-15] MEDS: INSULIN GLARGINE [LANtus] 3 ML PEN SC SCH (21:52)
--- NOTE | 2017-03-15 22:33 | PN ---
Date/Time of Note Date/Time of Note DATE: 03/15/17 TIME: 22:31 Assessment/Plan VTE Prophylaxis VTE Prophylaxis Intervention: SCD's Lines/Catheters IV Catheter Type (from Nrsg): PICC Line Central line still needed: Yes Urinary Cath still in place: Yes Reason Cath still needed: urinary retention Assessment/Plan Chief Complaint/Hosp Course ovarian cancer, recurrent, partial SBO/LBO, ureteral stricture Problems: Assessment/Plan A- improving P- discuss with Dr. Smith and adv diet. Subjective 24 Hr Interval Summary Free Text/Dictation Tolerating diet with minimal drainage Exam/Review of Systems Vital Signs Vitals Vital Signs Date Time Temp Pulse Resp B/P Pulse Ox O2 Delivery O2 Flow Rate FiO2 03/15/17 20:04 97.3 80 18 108/58 98 03/14/17 05:15 Room Air 03/12/17 08:00 2.0 Intake and Output 03/14/17 03/14/17 03/15/17 15:00 23:00 07:00 Intake Total 650 ml 3333 ml 2397 ml Output Total 2000 ml 3105 ml Balance 650 ml 1333 ml -708 ml Exam Resp- clear CVS- NSR Abd- NT with clean wound, minimal MANDY drainage;, quite clear and minimal. Ext - NT' no edema Results Result Diagram: 03/14/17 0450 03/15/17 0447 Results 24 hrs Laboratory Tests Test 03/15/17 04:47 03/15/17 08:28 03/15/17 12:03 03/15/17 18:06 Sodium Level 143 Potassium Level 3.4 L Chloride Level 102 Carbon Dioxide Level 26 Anion Gap 18 H Blood Urea Nitrogen 14 Creatinine 0.55 Glucose Level 111 Calcium Level 8.7 Phosphorus Level 3.8 Magnesium Level 1.7 Bedside Glucose 151 139 141 Test 03/15/17 20:38 03/15/17 21:49 Bedside Glucose 144 163 Medications Medications Current Medications Miscellaneous Information 1 ea NOTE XX ; Start 02/19/17 at 04:30 Glucose (Glutose) 15 gm Q15M PRN PO DECREASED GLUCOSE; Start 02/19/17 at 04:30 Glucose (Glutose) 22.5 gm Q15M PRN PO DECREASED GLUCOSE; Start 02/19/17 at 04:30 Dextrose (D50w Syringe) 25 ml Q15M PRN IV DECREASED GLUCOSE Last administered on 03/11/17 01:20; Admin Dose 25 ML; Start 02/19/17 at 04:30 Dextrose (D50w Syringe) 50 ml Q15M PRN IV DECREASED GLUCOSE; Start 02/19/17 at 04:30 Glucagon (Glucagen) 1 mg Q15M PRN IM DECREASED GLUCOSE; Start 02/19/17 at 04:30 Glucose (Glutose) 15 gm Q15M PRN BUCCAL DECREASED GLUCOSE; Start 02/19/17 at 04: 30 Atorvastatin Calcium (Lipitor) 40 mg DAILY PO Last administered on 03/15/17 08 :29; Admin Dose 40 MG; Start 02/21/17 at 09:00 Metoclopramide HCl (Reglan) 10 mg Q6 IV Last administered on 03/15/17 18:07; Admin Dose 10 MG; Start 02/22/17 at 21:00 Ondansetron HCl 4 mg 4 mg Q6H PRN IV NAUSEA AND/OR VOMITING Last administered on 03/08/17 22:08; Admin Dose 4 MG; Start 02/23/17 at 15:30 Total Parenteral Nutrition (Tpn) 1,000 ml @ 80 mls/hr [id number] IV Last administered on 03/15/17 18:07; Admin Dose 80 MLS/HR; Start 02/26/17 at 21:00 IV Flush 10 ml 10 ml PRN PRN IV IV PROTOCOL Last administered on 03/03/17 04: 21; Admin Dose 10 ML; Start 02/27/17 at 15:00 Sodium Chloride (NS) 1,000 ml @ 60 mls/hr [id number] IV Last administered on 03/15 18:08; Admin Dose 60 MLS/HR; Start 03/01/17 at 14:00 Nitroglycerin (Nitroglycerin (Sl Tab) 0.4 Mg) 1 tab Q5M PRN SL ANGINA; Start at 07:00 Lorazepam 0.5 mg 0.5 mg Q6H PRN IV ANXIETY Last administered on 03/15/17 01:17 ; Admin Dose 0.5 MG; Start 03/05/17 at 16:07 Fat Emulsion Intravenous (Liposyn Ii 20%) 250 ml @ 21 mls/hr 15 IV Last administered on 03/15/17 16:05; Admin Dose 21 MLS/HR; Start 03/08/17 at 15:00 Hydromorphone HCl (Dilaudid) 0.5 mg Q4H PRN IV PAIN Last administered on 21:35; Admin Dose 0.5 MG; Start 03/11/17 at 00:10 Insulin Glargine (Lantus) 28 unit DAILY@20 SC Last administered on 03/15/17 21 :52; Admin Dose 28 UNIT; Start 03/13/17 at 20:00 Octreotide Acetate (Sandostatin) 50 mcg TID SC Last administered on 03/15/17 20:48; Admin Dose 50 MCG; Start 03/14/17 at 09:00 Alprazolam (Xanax) 0.5 mg QHS PO Last administered on 03/15/17 21:00; Admin Dose 0.5 MG; Start 03/15/17 at 21:00 Famotidine (Pepcid) 20 mg BID PO Last administered on 03/15/17 21:00; Admin Dose 20 MG; Start 03/15/17 at 21:00 MARIA DE JESUS MENDOZA MD Mar 15, 2017 22:33
[2017-03-16 02:46] VITALS: BP 110/53; RESP 20
[2017-03-16] MEDS: SOD CHLORIDE 0.9% 1,000 ML IV SCH ×3 (04:00→23:03)
[2017-03-16 04:56] VITALS: BP 101/55; PULSE 71; RESP 20
[2017-03-16] MEDS: METOCLOPRAMIDE 10 MG INJ IV SCH ×4 (05:46→23:44)
[2017-03-16 05:48] LABS: BASOPHILS % 0.2 % (0.0-2.0); EOSINOPHILS # 0.5 10^3/ul (0.0-0.5); EOSINOPHILS % 5.8 % (0.0-7.0); HEMATOCRIT 31.6 % (37.0-47.0); HEMOGLOBIN 9.8 g/dl (12.0-16.0); LYMPHOCYTES % 24.7 % (15.0-51.0); MEAN CORPUSCULAR HEMOGLOBIN 27.5 pg (29.0-33.0); MEAN CORPUSCULAR VOLUME 88.5 fl (82.0-101.0); MEAN PLATELET VOLUME 10.3 fl (7.4-10.4); MONOCYTE # 0.5 10^3/ul (0.3-0.9); MONOCYTES % 6.2 % (0.0-11.0); NEUTROPHILS % 62.7 % (39.0-77.0); PLATELET COUNT 381 10^3/UL (140-415); RED BLOOD COUNT 3.57 10^6/ul (4.20-5.40); RED CELL DISTRIBUTION WIDTH 14.6 % (11.5-14.5); WHITE BLOOD COUNT 8.3 10^3/ul (4.8-10.8)
[2017-03-16 06:12] LABS: CALCIUM 8.8 mg/dl (8.4-10.2); CREATININE 0.56 mg/dl (0.44-1.00); POTASSIUM 3.9 mmol/L (3.5-5.1)
[2017-03-16] MEDS: TPN 1,000 ML IV SCH (06:36)
[2017-03-16 07:50] VITALS: BP 109/54; RESP 19
[2017-03-16] MEDS: INSULIN ASPART [NOVOLOG] 3 ML PEN SC SCH ×4 (07:50→21:00)
[2017-03-16] MEDS: FAMOTIDINE 20 MG TAB PO SCH ×2 (10:14→20:33)
[2017-03-16] MEDS: ATORVASTATIN 40 MG TAB PO SCH (10:14)
[2017-03-16] MEDS: OCTREOTIDE 100 MCG INJ SC SCH (10:18)
[2017-03-16] MEDS: HYDROmorphONE 1 MG/ML SYG IV PRN ×3 (12:03→20:34)
[2017-03-16] MEDS: VANCOMYCIN HCL 250 MG/5ML POSYG PO SCH ×3 (13:37→23:44)
[2017-03-16 14:00] VITALS: BP 119/61; RESP 19
[2017-03-16 20:26] VITALS: BP 105/51; RESP 20
[2017-03-16] MEDS: INSULIN GLARGINE [LANtus] 3 ML PEN SC SCH (20:30)
[2017-03-16] MEDS: ALPRAZOLAM 0.5 MG TAB PO SCH (20:33)
[2017-03-17 02:37] VITALS: BP 112/59; PULSE 85; RESP 18
[2017-03-17] MEDS: HYDROmorphONE 1 MG/ML SYG IV PRN ×4 (02:37→21:02)
[2017-03-17 02:55] VITALS: BP 120/52; RESP 18
[2017-03-17] MEDS ORDERED: ENOXAPARIN 60 MG/0.6 ML SYG SC ONE (03:30)
[2017-03-17] MEDS: METOCLOPRAMIDE 10 MG INJ IV SCH ×4 (05:06→23:41)
[2017-03-17] MEDS: LORAZEPAM 2 MG INJ IV PRN (05:06)
[2017-03-17] MEDS: VANCOMYCIN HCL 250 MG/5ML POSYG PO SCH ×4 (05:06→23:41)
[2017-03-17 05:11] LABS: CALCIUM 8.5 mg/dl (8.4-10.2); CREATININE 0.58 mg/dl (0.44-1.00); MAGNESIUM 1.3 mg/dl (1.7-2.5); PHOSPHORUS 4.7 mg/dl (2.5-4.9); POTASSIUM 3.4 mmol/L (3.5-5.1)
[2017-03-17 05:17] LABS: PREALBUMIN 22.5 mg/dl (17.6-36.0)
[2017-03-17] MEDS: INSULIN ASPART [NOVOLOG] 3 ML PEN SC SCH ×4 (07:50→20:40)
[2017-03-17] MEDS: ATORVASTATIN 40 MG TAB PO SCH (07:52)
[2017-03-17] MEDS: FAMOTIDINE 20 MG TAB PO SCH ×2 (07:53→20:55)
[2017-03-17] MEDS: SOD CHLORIDE 0.9% 1,000 ML IV SCH ×2 (07:53→19:03)
[2017-03-17 08:18] VITALS: BP 112/58; RESP 18
--- NOTE | 2017-03-17 09:17 | RADRPT ---
PROCEDURE: Ultrasound of the bilateral lower extremity venous system. CLINICAL INDICATION: Bilateral leg pain and swelling, deep venous thrombosis TECHNIQUE: [place] scale with and without compression, color doppler, spectral doppler of the venous system of the bilateral lower extremities was performed. Venous augmentation maneuvers were utilized . COMPARISON: No prior studies are available for comparison. FINDINGS: RIGHT: Common femoral vein: Patent. Femoral vein: Patent. Popliteal vein: Patent. Calf veins: Patent. No soft tissue abnormalities are identified. LEFT: Common femoral vein: Patent. Femoral vein: Patent. Popliteal vein: Patent. Calf veins: Patent. No soft tissue abnormalities are identified. IMPRESSION: No evidence of a deep vein thrombosis within the bilateral lower extremities. RPTAT: AADD .Ashish Danielle MD, MD Date Time Electronically viewed and signed by .Ashish Danielle MD, on 03/17/2017 09:17 .B/
--- NOTE | 2017-03-17 11:31 | RADRPT ---
PROCEDURE: XR Chest. CLINICAL INDICATION: Chest pain, TECHNIQUE: Single frontal view of the chest was obtained COMPARISON: 03/11/2017 FINDINGS: No pleural effusion or pneumothorax. No consolidation. Stable cardiomediastinal silhouette. Stable right Port-A-Cath with tip projecting over the distal bloom perior vena cava. Stable left PICC line with tip projecting over the distal superior vena cava. No acute osseous abnormality. IMPRESSION: No acute cardiopulmonary disease. Stable chest radiograph. RPTAT: EE Physician Zackary Date Time Electronically viewed and signed by Jaja Ratliff Physician on 03/17/2017 11:30 /
[2017-03-17] MEDS ORDERED: SOD CHLORIDE 0.9% 100 ML ONE (12:22)
[2017-03-17] MEDS ORDERED: IODIXANOL LOCM 100 ML BTL ONE (12:22)
[2017-03-17] MEDS ORDERED: MAGNESIUM SULFATE 2 GM/50 ML 50 ML IVPB ONE (12:30)
[2017-03-17] MEDS ORDERED: POTASSIUM CHLORIDE (SR) 10 MEQ TAB PO ONE (12:30)
--- NOTE | 2017-03-17 13:09 | RADRPT ---
PROCEDURE: CTA Chest CLINICAL INDICATION: Chest pain TECHNIQUE: CTA of the chest was performed following the uncomplicated IV administration of 95 cc o f Visipaque 320. Coronal and sagittal images were reconstructed from the axial data set. 3-D volum etric rendered post processing was performed as well. One or more of the following dose reduction t echniques were used: automated exposure control, adjustment of the mA and/or kV according to patient size, use of iterative reconstruction technique. CTDI = 13.21 mGy. DLP = 460.03 mGy-cm. COMPARISON: Chest x-ray, 03/17/2017; CT abdomen, 02/19/2017. FINDINGS: No filling defect is present to suggest pulmonary embolism. There is no evidence for pulmonary betito rial hypertension. There is minimal bibasilar atelectasis. No acute infiltrate, pleural effusion, pulmonary edema or p neumothorax is identified. The central tracheobronchial tree is clear. No pulmonary nodule or mass is identified. The heart size is normal without pericardial effusion. There is no thoracic aortic aneurysm or diss ection. Scattered aortic atherosclerotic calcifications are present. Right-sided Port-A-Cath tip i s in the SVC. Left-sided PICC line tip is in the SVC. No mediastinal, hilar, axillary or supraclav icular lymphadenopathy is identified. Gallbladder is distended. Gallbladder wall appears thickened. Indeterminate 2.3 cm hypoenhancing s tructure is seen posteromedially in the right hepatic lobe (3-192). The osseous structures are unre markable. No osteolytic or osteoblastic lesion is seen. IMPRESSION: 1. Gallbladder is distended. Gallbladder wall appears thickened. Findings are concerning for chol ecystitis - consider ultrasound correlation. 2. Indeterminate hypoenhancing structure is again seen posteromedially in the right hepatic lobe, s imilar to the prior CT - neoplasm/metastasis is not excluded. Consider multiphase contrast enhanced CT or MRI of the liver for further evaluation. 3. No pulmonary embolism is identified. 4. No mass, lymphadenopathy, or focal acute infiltrate is seen in the chest. 5. Right-sided Port-A-Cath and left-sided PICC line are in place. RPTAT: HDWR .Ankur Conte MD, MD Date Time Electronically viewed and signed by .Ankur Conte MD, on 03/17/2017 13:09 .R/
[2017-03-17 14:00] VITALS: BP 120/60; RESP 18
--- NOTE | 2017-03-17 15:30 | RADRPT ---
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 Physician: PRESTON BOX Quality: Good Procedures: Transthoracic echocardiogram with complete 2D, M-Mode, and doppler examination. Indications: Chest Pain. 2D/M Mode Doppler Measurement Value Normal Ranges Measurement Value Normal Ranges LVIDd 2D 3.8 3.5 - 5.6 cm FREDI Vmax 2.3 cm2 LVIDs 2D 2.2 2.1 - 4.1 cm FREDI VTI 2.3 cm2 LVPWd 2D 1.1 0.6 - 1.1 cm AV Peak Dex 1.5 m/sec IVSd 2D 1.1 0.6 - 1.1 cm AV Peak PG 9.1 mmHg AoR Diam 2D 2.4 2.0 - 3.7 cm LVOT Peak Dex 1.2 m/sec EDV 2D 60.6 cm3 LVOT Peak PG 6.0 mmHg ESV 2D 11.1 cm3 MV E Peak Dex 0.8 m/sec LA Dimen 2D 2.7 2.3 - 4.0 cm MV A Peak Dex 0.7 m/sec LVOT Diam 1.9 cm MV E/A 1.1 MV Decel Time 133 msec MV Decel [place] 6 MV E/A 1.1 TR Peak Dex 2.0 m/sec TR Peak PG 15.5 mmHg RVSP 19.0 mmHg Findings Left Ventricle: Normal left ventricular systolic function. Normal left ventricular cavity size. Normal left ventricular wall thickness. Ejection fraction is visually estimated at 65 %. Tissue Doppler/Mitral Doppler indices are within normal limits. Right Ventricle: Normal right ventricular size. Normal right ventricular systolic function. Left Atrium: The left atrium is normal in size. Right Atrium: The right atrium is normal in size. Mitral Valve: Normal appearance and function of the mitral valve with trace physiologic regurgitation. Aortic Valve: Normal appearance of the aortic valve. No significant aortic stenosis or insufficiency. Tricuspid Valve: Normal appearance of the tricuspid valve. Estimated peak PA systolic pressure 19 mmHg. There is trace tricuspid regurgitation. Pulmonic Valve: Normal pulmonic valve appearance. Pericardium: Normal pericardium with no significant pericardial effusion. Aorta: Normal aortic root. IVC: Normal size and normal respiratory collapse consistent with normal right atrial pressure. Conclusions 1.Normal left ventricular systolic function. Normal left ventricular cavity size. Normal left ventricular wall thickness. Ejection fraction is visually estimated at 65 %. Tissue Doppler/Mitral Doppler indices are within normal limits. 2.Normal right ventricular size. Normal right ventricular systolic function. 3.The left atrium is normal in size. 4.The right atrium is normal in size. 5.No significant valvular stenosis or regurgitation seen. 6.Normal pericardium with no significant pericardial effusion. Electronically Signed By: Daljit Olson 17-Mar-2017 15:28:55 -0700 Patient Name: PRISCILLA HARVEY Study Date: 17-Mar-2017 [id number]
--- NOTE | 2017-03-17 15:34 | RADRPT ---
Vent Rate: 79 bpm RR Interval: 0 msec SD Interval: 130 msec QRS Duration: 80 msec QT Interval: 382 msec QTC Interval: 438 msec P-R-T L[place]: 60 - 39 - 46 degrees Normal sinus rhythm Normal ECG Electronically Signed By: Daljit Olson [id number]
--- NOTE | 2017-03-17 15:39 | RADRPT ---
Vent Rate: 78 bpm RR Interval: 0 msec [place] Interval: 132 msec QRS Duration: 80 msec QT Interval: 376 msec QTC Interval: 428 msec P-R-T Bryant: 59 - 63 - 51 degrees Normal sinus rhythm Normal ECG Electronically Signed By: Daljit Olson [id number]
--- NOTE | 2017-03-17 16:04 | PN ---
Date/Time of Note Date/Time of Note DATE: 03/17/17 TIME: 15:56 Assessment/Plan Lines/Catheters IV Catheter Type (from Nrsg): PICC Line Urinary Cath still in place: No Assessment/Plan Assessment/Plan - Chest pain- r/o - Troponin neg - EKG - wnl -Partial small bowel obstruction, resolving, continue TPN and Lipids. -Recurrent Ovarian CA, status post secondary cytoreduction by Dr. Morris on . Continue to follow-up surgical recommendation. -Urethral stricture continue [place] catheter, follow-up surgical recommendations. -Intractable of abdominal pain, nausea and vomiting secondary to recurrent ovarian cancer. Continue Zofran as needed for nausea and Dilaudid as needed for pain. -Diabetes mellitus type 2, hemoglobin A1c is 8.6, continue Lantus and NovoLog per sliding scale with Accu-Chek every 4 hours. -Hyperlipidemia. Further recommendations based on clinical course. Plan of care discussed with Dr. Hester. Subjective 24 Hr Interval Summary ENT: no complaints Respiratory: no complaints Cardiovascular: no complaints Gastrointestinal: no complaints Musculoskeletal: no complaints Exam/Review of Systems Vital Signs Vitals Vital Signs Date Time Temp Pulse Resp B/P Pulse Ox O2 Delivery O2 Flow Rate FiO2 03/17/17 08:18 97.6 87 18 112/58 99 03/17/17 02:37 Room Air Intake and Output 03/16/17 03/16/17 03/17/17 15:00 23:00 07:00 Intake Total 300 ml 300 ml 450 ml Output Total 5 ml Balance 300 ml 295 ml 450 ml Exam Constitutional: alert, oriented, well developed Respiratory: diminished breath sounds Cardiovascular: nl pulses, regular rate and rhythm Gastrointestinal: non-tender, soft Musculoskeletal: nl extremities to inspection Extremities: normal pulses Neurological: nl mental status, nl speech Results Result Diagram: 03/16/17 0423 03/17/17 0330 Results 24 hrs Laboratory Tests Test 03/16/17 18:11 03/16/17 20:18 03/16/17 21:36 03/17/17 03:30 Bedside Glucose 86 80 75 Sodium Level 138 Potassium Level 3.4 L Chloride Level 102 Carbon Dioxide Level 28 Anion Gap 11 # Blood Urea Nitrogen 16 Creatinine 0.58 Glucose Level 95 # Calcium Level 8.5 Phosphorus Level 4.7 Magnesium Level 1.3 L Troponin I < 0.012 Prealbumin 22.5 Test 03/17/17 09:25 03/17/17 09:56 03/17/17 13:04 03/17/17 13:59 Bedside Glucose 82 62 L 109 Troponin I < 0.012 Medications Medications Current Medications Miscellaneous Information 1 ea NOTE XX ; Start 02/19/17 at 04:30 Glucose (Glutose) 15 gm Q15M PRN PO DECREASED GLUCOSE; Start 02/19/17 at 04:30 Glucose (Glutose) 22.5 gm Q15M PRN PO DECREASED GLUCOSE; Start 02/19/17 at 04:30 Dextrose (D50w Syringe) 25 ml Q15M PRN IV DECREASED GLUCOSE Last administered on 03/11/17 01:20; Admin Dose 25 ML; Start 02/19/17 at 04:30 Dextrose (D50w Syringe) 50 ml Q15M PRN IV DECREASED GLUCOSE; Start 02/19/17 at 04:30 Glucagon (Glucagen) 1 mg Q15M PRN IM DECREASED GLUCOSE; Start 02/19/17 at 04:30 Glucose (Glutose) 15 gm Q15M PRN BUCCAL DECREASED GLUCOSE; Start 02/19/17 at 04: 30 Atorvastatin Calcium (Lipitor) 40 mg DAILY PO Last administered on 03/17/17 07: 52; Admin Dose 40 MG; Start 02/21/17 at 09:00 Metoclopramide HCl (Reglan) 10 mg Q6 IV Last administered on 03/17/17 13:05; Admin Dose 10 MG; Start 02/22/17 at 21:00 Ondansetron HCl (Zofran Inj) 4 mg Q6H PRN IV NAUSEA AND/OR VOMITING Last administered on 03/08/17 22:08; Admin Dose 4 MG; Start 02/23/17 at 15:30 IV Flush 10 ml 10 ml PRN PRN IV IV PROTOCOL Last administered on 03/03/17 04: 21; Admin Dose 10 ML; Start 02/27/17 at 15:00 Sodium Chloride (NS) 1,000 ml @ 50 mls/hr Q20H IV Last administered on 07:53; Admin Dose 50 MLS/HR; Start 03/01/17 at 14:00 Nitroglycerin (Nitroglycerin (Sl Tab) 0.4 Mg) 1 tab Q5M PRN SL ANGINA; Start at 07:00 Lorazepam (Ativan) 0.5 mg Q6H PRN IV ANXIETY Last administered on 03/17/17 05: 06; Admin Dose 0.5 MG; Start 03/05/17 at 16:07 Hydromorphone HCl (Dilaudid) 0.5 mg Q4H PRN IV PAIN Last administered on 15:37; Admin Dose 0.5 MG; Start 03/11/17 at 00:10 Insulin Glargine (Lantus) 28 unit DAILY@20 SC Last administered on 03/16/17 20 :30; Admin Dose 28 UNIT; Start 03/13/17 at 20:00 Alprazolam (Xanax) 0.5 mg QHS PO Last administered on 03/16/17 20:33; Admin Dose 0.5 MG; Start 03/15/17 at 21:00 Famotidine (Pepcid) 20 mg BID PO Last administered on 03/17/17 07:53; Admin Dose 20 MG; Start 03/15/17 at 21:00 Vancomycin HCl (Vancomycin Oral Syringe) 250 mg Q6 PO Last administered on 13:06; Admin Dose 250 MG; Start 03/16/17 at 13:30 Enoxaparin Sodium (Lovenox) 40 mg DAILY SC ; Start 03/18/17 at 09:00 Acetaminophen/ Hydrocodone Bitart ([place] (5/325)) 1 tab Q4H PRN PO PAIN; Start 03/17/17 at 10:30 CUATE HAGEN Mar 17, 2017 16:04
[2017-03-17 19:43] VITALS: BP 112/56; RESP 22
[2017-03-17 19:47] VITALS: BP 112/56; PULSE 80; RESP 18
[2017-03-17] MEDS: ALPRAZOLAM 0.5 MG TAB PO SCH (20:55)
[2017-03-17] MEDS: INSULIN GLARGINE [LANtus] 3 ML PEN SC SCH (20:56)
[2017-03-17] MEDS: HYDROCODONE/APAP (5/325) TAB PO PRN (23:41)
[2017-03-18] MEDS: HYDROmorphONE 1 MG/ML SYG IV PRN ×6 (00:54→22:12)
[2017-03-18] MEDS: VANCOMYCIN HCL 250 MG/5ML POSYG PO SCH ×3 (05:05→17:07)
[2017-03-18] MEDS: METOCLOPRAMIDE 10 MG INJ IV SCH ×3 (05:05→17:07)
[2017-03-18 06:24] LABS: BASOPHILS % 0.2 % (0.0-2.0); EOSINOPHILS # 0.3 10^3/ul (0.0-0.5); EOSINOPHILS % 3.2 % (0.0-7.0); HEMATOCRIT 30.1 % (37.0-47.0); HEMOGLOBIN 9.8 g/dl (12.0-16.0); LYMPHOCYTES # 1.9 10^3/ul (0.8-2.9); LYMPHOCYTES % 19.3 % (15.0-51.0); MEAN CORPUSCULAR HEMOGLOBIN 28.8 pg (29.0-33.0); MEAN CORPUSCULAR HGB CONC 32.6 g/dl (32.0-37.0); MEAN CORPUSCULAR VOLUME 88.5 fl (82.0-101.0); MEAN PLATELET VOLUME 10.6 fl (7.4-10.4); MONOCYTE # 0.8 10^3/ul (0.3-0.9); MONOCYTES % 8.1 % (0.0-11.0); NEUTROPHILS % 68.9 % (39.0-77.0); PLATELET COUNT 369 10^3/UL (140-415); RED CELL DISTRIBUTION WIDTH 14.9 % (11.5-14.5); WHITE BLOOD COUNT 9.9 10^3/ul (4.8-10.8)
[2017-03-18 06:36] LABS: ALBUMIN 3.3 g/dl (3.3-4.9); ALBUMIN/GLOBULIN RATIO 0.94; BILIRUBIN,INDIRECT 0.2 mg/dl (0-1.1); BILIRUBIN,TOTAL 0.2 mg/dl (0.2-1.3); CALCIUM 8.6 mg/dl (8.4-10.2); CREATININE 0.59 mg/dl (0.44-1.00); MAGNESIUM 1.7 mg/dl (1.7-2.5); POTASSIUM 3.1 mmol/L (3.5-5.1); TOTAL PROTEIN 6.8 g/dl (6.1-8.1)
[2017-03-18] MEDS: SOD CHLORIDE 0.9% 1,000 ML IV SCH (06:37)
[2017-03-18 07:19] VITALS: BP 103/55; RESP 18
[2017-03-18] MEDS: INSULIN ASPART [NOVOLOG] 3 ML PEN SC SCH ×4 (07:50→21:00)
[2017-03-18] MEDS: ATORVASTATIN 40 MG TAB PO SCH (08:45)
[2017-03-18] MEDS: FAMOTIDINE 20 MG TAB PO SCH ×2 (08:45→20:34)
[2017-03-18] MEDS: ENOXAPARIN 40 MG/0.4 ML SYG SC SCH (08:48)
[2017-03-18] MEDS: ONDANSETRON 4 MG INJ IV PRN (10:17)
--- NOTE | 2017-03-18 10:57 | PN ---
Date/Time of Note Date/Time of Note DATE: 03/18/17 TIME: 10:56 Assessment/Plan VTE Prophylaxis VTE Prophylaxis Intervention: other Lines/Catheters IV Catheter Type (from Nrsg): PICC Line Central line still needed: Yes Urinary Cath still in place: No Assessment/Plan Chief Complaint/Hosp Course - Chest pain- r/o - Troponin neg - EKG - wnl -Partial small bowel obstruction, resolving, continue TPN and Lipids. -Recurrent Ovarian CA, status post secondary cytoreduction by Dr. Morris on . Continue to follow-up surgical recommendation. -Urethral stricture continue [place] catheter, follow-up surgical recommendations. -Intractable of abdominal pain, nausea and vomiting secondary to recurrent ovarian cancer. Continue Zofran as needed for nausea and Dilaudid as needed for pain. -Diabetes mellitus type 2, hemoglobin A1c is 8.6, continue Lantus and NovoLog per sliding scale with Accu-Chek every 4 hours. -Hyperlipidemia. Problems: Subjective 24 Hr Interval Summary Free Text/Dictation Patient has some abdominal pain Exam/Review of Systems Vital Signs Vitals Vital Signs Date Time Temp Pulse Resp B/P Pulse Ox O2 Delivery O2 Flow Rate FiO2 03/18/17 07:19 97.7 80 18 103/55 98 03/17/17 19:47 Room Air Intake and Output 03/17/17 03/17/17 03/18/17 15:00 23:00 07:00 Intake Total 200 ml 740 ml 1820 ml Output Total 5 ml 1005 ml Balance 200 ml 735 ml 815 ml Exam Constitutional: well developed Head: atraumatic, normocephalic Neck: supple Respiratory: clear to auscultation Cardiovascular: regular rate and rhythm Gastrointestinal: soft, tender Extremities: normal pulses Results Result Diagram: 03/18/17 0452 03/18/17 0452 Results 24 hrs Laboratory Tests Test 03/17/17 13:04 03/17/17 13:59 03/17/17 18:02 03/17/17 20:38 Bedside Glucose 62 L 109 96 113 Test 03/18/17 04:52 03/18/17 07:38 White Blood Count 9.9 Red Blood Count 3.40 L Hemoglobin 9.8 L Hematocrit 30.1 L Mean Corpuscular Volume 88.5 Mean Corpuscular Hemoglobin 28.8 L Mean Corpuscular Hemoglobin Concent 32.6 Red Cell Distribution Width 14.9 H Platelet Count 369 Mean Platelet Volume 10.6 H Neutrophils % 68.9 Lymphocytes % 19.3 Monocytes % 8.1 Eosinophils % 3.2 Basophils % 0.2 Nucleated Red Blood Cells % 0.0 Neutrophils # (Manual) 6.8 Lymphocytes # 1.9 Monocytes # 0.8 Eosinophils # 0.3 Basophils # 0.0 Nucleated Red Blood Cells # 0.0 Sodium Level 138 Potassium Level 3.1 L Chloride Level 100 Carbon Dioxide Level 30 Anion Gap 11 Blood Urea Nitrogen 15 Creatinine 0.59 Glucose Level 83 Calcium Level 8.6 Magnesium Level 1.7 Total Bilirubin 0.2 Direct Bilirubin 0.00 Indirect Bilirubin 0.2 Aspartate Amino Transf (AST/SGOT) 33 Alanine Aminotransferase (ALT/SGPT) 52 Alkaline Phosphatase 136 H Total Protein 6.8 Albumin 3.3 Globulin 3.50 H Albumin/Globulin Ratio 0.94 Bedside Glucose 78 Medications Medications Current Medications Miscellaneous Information 1 ea NOTE XX ; Start 02/19/17 at 04:30 Glucose (Glutose) 15 gm Q15M PRN PO DECREASED GLUCOSE; Start 02/19/17 at 04:30 Glucose (Glutose) 22.5 gm Q15M PRN PO DECREASED GLUCOSE; Start 02/19/17 at 04:30 Dextrose (D50w Syringe) 25 ml Q15M PRN IV DECREASED GLUCOSE Last administered on 03/11/17 01:20; Admin Dose 25 ML; Start 02/19/17 at 04:30 Dextrose (D50w Syringe) 50 ml Q15M PRN IV DECREASED GLUCOSE; Start 02/19/17 at 04:30 Glucagon (Glucagen) 1 mg Q15M PRN IM DECREASED GLUCOSE; Start 02/19/17 at 04:30 Glucose (Glutose) 15 gm Q15M PRN BUCCAL DECREASED GLUCOSE; Start 02/19/17 at 04: 30 Atorvastatin Calcium (Lipitor) 40 mg DAILY PO Last administered on 03/18/17 08: 45; Admin Dose 40 MG; Start 02/21/17 at 09:00 Metoclopramide HCl (Reglan) 10 mg Q6 IV Last administered on 03/18/17 05:05; Admin Dose 10 MG; Start 02/22/17 at 21:00 Ondansetron HCl (Zofran Inj) 4 mg Q6H PRN IV NAUSEA AND/OR VOMITING Last administered on 03/18/17 10:17; Admin Dose 4 MG; Start 02/23/17 at 15:30 IV Flush 10 ml 10 ml PRN PRN IV IV PROTOCOL Last administered on 03/03/17 04: 21; Admin Dose 10 ML; Start 02/27/17 at 15:00 Sodium Chloride (NS) 1,000 ml @ 50 mls/hr Q20H IV Last administered on 06:37; Admin Dose 50 MLS/HR; Start 03/01/17 at 14:00 Nitroglycerin (Nitroglycerin (Sl Tab) 0.4 Mg) 1 tab Q5M PRN SL ANGINA; Start at 07:00 Lorazepam (Ativan) 0.5 mg Q6H PRN IV ANXIETY Last administered on 03/17/17 05: 06; Admin Dose 0.5 MG; Start 03/05/17 at 16:07 Hydromorphone HCl (Dilaudid) 0.5 mg Q4H PRN IV PAIN Last administered on 08:45; Admin Dose 0.5 MG; Start 03/11/17 at 00:10 Insulin Glargine (Lantus) 28 unit DAILY@20 SC Last administered on 03/17/17 20: 56; Admin Dose 28 UNIT; Start 03/13/17 at 20:00 Alprazolam (Xanax) 0.5 mg QHS PO Last administered on 03/17/17 20:55; Admin Dose 0.5 MG; Start 03/15/17 at 21:00 Famotidine (Pepcid) 20 mg BID PO Last administered on 03/18/17 08:45; Admin Dose 20 MG; Start 03/15/17 at 21:00 Vancomycin HCl (Vancomycin Oral Syringe) 250 mg Q6 PO Last administered on 05:05; Admin Dose 250 MG; Start 03/16/17 at 13:30 Enoxaparin Sodium (Lovenox) 40 mg DAILY SC Last administered on 03/18/17 08:48 ; Admin Dose 40 MG; Start 03/18/17 at 09:00 Acetaminophen/ Hydrocodone Bitart ([place] (5/325)) 1 tab Q4H PRN PO PAIN Last administered on 9/1/17at 23:41; Admin Dose 1 TAB; Start 03/17/17 at 10:30 CAITLYN STRANGE Mar 18, 2017 10:57
[2017-03-18 14:00] VITALS: BP 118/87; RESP 19
[2017-03-18 20:28] VITALS: BP 96/55; RESP 18
[2017-03-18] MEDS: INSULIN GLARGINE [LANtus] 3 ML PEN SC SCH (20:37)
[2017-03-18] MEDS: ALPRAZOLAM 0.5 MG TAB PO SCH (20:43)
[2017-03-19] MEDS: VANCOMYCIN HCL 250 MG/5ML POSYG PO SCH ×4 (00:57→17:26)
[2017-03-19] MEDS: METOCLOPRAMIDE 10 MG INJ IV SCH ×4 (00:57→17:26)
[2017-03-19] MEDS: HYDROmorphONE 1 MG/ML SYG IV PRN ×6 (01:06→20:24)
[2017-03-19 02:04] VITALS: BP 100/62; RESP 18
[2017-03-19] MEDS: SOD CHLORIDE 0.9% 1,000 ML IV SCH ×2 (02:09→17:48)
[2017-03-19] MEDS: INSULIN ASPART [NOVOLOG] 3 ML PEN SC SCH ×4 (07:50→21:00)
[2017-03-19 07:56] VITALS: BP 105/58; RESP 20
[2017-03-19] MEDS: ATORVASTATIN 40 MG TAB PO SCH (08:15)
[2017-03-19] MEDS: FAMOTIDINE 20 MG TAB PO SCH ×2 (08:15→20:22)
[2017-03-19] MEDS: HYDROCODONE/APAP (5/325) TAB PO PRN ×2 (08:16→18:21)
[2017-03-19] MEDS: ENOXAPARIN 40 MG/0.4 ML SYG SC SCH (08:20)
--- NOTE | 2017-03-19 11:41 | PN ---
Date/Time of Note Date/Time of Note DATE: 03/19/17 TIME: 11:41 Assessment/Plan VTE Prophylaxis VTE Prophylaxis Intervention: other Lines/Catheters IV Catheter Type (from Nrsg): PICC Line Central line still needed: Yes Urinary Cath still in place: No Assessment/Plan Chief Complaint/Hosp Course - Chest pain- r/o - Troponin neg - EKG - wnl -Partial small bowel obstruction, resolving, continue TPN and Lipids. -Recurrent Ovarian CA, status post secondary cytoreduction by Dr. Morris on . Continue to follow-up surgical recommendation. -Urethral stricture continue [place] catheter, follow-up surgical recommendations. -Intractable of abdominal pain, nausea and vomiting secondary to recurrent ovarian cancer. Continue Zofran as needed for nausea and Dilaudid as needed for pain. -Diabetes mellitus type 2, hemoglobin A1c is 8.6, continue Lantus and NovoLog per sliding scale with Accu-Chek every 4 hours. -Hyperlipidemia. Problems: Subjective 24 Hr Interval Summary Free Text/Dictation Patient resting comfortably Exam/Review of Systems Vital Signs Vitals Vital Signs Date Time Temp Pulse Resp B/P Pulse Ox O2 Delivery O2 Flow Rate FiO2 03/19/17 07:56 98.1 78 20 105/58 97 03/17/17 19:47 Room Air Intake and Output 03/18/17 03/18/17 03/19/17 15:00 23:00 07:00 Intake Total 1350 ml 540 ml Output Total 13 ml 800 ml Balance 1337 ml -260 ml Exam Constitutional: well developed Head: atraumatic, normocephalic Neck: supple Respiratory: clear to auscultation Cardiovascular: regular rate and rhythm Gastrointestinal: non-tender, soft Extremities: normal pulses Results Result Diagram: 03/18/172 03/18/17451 Results 24 hrs Laboratory Tests Test 03/18/17 12:28 03/18/17 17:09 03/18/17 20:18 03/19/17 08:00 Bedside Glucose 72 70 129 79 Medications Medications Current Medications Miscellaneous Information 1 ea NOTE XX ; Start 02/19/17 at 04:30 Glucose (Glutose) 15 gm Q15M PRN PO DECREASED GLUCOSE; Start 02/19/17 at 04:30 Glucose (Glutose) 22.5 gm Q15M PRN PO DECREASED GLUCOSE; Start 02/19/17 at 04:30 Dextrose (D50w Syringe) 25 ml Q15M PRN IV DECREASED GLUCOSE Last administered on 03/11/17 01:20; Admin Dose 25 ML; Start 02/19/17 at 04:30 Dextrose (D50w Syringe) 50 ml Q15M PRN IV DECREASED GLUCOSE; Start 02/19/17 at 04:30 Glucagon (Glucagen) 1 mg Q15M PRN IM DECREASED GLUCOSE; Start 02/19/17 at 04:30 Glucose (Glutose) 15 gm Q15M PRN BUCCAL DECREASED GLUCOSE; Start 02/19/17 at 04: 30 Atorvastatin Calcium (Lipitor) 40 mg DAILY PO Last administered on 03/19/17 08: 15; Admin Dose 40 MG; Start 02/21/17 at 09:00 Metoclopramide HCl (Reglan) 10 mg Q6 IV Last administered on 03/19/17 06:07; Admin Dose 10 MG; Start 02/22/17 at 21:00 Ondansetron HCl (Zofran Inj) 4 mg Q6H PRN IV NAUSEA AND/OR VOMITING Last administered on 03/18/17 10:17; Admin Dose 4 MG; Start 02/23/17 at 15:30 IV Flush 10 ml 10 ml PRN PRN IV IV PROTOCOL Last administered on 03/03/17 04: 21; Admin Dose 10 ML; Start 02/27/17 at 15:00 Sodium Chloride (NS) 1,000 ml @ 50 mls/hr Q20H IV Last administered on 02:09; Admin Dose 50 MLS/HR; Start 03/01/17 at 14:00 Nitroglycerin (Nitroglycerin (Sl Tab) 0.4 Mg) 1 tab Q5M PRN SL ANGINA; Start at 07:00 Lorazepam (Ativan) 0.5 mg Q6H PRN IV ANXIETY Last administered on 03/17/17 05: 06; Admin Dose 0.5 MG; Start 03/05/17 at 16:07 Hydromorphone HCl (Dilaudid) 0.5 mg Q4H PRN IV PAIN Last administered on 10:42; Admin Dose 0.5 MG; Start 03/11/17 at 00:10 Insulin Glargine (Lantus) 28 unit DAILY@20 SC Last administered on 03/18/17 20: 37; Admin Dose 28 UNIT; Start 03/13/17 at 20:00 Alprazolam (Xanax) 0.5 mg QHS PO Last administered on 03/18/17 20:43; Admin Dose 0.5 MG; Start 03/15/17 at 21:00 Famotidine (Pepcid) 20 mg BID PO Last administered on 03/19/17 08:15; Admin Dose 20 MG; Start 03/15/17 at 21:00 Vancomycin HCl (Vancomycin Oral Syringe) 250 mg Q6 PO Last administered on 06:07; Admin Dose 250 MG; Start 03/16/17 at 13:30 Enoxaparin Sodium (Lovenox) 40 mg DAILY SC Last administered on 03/19/17 08:20 ; Admin Dose 40 MG; Start 03/18/17 at 09:00 Acetaminophen/ Hydrocodone Bitart ([place] (5/325)) 1 tab Q4H PRN PO PAIN Last administered on 03/19/17 08:16; Admin Dose 1 TAB; Start 03/17/17 at 10:30 CAITLYN STRANGE Mar 19, 2017 11:41
[2017-03-19 15:21] VITALS: BP 108/54; RESP 16
[2017-03-19 19:25] VITALS: BP 107/82; RESP 18
[2017-03-19] MEDS: INSULIN GLARGINE [LANtus] 3 ML PEN SC SCH (20:21)
[2017-03-19] MEDS: ALPRAZOLAM 0.5 MG TAB PO SCH (20:29)
--- NOTE | 2017-03-19 22:56 | PN ---
Date/Time of Note Date/Time of Note DATE: 03/19/17 TIME: 22:50 Assessment/Plan VTE Prophylaxis VTE Prophylaxis Intervention: SCD's Lines/Catheters IV Catheter Type (from Nrs): PICC Line Central line still needed: Yes Urinary Cath still in place: No Assessment/Plan Chief Complaint/Hosp Course ovarian cancer, recurrent, partial SBO/LBO, ureteral stricture Problems: Assessment/Plan A- C.diff increases risk of anastomotic leak but not evident P- oral Vanco and iv flagyl Subjective 24 Hr Interval Summary Free Text/Dictation pain free and hao diet but suggested boyh diarrhea and stool per vagina. Exam/Review of Systems Vital Signs Vitals Vital Signs Date Time Temp Pulse Resp B/P Pulse Ox O2 Delivery O2 Flow Rate FiO2 03/19/17 19:25 98.3 64 18 107/82 93 03/17/17 19:47 Room Air Intake and Output 03/18/17 03/18/17 03/19/17 15:00 23:00 07:00 Intake Total 1350 ml 540 ml Output Total 13 ml 800 ml Balance 1337 ml -260 ml Exam Resp- clear CVS- NSR Abd- NT with clean wound, minimal MANDY drainage;, quite clear and minimal Pelvic; NT minimal separation, no fecal material Ext - NT' no edema Results Result Diagram: 03/18/17 0452 03/18/17 0452 Results 24 hrs Laboratory Tests Test 03/19/17 08:00 03/19/17 12:12 03/19/17 17:26 03/19/17 20:18 Bedside Glucose 79 134 91 163 Medications Medications Current Medications Miscellaneous Information 1 ea NOTE XX ; Start 02/19/17 at 04:30 Glucose (Glutose) 15 gm Q15M PRN PO DECREASED GLUCOSE; Start 02/19/17 at 04:30 Glucose (Glutose) 22.5 gm Q15M PRN PO DECREASED GLUCOSE; Start 02/19/17 at 04:30 Dextrose (D50w Syringe) 25 ml Q15M PRN IV DECREASED GLUCOSE Last administered on 03/11/17t 01:20; Admin Dose 25 ML; Start 02/19/17 at 04:30 Dextrose (D50w Syringe) 50 ml Q15M PRN IV DECREASED GLUCOSE; Start 02/19/17 at 04:30 Glucagon (Glucagen) 1 mg Q15M PRN IM DECREASED GLUCOSE; Start 02/19/17 at 04:30 Glucose (Glutose) 15 gm Q15M PRN BUCCAL DECREASED GLUCOSE; Start 02/19/17 at 04: 30 Atorvastatin Calcium (Lipitor) 40 mg DAILY PO Last administered on 03/19/17 08: 15; Admin Dose 40 MG; Start 02/21/17 at 09:00 Metoclopramide HCl (Reglan) 10 mg Q6 IV Last administered on 03/19/17 17:26; Admin Dose 10 MG; Start 02/22/17 at 21:00 Ondansetron HCl (Zofran Inj) 4 mg Q6H PRN IV NAUSEA AND/OR VOMITING Last administered on 03/18/17 10:17; Admin Dose 4 MG; Start 02/23/17 at 15:30 IV Flush 10 ml 10 ml PRN PRN IV IV PROTOCOL Last administered on 03/03/17 04: 21; Admin Dose 10 ML; Start 02/27/17 at 15:00 Sodium Chloride (NS) 1,000 ml @ 50 mls/hr Q20H IV Last administered on 17:48; Admin Dose 50 MLS/HR; Start 03/01/17 at 14:00 Nitroglycerin (Nitroglycerin (Sl Tab) 0.4 Mg) 1 tab Q5M PRN SL ANGINA; Start at 07:00 Lorazepam (Ativan) 0.5 mg Q6H PRN IV ANXIETY Last administered on 03/17/17 05: 06; Admin Dose 0.5 MG; Start 03/05/17 at 16:07 Hydromorphone HCl (Dilaudid) 0.5 mg Q4H PRN IV PAIN Last administered on 20:24; Admin Dose 0.5 MG; Start 03/11/17 at 00:10 Insulin Glargine (Lantus) 28 unit DAILY@20 SC Last administered on 03/19/17 20: 21; Admin Dose 28 UNIT; Start 03/13/17 at 20:00 Alprazolam (Xanax) 0.5 mg QHS PO Last administered on 03/19/17 20:29; Admin Dose 0.5 MG; Start 03/15/17 at 21:00 Famotidine (Pepcid) 20 mg BID PO Last administered on 03/19/17 20:22; Admin Dose 20 MG; Start 03/15/17 at 21:00 Vancomycin HCl (Vancomycin Oral Syringe) 250 mg Q6 PO Last administered on 17:26; Admin Dose 250 MG; Start 03/16/17 at 13:30 Enoxaparin Sodium (Lovenox) 40 mg DAILY SC Last administered on 03/19/17 08:20 ; Admin Dose 40 MG; Start 03/18/17 at 09:00 Acetaminophen/ Hydrocodone Bitart ([place] (5/325)) 1 tab Q4H PRN PO PAIN Last administered on 03/19/17 18:21; Admin Dose 1 TAB; Start 03/17/17 at 10:30 MARIA DE JESUS MENDZOA MD Mar 19, 2017 22:56
[2017-03-20] MEDS: VANCOMYCIN HCL 250 MG/5ML POSYG PO SCH ×5 (00:10→23:50)
[2017-03-20] MEDS: METOCLOPRAMIDE 10 MG INJ IV SCH ×5 (00:10→23:50)
[2017-03-20] MEDS: HYDROCODONE/APAP (5/325) TAB PO PRN ×3 (00:16→15:28)
[2017-03-20 02:36] VITALS: BP 115/59; RESP 18
[2017-03-20] MEDS: metroNIDAZOLE 500 MG/NS (PMX) 100 ML IVPB SCH ×3 (05:11→22:04)
[2017-03-20 06:28] LABS: BASOPHILS % 0.1 % (0.0-2.0); EOSINOPHILS # 0.4 10^3/ul (0.0-0.5); EOSINOPHILS % 5.3 % (0.0-7.0); HEMATOCRIT 30.9 % (37.0-47.0); LYMPHOCYTES # 1.7 10^3/ul (0.8-2.9); LYMPHOCYTES % 24.3 % (15.0-51.0); MEAN CORPUSCULAR HEMOGLOBIN 28.5 pg (29.0-33.0); MEAN CORPUSCULAR HGB CONC 32.4 g/dl (32.0-37.0); MEAN PLATELET VOLUME 10.6 fl (7.4-10.4); MONOCYTE # 0.6 10^3/ul (0.3-0.9); MONOCYTES % 8.2 % (0.0-11.0); NEUTROPHILS % 61.7 % (39.0-77.0); PLATELET COUNT 337 10^3/UL (140-415); RED BLOOD COUNT 3.51 10^6/ul (4.20-5.40); WHITE BLOOD COUNT 6.9 10^3/ul (4.8-10.8)
[2017-03-20 06:48] LABS: CALCIUM 8.9 mg/dl (8.4-10.2); CREATININE 0.48 mg/dl (0.44-1.00)
[2017-03-20 07:00] VITALS: BP 113/52; RESP 20
[2017-03-20] MEDS: SOD CHLORIDE 0.9% 1,000 ML IV SCH ×2 (07:03→14:27)
[2017-03-20] MEDS: INSULIN ASPART [NOVOLOG] 3 ML PEN SC SCH ×4 (07:50→20:51)
[2017-03-20] MEDS: ATORVASTATIN 40 MG TAB PO SCH (08:26)
[2017-03-20] MEDS: FAMOTIDINE 20 MG TAB PO SCH ×2 (08:26→20:45)
[2017-03-20] MEDS: HYDROmorphONE 1 MG/ML SYG IV PRN ×4 (08:27→22:36)
[2017-03-20] MEDS: ENOXAPARIN 40 MG/0.4 ML SYG SC SCH (08:32)
[2017-03-20] MEDS ORDERED: LEVOFLOXACIN 500MG/D5W (PMX) 100 ML IVPB ONE (09:00)
--- NOTE | 2017-03-20 11:02 | PN ---
Date/Time of Note Date/Time of Note DATE: 03/20/17 TIME: 11:01 Assessment/Plan VTE Prophylaxis VTE Prophylaxis Intervention: other Lines/Catheters IV Catheter Type (from Nrsg): PICC Line Central line still needed: Yes Urinary Cath still in place: No Assessment/Plan Chief Complaint/Hosp Course - Chest pain- r/o - Troponin neg - EKG - wnl -Partial small bowel obstruction, resolving, continue TPN and Lipids. -Recurrent Ovarian CA, status post secondary cytoreduction by Dr. Morris on . Continue to follow-up surgical recommendation. -Urethral stricture continue [place] catheter, follow-up surgical recommendations. -Intractable of abdominal pain, nausea and vomiting secondary to recurrent ovarian cancer. Continue Zofran as needed for nausea and Dilaudid as needed for pain. -Diabetes mellitus type 2, hemoglobin A1c is 8.6, continue Lantus and NovoLog per sliding scale with Accu-Chek every 4 hours. -Hyperlipidemia. Problems: Subjective 24 Hr Interval Summary Free Text/Dictation Patient has no complaints Exam/Review of Systems Vital Signs Vitals Vital Signs Date Time Temp Pulse Resp B/P Pulse Ox O2 Delivery O2 Flow Rate FiO2 03/20/17 07:00 98.5 72 20 113/52 98 03/17/17 19:47 Room Air Intake and Output 03/19/17 03/19/17 03/20/17 15:00 23:00 07:00 Intake Total 650 ml 450 ml 1920 ml Output Total 4 ml 1300 ml Balance 650 ml 446 ml 620 ml Exam Constitutional: well developed Head: atraumatic, normocephalic Neck: supple Respiratory: clear to auscultation Cardiovascular: regular rate and rhythm Gastrointestinal: non-tender, soft Extremities: normal pulses Results Result Diagram: 03/20/17 0457 03/20/17 0457 Results 24 hrs Laboratory Tests Test 03/19/17 12:12 03/19/17 17:26 03/19/17 20:18 03/20/17 04:57 Bedside Glucose 134 91 163 White Blood Count 6.9 # Red Blood Count 3.51 L Hemoglobin 10.0 L Hematocrit 30.9 L Mean Corpuscular Volume 88.0 Mean Corpuscular Hemoglobin 28.5 L Mean Corpuscular Hemoglobin Concent 32.4 Red Cell Distribution Width 15.0 H Platelet Count 337 Mean Platelet Volume 10.6 H Neutrophils % 61.7 Lymphocytes % 24.3 Monocytes % 8.2 Eosinophils % 5.3 Basophils % 0.1 Nucleated Red Blood Cells % 0.0 Neutrophils # (Manual) 4.3 Lymphocytes # 1.7 Monocytes # 0.6 Eosinophils # 0.4 Basophils # 0.0 Nucleated Red Blood Cells # 0.0 Sodium Level 138 Potassium Level 3.0 L Chloride Level 100 Carbon Dioxide Level 28 Anion Gap 13 Blood Urea Nitrogen 9 Creatinine 0.48 Glucose Level 90 Calcium Level 8.9 Test 03/20/17 08:24 Bedside Glucose 107 Medications Medications Current Medications Miscellaneous Information 1 ea NOTE XX ; Start 02/19/17 at 04:30 Glucose (Glutose) 15 gm Q15M PRN PO DECREASED GLUCOSE; Start 02/19/17 at 04:30 Glucose (Glutose) 22.5 gm Q15M PRN PO DECREASED GLUCOSE; Start 02/19/17 at 04:30 Dextrose (D50w Syringe) 25 ml Q15M PRN IV DECREASED GLUCOSE Last administered on 03/11/17 01:20; Admin Dose 25 ML; Start 02/19/17 at 04:30 Dextrose (D50w Syringe) 50 ml Q15M PRN IV DECREASED GLUCOSE; Start 02/19/17 at 04:30 Glucagon (Glucagen) 1 mg Q15M PRN IM DECREASED GLUCOSE; Start 02/19/17 at 04:30 Glucose (Glutose) 15 gm Q15M PRN BUCCAL DECREASED GLUCOSE; Start 02/19/17 at 04: 30 Atorvastatin Calcium (Lipitor) 40 mg DAILY PO Last administered on 03/20/17 08: 26; Admin Dose 40 MG; Start 02/21/17 at 09:00 Metoclopramide HCl (Reglan) 10 mg Q6 IV Last administered on 03/20/17 06:02; Admin Dose 10 MG; Start 02/22/17 at 21:00 Ondansetron HCl (Zofran Inj) 4 mg Q6H PRN IV NAUSEA AND/OR VOMITING Last administered on 03/18/17 10:17; Admin Dose 4 MG; Start 02/23/17 at 15:30 IV Flush 10 ml 10 ml PRN PRN IV IV PROTOCOL Last administered on 03/03/17 04: 21; Admin Dose 10 ML; Start 02/27/17 at 15:00 Sodium Chloride (NS) 1,000 ml @ 50 mls/hr Q20H IV Last administered on 17:48; Admin Dose 50 MLS/HR; Start 03/01/17 at 14:00 Nitroglycerin (Nitroglycerin (Sl Tab) 0.4 Mg) 1 tab Q5M PRN SL ANGINA; Start at 07:00 Lorazepam (Ativan) 0.5 mg Q6H PRN IV ANXIETY Last administered on 03/17/17 05: 06; Admin Dose 0.5 MG; Start 03/05/17 at 16:07 Hydromorphone HCl (Dilaudid) 0.5 mg Q4H PRN IV PAIN Last administered on 08:27; Admin Dose 0.5 MG; Start 03/11/17 at 00:10 Insulin Glargine (Lantus) 28 unit DAILY@20 SC Last administered on 03/19/17 20: 21; Admin Dose 28 UNIT; Start 03/13/17 at 20:00 Alprazolam (Xanax) 0.5 mg QHS PO Last administered on 03/19/17 20:29; Admin Dose 0.5 MG; Start 03/15/17 at 21:00 Famotidine (Pepcid) 20 mg BID PO Last administered on 03/20/17 08:26; Admin Dose 20 MG; Start 03/15/17 at 21:00 Vancomycin HCl (Vancomycin Oral Syringe) 250 mg Q6 PO Last administered on 05:11; Admin Dose 250 MG; Start 03/16/17 at 13:30 Enoxaparin Sodium (Lovenox) 40 mg DAILY SC Last administered on 03/20/17 08:32 ; Admin Dose 40 MG; Start 03/18/17 at 09:00 Acetaminophen/ Hydrocodone Bitart 1 tab 1 tab Q4H PRN PO PAIN Last administered on 03/20/17 05:12; Admin Dose 1 TAB; Start 03/17/17 at 10:30 Metronidazole (Flagyl 500 Mg (Pmx)) 100 ml @ 100 mls/hr Q8 IVPB Last administered on 03/20/17 05:11; Admin Dose 100 MLS/HR; Start 03/20/17 at 06:00 CAITLYN STRANGE Mar 20, 2017 11:02
[2017-03-20] MEDS: ALTEPLASE (CATHFLO) 2 MG INJ CATHETER PRN (11:15)
[2017-03-20 14:54] VITALS: BP 112/56; RESP 19
[2017-03-20] MEDS ORDERED: POTASSIUM CHLORIDE (SR) 20 MEQ TAB PO STA (15:03)
[2017-03-20] MEDS ORDERED: POTASSIUM CHLORIDE 20 MEQ in SOD CHLORIDE 0.9% 100 ML IVPB ONE (19:00)
[2017-03-20 20:00] VITALS: BP 118/56; RESP 18
[2017-03-20] MEDS: INSULIN GLARGINE [LANtus] 3 ML PEN SC SCH (20:06)
[2017-03-20] MEDS: ALPRAZOLAM 0.5 MG TAB PO SCH (20:45)
[2017-03-20] MEDS: ONDANSETRON 4 MG INJ IV PRN (22:32)
[2017-03-21 01:43] VITALS: BP 109/58; RESP 18
[2017-03-21] MEDS: HYDROCODONE/APAP (5/325) TAB PO PRN ×2 (02:57→08:55)
[2017-03-21] MEDS: VANCOMYCIN HCL 250 MG/5ML POSYG PO SCH ×3 (05:30→17:22)
[2017-03-21] MEDS: METOCLOPRAMIDE 10 MG INJ IV SCH ×3 (05:30→17:22)
[2017-03-21] MEDS: metroNIDAZOLE 500 MG/NS (PMX) 100 ML IVPB SCH ×2 (05:30→14:19)
[2017-03-21] MEDS: HYDROmorphONE 1 MG/ML SYG IV PRN ×2 (07:04→17:22)
[2017-03-21 07:44] VITALS: BP 109/57; RESP 19
[2017-03-21] MEDS: INSULIN ASPART [NOVOLOG] 3 ML PEN SC SCH ×4 (07:50→21:00)
[2017-03-21] MEDS: FAMOTIDINE 20 MG TAB PO SCH ×2 (08:54→20:28)
[2017-03-21] MEDS: ATORVASTATIN 40 MG TAB PO SCH (08:54)
[2017-03-21] MEDS: ENOXAPARIN 40 MG/0.4 ML SYG SC SCH (09:23)
[2017-03-21 13:59] VITALS: BP 101/53; RESP 18
[2017-03-21] MEDS: SOD CHLORIDE 0.9% 1,000 ML IV SCH (14:27)
--- NOTE | 2017-03-21 19:46 | PN ---
Date/Time of Note Date/Time of Note DATE: 03/21/17 TIME: 19:42 Assessment/Plan VTE Prophylaxis VTE Prophylaxis Intervention: SCD's Lines/Catheters IV Catheter Type (from Nrs): PICC Line Central line still needed: Yes Urinary Cath still in place: No Assessment/Plan Chief Complaint/Hosp Course ovarian cancer, recurrent, partial SBO/LBO, ureteral stricture Problems: Assessment/Plan A- improved but integrity of anastomosis of concern P- continue rx and re check a.m. consider LGI Subjective 24 Hr Interval Summary Free Text/Dictation less diarrhea, no suggestion of vaginal leakage. Exam/Review of Systems Vital Signs Vitals Vital Signs Date Time Temp Pulse Resp B/P Pulse Ox O2 Delivery O2 Flow Rate FiO2 03/21/17 13:59 98.5 85 18 101/53 98 03/17/17 19:47 Room Air Intake and Output 03/20/17 03/20/17 03/21/17 15:00 23:00 07:00 Intake Total 920 ml 2180 ml 1400 ml Output Total 1200 ml Balance 920 ml 980 ml 1400 ml Exam Resp- clear CVS- NSR Abd- soft NT clean; small amt drainage but possibly purulent Ext- NT no edema Results Result Diagram: 03/20/17 0457 03/20/17 0457 Results 24 hrs Laboratory Tests Test 03/20/17 19:56 03/20/17 20:47 03/21/17 08:54 03/21/17 12:27 Bedside Glucose 108 111 82 97 Test 03/21/17 17:24 Bedside Glucose 117 Medications Medications Current Medications Miscellaneous Information 1 ea NOTE XX ; Start 02/19/17 at 04:30 Glucose (Glutose) 15 gm Q15M PRN PO DECREASED GLUCOSE; Start 02/19/17 at 04:30 Glucose (Glutose) 22.5 gm Q15M PRN PO DECREASED GLUCOSE; Start 02/19/17 at 04:30 Dextrose (D50w Syringe) 25 ml Q15M PRN IV DECREASED GLUCOSE Last administered on 03/11/17t 01:20; Admin Dose 25 ML; Start 02/19/17 at 04:30 Dextrose (D50w Syringe) 50 ml Q15M PRN IV DECREASED GLUCOSE; Start 02/19/17 at 04:30 Glucagon (Glucagen) 1 mg Q15M PRN IM DECREASED GLUCOSE; Start 02/19/17 at 04:30 Glucose (Glutose) 15 gm Q15M PRN BUCCAL DECREASED GLUCOSE; Start 02/19/17 at 04: 30 Atorvastatin Calcium (Lipitor) 40 mg DAILY PO Last administered on 03/21/17 08: 54; Admin Dose 40 MG; Start 02/21/17 at 09:00 Metoclopramide HCl (Reglan) 10 mg Q6 IV Last administered on 03/21/17 17:22; Admin Dose 10 MG; Start 02/22/17 at 21:00 Ondansetron HCl (Zofran Inj) 4 mg Q6H PRN IV NAUSEA AND/OR VOMITING Last administered on 03/20/17 22:32; Admin Dose 4 MG; Start 02/23/17 at 15:30 IV Flush 10 ml 10 ml PRN PRN IV IV PROTOCOL Last administered on 03/03/17 04: 21; Admin Dose 10 ML; Start 02/27/17 at 15:00 Sodium Chloride (NS) 1,000 ml @ 50 mls/hr Q20H IV Last administered on 14:27; Admin Dose 50 MLS/HR; Start 03/01/17 at 14:00 Nitroglycerin (Nitroglycerin (Sl Tab) 0.4 Mg) 1 tab Q5M PRN SL ANGINA; Start at 07:00 Lorazepam (Ativan) 0.5 mg Q6H PRN IV ANXIETY Last administered on 03/17/17 05: 06; Admin Dose 0.5 MG; Start 03/05/17 at 16:07 Insulin Glargine (Lantus) 28 unit DAILY@20 SC Last administered on 03/20/17 20: 06; Admin Dose 28 UNIT; Start 03/13/17 at 20:00 Alprazolam (Xanax) 0.5 mg QHS PO Last administered on 03/20/17 20:45; Admin Dose 0.5 MG; Start 03/15/17 at 21:00 Famotidine (Pepcid) 20 mg BID PO Last administered on 03/21/17 08:54; Admin Dose 20 MG; Start 03/15/17 at 21:00 Vancomycin HCl (Vancomycin Oral Syringe) 250 mg Q6 PO Last administered on 17:22; Admin Dose 250 MG; Start 03/16/17 at 13:30 Enoxaparin Sodium (Lovenox) 40 mg DAILY SC Last administered on 03/21/17 09:23 ; Admin Dose 40 MG; Start 03/18/17 at 09:00 Acetaminophen/ Hydrocodone Bitart 1 tab 1 tab Q4H PRN PO PAIN Last administered on 03/21/17 08:55; Admin Dose 1 TAB; Start 03/17/17 at 10:30 Metronidazole (Flagyl 500 Mg (Pmx)) 100 ml @ 100 mls/hr Q8 IVPB Last administered on 03/21/17 14:19; Admin Dose 100 MLS/HR; Start 03/20/17 at 06:00 Hydromorphone HCl (Dilaudid) 0.5 mg Q8 PRN IV PAIN Last administered on 17:22; Admin Dose 0.5 MG; Start 03/20/17 at 22:00 MARIA DE JESUS MENDOZA MD Mar 21, 2017 19:46
[2017-03-21] MEDS: ONDANSETRON 4 MG INJ IV PRN (20:28)
[2017-03-21] MEDS: INSULIN GLARGINE [LANtus] 3 ML PEN SC SCH (20:33)
[2017-03-21] MEDS: ALPRAZOLAM 0.5 MG TAB PO SCH (20:35)
[2017-03-21 21:26] VITALS: BP 102/53; RESP 19
[2017-03-22] MEDS: METOCLOPRAMIDE 10 MG INJ IV SCH ×4 (00:26→17:39)
[2017-03-22] MEDS: VANCOMYCIN HCL 250 MG/5ML POSYG PO SCH ×4 (00:26→17:39)
[2017-03-22] MEDS: HYDROmorphONE 1 MG/ML SYG IV PRN ×3 (01:05→18:10)
[2017-03-22 01:56] VITALS: BP 103/61; RESP 18
--- NOTE | 2017-03-22 03:33 | PN ---
DATE: 03/21/2017 SUBJECTIVE DATA: The patient is complaining of significant nausea despite being on Reglan around the clock as well and also receiving IV Zofran. The patient was recently started on IV Flagyl for C diff colitis that might have exacerbated her nausea. Will hold off on Flagyl and will continue p.o. vancomycin. The patient had only 2 bowel movements today. The patient is being treated for C. diff colitis. Denies any chest pain. Denies any headache. No shortness of breath. OBJECTIVE DATA: GENERAL: The patient is conscious, awake, alert. VITAL SIGNS: Temperature 98.5, pulse 85, respiration 18, blood pressure 101/53, O2 sat 98 percent. NECK: Neck, no mass. CHEST: Chest fairly clear. CARDIAC: S1, S2 normal. No murmur. ABDOMEN: Soft. Nondistended. MANDY drain in place. Ray intact. NEURO: The patient is awake, alert. LABS: Last blood glucose 117. IMPRESSION: 1. C. diff colitis. Continue p.o. Vanco. Will discontinue IV Flagyl due to severe nausea. Continue Pepcid. 2. Diabetes. Will decrease the dose of Lantus to 25 units due to diminished p.o. intake and blood sugar running close to 100 or less than 100. 3. Continue postop care for recent surgery for recurrent ovarian cancer. The patient is being followed by Dr. Morris. Dictated By: Derek Hester MD /reno/ /Document#: [id number]
[2017-03-22 05:34] LABS: BASOPHILS % 0.1 % (0.0-2.0); EOSINOPHILS # 0.3 10^3/ul (0.0-0.5); EOSINOPHILS % 3.7 % (0.0-7.0); HEMOGLOBIN 10.2 g/dl (12.0-16.0); LYMPHOCYTES # 1.6 10^3/ul (0.8-2.9); LYMPHOCYTES % 19.3 % (15.0-51.0); MEAN CORPUSCULAR HEMOGLOBIN 28.3 pg (29.0-33.0); MEAN CORPUSCULAR HGB CONC 31.9 g/dl (32.0-37.0); MEAN CORPUSCULAR VOLUME 88.6 fl (82.0-101.0); MEAN PLATELET VOLUME 9.9 fl (7.4-10.4); MONOCYTE # 0.7 10^3/ul (0.3-0.9); MONOCYTES % 8.2 % (0.0-11.0); NEUTROPHILS % 68.5 % (39.0-77.0); PLATELET COUNT 317 10^3/UL (140-415); RED BLOOD COUNT 3.61 10^6/ul (4.20-5.40); WHITE BLOOD COUNT 8.1 10^3/ul (4.8-10.8)
[2017-03-22 06:09] LABS: CALCIUM 8.9 mg/dl (8.4-10.2); CREATININE 0.5 mg/dl (0.44-1.00); POTASSIUM 3.2 mmol/L (3.5-5.1)
[2017-03-22 07:00] VITALS: BP 125/62; RESP 20
[2017-03-22] MEDS: INSULIN ASPART [NOVOLOG] 3 ML PEN SC SCH ×4 (07:50→20:55)
[2017-03-22] MEDS: ATORVASTATIN 40 MG TAB PO SCH (08:35)
[2017-03-22] MEDS: FAMOTIDINE 20 MG TAB PO SCH ×2 (08:35→20:42)
[2017-03-22] MEDS: ENOXAPARIN 40 MG/0.4 ML SYG SC SCH (08:45)
[2017-03-22] MEDS: SOD CHLORIDE 0.9% 1,000 ML IV SCH (09:30)
[2017-03-22] MEDS: LORAZEPAM 2 MG INJ IV PRN (12:33)
[2017-03-22 14:00] VITALS: BP 118/69; RESP 18
[2017-03-22] MEDS ORDERED: POTASSIUM CHLORIDE (SR) 20 MEQ TAB PO STA (14:45)
--- NOTE | 2017-03-22 14:52 | PN ---
Date/Time of Note Date/Time of Note DATE: 03/22/17 TIME: 14:44 Assessment/Plan Lines/Catheters IV Catheter Type (from [facility]): PICC Line Urinary Cath still in place: No Assessment/Plan Assessment/Plan 1. Electrolyte Imbalance - Hypokalemia- replace K, AM bmp - Hypomagnesium- replace Mag. am MAG level 1. C. diff colitis. Continue p.o. Vanco. Will discontinue IV Flagyl due to severe nausea. Continue Pepcid. 2. Diabetes. Will decrease the dose of Lantus to 25 units due to diminished p.o. intake and blood sugar running close to 100 or less than 100. 3. Continue postop care for recent surgery for recurrent ovarian cancer. The patient is being followed by Dr. Morris. Subjective 24 Hr Interval Summary ENT: no complaints Respiratory: no complaints Cardiovascular: no complaints Gastrointestinal: pain Genitourinary: no complaints Musculoskeletal: no complaints Exam/Review of Systems Vital Signs Vitals Vital Signs Date Time Temp Pulse Resp B/P Pulse Ox O2 Delivery O2 Flow Rate FiO2 03/22/17 14:00 98.4 76 18 118/69 99 Intake and Output 03/21/17 03/21/17 03/22/17 15:00 23:00 07:00 Intake Total 884 ml 1600 ml 1000 ml Output Total 5 ml Balance 879 ml 1600 ml 1000 ml Exam Constitutional: alert, oriented, well developed Respiratory: clear to auscultation, diminished breath sounds Cardiovascular: nl pulses, regular rate and rhythm Gastrointestinal: non-tender, other, soft Musculoskeletal: nl extremities to inspection Extremities: normal pulses Neurological: nl mental status, nl speech Results Result Diagram: 03/22/17 0450 03/22/17 0450 Results 24 hrs Laboratory Tests Test 03/21/17 17:24 03/21/17 20:26 03/22/17 04:50 03/22/17 08:41 Bedside Glucose 117 107 84 White Blood Count 8.1 Red Blood Count 3.61 L Hemoglobin 10.2 L Hematocrit 32.0 L Mean Corpuscular Volume 88.6 Mean Corpuscular Hemoglobin 28.3 L Mean Corpuscular Hemoglobin Concent 31.9 L Red Cell Distribution Width 15.0 H Platelet Count 317 Mean Platelet Volume 9.9 Neutrophils % 68.5 Lymphocytes % 19.3 Monocytes % 8.2 Eosinophils % 3.7 Basophils % 0.1 Nucleated Red Blood Cells % 0.0 Neutrophils # (Manual) 5.5 Lymphocytes # 1.6 Monocytes # 0.7 Eosinophils # 0.3 Basophils # 0.0 Nucleated Red Blood Cells # 0.0 Sodium Level 138 Potassium Level 3.2 L Chloride Level 100 Carbon Dioxide Level 28 Anion Gap 13 Blood Urea Nitrogen 6 L Creatinine 0.50 Glucose Level 80 Calcium Level 8.9 Magnesium Level 1.3 L Test 03/22/17 12:36 Bedside Glucose 96 Medications Medications Current Medications Miscellaneous Information 1 ea NOTE XX ; Start 02/19/17 at 04:30 Glucose (Glutose) 15 gm Q15M PRN PO DECREASED GLUCOSE; Start 02/19/17 at 04:30 Glucose (Glutose) 22.5 gm Q15M PRN PO DECREASED GLUCOSE; Start 02/19/17 at 04:30 Dextrose (D50w Syringe) 25 ml Q15M PRN IV DECREASED GLUCOSE Last administered on 03/11/17 01:20; Admin Dose 25 ML; Start 02/19/17 at 04:30 Dextrose (D50w Syringe) 50 ml Q15M PRN IV DECREASED GLUCOSE; Start 02/19/17 at 04:30 Glucagon (Glucagen) 1 mg Q15M PRN IM DECREASED GLUCOSE; Start 02/19/17 at 04:30 Glucose (Glutose) 15 gm Q15M PRN BUCCAL DECREASED GLUCOSE; Start 02/19/17 at 04: 30 Atorvastatin Calcium (Lipitor) 40 mg DAILY PO Last administered on 03/22/17 08: 35; Admin Dose 40 MG; Start 02/21/17 at 09:00 Metoclopramide HCl (Reglan) 10 mg Q6 IV Last administered on 03/22/17 12:29; Admin Dose 10 MG; Start 02/22/17 at 21:00 Ondansetron HCl (Zofran Inj) 4 mg Q6H PRN IV NAUSEA AND/OR VOMITING Last administered on 03/21/17 20:28; Admin Dose 4 MG; Start 02/23/17 at 15:30 IV Flush 10 ml 10 ml PRN PRN IV IV PROTOCOL Last administered on 03/03/17 04: 21; Admin Dose 10 ML; Start 02/27/17 at 15:00 Sodium Chloride (NS) 1,000 ml @ 50 mls/hr Q20H IV Last administered on 09:30; Admin Dose 50 MLS/HR; Start 03/01/17 at 14:00 Nitroglycerin (Nitroglycerin (Sl Tab) 0.4 Mg) 1 tab Q5M PRN SL ANGINA; Start at 07:00 Lorazepam (Ativan) 0.5 mg Q6H PRN IV ANXIETY Last administered on 03/22/17 12: 33; Admin Dose 0.5 MG; Start 03/05/17 at 16:07 Alprazolam (Xanax) 0.5 mg QHS PO Last administered on 03/21/17 20:35; Admin Dose 0.5 MG; Start 03/15/17 at 21:00 Famotidine (Pepcid) 20 mg BID PO Last administered on 03/22/17 08:35; Admin Dose 20 MG; Start 03/15/17 at 21:00 Vancomycin HCl (Vancomycin Oral Syringe) 250 mg Q6 PO Last administered on 12:30; Admin Dose 250 MG; Start 03/16/17 at 13:30 Enoxaparin Sodium (Lovenox) 40 mg DAILY SC Last administered on 03/22/17 08:45 ; Admin Dose 40 MG; Start 03/18/17 at 09:00 Acetaminophen/ Hydrocodone Bitart ([place] (5/325)) 1 tab Q4H PRN PO PAIN Last administered on 03/21/17 08:55; Admin Dose 1 TAB; Start 03/17/17 at 10:30 Hydromorphone HCl (Dilaudid) 0.5 mg Q8 PRN IV PAIN Last administered on 09:26; Admin Dose 0.5 MG; Start 03/20/17 at 22:00 Insulin Glargine (Lantus) 25 unit DAILY@20 SC Last administered on 03/21/17 20: 33; Admin Dose 25 UNIT; Start 03/21/17 at 20:30 CUATE HAGEN Mar 22, 2017 14:52
[2017-03-22] MEDS ORDERED: MAGNESIUM SULFATE 2 GM/50 ML 50 ML IVPB ONE (16:30)
--- NOTE | 2017-03-22 16:49 | PN ---
Date/Time of Note Date/Time of Note DATE: 03/22/17 TIME: 16:46 Assessment/Plan VTE Prophylaxis VTE Prophylaxis Intervention: SCD's Lines/Catheters IV Catheter Type (from Nrsg): PICC Line Central line still needed: Yes Urinary Cath still in place: No Assessment/Plan Chief Complaint/Hosp Course ovarian cancer, recurrent, partial SBO/LBO, ureteral stricture Problems: Assessment/Plan A- doing well other than C. diff and now increased risk of leak P- gastrograffin LGI Subjective 24 Hr Interval Summary Free Text/Dictation Minimal pain, less diarrhea. Exam/Review of Systems Vital Signs Vitals Vital Signs Date Time Temp Pulse Resp B/P Pulse Ox O2 Delivery O2 Flow Rate FiO2 03/22/17 14:00 98.4 76 18 118/69 99 Intake and Output 03/21/17 03/21/17 03/22/17 15:00 23:00 07:00 Intake Total 884 ml 1600 ml 1000 ml Output Total 5 ml Balance 879 ml 1600 ml 1000 ml Exam Resp- clear CVS- NSR Abd- NT with clean wound, minimal MANDY drainage; minimal but more purulent Pelvic; NT minimal separation, no fecal material Ext - NT' no edema Results Result Diagram: 03/22/17 0450 03/22/17 0450 Results 24 hrs Laboratory Tests Test 03/21/17 17:24 03/21/17 20:26 03/22/17 04:50 03/22/17 08:41 Bedside Glucose 117 107 84 White Blood Count 8.1 Red Blood Count 3.61 L Hemoglobin 10.2 L Hematocrit 32.0 L Mean Corpuscular Volume 88.6 Mean Corpuscular Hemoglobin 28.3 L Mean Corpuscular Hemoglobin Concent 31.9 L Red Cell Distribution Width 15.0 H Platelet Count 317 Mean Platelet Volume 9.9 Neutrophils % 68.5 Lymphocytes % 19.3 Monocytes % 8.2 Eosinophils % 3.7 Basophils % 0.1 Nucleated Red Blood Cells % 0.0 Neutrophils # (Manual) 5.5 Lymphocytes # 1.6 Monocytes # 0.7 Eosinophils # 0.3 Basophils # 0.0 Nucleated Red Blood Cells # 0.0 Sodium Level 138 Potassium Level 3.2 L Chloride Level 100 Carbon Dioxide Level 28 Anion Gap 13 Blood Urea Nitrogen 6 L Creatinine 0.50 Glucose Level 80 Calcium Level 8.9 Magnesium Level 1.3 L Test 03/22/17 12:36 Bedside Glucose 96 Medications Medications Current Medications Miscellaneous Information 1 ea NOTE XX ; Start 02/19/17 at 04:30 Glucose (Glutose) 15 gm Q15M PRN PO DECREASED GLUCOSE; Start 02/19/17 at 04:30 Glucose (Glutose) 22.5 gm Q15M PRN PO DECREASED GLUCOSE; Start 02/19/17 at 04:30 Dextrose (D50w Syringe) 25 ml Q15M PRN IV DECREASED GLUCOSE Last administered on 03/11/17 01:20; Admin Dose 25 ML; Start 02/19/17 at 04:30 Dextrose (D50w Syringe) 50 ml Q15M PRN IV DECREASED GLUCOSE; Start 02/19/17 at 04:30 Glucagon (Glucagen) 1 mg Q15M PRN IM DECREASED GLUCOSE; Start 02/19/17 at 04:30 Glucose (Glutose) 15 gm Q15M PRN BUCCAL DECREASED GLUCOSE; Start 02/19/17 at 04: 30 Atorvastatin Calcium (Lipitor) 40 mg DAILY PO Last administered on 03/22/17 08: 35; Admin Dose 40 MG; Start 02/21/17 at 09:00 Metoclopramide HCl (Reglan) 10 mg Q6 IV Last administered on 03/22/17 12:29; Admin Dose 10 MG; Start 02/22/17 at 21:00 Ondansetron HCl (Zofran Inj) 4 mg Q6H PRN IV NAUSEA AND/OR VOMITING Last administered on 03/21/17 20:28; Admin Dose 4 MG; Start 02/23/17 at 15:30 IV Flush 10 ml 10 ml PRN PRN IV IV PROTOCOL Last administered on 03/03/17 04: 21; Admin Dose 10 ML; Start 02/27/17 at 15:00 Sodium Chloride (NS) 1,000 ml @ 50 mls/hr Q20H IV Last administered on 09:30; Admin Dose 50 MLS/HR; Start 03/01/17 at 14:00 Nitroglycerin (Nitroglycerin (Sl Tab) 0.4 Mg) 1 tab Q5M PRN SL ANGINA; Start at 07:00 Lorazepam (Ativan) 0.5 mg Q6H PRN IV ANXIETY Last administered on 03/22/17 12: 33; Admin Dose 0.5 MG; Start 03/05/17 at 16:07 Alprazolam (Xanax) 0.5 mg QHS PO Last administered on 03/21/17 20:35; Admin Dose 0.5 MG; Start 03/15/17 at 21:00 Famotidine (Pepcid) 20 mg BID PO Last administered on 03/22/17 08:35; Admin Dose 20 MG; Start 03/15/17 at 21:00 Vancomycin HCl (Vancomycin Oral Syringe) 250 mg Q6 PO Last administered on 12:30; Admin Dose 250 MG; Start 03/16/17 at 13:30 Enoxaparin Sodium (Lovenox) 40 mg DAILY SC Last administered on 03/22/17 08:45 ; Admin Dose 40 MG; Start 03/18/17 at 09:00 Acetaminophen/ Hydrocodone Bitart ([place] (5/325)) 1 tab Q4H PRN PO PAIN Last administered on 03/21/17 08:55; Admin Dose 1 TAB; Start 03/17/17 at 10:30 Hydromorphone HCl (Dilaudid) 0.5 mg Q8 PRN IV PAIN Last administered on 09:26; Admin Dose 0.5 MG; Start 03/20/17 at 22:00 Insulin Glargine 25 unit 25 unit DAILY@20 SC Last administered on 03/21/17 20: 33; Admin Dose 25 UNIT; Start 03/21/17 at 20:30 Magnesium Sulfate (Magnesium Sulfate 2 Gm/50 ml) 50 ml @ 25 mls/hr ONCE ONCE IVPB Last administered on 03/22/17 16:15; Admin Dose 25 MLS/HR; Start 03/22/17 at 16:30; Stop 03/22/17 at 18:29 MARIA DE JESUS MENDOZA MD Mar 22, 2017 16:49
[2017-03-22 19:49] VITALS: BP 107/56; RESP 20
[2017-03-22] MEDS ORDERED: INSULIN GLARGINE [LANtus] 3 ML PEN SC SCH (20:00)
[2017-03-22] MEDS: ALPRAZOLAM 0.5 MG TAB PO SCH (20:42)
[2017-03-22] MEDS: HYDROCODONE/APAP (5/325) TAB PO PRN (20:42)
[2017-03-22] MEDS: INSULIN GLARGINE [LANtus] 3 ML PEN SC SCH (20:48)
[2017-03-22] MEDS: ONDANSETRON 4 MG INJ IV PRN (20:50)
[2017-03-23] MEDS: VANCOMYCIN HCL 250 MG/5ML POSYG PO SCH ×5 (00:11→23:05)
[2017-03-23] MEDS: HYDROmorphONE 1 MG/ML SYG IV PRN ×4 (00:11→18:23)
[2017-03-23] MEDS: METOCLOPRAMIDE 10 MG INJ IV SCH ×5 (00:11→23:05)
[2017-03-23 02:28] VITALS: BP 102/52; RESP 18
[2017-03-23 05:49] LABS: BASOPHILS % 0.3 % (0.0-2.0); EOSINOPHILS # 0.4 10^3/ul (0.0-0.5); EOSINOPHILS % 5.3 % (0.0-7.0); HEMOGLOBIN 9.9 g/dl (12.0-16.0); LYMPHOCYTES # 1.9 10^3/ul (0.8-2.9); LYMPHOCYTES % 27.1 % (15.0-51.0); MEAN CORPUSCULAR HEMOGLOBIN 28.2 pg (29.0-33.0); MEAN CORPUSCULAR HGB CONC 31.9 g/dl (32.0-37.0); MEAN CORPUSCULAR VOLUME 88.3 fl (82.0-101.0); MEAN PLATELET VOLUME 9.7 fl (7.4-10.4); MONOCYTE # 0.6 10^3/ul (0.3-0.9); PLATELET COUNT 304 10^3/UL (140-415); RED BLOOD COUNT 3.51 10^6/ul (4.20-5.40); RED CELL DISTRIBUTION WIDTH 14.9 % (11.5-14.5); WHITE BLOOD COUNT 7.1 10^3/ul (4.8-10.8)
[2017-03-23 06:03] LABS: CALCIUM 8.7 mg/dl (8.4-10.2); CREATININE 0.52 mg/dl (0.44-1.00)
[2017-03-23 07:34] VITALS: BP 104/60; RESP 20
[2017-03-23] MEDS: INSULIN ASPART [NOVOLOG] 3 ML PEN SC SCH ×4 (07:50→21:00)
[2017-03-23] MEDS: FAMOTIDINE 20 MG TAB PO SCH ×2 (08:38→20:12)
[2017-03-23] MEDS: ATORVASTATIN 40 MG TAB PO SCH (08:39)
[2017-03-23] MEDS: ENOXAPARIN 40 MG/0.4 ML SYG SC SCH (08:46)
[2017-03-23] MEDS: SOD CHLORIDE 0.9% 1,000 ML IV SCH (11:46)
[2017-03-23] MEDS ORDERED: POTASSIUM CHLORIDE (SR) 20 MEQ TAB PO STA (13:34)
[2017-03-23 15:41] VITALS: BP 100/51; RESP 18
--- NOTE | 2017-03-23 15:53 | PN ---
Date/Time of Note Date/Time of Note DATE: 03/23/17 TIME: 15:51 Assessment/Plan VTE Prophylaxis VTE Prophylaxis Intervention: SCD's Lines/Catheters IV Catheter Type (from Nrs): PICC Line Central line still needed: Yes Urinary Cath still in place: No Assessment/Plan Chief Complaint/Hosp Course ovarian cancer, recurrent, partial SBO/LBO, ureteral stricture Problems: Assessment/Plan A- some impvt but awaits LGI P- LGI to determine whether to d/c MANDY and feed and chemo vs diversion Subjective 24 Hr Interval Summary Free Text/Dictation Less diarrhea but some persistence. Awaits scan. Exam/Review of Systems Vital Signs Vitals Vital Signs Date Time Temp Pulse Resp B/P Pulse Ox O2 Delivery O2 Flow Rate FiO2 03/23/17 15:41 98.2 81 18 100/51 98 Intake and Output 03/22/17 03/22/17 03/23/17 15:00 23:00 07:00 Intake Total 100 ml 1330 ml 800 ml Output Total 0 ml 5 ml Balance 100 ml 1330 ml 795 ml Exam Resp- clear CVS- NSR Abd- NT with clean wound, minimal MANDY drainage; minimal Pelvic; NT minimal separation, no fecal material Ext - NT' no edema Results Result Diagram: 03/23/1744603/23/17446 Results 24 hrs Laboratory Tests Test 03/22/17 17:44 03/22/17 20:45 03/23/17 04:47 03/23/17 08:44 Bedside Glucose 122 138 90 White Blood Count 7.1 Red Blood Count 3.51 L Hemoglobin 9.9 L Hematocrit 31.0 L Mean Corpuscular Volume 88.3 Mean Corpuscular Hemoglobin 28.2 L Mean Corpuscular Hemoglobin Concent 31.9 L Red Cell Distribution Width 14.9 H Platelet Count 304 Mean Platelet Volume 9.7 Neutrophils % 58.0 Lymphocytes % 27.1 Monocytes % 9.0 Eosinophils % 5.3 Basophils % 0.3 Nucleated Red Blood Cells % 0.0 Neutrophils # (Manual) 4.1 Lymphocytes # 1.9 Monocytes # 0.6 Eosinophils # 0.4 Basophils # 0.0 Nucleated Red Blood Cells # 0.0 Sodium Level 137 Potassium Level 3.0 L Chloride Level 103 Carbon Dioxide Level 28 Anion Gap 9 Blood Urea Nitrogen 10 Creatinine 0.52 Glucose Level 100 Calcium Level 8.7 Magnesium Level 1.7 Test 03/23/17 12:35 Bedside Glucose 108 Medications Medications Current Medications Miscellaneous Information 1 ea NOTE XX ; Start 02/19/17 at 04:30 Glucose (Glutose) 15 gm Q15M PRN PO DECREASED GLUCOSE; Start 02/19/17 at 04:30 Glucose (Glutose) 22.5 gm Q15M PRN PO DECREASED GLUCOSE; Start 02/19/17 at 04:30 Dextrose (D50w Syringe) 25 ml Q15M PRN IV DECREASED GLUCOSE Last administered on 03/11/17 01:20; Admin Dose 25 ML; Start 02/19/17 at 04:30 Dextrose (D50w Syringe) 50 ml Q15M PRN IV DECREASED GLUCOSE; Start 02/19/17 at 04:30 Glucagon (Glucagen) 1 mg Q15M PRN IM DECREASED GLUCOSE; Start 02/19/17 at 04:30 Glucose (Glutose) 15 gm Q15M PRN BUCCAL DECREASED GLUCOSE; Start 02/19/17 at 04: 30 Atorvastatin Calcium (Lipitor) 40 mg DAILY PO Last administered on 03/23/17 08: 39; Admin Dose 40 MG; Start 02/21/17 at 09:00 Metoclopramide HCl (Reglan) 10 mg Q6 IV Last administered on 03/23/17 12:29; Admin Dose 10 MG; Start 02/22/17 at 21:00 Ondansetron HCl (Zofran Inj) 4 mg Q6H PRN IV NAUSEA AND/OR VOMITING Last administered on 03/22/17 20:50; Admin Dose 4 MG; Start 02/23/17 at 15:30 IV Flush 10 ml 10 ml PRN PRN IV IV PROTOCOL Last administered on 03/03/17 04: 21; Admin Dose 10 ML; Start 02/27/17 at 15:00 Sodium Chloride (NS) 1,000 ml @ 50 mls/hr Q20H IV Last administered on 11:46; Admin Dose 50 MLS/HR; Start 03/01/17 at 14:00 Nitroglycerin (Nitroglycerin (Sl Tab) 0.4 Mg) 1 tab Q5M PRN SL ANGINA; Start at 07:00 Lorazepam (Ativan) 0.5 mg Q6H PRN IV ANXIETY Last administered on 03/22/17 12: 33; Admin Dose 0.5 MG; Start 03/05/17 at 16:07 Alprazolam (Xanax) 0.5 mg QHS PO Last administered on 03/22/17 20:42; Admin Dose 0.5 MG; Start 03/15/17 at 21:00 Famotidine (Pepcid) 20 mg BID PO Last administered on 03/23/17 08:38; Admin Dose 20 MG; Start 03/15/17 at 21:00 Vancomycin HCl (Vancomycin Oral Syringe) 250 mg Q6 PO Last administered on 12:29; Admin Dose 250 MG; Start 03/16/17 at 13:30 Enoxaparin Sodium (Lovenox) 40 mg DAILY SC Last administered on 03/23/17 08:46 ; Admin Dose 40 MG; Start 03/18/17 at 09:00 Acetaminophen/ Hydrocodone Bitart ([place] (5/325)) 1 tab Q4H PRN PO PAIN Last administered on 03/22/17 20:42; Admin Dose 1 TAB; Start 03/17/17 at 10:30 Insulin Glargine (Lantus) 25 unit DAILY@20 SC Last administered on 03/22/17 20: 48; Admin Dose 25 UNIT; Start 03/21/17 at 20:30 Hydromorphone HCl (Dilaudid) 0.5 mg Q6 PRN IV PAIN Last administered on 12:29; Admin Dose 0.5 MG; Start 03/23/17 at 00:00 MARIA DE JESUS MENDOZA MD Mar 23, 2017 15:53
--- NOTE | 2017-03-23 18:29 | PN ---
Date/Time of Note Date/Time of Note DATE: 03/23/17 TIME: 18:27 Assessment/Plan VTE Prophylaxis VTE Prophylaxis Intervention: other Lines/Catheters IV Catheter Type (from Nrs): PICC Line Urinary Cath still in place: No Assessment/Plan Assessment/Plan 1. Electrolyte Imbalance - Hypokalemia- replace K, AM bmp - Hypomagnesium- resolved 1. C. diff colitis. Continue p.o. Vanco. Will discontinue IV Flagyl due to severe nausea. Continue Pepcid. 2. Diabetes. - Glycemic control 3. Continue postop care for recent surgery for recurrent ovarian cancer. The patient is being followed by Dr. Morris. Subjective 24 Hr Interval Summary Free Text/Dictation NAD, feels better, wants to go home, no new issues reported by staff. Respiratory: no complaints Cardiovascular: no complaints Gastrointestinal: no complaints Musculoskeletal: no complaints Skin: no complaints Exam/Review of Systems Vital Signs Vitals Vital Signs Date Time Temp Pulse Resp B/P Pulse Ox O2 Delivery O2 Flow Rate FiO2 03/23/17 15:41 98.2 81 18 100/51 98 Intake and Output 03/22/17 03/22/17 03/23/17 15:00 23:00 07:00 Intake Total 100 ml 1330 ml 800 ml Output Total 0 ml 5 ml Balance 100 ml 1330 ml 795 ml Exam Constitutional: alert, oriented Respiratory: clear to auscultation, normal air movement Cardiovascular: nl pulses, regular rate and rhythm Gastrointestinal: non-tender, other (surgical abdomen- site - DDI), soft Musculoskeletal: nl extremities to inspection Extremities: normal pulses Neurological: nl mental status, nl speech Results Result Diagram: 03/23/177 03/23/177 Results 24 hrs Laboratory Tests Test 03/22/17 20:45 03/23/17 04:47 03/23/17 08:44 03/23/17 12:35 Bedside Glucose 138 90 108 White Blood Count 7.1 Red Blood Count 3.51 L Hemoglobin 9.9 L Hematocrit 31.0 L Mean Corpuscular Volume 88.3 Mean Corpuscular Hemoglobin 28.2 L Mean Corpuscular Hemoglobin Concent 31.9 L Red Cell Distribution Width 14.9 H Platelet Count 304 Mean Platelet Volume 9.7 Neutrophils % 58.0 Lymphocytes % 27.1 Monocytes % 9.0 Eosinophils % 5.3 Basophils % 0.3 Nucleated Red Blood Cells % 0.0 Neutrophils # (Manual) 4.1 Lymphocytes # 1.9 Monocytes # 0.6 Eosinophils # 0.4 Basophils # 0.0 Nucleated Red Blood Cells # 0.0 Sodium Level 137 Potassium Level 3.0 L Chloride Level 103 Carbon Dioxide Level 28 Anion Gap 9 Blood Urea Nitrogen 10 Creatinine 0.52 Glucose Level 100 Calcium Level 8.7 Magnesium Level 1.7 Test 03/23/17 17:55 Bedside Glucose 91 Medications Medications Current Medications Miscellaneous Information 1 ea NOTE XX ; Start 02/19/17 at 04:30 Glucose (Glutose) 15 gm Q15M PRN PO DECREASED GLUCOSE; Start 02/19/17 at 04:30 Glucose (Glutose) 22.5 gm Q15M PRN PO DECREASED GLUCOSE; Start 02/19/17 at 04:30 Dextrose (D50w Syringe) 25 ml Q15M PRN IV DECREASED GLUCOSE Last administered on 03/11/17 01:20; Admin Dose 25 ML; Start 02/19/17 at 04:30 Dextrose (D50w Syringe) 50 ml Q15M PRN IV DECREASED GLUCOSE; Start 02/19/17 at 04:30 Glucagon (Glucagen) 1 mg Q15M PRN IM DECREASED GLUCOSE; Start 02/19/17 at 04:30 Glucose (Glutose) 15 gm Q15M PRN BUCCAL DECREASED GLUCOSE; Start 02/19/17 at 04: 30 Atorvastatin Calcium (Lipitor) 40 mg DAILY PO Last administered on 03/23/17 08: 39; Admin Dose 40 MG; Start 02/21/17 at 09:00 Metoclopramide HCl (Reglan) 10 mg Q6 IV Last administered on 03/23/17 18:22; Admin Dose 10 MG; Start 02/22/17 at 21:00 Ondansetron HCl (Zofran Inj) 4 mg Q6H PRN IV NAUSEA AND/OR VOMITING Last administered on 03/22/17 20:50; Admin Dose 4 MG; Start 02/23/17 at 15:30 IV Flush 10 ml 10 ml PRN PRN IV IV PROTOCOL Last administered on 03/03/17 04: 21; Admin Dose 10 ML; Start 02/27/17 at 15:00 Sodium Chloride (NS) 1,000 ml @ 50 mls/hr Q20H IV Last administered on 11:46; Admin Dose 50 MLS/HR; Start 03/01/17 at 14:00 Nitroglycerin (Nitroglycerin (Sl Tab) 0.4 Mg) 1 tab Q5M PRN SL ANGINA; Start at 07:00 Lorazepam (Ativan) 0.5 mg Q6H PRN IV ANXIETY Last administered on 03/22/17 12: 33; Admin Dose 0.5 MG; Start 03/05/17 at 16:07 Alprazolam (Xanax) 0.5 mg QHS PO Last administered on 03/22/17 20:42; Admin Dose 0.5 MG; Start 03/15/17 at 21:00 Famotidine (Pepcid) 20 mg BID PO Last administered on 03/23/17 08:38; Admin Dose 20 MG; Start 03/15/17 at 21:00 Vancomycin HCl (Vancomycin Oral Syringe) 250 mg Q6 PO Last administered on 18:23; Admin Dose 250 MG; Start 03/16/17 at 13:30 Enoxaparin Sodium (Lovenox) 40 mg DAILY SC Last administered on 03/23/17 08:46 ; Admin Dose 40 MG; Start 03/18/17 at 09:00 Acetaminophen/ Hydrocodone Bitart ([place] (5/325)) 1 tab Q4H PRN PO PAIN Last administered on 03/22/17 20:42; Admin Dose 1 TAB; Start 03/17/17 at 10:30 Insulin Glargine (Lantus) 25 unit DAILY@20 SC Last administered on 03/22/17 20: 48; Admin Dose 25 UNIT; Start 03/21/17 at 20:30 Hydromorphone HCl (Dilaudid) 0.5 mg Q6 PRN IV PAIN Last administered on 18:23; Admin Dose 0.5 MG; Start 03/23/17 at 00:00 CUATE HAGEN Mar 23, 2017 18:29
[2017-03-23] MEDS: ALPRAZOLAM 0.5 MG TAB PO SCH (20:12)
[2017-03-23] MEDS: INSULIN GLARGINE [LANtus] 3 ML PEN SC SCH (20:14)
[2017-03-23 20:17] VITALS: BP 113/61; RESP 20
[2017-03-23] MEDS: LORAZEPAM 2 MG INJ IV PRN (21:17)
[2017-03-23] MEDS: HYDROCODONE/APAP (5/325) TAB PO PRN (22:28)
[2017-03-24] MEDS: HYDROmorphONE 1 MG/ML SYG IV PRN ×4 (02:13→20:25)
[2017-03-24 02:28] VITALS: BP 110/53; RESP 18
[2017-03-24] MEDS: METOCLOPRAMIDE 10 MG INJ IV SCH ×3 (05:52→18:24)
[2017-03-24] MEDS: VANCOMYCIN HCL 250 MG/5ML POSYG PO SCH ×3 (05:52→18:24)
[2017-03-24 06:31] LABS: BASOPHILS % 0.3 % (0.0-2.0); EOSINOPHILS # 0.4 10^3/ul (0.0-0.5); EOSINOPHILS % 6.6 % (0.0-7.0); HEMATOCRIT 30.6 % (37.0-47.0); HEMOGLOBIN 9.4 g/dl (12.0-16.0); LYMPHOCYTES # 2.1 10^3/ul (0.8-2.9); LYMPHOCYTES % 32.7 % (15.0-51.0); MEAN CORPUSCULAR HEMOGLOBIN 27.3 pg (29.0-33.0); MEAN CORPUSCULAR HGB CONC 30.7 g/dl (32.0-37.0); MEAN PLATELET VOLUME 9.9 fl (7.4-10.4); MONOCYTE # 0.5 10^3/ul (0.3-0.9); NEUTROPHILS % 52.2 % (39.0-77.0); PLATELET COUNT 303 10^3/UL (140-415); RED BLOOD COUNT 3.44 10^6/ul (4.20-5.40); RED CELL DISTRIBUTION WIDTH 15.3 % (11.5-14.5); WHITE BLOOD COUNT 6.5 10^3/ul (4.8-10.8)
[2017-03-24 07:31] LABS: ALBUMIN 3.2 g/dl (3.3-4.9); ALBUMIN/GLOBULIN RATIO 0.96; CALCIUM 8.9 mg/dl (8.4-10.2); CREATININE 0.51 mg/dl (0.44-1.00); POTASSIUM 3.3 mmol/L (3.5-5.1); TOTAL PROTEIN 6.5 g/dl (6.1-8.1)
[2017-03-24] MEDS: SOD CHLORIDE 0.9% 1,000 ML IV SCH (07:35)
[2017-03-24] MEDS: INSULIN ASPART [NOVOLOG] 3 ML PEN SC SCH ×3 (07:50→17:55)
[2017-03-24 08:03] VITALS: BP 109/53; RESP 15
[2017-03-24] MEDS ORDERED: DIATR MEGLU/DIATRIZOATE SODIUM 120 ML BTL ONE (09:50)
[2017-03-24] MEDS: ATORVASTATIN 40 MG TAB PO SCH (11:06)
[2017-03-24] MEDS: FAMOTIDINE 20 MG TAB PO SCH ×2 (11:06→20:18)
[2017-03-24] MEDS: ENOXAPARIN 40 MG/0.4 ML SYG SC SCH (11:47)
--- NOTE | 2017-03-24 13:02 | RADRPT ---
PROCEDURE: XR Abdomen. CLINICAL INDICATION: r/o leakage in low rectal anastamosis; low pressure please TECHNIQUE: A problem oriented water soluble contrast enema was planned. A coal handler AP abdomen x-ray w as obtained. The patient subsequently refused rectal tube insertion and the procedure was terminated . Fluroscopy time: 0.0 minutes # of images/sequences: 1 coal handler image COMPARISON: AP abdominal x-ray 04/04/2016 FINDINGS: A new drain is partially imaged projecting over the left lower quadrant and lower sacrum. There are new postsurgical changes in the left lower abdomen and pelvis with suture material noted i n both locations. There are new vertically oriented multiple skin kumar extending from the the phillip cyx in the midline. Surgical clips are redemonstrated in the left mid pelvis. The bowel gas pattern is nonspecific. There is gas and minimal fecal material throughout the colon a nd rectum. There is no evidence of bowel obstruction. The osseous structures, as visualized, are unr emarkable. IMPRESSION: 1. After an initial coal handler AP abdominal x-ray was obtained, the patient subsequently refused rectal t ube insertion and the procedure was terminated. 2. New postsurgical changes in the lower abdomen and pelvis, as described above. 3. No evidence of bowel obstruction. RPTAT: QQ Physician Julian Date Time Electronically viewed and signed by Physician Julian on 03/24/2017 13:01 [place]/
[2017-03-24 14:00] VITALS: BP_SYST 111; BP_SYST 119; BP_DIAS 56; BP_DIAS 75; RESP 15
[2017-03-24] MEDS ORDERED: LORAZEPAM 2 MG INJ IV ONE (15:30)
[2017-03-24] MEDS: LORAZEPAM 2 MG INJ IV PRN (15:44)
--- NOTE | 2017-03-24 17:25 | PN ---
Date/Time of Note Date/Time of Note DATE: 03/24/17 TIME: 17:20 Assessment/Plan VTE Prophylaxis VTE Prophylaxis Intervention: other Lines/Catheters IV Catheter Type (from Nrs): PICC Line Urinary Cath still in place: No Assessment/Plan Assessment/Plan 1. Electrolyte Imbalance - Hypokalemia- replace K, AM bmp - Hypomagnesium- resolved 1. C. diff colitis. Continue p.o. Vanco. Will discontinue IV Flagyl due to severe nausea. Continue Pepcid. 2. Diabetes. - Glycemic control 3. Continue postop care for recent surgery for recurrent ovarian cancer. The patient is being followed by Dr. Morris. Subjective 24 Hr Interval Summary Respiratory: no complaints Gastrointestinal: pain Genitourinary: no complaints Skin: no complaints Exam/Review of Systems Vital Signs Vitals Vital Signs Date Time Temp Pulse Resp B/P Pulse Ox O2 Delivery O2 Flow Rate FiO2 03/24/17 14:00 98.1 83 15 111/56 99 Intake and Output 03/23/17 03/23/17 03/24/17 15:00 23:00 07:00 Intake Total 650 ml 1210 ml 1380 ml Output Total 2 ml Balance 650 ml 1208 ml 1380 ml Exam Constitutional: alert, oriented, well developed Respiratory: clear to auscultation, normal air movement Cardiovascular: nl pulses, regular rate and rhythm Gastrointestinal: non-tender, soft Musculoskeletal: nl extremities to inspection Extremities: normal pulses Neurological: nl mental status, nl speech Results Result Diagram: 03/24/17 0505 03/24/17 0505 Results 24 hrs Laboratory Tests Test 03/23/17 17:55 03/23/17 20:11 03/24/17 02:16 03/24/17 04:30 Bedside Glucose 91 169 71 135 Test 03/24/17 05:05 03/24/17 08:45 03/24/17 12:34 White Blood Count 6.5 Red Blood Count 3.44 L Hemoglobin 9.4 L Hematocrit 30.6 L Mean Corpuscular Volume 89.0 Mean Corpuscular Hemoglobin 27.3 L Mean Corpuscular Hemoglobin Concent 30.7 L Red Cell Distribution Width 15.3 H Platelet Count 303 Mean Platelet Volume 9.9 Neutrophils % 52.2 Lymphocytes % 32.7 Monocytes % 8.0 Eosinophils % 6.6 Basophils % 0.3 Nucleated Red Blood Cells % 0.0 Neutrophils # (Manual) 3.4 Lymphocytes # 2.1 Monocytes # 0.5 Eosinophils # 0.4 Basophils # 0.0 Nucleated Red Blood Cells # 0.0 Sodium Level 139 Potassium Level 3.3 L Chloride Level 104 Carbon Dioxide Level 27 Anion Gap 11 Blood Urea Nitrogen 5 L Creatinine 0.51 Glucose Level 133 Calcium Level 8.9 Total Bilirubin 0.0 L Direct Bilirubin 0.00 Indirect Bilirubin 0.0 Aspartate Amino Transf (AST/SGOT) 40 Alanine Aminotransferase (ALT/SGPT) 53 Alkaline Phosphatase 87 Total Protein 6.5 Albumin 3.2 L Globulin 3.30 H Albumin/Globulin Ratio 0.96 Bedside Glucose 72 110 Medications Medications Current Medications Miscellaneous Information 1 ea NOTE XX ; Start 02/19/17 at 04:30 Glucose (Glutose) 15 gm Q15M PRN PO DECREASED GLUCOSE; Start 02/19/17 at 04:30 Glucose (Glutose) 22.5 gm Q15M PRN PO DECREASED GLUCOSE; Start 02/19/17 at 04:30 Dextrose (D50w Syringe) 25 ml Q15M PRN IV DECREASED GLUCOSE Last administered on 03/11/17 01:20; Admin Dose 25 ML; Start 02/19/17 at 04:30 Dextrose (D50w Syringe) 50 ml Q15M PRN IV DECREASED GLUCOSE; Start 02/19/17 at 04:30 Glucagon (Glucagen) 1 mg Q15M PRN IM DECREASED GLUCOSE; Start 02/19/17 at 04:30 Glucose (Glutose) 15 gm Q15M PRN BUCCAL DECREASED GLUCOSE; Start 02/19/17 at 04: 30 Atorvastatin Calcium (Lipitor) 40 mg DAILY PO Last administered on 03/24/17 11: 06; Admin Dose 40 MG; Start 02/21/17 at 09:00 Metoclopramide HCl (Reglan) 10 mg Q6 IV Last administered on 03/24/17 12:36; Admin Dose 10 MG; Start 02/22/17 at 21:00 Ondansetron HCl (Zofran Inj) 4 mg Q6H PRN IV NAUSEA AND/OR VOMITING Last administered on 03/22/17 20:50; Admin Dose 4 MG; Start 02/23/17 at 15:30 IV Flush 10 ml 10 ml PRN PRN IV IV PROTOCOL Last administered on 03/03/17 04: 21; Admin Dose 10 ML; Start 02/27/17 at 15:00 Sodium Chloride (NS) 1,000 ml @ 50 mls/hr Q20H IV Last administered on 07:35; Admin Dose 50 MLS/HR; Start 03/01/17 at 14:00 Nitroglycerin (Nitroglycerin (Sl Tab) 0.4 Mg) 1 tab Q5M PRN SL ANGINA; Start at 07:00 Lorazepam (Ativan) 0.5 mg Q6H PRN IV ANXIETY Last administered on 03/24/17 15: 44; Admin Dose 0.5 MG; Start 03/05/17 at 16:07 Alprazolam (Xanax) 0.5 mg QHS PO Last administered on 03/23/17 20:12; Admin Dose 0.5 MG; Start 03/15/17 at 21:00 Famotidine (Pepcid) 20 mg BID PO Last administered on 03/24/17 11:06; Admin Dose 20 MG; Start 03/15/17 at 21:00 Vancomycin HCl (Vancomycin Oral Syringe) 250 mg Q6 PO Last administered on 12:36; Admin Dose 250 MG; Start 03/16/17 at 13:30 Enoxaparin Sodium (Lovenox) 40 mg DAILY SC Last administered on 03/24/17 11:47 ; Admin Dose 40 MG; Start 03/18/17 at 09:00 Acetaminophen/ Hydrocodone Bitart ([place] (5/325)) 1 tab Q4H PRN PO PAIN Last administered on 03/23/17 22:28; Admin Dose 1 TAB; Start 03/17/17 at 10:30 Insulin Glargine (Lantus) 25 unit DAILY@20 SC Last administered on 03/23/17 20: 14; Admin Dose 25 UNIT; Start 03/21/17 at 20:30 Hydromorphone HCl (Dilaudid) 0.5 mg Q6 PRN IV PAIN Last administered on 14:09; Admin Dose 0.5 MG; Start 03/23/17 at 00:00 CUATE HAGEN Mar 24, 2017 17:25
[2017-03-24] MEDS ORDERED: POTASSIUM CHLORIDE 20 MEQ in SOD CHLORIDE 0.9% 100 ML IVPB ONE (19:00)
[2017-03-24 19:27] VITALS: BP 107/59; RESP 22
[2017-03-24] MEDS: ALPRAZOLAM 0.5 MG TAB PO SCH (20:18)
[2017-03-24] MEDS: INSULIN GLARGINE [LANtus] 3 ML PEN SC SCH (20:38)
--- NOTE | 2017-03-24 21:12 | PN ---
Date/Time of Note Date/Time of Note DATE: 03/24/17 TIME: 21:06 Assessment/Plan VTE Prophylaxis VTE Prophylaxis Intervention: SCD's Lines/Catheters IV Catheter Type (from Nrs): PICC Line Central line still needed: Yes Urinary Cath still in place: No Assessment/Plan Chief Complaint/Hosp Course ovarian cancer, recurrent, partial SBO/LBO, ureteral stricture Problems: Assessment/Plan A- LGI eval cancelled by pt P- repeat discussion with nurses and interpretor in detail and agreed to imaging procedure Subjective 24 Hr Interval Summary Free Text/Dictation Refused eval of rectum to dx vs r/o fecal leakage, even though the importance was thoroughly explained with coal washer tender Exam/Review of Systems Vital Signs Vitals Vital Signs Date Time Temp Pulse Resp B/P Pulse Ox O2 Delivery O2 Flow Rate FiO2 03/24/17 19:27 98.2 89 22 107/59 100 Intake and Output 03/23/17 03/23/17 03/24/17 15:00 23:00 07:00 Intake Total 650 ml 1210 ml 1380 ml Output Total 2 ml Balance 650 ml 1208 ml 1380 ml Exam Resp- clear CVS- NSR Abd- NT with clean wound, minimal MANDY drainage; minimal but sl purulent Pelvic; NT minimal separation, no fecal material Ext - NT' no edema Results Result Diagram: 03/24/17 0505 03/24/17 0505 Results 24 hrs Laboratory Tests Test 03/24/17 02:16 03/24/17 04:30 03/24/17 05:05 03/24/17 08:45 Bedside Glucose 71 135 72 White Blood Count 6.5 Red Blood Count 3.44 L Hemoglobin 9.4 L Hematocrit 30.6 L Mean Corpuscular Volume 89.0 Mean Corpuscular Hemoglobin 27.3 L Mean Corpuscular Hemoglobin Concent 30.7 L Red Cell Distribution Width 15.3 H Platelet Count 303 Mean Platelet Volume 9.9 Neutrophils % 52.2 Lymphocytes % 32.7 Monocytes % 8.0 Eosinophils % 6.6 Basophils % 0.3 Nucleated Red Blood Cells % 0.0 Neutrophils # (Manual) 3.4 Lymphocytes # 2.1 Monocytes # 0.5 Eosinophils # 0.4 Basophils # 0.0 Nucleated Red Blood Cells # 0.0 Sodium Level 139 Potassium Level 3.3 L Chloride Level 104 Carbon Dioxide Level 27 Anion Gap 11 Blood Urea Nitrogen 5 L Creatinine 0.51 Glucose Level 133 Calcium Level 8.9 Total Bilirubin 0.0 L Direct Bilirubin 0.00 Indirect Bilirubin 0.0 Aspartate Amino Transf (AST/SGOT) 40 Alanine Aminotransferase (ALT/SGPT) 53 Alkaline Phosphatase 87 Total Protein 6.5 Albumin 3.2 L Globulin 3.30 H Albumin/Globulin Ratio 0.96 Test 03/24/17 12:34 03/24/17 17:46 03/24/17 20:25 Bedside Glucose 110 89 133 Medications Medications Current Medications Miscellaneous Information 1 ea NOTE XX ; Start 02/19/17 at 04:30 Glucose (Glutose) 15 gm Q15M PRN PO DECREASED GLUCOSE; Start 02/19/17 at 04:30 Glucose (Glutose) 22.5 gm Q15M PRN PO DECREASED GLUCOSE; Start 02/19/17 at 04:30 Dextrose (D50w Syringe) 25 ml Q15M PRN IV DECREASED GLUCOSE Last administered on 03/11/17 01:20; Admin Dose 25 ML; Start 02/19/17 at 04:30 Dextrose (D50w Syringe) 50 ml Q15M PRN IV DECREASED GLUCOSE; Start 02/19/17 at 04:30 Glucagon (Glucagen) 1 mg Q15M PRN IM DECREASED GLUCOSE; Start 02/19/17 at 04:30 Glucose (Glutose) 15 gm Q15M PRN BUCCAL DECREASED GLUCOSE; Start 02/19/17 at 04: 30 Atorvastatin Calcium (Lipitor) 40 mg DAILY PO Last administered on 03/24/17 11: 06; Admin Dose 40 MG; Start 02/21/17 at 09:00 Metoclopramide HCl (Reglan) 10 mg Q6 IV Last administered on 03/24/17 18:24; Admin Dose 10 MG; Start 02/22/17 at 21:00 Ondansetron HCl (Zofran Inj) 4 mg Q6H PRN IV NAUSEA AND/OR VOMITING Last administered on 03/22/17 20:50; Admin Dose 4 MG; Start 02/23/17 at 15:30 IV Flush 10 ml 10 ml PRN PRN IV IV PROTOCOL Last administered on 03/03/17 04: 21; Admin Dose 10 ML; Start 02/27/17 at 15:00 Sodium Chloride (NS) 1,000 ml @ 50 mls/hr Q20H IV Last administered on 07:35; Admin Dose 50 MLS/HR; Start 03/01/17 at 14:00 Nitroglycerin (Nitroglycerin (Sl Tab) 0.4 Mg) 1 tab Q5M PRN SL ANGINA; Start at 07:00 Lorazepam (Ativan) 0.5 mg Q6H PRN IV ANXIETY Last administered on 03/24/17 15: 44; Admin Dose 0.5 MG; Start 03/05/17 at 16:07 Alprazolam (Xanax) 0.5 mg QHS PO Last administered on 03/24/17 20:18; Admin Dose 0.5 MG; Start 03/15/17 at 21:00 Famotidine (Pepcid) 20 mg BID PO Last administered on 03/24/17 20:18; Admin Dose 20 MG; Start 03/15/17 at 21:00 Vancomycin HCl (Vancomycin Oral Syringe) 250 mg Q6 PO Last administered on 18:24; Admin Dose 250 MG; Start 03/16/17 at 13:30 Enoxaparin Sodium (Lovenox) 40 mg DAILY SC Last administered on 03/24/17 11:47 ; Admin Dose 40 MG; Start 03/18/17 at 09:00 Acetaminophen/ Hydrocodone Bitart ([place] (5/325)) 1 tab Q4H PRN PO PAIN Last administered on 03/23/17 22:28; Admin Dose 1 TAB; Start 03/17/17 at 10:30 Insulin Glargine (Lantus) 25 unit DAILY@20 SC Last administered on 03/24/17 20: 38; Admin Dose 25 UNIT; Start 03/21/17 at 20:30 Hydromorphone HCl 0.5 mg 0.5 mg Q6 PRN IV PAIN Last administered on 03/24/17 20 :25; Admin Dose 0.5 MG; Start 03/23/17 at 00:00 Potassium Chloride/Sodium Chloride (KCl/NS) 110 ml @ 55 mls/hr ONCE ONCE IVPB Last administered on 03/24/17 19:09; Admin Dose 55 MLS/HR; Start 03/24/17 at 19 :00; Stop 03/24/17 at 20:59 Lorazepam (Ativan) 1 mg ONCE IV ; Start 03/24/17 at 08:00; Stop 03/25/17 at 09:00 Insulin Aspart (Novolog Insulin Pen) NOVOLOG *MILD* ALGORI... Q4 SC ; Start 03/25 at 00:00 MARIA DE JESUS MENDOZA MD Mar 24, 2017 21:12
[2017-03-25] MEDS: VANCOMYCIN HCL 250 MG/5ML POSYG PO SCH ×4 (00:59→17:47)
[2017-03-25] MEDS: METOCLOPRAMIDE 10 MG INJ IV SCH ×4 (01:00→17:47)
[2017-03-25 02:22] VITALS: BP 110/55; RESP 19
[2017-03-25] MEDS: INSULIN ASPART [NOVOLOG] 3 ML PEN SC SCH ×6 (04:47→21:00)
[2017-03-25] MEDS: HYDROmorphONE 1 MG/ML SYG IV PRN ×3 (04:55→17:48)
[2017-03-25] MEDS: SOD CHLORIDE 0.9% 1,000 ML IV SCH ×2 (05:01→07:03)
[2017-03-25 05:27] LABS: BASOPHILS % 0.1 % (0.0-2.0); EOSINOPHILS # 0.4 10^3/ul (0.0-0.5); EOSINOPHILS % 4.8 % (0.0-7.0); HEMATOCRIT 35.3 % (37.0-47.0); LYMPHOCYTES # 2.4 10^3/ul (0.8-2.9); LYMPHOCYTES % 26.3 % (15.0-51.0); MEAN CORPUSCULAR HEMOGLOBIN 27.2 pg (29.0-33.0); MEAN CORPUSCULAR HGB CONC 31.2 g/dl (32.0-37.0); MEAN CORPUSCULAR VOLUME 87.4 fl (82.0-101.0); MEAN PLATELET VOLUME 9.7 fl (7.4-10.4); MONOCYTE # 0.6 10^3/ul (0.3-0.9); MONOCYTES % 6.4 % (0.0-11.0); NEUTROPHILS % 62.2 % (39.0-77.0); PLATELET COUNT 347 10^3/UL (140-415); RED BLOOD COUNT 4.04 10^6/ul (4.20-5.40); RED CELL DISTRIBUTION WIDTH 14.8 % (11.5-14.5)
[2017-03-25 05:43] LABS: CALCIUM 9.6 mg/dl (8.4-10.2); CREATININE 0.57 mg/dl (0.44-1.00); POTASSIUM 3.5 mmol/L (3.5-5.1)
[2017-03-25 07:40] VITALS: BP 116/60; RESP 15
[2017-03-25] MEDS: ENOXAPARIN 40 MG/0.4 ML SYG SC SCH (11:14)
[2017-03-25] MEDS: LORAZEPAM 2 MG INJ IV SCH (12:57)
[2017-03-25] MEDS: ATORVASTATIN 40 MG TAB PO SCH (14:43)
[2017-03-25] MEDS: FAMOTIDINE 20 MG TAB PO SCH ×2 (14:43→20:14)
--- NOTE | 2017-03-25 14:54 | RADRPT ---
PROCEDURE: Gastroview enema CLINICAL INDICATION: History of low rectal anastomosis, evaluate for possible anastomotic leak TECHNIQUE: Gastroview was administered the a rectal tube. Several fluoroscopic spot images were ob tained. Pre and post procedure cut lace machine operator images were also obtained in AP and lateral projection. 26 fluo roscopic images were obtained. Fluoroscopic time was 1.1 minutes. COMPARISON: Abdominal radiograph March 24, [address] of the abdomen pelvis February 19, 2017 FINDINGS: Copywriting Intern images of the abdomen demonstrate a tube projecting over the left lower abdomen. There are als o surgical clips present in the left abdomen and pelvis. There is some stool in the colon. There is no free air or evidence of bowel obstruction. There is no acute osseous abnormality. Fluoroscopic images demonstrate contrast within the rectum and colon. No contrast extravasation can be identified. There is no fluoroscopically evident leak seen. Post procedure cut lace machine operator images demonstra te contrast throughout the colon. IMPRESSION: 1. No fluoroscopically evident leak is identified. RPTAT: UU .Darin Bob MD, MD Date Time Electronically viewed and signed by .Darin Bob MD, on 03/25/2017 14:53 .K/
--- NOTE | 2017-03-25 16:44 | PN ---
Date/Time of Note Date/Time of Note DATE: 03/25/17 TIME: 16:42 Assessment/Plan VTE Prophylaxis VTE Prophylaxis Intervention: SCD's Lines/Catheters IV Catheter Type (from Nrs): PICC Line Central line still needed: Yes Urinary Cath still in place: No Assessment/Plan Chief Complaint/Hosp Course ovarian cancer, recurrent, partial SBO/LBO, ureteral stricture Problems: Assessment/Plan A- no leakage or fistula per radiology P- will d/c drain tomorrow and arrange chemo Subjective 24 Hr Interval Summary Free Text/Dictation Feels better and minimal diarrhea but had LGI completed. Exam/Review of Systems Vital Signs Vitals Vital Signs Date Time Temp Pulse Resp B/P Pulse Ox O2 Delivery O2 Flow Rate FiO2 03/25/17 07:40 97.6 77 15 116/60 100 Intake and Output 03/24/17 03/24/17 03/25/17 15:00 23:00 07:00 Intake Total 1000 ml 1610 ml 750 ml Output Total 6 ml Balance 1000 ml 1604 ml 750 ml Exam Resp- clear CVS- NSR Abd- NT with clean wound, minimal MANDY drainage; minimal but sl purulent Pelvic; NT minimal separation, no fecal material Ext - NT' no edema Results Result Diagram: 03/25/17 0447 03/25/17 0447 Results 24 hrs Laboratory Tests Test 03/24/17 17:46 03/24/17 20:25 03/25/17 00:55 03/25/17 04:46 Bedside Glucose 89 133 79 82 Test 03/25/17 04:47 03/25/17 08:45 03/25/17 12:36 White Blood Count 9.0 # Red Blood Count 4.04 L Hemoglobin 11.0 L Hematocrit 35.3 L Mean Corpuscular Volume 87.4 Mean Corpuscular Hemoglobin 27.2 L Mean Corpuscular Hemoglobin Concent 31.2 L Red Cell Distribution Width 14.8 H Platelet Count 347 Mean Platelet Volume 9.7 Neutrophils % 62.2 Lymphocytes % 26.3 Monocytes % 6.4 Eosinophils % 4.8 Basophils % 0.1 Nucleated Red Blood Cells % 0.0 Neutrophils # (Manual) 5.6 Lymphocytes # 2.4 Monocytes # 0.6 Eosinophils # 0.4 Basophils # 0.0 Nucleated Red Blood Cells # 0.0 Sodium Level 141 Potassium Level 3.5 Chloride Level 105 Carbon Dioxide Level 28 Anion Gap 12 Blood Urea Nitrogen 7 Creatinine 0.57 Glucose Level 85 # Calcium Level 9.6 Bedside Glucose 72 75 Medications Medications Current Medications Miscellaneous Information 1 ea NOTE XX ; Start 02/19/17 at 04:30 Glucose (Glutose) 15 gm Q15M PRN PO DECREASED GLUCOSE; Start 02/19/17 at 04:30 Glucose (Glutose) 22.5 gm Q15M PRN PO DECREASED GLUCOSE; Start 02/19/17 at 04:30 Dextrose (D50w Syringe) 25 ml Q15M PRN IV DECREASED GLUCOSE Last administered on 03/11/17 01:20; Admin Dose 25 ML; Start 02/19/17 at 04:30 Dextrose (D50w Syringe) 50 ml Q15M PRN IV DECREASED GLUCOSE; Start 02/19/17 at 04:30 Glucagon (Glucagen) 1 mg Q15M PRN IM DECREASED GLUCOSE; Start 02/19/17 at 04:30 Glucose (Glutose) 15 gm Q15M PRN BUCCAL DECREASED GLUCOSE; Start 02/19/17 at 04: 30 Atorvastatin Calcium (Lipitor) 40 mg DAILY PO Last administered on 03/25/17 14: 43; Admin Dose 40 MG; Start 02/21/17 at 09:00 Metoclopramide HCl (Reglan) 10 mg Q6 IV Last administered on 03/25/17 12:29; Admin Dose 10 MG; Start 02/22/17 at 21:00 Ondansetron HCl (Zofran Inj) 4 mg Q6H PRN IV NAUSEA AND/OR VOMITING Last administered on 03/22/17 20:50; Admin Dose 4 MG; Start 02/23/17 at 15:30 IV Flush 10 ml 10 ml PRN PRN IV IV PROTOCOL Last administered on 03/03/17 04: 21; Admin Dose 10 ML; Start 02/27/17 at 15:00 Sodium Chloride (NS) 1,000 ml @ 50 mls/hr Q20H IV Last administered on 05:01; Admin Dose 50 MLS/HR; Start 03/01/17 at 14:00 Nitroglycerin (Nitroglycerin (Sl Tab) 0.4 Mg) 1 tab Q5M PRN SL ANGINA; Start at 07:00 Lorazepam (Ativan) 0.5 mg Q6H PRN IV ANXIETY Last administered on 03/24/17 15: 44; Admin Dose 0.5 MG; Start 03/05/17 at 16:07 Alprazolam (Xanax) 0.5 mg QHS PO Last administered on 03/24/17 20:18; Admin Dose 0.5 MG; Start 03/15/17 at 21:00 Famotidine (Pepcid) 20 mg BID PO Last administered on 03/25/17 14:43; Admin Dose 20 MG; Start 03/15/17 at 21:00 Vancomycin HCl (Vancomycin Oral Syringe) 250 mg Q6 PO Last administered on 14:42; Admin Dose 250 MG; Start 03/16/17 at 13:30 Enoxaparin Sodium (Lovenox) 40 mg DAILY SC Last administered on 03/25/17 11:14 ; Admin Dose 40 MG; Start 03/18/17 at 09:00 Acetaminophen/ Hydrocodone Bitart ([place] (5/325)) 1 tab Q4H PRN PO PAIN Last administered on 03/23/17 22:28; Admin Dose 1 TAB; Start 03/17/17 at 10:30 Insulin Glargine (Lantus) 25 unit DAILY@20 SC Last administered on 03/24/17 20: 38; Admin Dose 25 UNIT; Start 03/21/17 at 20:30 Hydromorphone HCl (Dilaudid) 0.5 mg Q6 PRN IV PAIN Last administered on 11:08; Admin Dose 0.5 MG; Start 03/23/17 at 00:00 Insulin Aspart (Novolog Insulin Pen) NOVOLOG *MILD* ALGORI... Q4 SC ; Start 03/25 at 00:00 MARIA DE JESUS MENDOZA MD Mar 25, 2017 16:44
--- NOTE | 2017-03-25 17:19 | PN ---
Date/Time of Note Date/Time of Note DATE: 03/25/17 TIME: 17:18 Assessment/Plan VTE Prophylaxis VTE Prophylaxis Intervention: SCD's Lines/Catheters IV Catheter Type (from Nrs): PICC Line Central line still needed: Yes Urinary Cath still in place: No Assessment/Plan Assessment/Plan 1. Electrolyte Imbalance - Hypokalemia,Hypomagnesium- resolved 1. C. diff colitis. Continue p.o. Vanco. Will discontinue IV Flagyl due to severe nausea. Continue Pepcid. 2. Diabetes. - Glycemic control 3. Continue postop care for recent surgery for recurrent ovarian cancer. The patient is being followed by Dr. Morris. Subjective 24 Hr Interval Summary Respiratory: no complaints Cardiovascular: no complaints Gastrointestinal: no complaints Genitourinary: no complaints Exam/Review of Systems Vital Signs Vitals Vital Signs Date Time Temp Pulse Resp B/P Pulse Ox O2 Delivery O2 Flow Rate FiO2 03/25/17 07:40 97.6 77 15 116/60 100 Intake and Output 03/24/17 03/24/17 03/25/17 15:00 23:00 07:00 Intake Total 1000 ml 1610 ml 750 ml Output Total 6 ml Balance 1000 ml 1604 ml 750 ml Exam Constitutional: alert, oriented, well developed Respiratory: clear to auscultation, normal air movement Cardiovascular: nl pulses, regular rate and rhythm Gastrointestinal: non-tender, soft Musculoskeletal: nl extremities to inspection Extremities: normal pulses Results Result Diagram: 03/25/177 03/25/17446 Results 24 hrs Laboratory Tests Test 03/24/17 17:46 03/24/17 20:25 03/25/17 00:55 03/25/17 04:46 Bedside Glucose 89 133 79 82 Test 03/25/17 04:47 03/25/17 08:45 03/25/17 12:36 White Blood Count 9.0 # Red Blood Count 4.04 L Hemoglobin 11.0 L Hematocrit 35.3 L Mean Corpuscular Volume 87.4 Mean Corpuscular Hemoglobin 27.2 L Mean Corpuscular Hemoglobin Concent 31.2 L Red Cell Distribution Width 14.8 H Platelet Count 347 Mean Platelet Volume 9.7 Neutrophils % 62.2 Lymphocytes % 26.3 Monocytes % 6.4 Eosinophils % 4.8 Basophils % 0.1 Nucleated Red Blood Cells % 0.0 Neutrophils # (Manual) 5.6 Lymphocytes # 2.4 Monocytes # 0.6 Eosinophils # 0.4 Basophils # 0.0 Nucleated Red Blood Cells # 0.0 Sodium Level 141 Potassium Level 3.5 Chloride Level 105 Carbon Dioxide Level 28 Anion Gap 12 Blood Urea Nitrogen 7 Creatinine 0.57 Glucose Level 85 # Calcium Level 9.6 Bedside Glucose 72 75 Medications Medications Current Medications Miscellaneous Information 1 ea NOTE XX ; Start 02/19/17 at 04:30 Glucose (Glutose) 15 gm Q15M PRN PO DECREASED GLUCOSE; Start 02/19/17 at 04:30 Glucose (Glutose) 22.5 gm Q15M PRN PO DECREASED GLUCOSE; Start 02/19/17 at 04:30 Dextrose (D50w Syringe) 25 ml Q15M PRN IV DECREASED GLUCOSE Last administered on 03/11/17 01:20; Admin Dose 25 ML; Start 02/19/17 at 04:30 Dextrose (D50w Syringe) 50 ml Q15M PRN IV DECREASED GLUCOSE; Start 02/19/17 at 04:30 Glucagon (Glucagen) 1 mg Q15M PRN IM DECREASED GLUCOSE; Start 02/19/17 at 04:30 Glucose (Glutose) 15 gm Q15M PRN BUCCAL DECREASED GLUCOSE; Start 02/19/17 at 04: 30 Atorvastatin Calcium (Lipitor) 40 mg DAILY PO Last administered on 03/25/17 14: 43; Admin Dose 40 MG; Start 02/21/17 at 09:00 Metoclopramide HCl (Reglan) 10 mg Q6 IV Last administered on 03/25/17 12:29; Admin Dose 10 MG; Start 02/22/17 at 21:00 Ondansetron HCl (Zofran Inj) 4 mg Q6H PRN IV NAUSEA AND/OR VOMITING Last administered on 03/22/17 20:50; Admin Dose 4 MG; Start 02/23/17 at 15:30 IV Flush 10 ml 10 ml PRN PRN IV IV PROTOCOL Last administered on 03/03/17 04: 21; Admin Dose 10 ML; Start 02/27/17 at 15:00 Sodium Chloride (NS) 1,000 ml @ 50 mls/hr Q20H IV Last administered on 05:01; Admin Dose 50 MLS/HR; Start 03/01/17 at 14:00 Nitroglycerin (Nitroglycerin (Sl Tab) 0.4 Mg) 1 tab Q5M PRN SL ANGINA; Start at 07:00 Lorazepam (Ativan) 0.5 mg Q6H PRN IV ANXIETY Last administered on 03/24/17 15: 44; Admin Dose 0.5 MG; Start 03/05/17 at 16:07 Alprazolam (Xanax) 0.5 mg QHS PO Last administered on 03/24/17 20:18; Admin Dose 0.5 MG; Start 03/15/17 at 21:00 Famotidine (Pepcid) 20 mg BID PO Last administered on 03/25/17 14:43; Admin Dose 20 MG; Start 03/15/17 at 21:00 Vancomycin HCl (Vancomycin Oral Syringe) 250 mg Q6 PO Last administered on 14:42; Admin Dose 250 MG; Start 03/16/17 at 13:30 Enoxaparin Sodium (Lovenox) 40 mg DAILY SC Last administered on 03/25/17 11:14 ; Admin Dose 40 MG; Start 03/18/17 at 09:00 Acetaminophen/ Hydrocodone Bitart ([place] (5/325)) 1 tab Q4H PRN PO PAIN Last administered on 03/23/17 22:28; Admin Dose 1 TAB; Start 03/17/17 at 10:30 Insulin Glargine (Lantus) 25 unit DAILY@20 SC Last administered on 03/24/17 20: 38; Admin Dose 25 UNIT; Start 03/21/17 at 20:30 Hydromorphone HCl (Dilaudid) 0.5 mg Q6 PRN IV PAIN Last administered on 11:08; Admin Dose 0.5 MG; Start 03/23/17 at 00:00 Insulin Aspart (Novolog Insulin Pen) NOVOLOG *MILD* ALGORI... Q4 SC ; Start 03/25 at 00:00 CUATE HAGEN Mar 25, 2017 17:19
[2017-03-25 20:13] VITALS: BP 110/57; RESP 18
[2017-03-25] MEDS: ALPRAZOLAM 0.5 MG TAB PO SCH (20:14)
[2017-03-25] MEDS: INSULIN GLARGINE [LANtus] 3 ML PEN SC SCH (20:19)
[2017-03-25] MEDS: HYDROCODONE/APAP (5/325) TAB PO PRN (20:20)
[2017-03-26] MEDS: METOCLOPRAMIDE 10 MG INJ IV SCH ×5 (00:21→23:11)
[2017-03-26] MEDS: HYDROmorphONE 1 MG/ML SYG IV PRN ×3 (00:21→20:36)
[2017-03-26] MEDS: VANCOMYCIN HCL 250 MG/5ML POSYG PO SCH ×5 (00:22→23:10)
[2017-03-26] MEDS: SOD CHLORIDE 0.9% 1,000 ML IV SCH ×3 (00:40→23:10)
[2017-03-26] MEDS: INSULIN ASPART [NOVOLOG] 3 ML PEN SC SCH ×6 (01:00→21:00)
[2017-03-26 01:56] VITALS: BP 112/72; RESP 20
[2017-03-26] MEDS: LORAZEPAM 2 MG INJ IV PRN (03:41)
[2017-03-26 05:28] LABS: BASOPHILS % 0.3 % (0.0-2.0); EOSINOPHILS # 0.5 10^3/ul (0.0-0.5); EOSINOPHILS % 6.3 % (0.0-7.0); HEMATOCRIT 32.3 % (37.0-47.0); LYMPHOCYTES # 2.3 10^3/ul (0.8-2.9); LYMPHOCYTES % 31.5 % (15.0-51.0); MEAN CORPUSCULAR HEMOGLOBIN 27.3 pg (29.0-33.0); MEAN CORPUSCULAR VOLUME 88.3 fl (82.0-101.0); MEAN PLATELET VOLUME 9.9 fl (7.4-10.4); MONOCYTE # 0.5 10^3/ul (0.3-0.9); MONOCYTES % 7.4 % (0.0-11.0); NEUTROPHILS % 54.2 % (39.0-77.0); PLATELET COUNT 318 10^3/UL (140-415); RED BLOOD COUNT 3.66 10^6/ul (4.20-5.40); RED CELL DISTRIBUTION WIDTH 14.9 % (11.5-14.5); WHITE BLOOD COUNT 7.3 10^3/ul (4.8-10.8)
[2017-03-26 05:35] LABS: INR 0.95; PROTIME 12.7 Sec (12.2-14.2)
[2017-03-26 06:15] LABS: ALBUMIN 3.4 g/dl (3.3-4.9); ALBUMIN/GLOBULIN RATIO 1.06; CALCIUM 8.9 mg/dl (8.4-10.2); CREATININE 0.53 mg/dl (0.44-1.00); TOTAL PROTEIN 6.6 g/dl (6.1-8.1)
[2017-03-26 08:12] VITALS: BP 107/57; RESP 18
[2017-03-26] MEDS: FAMOTIDINE 20 MG TAB PO SCH ×2 (08:44→20:39)
[2017-03-26] MEDS: HYDROCODONE/APAP (5/325) TAB PO PRN ×2 (08:44→17:58)
[2017-03-26] MEDS: ATORVASTATIN 40 MG TAB PO SCH (08:44)
[2017-03-26] MEDS: ENOXAPARIN 40 MG/0.4 ML SYG SC SCH (08:45)
[2017-03-26 14:00] VITALS: BP 107/57; RESP 18
[2017-03-26] MEDS ORDERED: POTASSIUM CHLORIDE (SR) 20 MEQ TAB PO STA (16:15)
--- NOTE | 2017-03-26 16:19 | PDOCDIS ---
Discharge Instructions CONDITION Patient Condition: Stable HOME CARE INSTRUCTIONS: Diet Instructions: RegularSpecial Diet: mechanical soft ACTIVITY: Activity Restrictions: Slowly Increase Activity Rest between Activity Avoid heavy lifting Do not operate Machinery Do not operate Power Tool Avoid Heavy Housework Bathing Restrictions: Shower FOLLOW UP/APPOINTMENTS Follow-up Plan FU with Primary MDx 1 week Fu WITH surgery As recommended. Call 911 or go to the nearest hospital if symptoms worsen. Patient verbalized understanding dc instructions. sean Hester/ staff. CUATE HAGEN Mar 26, 2017 16:19
--- NOTE | 2017-03-26 16:19 | PN ---
Date/Time of Note Date/Time of Note DATE: 03/26/17 TIME: 16:17 Assessment/Plan VTE Prophylaxis VTE Prophylaxis Intervention: SCD's Lines/Catheters IV Catheter Type (from Nrs): PICC Line Urinary Cath still in place: No Assessment/Plan Assessment/Plan 1. Electrolyte Imbalance - Hypokalemia- replace K, bmp am - Hypomagnesium- resolved 1. C. diff colitis. Continue p.o. Vanco. Will discontinue IV Flagyl due to severe nausea. Continue Pepcid. 2. Diabetes. - Glycemic control 3. Continue postop care for recent surgery for recurrent ovarian cancer. The patient is being followed by Dr. Morris. Subjective 24 Hr Interval Summary ENT: no complaints Respiratory: no complaints Cardiovascular: no complaints Gastrointestinal: pain Musculoskeletal: no complaints Skin: no complaints Neurologic: no complaints Exam/Review of Systems Vital Signs Vitals Vital Signs Date Time Temp Pulse Resp B/P Pulse Ox O2 Delivery O2 Flow Rate FiO2 03/26/17 14:00 97.9 79 18 107/57 95 Intake and Output 03/25/17 03/25/17 03/26/17 14:59 22:59 06:59 Intake Total 1400 ml 1550 ml Output Total 3 ml 2 ml 1355 ml Balance -3 ml 1398 ml 195 ml Exam Constitutional: alert, oriented, well developed Respiratory: clear to auscultation, normal air movement Cardiovascular: nl pulses, regular rate and rhythm Gastrointestinal: non-tender, other, soft Extremities: normal pulses Neurological: nl mental status, nl speech Results Result Diagram: 03/26/17 0428 03/26/17 0430 Results 24 hrs Laboratory Tests Test 03/25/17 17:37 03/25/17 20:10 03/26/17 00:39 03/26/17 04:28 Bedside Glucose 105 131 84 White Blood Count 7.3 Red Blood Count 3.66 L Hemoglobin 10.0 L Hematocrit 32.3 L Mean Corpuscular Volume 88.3 Mean Corpuscular Hemoglobin 27.3 L Mean Corpuscular Hemoglobin Concent 31.0 L Red Cell Distribution Width 14.9 H Platelet Count 318 Mean Platelet Volume 9.9 Neutrophils % 54.2 Lymphocytes % 31.5 Monocytes % 7.4 Eosinophils % 6.3 Basophils % 0.3 Nucleated Red Blood Cells % 0.0 Neutrophils # (Manual) 4.0 Lymphocytes # 2.3 Monocytes # 0.5 Eosinophils # 0.5 Basophils # 0.0 Nucleated Red Blood Cells # 0.0 Prothrombin Time 12.7 Prothrombin Time Ratio 1.0 INR International Normalized Ratio 0.95 Test 03/26/17 04:30 03/26/17 05:16 03/26/17 08:34 03/26/17 12:30 Sodium Level 139 Potassium Level 3.0 L Chloride Level 102 Carbon Dioxide Level 29 Anion Gap 11 Blood Urea Nitrogen 10 Creatinine 0.53 Glucose Level 118 Calcium Level 8.9 Total Bilirubin 0.0 L Direct Bilirubin 0.00 Indirect Bilirubin 0.0 Aspartate Amino Transf (AST/SGOT) 29 Alanine Aminotransferase (ALT/SGPT) 48 Alkaline Phosphatase 83 Total Protein 6.6 Albumin 3.4 Globulin 3.20 Albumin/Globulin Ratio 1.06 Bedside Glucose 112 73 71 Medications Medications Current Medications Miscellaneous Information 1 ea NOTE XX ; Start 02/19/17 at 04:30 Glucose (Glutose) 15 gm Q15M PRN PO DECREASED GLUCOSE; Start 02/19/17 at 04:30 Glucose (Glutose) 22.5 gm Q15M PRN PO DECREASED GLUCOSE; Start 02/19/17 at 04:30 Dextrose (D50w Syringe) 25 ml Q15M PRN IV DECREASED GLUCOSE Last administered on 03/11/17 01:20; Admin Dose 25 ML; Start 02/19/17 at 04:30 Dextrose (D50w Syringe) 50 ml Q15M PRN IV DECREASED GLUCOSE; Start 02/19/17 at 04:30 Glucagon (Glucagen) 1 mg Q15M PRN IM DECREASED GLUCOSE; Start 02/19/17 at 04:30 Glucose (Glutose) 15 gm Q15M PRN BUCCAL DECREASED GLUCOSE; Start 02/19/17 at 04: 30 Atorvastatin Calcium (Lipitor) 40 mg DAILY PO Last administered on 03/26/17 08 :44; Admin Dose 40 MG; Start 02/21/17 at 09:00 Metoclopramide HCl (Reglan) 10 mg Q6 IV Last administered on 03/26/17 12:31; Admin Dose 10 MG; Start 02/22/17 at 21:00 Ondansetron HCl (Zofran Inj) 4 mg Q6H PRN IV NAUSEA AND/OR VOMITING Last administered on 03/22/17 20:50; Admin Dose 4 MG; Start 02/23/17 at 15:30 IV Flush 10 ml 10 ml PRN PRN IV IV PROTOCOL Last administered on 03/03/17 04: 21; Admin Dose 10 ML; Start 02/27/17 at 15:00 Sodium Chloride (NS) 1,000 ml @ 50 mls/hr Q20H IV Last administered on 00:40; Admin Dose 50 MLS/HR; Start 03/01/17 at 14:00 Nitroglycerin (Nitroglycerin (Sl Tab) 0.4 Mg) 1 tab Q5M PRN SL ANGINA; Start at 07:00 Lorazepam (Ativan) 0.5 mg Q6H PRN IV ANXIETY Last administered on 03/26/17 03: 41; Admin Dose 0.5 MG; Start 03/05/17 at 16:07 Alprazolam (Xanax) 0.5 mg QHS PO Last administered on 03/25/17 20:14; Admin Dose 0.5 MG; Start 03/15/17 at 21:00 Famotidine (Pepcid) 20 mg BID PO Last administered on 03/26/17 08:44; Admin Dose 20 MG; Start 03/15/17 at 21:00 Vancomycin HCl (Vancomycin Oral Syringe) 250 mg Q6 PO Last administered on 03/26 12:31; Admin Dose 250 MG; Start 03/16/17 at 13:30 Enoxaparin Sodium (Lovenox) 40 mg DAILY SC Last administered on 03/26/17 08:45 ; Admin Dose 40 MG; Start 03/18/17 at 09:00 Acetaminophen/ Hydrocodone Bitart ([place] (5/325)) 1 tab Q4H PRN PO PAIN Last administered on 03/26/17 08:44; Admin Dose 1 TAB; Start 03/17/17 at 10:30 Insulin Glargine (Lantus) 25 unit DAILY@20 SC Last administered on 03/25/17 20: 19; Admin Dose 25 UNIT; Start 03/21/17 at 20:30 Hydromorphone HCl (Dilaudid) 0.5 mg Q6 PRN IV PAIN Last administered on 12:37; Admin Dose 0.5 MG; Start 03/23/17 at 00:00 Insulin Aspart (Novolog Insulin Pen) NOVOLOG *MILD* ALGORI... Q4 SC ; Start 03/25 at 00:00 CUATE HAGEN Mar 26, 2017 16:19
--- NOTE | 2017-03-26 17:18 | PN ---
Date/Time of Note Date/Time of Note DATE: 03/26/17 TIME: 17:16 Assessment/Plan VTE Prophylaxis VTE Prophylaxis Intervention: SCD's Lines/Catheters IV Catheter Type (from Nrs): PICC Line Central line still needed: Yes Urinary Cath still in place: No Assessment/Plan Chief Complaint/Hosp Course ovarian cancer, recurrent, partial SBO/LBO, ureteral stricture Problems: Assessment/Plan A- doing well P- Chemo before d/c; will call her anticipated Onc. Subjective 24 Hr Interval Summary Free Text/Dictation Feels comfortable but anxious . Eats well no diarrhea. Exam/Review of Systems Vital Signs Vitals Vital Signs Date Time Temp Pulse Resp B/P Pulse Ox O2 Delivery O2 Flow Rate FiO2 03/26/17 14:00 97.9 79 18 107/57 95 Intake and Output 03/25/17 03/25/17 03/26/17 15:00 23:00 07:00 Intake Total 1400 ml 1550 ml Output Total 3 ml 2 ml 1355 ml Balance -3 ml 1398 ml 195 ml Exam Resp- clear CVS- NSR Abd- NT with clean wound, Minimal clear MANDY output Ext - NT' no edema Results Result Diagram: 03/26/17 0428 03/26/17 0430 Results 24 hrs Laboratory Tests Test 03/25/17 17:37 03/25/17 20:10 03/26/17 00:39 03/26/17 04:28 Bedside Glucose 105 131 84 White Blood Count 7.3 Red Blood Count 3.66 L Hemoglobin 10.0 L Hematocrit 32.3 L Mean Corpuscular Volume 88.3 Mean Corpuscular Hemoglobin 27.3 L Mean Corpuscular Hemoglobin Concent 31.0 L Red Cell Distribution Width 14.9 H Platelet Count 318 Mean Platelet Volume 9.9 Neutrophils % 54.2 Lymphocytes % 31.5 Monocytes % 7.4 Eosinophils % 6.3 Basophils % 0.3 Nucleated Red Blood Cells % 0.0 Neutrophils # (Manual) 4.0 Lymphocytes # 2.3 Monocytes # 0.5 Eosinophils # 0.5 Basophils # 0.0 Nucleated Red Blood Cells # 0.0 Prothrombin Time 12.7 Prothrombin Time Ratio 1.0 INR International Normalized Ratio 0.95 Test 03/26/17 04:30 03/26/17 05:16 03/26/17 08:34 03/26/17 12:30 Sodium Level 139 Potassium Level 3.0 L Chloride Level 102 Carbon Dioxide Level 29 Anion Gap 11 Blood Urea Nitrogen 10 Creatinine 0.53 Glucose Level 118 Calcium Level 8.9 Total Bilirubin 0.0 L Direct Bilirubin 0.00 Indirect Bilirubin 0.0 Aspartate Amino Transf (AST/SGOT) 29 Alanine Aminotransferase (ALT/SGPT) 48 Alkaline Phosphatase 83 Total Protein 6.6 Albumin 3.4 Globulin 3.20 Albumin/Globulin Ratio 1.06 Bedside Glucose 112 73 71 Medications Medications Current Medications Miscellaneous Information 1 ea NOTE XX ; Start 02/19/17 at 04:30 Glucose (Glutose) 15 gm Q15M PRN PO DECREASED GLUCOSE; Start 02/19/17 at 04:30 Glucose (Glutose) 22.5 gm Q15M PRN PO DECREASED GLUCOSE; Start 02/19/17 at 04:30 Dextrose (D50w Syringe) 25 ml Q15M PRN IV DECREASED GLUCOSE Last administered on 03/11/17 01:20; Admin Dose 25 ML; Start 02/19/17 at 04:30 Dextrose (D50w Syringe) 50 ml Q15M PRN IV DECREASED GLUCOSE; Start 02/19/17 at 04:30 Glucagon (Glucagen) 1 mg Q15M PRN IM DECREASED GLUCOSE; Start 02/19/17 at 04:30 Glucose (Glutose) 15 gm Q15M PRN BUCCAL DECREASED GLUCOSE; Start 02/19/17 at 04: 30 Atorvastatin Calcium (Lipitor) 40 mg DAILY PO Last administered on 03/26/17 08 :44; Admin Dose 40 MG; Start 02/21/17 at 09:00 Metoclopramide HCl (Reglan) 10 mg Q6 IV Last administered on 03/26/17 12:31; Admin Dose 10 MG; Start 02/22/17 at 21:00 Ondansetron HCl (Zofran Inj) 4 mg Q6H PRN IV NAUSEA AND/OR VOMITING Last administered on 03/22/17 20:50; Admin Dose 4 MG; Start 02/23/17 at 15:30 IV Flush 10 ml 10 ml PRN PRN IV IV PROTOCOL Last administered on 03/03/17 04: 21; Admin Dose 10 ML; Start 02/27/17 at 15:00 Sodium Chloride (NS) 1,000 ml @ 50 mls/hr Q20H IV Last administered on 00:40; Admin Dose 50 MLS/HR; Start 03/01/17 at 14:00 Nitroglycerin (Nitroglycerin (Sl Tab) 0.4 Mg) 1 tab Q5M PRN SL ANGINA; Start at 07:00 Lorazepam (Ativan) 0.5 mg Q6H PRN IV ANXIETY Last administered on 03/26/17 03: 41; Admin Dose 0.5 MG; Start 03/05/17 at 16:07 Alprazolam (Xanax) 0.5 mg QHS PO Last administered on 03/25/17 20:14; Admin Dose 0.5 MG; Start 03/15/17 at 21:00 Famotidine (Pepcid) 20 mg BID PO Last administered on 03/26/17 08:44; Admin Dose 20 MG; Start 03/15/17 at 21:00 Vancomycin HCl (Vancomycin Oral Syringe) 250 mg Q6 PO Last administered on 03/26 12:31; Admin Dose 250 MG; Start 03/16/17 at 13:30 Enoxaparin Sodium (Lovenox) 40 mg DAILY SC Last administered on 03/26/17 08:45 ; Admin Dose 40 MG; Start 03/18/17 at 09:00 Acetaminophen/ Hydrocodone Bitart ([place] (5/325)) 1 tab Q4H PRN PO PAIN Last administered on 03/26/17 08:44; Admin Dose 1 TAB; Start 03/17/17 at 10:30 Insulin Glargine (Lantus) 25 unit DAILY@20 SC Last administered on 03/25/17 20: 19; Admin Dose 25 UNIT; Start 03/21/17 at 20:30 Hydromorphone HCl (Dilaudid) 0.5 mg Q6 PRN IV PAIN Last administered on 12:37; Admin Dose 0.5 MG; Start 03/23/17 at 00:00 Insulin Aspart (Novolog Insulin Pen) NOVOLOG *MILD* ALGORI... Q4 SC ; Start 03/25 at 00:00 MARIA DE JESUS MENDOZA MD Mar 26, 2017 17:18
[2017-03-26 19:48] VITALS: BP 126/58; RESP 18
[2017-03-26] MEDS: ALPRAZOLAM 0.5 MG TAB PO SCH (20:39)
[2017-03-26] MEDS: INSULIN GLARGINE [LANtus] 3 ML PEN SC SCH (20:45)
[2017-03-26] MEDS: ONDANSETRON 4 MG INJ IV PRN (21:19)
--- NOTE | 2017-03-26 21:58 | CONS ---
Date/Time of Note Date/Time of Note DATE: 03/26/17 TIME: 21:31 Assessment/Plan Assessment/Plan Chief Complaint/Hosp Course 46 yo female with #recurrent ovarian ca, s/p secondary cytoreductive surgery on 02/23 -surgical path reveals recurrent disease in left pelvic side wall, periureteral region, terminal ileum, ruth-rectal area, pericecal area, small bowel, mesenteric bowel, portion of ileum, colon, common iliac, aortic and pelvic lymph nodes, as well as the perihepatic region -I believe her disease started on return in 03/2016 when her CA 125 was noted to begin to rise. Imaging was done at the time which did not reveal recurrence and her original [facility] evaluated her at the time and believed her sx were likely secondary to constipation. Her CA 125 did stabilize after than time as did her sx but this is likely when she started to recur -given this her disease free internal was about 24 months -given her long disease free interval, I would like to restart the patient on carboplatin and taxol which we will start in house #BRCA 2 + status -this was only recently discovered after she mentioned her sister was undergoing treatment for breast cancer -pt was scheduled for double mastectomy prior to finding out that her ovarian cancer recurred -we will have to re visit this down the line once she has completed chemotherapy -if her disease recurs again, she would be a candidate for a PARP inhibitor given her +BRCA status #CDiff -continue oral flagyl #DM -given patient is post op, will need to continue tight glycemic control Problems: (1) Ovarian cancer Qualifiers: Qualified Code: C56.9 - Malignant neoplasm of ovary, unspecified laterality (2) Kidney stone Status: Acute (3) Sepsis Status: Acute Consultation Date/Type/Reason Admit Date/Time Feb 19, 2017 at 02:10 Date of Consultation: Mar 26, 2017 Type of Consultation: Oncology Reason for Consultation recurrent ovarian cancer Referring Provider: MARIA DE JESUS MENDOZA MD Hx of Present Illness 46-year-old BRCA 2 positive female with a diagnosis of high grade pap serous ovarian cancer, pathologic stage T3c, N1, that was noted to invade both her ovaries, fallopian tubes, omentum, colon, bladder, appendix, cecum, and diaphragm with 1/13 lymph nodes positive for cancer. The patient underwent optimal debulking surgery by Dr. Hammond, which was done at the beginning of March of 2014. Pt went on to receive 6 cycles of dose dense Carboplatin AUC of 6 to be given every three weeks, as well as Taxol 80 mg/sq m every week. In January patient was noted to have marked increase in her CA 125. CT A/P was done which revealed concern for recurrent disease. Pt was subsequently admitted by Dr. Paez on 02/19 wiht intractable pain and nausea. Patients CA 125 was found to be 541 with a He4 of 121. Pt underwent secondary cytoreductive surgery on 02/23 with the following procedures: -modified posterior exenteration with low anastomosis -Small bowel resection and anastamosis x2 -Ureteral dissection with repositioning bilaterally -Extensive cytoreduction -Common iliac and aortic LND -Superficial bladder resection and repair Patient's post operative course was complicated by Ciff which she has now recovered from. She is cleared by [facility] and ready to start her adjuvant chemotherapy. Constitutional: improved, requiring IVF ENT: no complaints Respiratory: no complaints Cardiovascular: no complaints Gastrointestinal: pain Genitourinary: no complaints Musculoskeletal: no complaints Skin: no complaints Neurologic: no complaints Psychological: nl mood/affect Past Medical History hyroid d/o,High Cholesterol, Diabetes, Depression. : . Medical History: diabetes, high cholesterol, other (Ovarian CA) Past Surgical History Appendectomy, CSx2, Primary Cytoreduction 2013 Past Surgical Hx: appendectomy Family History Significant Family History: other (sister wtih Breast CA) Social History Alcohol Use: none Smoking Status: Former smoker Drug Use: none Exam/Review of Systems Vital Signs Vitals Vital Signs Date Time Temp Pulse Resp B/P Pulse Ox O2 Delivery O2 Flow Rate FiO2 03/26/17 19:48 98.2 69 18 126/58 100 Intake and Output 03/25/17 03/25/17 03/26/17 15:00 23:00 07:00 Intake Total 1400 ml 1550 ml Output Total 3 ml 2 ml 1355 ml Balance -3 ml 1398 ml 195 ml Exam Constitutional: alert, oriented Psych: no complaints Head: normocephalic Eyes: nl conjunctiva ENMT: nl external ears & nose Neck: supple Respiratory: clear to auscultation Cardiovascular: regular rate and rhythm Gastrointestinal: surgical scars Musculoskeletal: nl extremities to inspection Extremities: normal pulses Neurological: [employer] II-XII intact Results Result Diagram: 03/26/1742703/26/17 043 Results 24 hrs Laboratory Tests Test 03/26/17 00:39 03/26/17 04:28 03/26/17 04:30 03/26/17 05:16 Bedside Glucose 84 112 White Blood Count 7.3 Red Blood Count 3.66 L Hemoglobin 10.0 L Hematocrit 32.3 L Mean Corpuscular Volume 88.3 Mean Corpuscular Hemoglobin 27.3 L Mean Corpuscular Hemoglobin Concent 31.0 L Red Cell Distribution Width 14.9 H Platelet Count 318 Mean Platelet Volume 9.9 Neutrophils % 54.2 Lymphocytes % 31.5 Monocytes % 7.4 Eosinophils % 6.3 Basophils % 0.3 Nucleated Red Blood Cells % 0.0 Neutrophils # (Manual) 4.0 Lymphocytes # 2.3 Monocytes # 0.5 Eosinophils # 0.5 Basophils # 0.0 Nucleated Red Blood Cells # 0.0 Prothrombin Time 12.7 Prothrombin Time Ratio 1.0 INR International Normalized Ratio 0.95 Sodium Level 139 Potassium Level 3.0 L Chloride Level 102 Carbon Dioxide Level 29 Anion Gap 11 Blood Urea Nitrogen 10 Creatinine 0.53 Glucose Level 118 Calcium Level 8.9 Total Bilirubin 0.0 L Direct Bilirubin 0.00 Indirect Bilirubin 0.0 Aspartate Amino Transf (AST/SGOT) 29 Alanine Aminotransferase (ALT/SGPT) 48 Alkaline Phosphatase 83 Total Protein 6.6 Albumin 3.4 Globulin 3.20 Albumin/Globulin Ratio 1.06 Test 03/26/17 08:34 03/26/17 12:30 03/26/17 17:41 03/26/17 20:43 Bedside Glucose 73 71 85 107 Medications Medications Current Medications Miscellaneous Information 1 ea NOTE XX ; Start 02/19/17 at 04:30 Glucose (Glutose) 15 gm Q15M PRN PO DECREASED GLUCOSE; Start 02/19/17 at 04:30 Glucose (Glutose) 22.5 gm Q15M PRN PO DECREASED GLUCOSE; Start 02/19/17 at 04:30 Dextrose (D50w Syringe) 25 ml Q15M PRN IV DECREASED GLUCOSE Last administered on 03/11/17t 01:20; Admin Dose 25 ML; Start 02/19/17 at 04:30 Dextrose (D50w Syringe) 50 ml Q15M PRN IV DECREASED GLUCOSE; Start 02/19/17 at 04:30 Glucagon (Glucagen) 1 mg Q15M PRN IM DECREASED GLUCOSE; Start 02/19/17 at 04:30 Glucose (Glutose) 15 gm Q15M PRN BUCCAL DECREASED GLUCOSE; Start 02/19/17 at 04: 30 Atorvastatin Calcium (Lipitor) 40 mg DAILY PO Last administered on 03/26/17 08 :44; Admin Dose 40 MG; Start 02/21/17 at 09:00 Metoclopramide HCl (Reglan) 10 mg Q6 IV Last administered on 03/26/17 17:57; Admin Dose 10 MG; Start 02/22/17 at 21:00 Ondansetron HCl (Zofran Inj) 4 mg Q6H PRN IV NAUSEA AND/OR VOMITING Last administered on 03/26/17 21:19; Admin Dose 4 MG; Start 02/23/17 at 15:30 IV Flush 10 ml 10 ml PRN PRN IV IV PROTOCOL Last administered on 03/03/17 04: 21; Admin Dose 10 ML; Start 02/27/17 at 15:00 Sodium Chloride (NS) 1,000 ml @ 50 mls/hr Q20H IV Last administered on 00:40; Admin Dose 50 MLS/HR; Start 03/01/17 at 14:00 Nitroglycerin (Nitroglycerin (Sl Tab) 0.4 Mg) 1 tab Q5M PRN SL ANGINA; Start at 07:00 Lorazepam (Ativan) 0.5 mg Q6H PRN IV ANXIETY Last administered on 03/26/17 03: 41; Admin Dose 0.5 MG; Start 03/05/17 at 16:07 Alprazolam (Xanax) 0.5 mg QHS PO Last administered on 03/26/17 20:39; Admin Dose 0.5 MG; Start 03/15/17 at 21:00 Famotidine (Pepcid) 20 mg BID PO Last administered on 03/26/17 20:39; Admin Dose 20 MG; Start 03/15/17 at 21:00 Vancomycin HCl (Vancomycin Oral Syringe) 250 mg Q6 PO Last administered on 03/26 17:56; Admin Dose 250 MG; Start 03/16/17 at 13:30 Enoxaparin Sodium (Lovenox) 40 mg DAILY SC Last administered on 03/26/17 08:45 ; Admin Dose 40 MG; Start 03/18/17 at 09:00 Acetaminophen/ Hydrocodone Bitart ([place] (5/325)) 1 tab Q4H PRN PO PAIN Last administered on 03/26/17 17:58; Admin Dose 1 TAB; Start 03/17/17 at 10:30 Insulin Glargine (Lantus) 25 unit DAILY@20 SC Last administered on 03/26/17 20 :45; Admin Dose 25 UNIT; Start 03/21/17 at 20:30 Hydromorphone HCl (Dilaudid) 0.5 mg Q6 PRN IV PAIN Last administered on 20:36; Admin Dose 0.5 MG; Start 03/23/17 at 00:00 Insulin Aspart (Novolog Insulin Pen) NOVOLOG *MILD* ALGORI... Q4 SC ; Start 03/25 at 00:00 ANTONIO KRAMER M.D. Mar 26, 2017 21:43
[2017-03-27] MEDS: INSULIN ASPART [NOVOLOG] 3 ML PEN SC SCH ×6 (01:00→21:05)
[2017-03-27 01:45] VITALS: BP 100/56; RESP 18
[2017-03-27] MEDS: ONDANSETRON 4 MG INJ IV PRN ×2 (04:23→19:52)
[2017-03-27] MEDS: HYDROmorphONE 1 MG/ML SYG IV PRN ×3 (04:24→19:52)
[2017-03-27] MEDS: METOCLOPRAMIDE 10 MG INJ IV SCH ×4 (05:43→23:11)
[2017-03-27] MEDS: VANCOMYCIN HCL 250 MG/5ML POSYG PO SCH ×4 (05:43→23:11)
[2017-03-27 05:44] LABS: BASOPHILS % 0.3 % (0.0-2.0); EOSINOPHILS # 0.4 10^3/ul (0.0-0.5); EOSINOPHILS % 5.4 % (0.0-7.0); HEMATOCRIT 33.5 % (37.0-47.0); HEMOGLOBIN 10.3 g/dl (12.0-16.0); LYMPHOCYTES # 1.9 10^3/ul (0.8-2.9); LYMPHOCYTES % 25.9 % (15.0-51.0); MEAN CORPUSCULAR HEMOGLOBIN 27.1 pg (29.0-33.0); MEAN CORPUSCULAR HGB CONC 30.7 g/dl (32.0-37.0); MEAN CORPUSCULAR VOLUME 88.2 fl (82.0-101.0); MEAN PLATELET VOLUME 9.9 fl (7.4-10.4); MONOCYTE # 0.5 10^3/ul (0.3-0.9); MONOCYTES % 6.4 % (0.0-11.0); NEUTROPHILS % 61.9 % (39.0-77.0); PLATELET COUNT 335 10^3/UL (140-415); RED CELL DISTRIBUTION WIDTH 14.9 % (11.5-14.5); WHITE BLOOD COUNT 7.2 10^3/ul (4.8-10.8)
[2017-03-27 06:14] LABS: CALCIUM 8.7 mg/dl (8.4-10.2); CREATININE 0.6 mg/dl (0.44-1.00); POTASSIUM 3.4 mmol/L (3.5-5.1)
[2017-03-27 08:00] VITALS: BP 115/67; RESP 19
[2017-03-27 08:08] VITALS: BP 124/54; RESP 19
[2017-03-27] MEDS: ATORVASTATIN 40 MG TAB PO SCH (08:51)
[2017-03-27] MEDS: FAMOTIDINE 20 MG TAB PO SCH ×2 (08:51→21:06)
[2017-03-27] MEDS: ENOXAPARIN 40 MG/0.4 ML SYG SC SCH (08:53)
[2017-03-27] MEDS ORDERED: HEPARIN 1000 UNITS/ML 10 ML INJ ONE (10:30)
[2017-03-27] MEDS ORDERED: IOHEXOL 300MG/ML 30 ML BTL ONE (10:30)
[2017-03-27] MEDS ORDERED: HEPARIN 1000 UNITS/ML 10 ML INJ IV ONE (12:00)
[2017-03-27] MEDS ORDERED: POTASSIUM CHLORIDE (SR) 20 MEQ TAB PO STA (13:43)
[2017-03-27 14:00] VITALS: BP 121/61; RESP 18
[2017-03-27] MEDS ORDERED: ONDANSETRON INJ 16 MG, DEXAMETHASONE 10 MG/ML 10 MG in SOD CHLORIDE 0.9% 50 ML IV ONE (15:30)
[2017-03-27] MEDS: SOD CHLORIDE 0.9% 1,000 ML IV SCH (16:08)
[2017-03-27] MEDS: DEXAMETHASONE 4 MG TAB PO SCH ×2 (16:08→21:06)
[2017-03-27 19:35] VITALS: BP 108/59; RESP 18
[2017-03-27] MEDS: INSULIN GLARGINE [LANtus] 3 ML PEN SC SCH (21:04)
[2017-03-27] MEDS: ALPRAZOLAM 0.5 MG TAB PO SCH (21:06)
[2017-03-27] MEDS ORDERED: METHYLPREDNISOLONE 125 MG INJ IV PRN (22:00)
[2017-03-27] MEDS ORDERED: MEPERIDINE 25 MG INJ IV PRN (22:00)
--- NOTE | 2017-03-27 22:01 | PN ---
Date/Time of Note Date/Time of Note DATE: 03/27/17 TIME: 21:59 Assessment/Plan VTE Prophylaxis VTE Prophylaxis Intervention: SCD's Lines/Catheters IV Catheter Type (from [facility]): PORT Urinary Cath still in place: No Assessment/Plan Chief Complaint/Hosp Course ovarian cancer, recurrent, partial SBO/LBO, ureteral stricture Problems: Assessment/Plan A- doing well with MANDY removed P- chemo as soon as possible before d/c Subjective 24 Hr Interval Summary Free Text/Dictation No diarrhea and eats OK. Minimally OOB. Exam/Review of Systems Vital Signs Vitals Vital Signs Date Time Temp Pulse Resp B/P Pulse Ox O2 Delivery O2 Flow Rate FiO2 03/27/17 19:35 97.2 90 18 108/59 97 Intake and Output 03/26/17 03/26/17 03/27/17 14:59 22:59 06:59 Intake Total 1300 ml 1210 ml Output Total 1350 ml Balance 1300 ml -140 ml Exam Resp- clear CVS- NSR Abd- mildly tender with clean wound, Ext - NT' no edema Results Result Diagram: 03/27/1743603/27/17436 Results 24 hrs Laboratory Tests Test 03/27/17 01:17 03/27/17 01:38 03/27/17 01:54 03/27/17 02:08 Bedside Glucose 59 L 62 L 95 119 Test 03/27/17 04:37 03/27/17 05:43 03/27/17 08:31 03/27/17 12:43 White Blood Count 7.2 Red Blood Count 3.80 L Hemoglobin 10.3 L Hematocrit 33.5 L Mean Corpuscular Volume 88.2 Mean Corpuscular Hemoglobin 27.1 L Mean Corpuscular Hemoglobin Concent 30.7 L Red Cell Distribution Width 14.9 H Platelet Count 335 Mean Platelet Volume 9.9 Neutrophils % 61.9 Lymphocytes % 25.9 Monocytes % 6.4 Eosinophils % 5.4 Basophils % 0.3 Nucleated Red Blood Cells % 0.0 Neutrophils # (Manual) 4.4 Lymphocytes # 1.9 Monocytes # 0.5 Eosinophils # 0.4 Basophils # 0.0 Nucleated Red Blood Cells # 0.0 Sodium Level 139 Potassium Level 3.4 L Chloride Level 101 Carbon Dioxide Level 31 Anion Gap 10 Blood Urea Nitrogen 9 Creatinine 0.60 Glucose Level 122 Calcium Level 8.7 Bedside Glucose 79 78 98 Test 03/27/17 17:50 03/27/17 20:59 Bedside Glucose 111 219 Medications Medications Current Medications Miscellaneous Information 1 ea NOTE XX ; Start 02/19/17 at 04:30 Glucose (Glutose) 15 gm Q15M PRN PO DECREASED GLUCOSE; Start 02/19/17 at 04:30 Glucose (Glutose) 22.5 gm Q15M PRN PO DECREASED GLUCOSE; Start 02/19/17 at 04:30 Dextrose (D50w Syringe) 25 ml Q15M PRN IV DECREASED GLUCOSE Last administered on 03/11/17 01:20; Admin Dose 25 ML; Start 02/19/17 at 04:30 Dextrose (D50w Syringe) 50 ml Q15M PRN IV DECREASED GLUCOSE; Start 02/19/17 at 04:30 Glucagon (Glucagen) 1 mg Q15M PRN IM DECREASED GLUCOSE; Start 02/19/17 at 04:30 Glucose (Glutose) 15 gm Q15M PRN BUCCAL DECREASED GLUCOSE; Start 02/19/17 at 04: 30 Atorvastatin Calcium (Lipitor) 40 mg DAILY PO Last administered on 03/27/17 08 :51; Admin Dose 40 MG; Start 02/21/17 at 09:00 Metoclopramide HCl (Reglan) 10 mg Q6 IV Last administered on 03/27/17 17:50; Admin Dose 10 MG; Start 02/22/17 at 21:00 Ondansetron HCl (Zofran Inj) 4 mg Q6H PRN IV NAUSEA AND/OR VOMITING Last administered on 03/27/17 19:52; Admin Dose 4 MG; Start 02/23/17 at 15:30 IV Flush (NS 10 ml) 10 ml PRN PRN IV IV PROTOCOL Last administered on 04:21; Admin Dose 10 ML; Start 02/27/17 at 15:00 Nitroglycerin (Nitroglycerin (Sl Tab) 0.4 Mg) 1 tab Q5M PRN SL ANGINA; Start at 07:00 Lorazepam (Ativan) 0.5 mg Q6H PRN IV ANXIETY Last administered on 03/26/17 03: 41; Admin Dose 0.5 MG; Start 03/05/17 at 16:07 Alprazolam (Xanax) 0.5 mg QHS PO Last administered on 03/27/17 21:06; Admin Dose 0.5 MG; Start 03/15/17 at 21:00 Famotidine (Pepcid) 20 mg BID PO Last administered on 03/27/17 21:06; Admin Dose 20 MG; Start 03/15/17 at 21:00 Vancomycin HCl (Vancomycin Oral Syringe) 250 mg Q6 PO Last administered on 03/27 17:51; Admin Dose 250 MG; Start 03/16/17 at 13:30 Enoxaparin Sodium (Lovenox) 40 mg DAILY SC Last administered on 03/27/17 08:53 ; Admin Dose 40 MG; Start 03/18/17 at 09:00 Acetaminophen/ Hydrocodone Bitart ([place] (5/325)) 1 tab Q4H PRN PO PAIN Last administered on 03/26/17 17:58; Admin Dose 1 TAB; Start 03/17/17 at 10:30 Insulin Glargine (Lantus) 25 unit DAILY@20 SC Last administered on 03/27/17 21 :04; Admin Dose 25 UNIT; Start 03/21/17 at 20:30 Hydromorphone HCl 0.5 mg 0.5 mg Q6 PRN IV PAIN Last administered on 03/27/17 19:52; Admin Dose 0.5 MG; Start 03/23/17 at 00:00 Sodium Chloride (NS) 1,000 ml @ 100 mls/hr Q10H IV Last administered on 16:08; Admin Dose 100 MLS/HR; Start 03/27/17 at 15:30 Methylprednisolone Sodium Succinate (Solu-Medrol) 60 mg Q2H PRN IV REACTION; Start 03/27/17 at 22:00 Meperidine HCl (Demerol) 25 mg Q4H PRN IV REACTON; Start 03/27/17 at 22:00 Diphenhydramine HCl (Benadryl) 25 mg Q4H PRN IV ALLERGIC REACTION; Start at 00:00 Dexamethasone (Decadron) 20 mg Q6H PO Last administered on 03/27/17 21:06; Admin Dose 20 MG; Start 03/27/17 at 16:00; Stop 03/27/17 at 22:01 Diagnostic Test (Pha) 1 ea 1 ea 02 XX ; Start 03/28/17 at 02:00 Paclitaxel/Sodium Chloride (taxOL/NS) 543.3333 ml @ 135.... ONCE@04 IV ; Start 03/28/17 at 04:00; Stop 03/28/17 at 07:59 MARIA DE JESUS MENDOZA MD Mar 27, 2017 22:01
[2017-03-27] MEDS: LORAZEPAM 2 MG INJ IV PRN (23:28)
[2017-03-28] VITALS (11 sets, daily range): BP systolic 101–139; BP diastolic 51–73; PULSE 85–88; RESP 18–19
[2017-03-28] MEDS ORDERED: DIPHENHYDRAMINE 50 MG INJ IV PRN
[2017-03-28] MEDS ORDERED: ACCU-CHEK XX SCH (02:00)
[2017-03-28] MEDS: ACCU-CHEK XX SCH (02:00)
[2017-03-28] MEDS: SOD CHLORIDE 0.9% 1,000 ML IV SCH ×3 (02:15→17:04)
[2017-03-28] MEDS ORDERED: DIPHENHYDRAMINE 50 MG INJ IV ONE (03:30)
[2017-03-28] MEDS ORDERED: FAMOTIDINE 20 MG INJ IV ONE (03:30)
[2017-03-28] MEDS ORDERED: ONDANSETRON INJ 16 MG, DEXAMETHASONE 10 MG/ML 10 MG in SOD CHLORIDE 0.9% 50 ML IV ONE (03:30)
[2017-03-28] MEDS ORDERED: SOD CHLORIDE 0.9% IV SCH (04:00)
[2017-03-28] MEDS ORDERED: PACLITAXEL IV SCH (04:00)
[2017-03-28 05:47] LABS: CALCIUM 9.4 mg/dl (8.4-10.2); CREATININE 0.51 mg/dl (0.44-1.00); HEMATOCRIT 36.7 % (37.0-47.0); HEMOGLOBIN 11.1 g/dl (12.0-16.0); MEAN CORPUSCULAR HEMOGLOBIN 26.6 pg (29.0-33.0); MEAN CORPUSCULAR HGB CONC 30.2 g/dl (32.0-37.0); PLATELET COUNT 414 10^3/UL (140-415); POTASSIUM 3.5 mmol/L (3.5-5.1); RED BLOOD COUNT 4.17 10^6/ul (4.20-5.40); RED CELL DISTRIBUTION WIDTH 14.8 % (11.5-14.5); WHITE BLOOD COUNT 6.1 10^3/ul (4.8-10.8)
[2017-03-28 05:54] LABS: POSITIVE DIFF @See below
[2017-03-28] MEDS: METOCLOPRAMIDE 10 MG INJ IV SCH ×4 (06:40→23:21)
[2017-03-28] MEDS: VANCOMYCIN HCL 250 MG/5ML POSYG PO SCH ×4 (06:40→23:20)
[2017-03-28] MEDS: FAMOTIDINE 20 MG TAB PO SCH ×2 (08:43→20:17)
[2017-03-28] MEDS: ATORVASTATIN 40 MG TAB PO SCH (08:43)
[2017-03-28] MEDS: ENOXAPARIN 40 MG/0.4 ML SYG SC SCH (08:45)
[2017-03-28] MEDS: ONDANSETRON 4 MG INJ IV PRN (08:49)
[2017-03-28] MEDS: HYDROmorphONE 1 MG/ML SYG IV PRN ×2 (08:49→15:11)
[2017-03-28] MEDS: INSULIN ASPART [NOVOLOG] 3 ML PEN SC SCH ×4 (09:15→20:17)
[2017-03-28] MEDS: LORAZEPAM 2 MG INJ IV PRN ×2 (16:57→23:17)
--- NOTE | 2017-03-28 17:11 | PN ---
Date/Time of Note Date/Time of Note DATE: 03/28/17 TIME: 17:09 Assessment/Plan VTE Prophylaxis VTE Prophylaxis Intervention: SCD's Lines/Catheters IV [facility]from [facility] portacath Urinary Cath still in place: No Assessment/Plan Chief Complaint/Hosp Course ovarian cancer, recurrent, partial SBO/LBO, ureteral stricture Problems: Assessment/Plan A- doing well P- anticipate d/c soon after chemo Subjective 24 Hr Interval Summary Free Text/Dictation No n/v and eats well. tolerates rx. Exam/Review of Systems Vital Signs Vitals Vital Signs Date Time Temp Pulse Resp B/P Pulse Ox O2 Delivery O2 Flow Rate FiO2 03/28/17 16:30 97.9 92 19 112/51 96 03/28/17 09:30 Room Air Intake and Output 03/27/17 03/27/17 03/28/17 15:00 23:00 07:00 Intake Total 1210 ml 2150 ml Output Total 800 ml 1350 ml Balance 410 ml 800 ml Exam Resp- clear CVS- NSR Abd- NT with clean wound, Ext - NT' no edema Results Result Diagram: 03/28/17 0438 03/28/17 0438 Results 24 hrs Laboratory Tests Test 03/27/17 17:50 03/27/17 20:59 03/28/17 02:12 03/28/17 04:38 Bedside Glucose 111 219 249 H White Blood Count 6.1 Red Blood Count 4.17 L Hemoglobin 11.1 L Hematocrit 36.7 L Mean Corpuscular Volume 88.0 Mean Corpuscular Hemoglobin 26.6 L Mean Corpuscular Hemoglobin Concent 30.2 L Red Cell Distribution Width 14.8 H Platelet Count 414 # Mean Platelet Volume 10.0 Neutrophils % Lymphocytes % Monocytes % Eosinophils % Basophils % Nucleated Red Blood Cells % 0.0 Neutrophils # (Manual) 5.3 Lymphocytes # Monocytes # Eosinophils # Basophils # Nucleated Red Blood Cells # Sodium Level 138 Potassium Level 3.5 Chloride Level 104 Carbon Dioxide Level 24 Anion Gap 14 Blood Urea Nitrogen 9 Creatinine 0.51 Glucose Level 221 H Calcium Level 9.4 Test 03/28/17 08:54 03/28/17 12:39 Bedside Glucose 184 181 Medications Medications Current Medications Miscellaneous Information 1 ea NOTE XX ; Start 02/19/17 at 04:30 Glucose (Glutose) 15 gm Q15M PRN PO DECREASED GLUCOSE; Start 02/19/17 at 04:30 Glucose (Glutose) 22.5 gm Q15M PRN PO DECREASED GLUCOSE; Start 02/19/17 at 04:30 Dextrose (D50w Syringe) 25 ml Q15M PRN IV DECREASED GLUCOSE Last administered on 03/11/17 01:20; Admin Dose 25 ML; Start 02/19/17 at 04:30 Dextrose (D50w Syringe) 50 ml Q15M PRN IV DECREASED GLUCOSE; Start 02/19/17 at 04:30 Glucagon (Glucagen) 1 mg Q15M PRN IM DECREASED GLUCOSE; Start 02/19/17 at 04:30 Glucose (Glutose) 15 gm Q15M PRN BUCCAL DECREASED GLUCOSE; Start 02/19/17 at 04: 30 Atorvastatin Calcium (Lipitor) 40 mg DAILY PO Last administered on 03/28/17 08 :43; Admin Dose 40 MG; Start 02/21/17 at 09:00 Metoclopramide HCl (Reglan) 10 mg Q6 IV Last administered on 03/28/17 12:35; Admin Dose 10 MG; Start 02/22/17 at 21:00 Ondansetron HCl (Zofran Inj) 4 mg Q6H PRN IV NAUSEA AND/OR VOMITING Last administered on 03/28/17 08:49; Admin Dose 4 MG; Start 02/23/17 at 15:30 IV Flush (NS 10 ml) 10 ml PRN PRN IV IV PROTOCOL Last administered on 04:21; Admin Dose 10 ML; Start 02/27/17 at 15:00 Nitroglycerin (Nitroglycerin (Sl Tab) 0.4 Mg) 1 tab Q5M PRN SL ANGINA; Start at 07:00 Lorazepam (Ativan) 0.5 mg Q6H PRN IV ANXIETY Last administered on 03/28/17 16: 57; Admin Dose 0.5 MG; Start 03/05/17 at 16:07 Alprazolam (Xanax) 0.5 mg QHS PO Last administered on 03/27/17 21:06; Admin Dose 0.5 MG; Start 03/15/17 at 21:00 Famotidine (Pepcid) 20 mg BID PO Last administered on 03/28/17 08:43; Admin Dose 20 MG; Start 03/15/17 at 21:00 Vancomycin HCl (Vancomycin Oral Syringe) 250 mg Q6 PO Last administered on 03/28 12:35; Admin Dose 250 MG; Start 03/16/17 at 13:30 Enoxaparin Sodium (Lovenox) 40 mg DAILY SC Last administered on 03/28/17 08:45 ; Admin Dose 40 MG; Start 03/18/17 at 09:00 Acetaminophen/ Hydrocodone Bitart ([place] (5/325)) 1 tab Q4H PRN PO PAIN Last administered on 03/26/17 17:58; Admin Dose 1 TAB; Start 03/17/17 at 10:30 Insulin Glargine (Lantus) 25 unit DAILY@20 SC Last administered on 03/27/17 21 :04; Admin Dose 25 UNIT; Start 03/21/17 at 20:30 Hydromorphone HCl 0.5 mg 0.5 mg Q6 PRN IV PAIN Last administered on 03/28/17 15:11; Admin Dose 0.5 MG; Start 03/23/17 at 00:00 Sodium Chloride (NS) 1,000 ml @ 100 mls/hr Q10H IV Last administered on 17:04; Admin Dose 100 MLS/HR; Start 03/27/17 at 15:30 Methylprednisolone Sodium Succinate (Solu-Medrol) 60 mg Q2H PRN IV REACTION; Start 03/27/17 at 22:00 Meperidine HCl (Demerol) 25 mg Q4H PRN IV REACTON Last administered on 04:29; Admin Dose 25 MG; Start 03/27/17 at 22:00 Diphenhydramine HCl (Benadryl) 25 mg Q4H PRN IV ALLERGIC REACTION; Start at 00:00 Diagnostic Test (Pha) (Accu-Chek) 1 ea 02 XX ; Start 03/28/17 at 02:00 MARIA DE JESUS MENDOZA MD Mar 28, 2017 17:11
--- NOTE | 2017-03-28 17:57 | PN ---
Date/Time of Note Date/Time of Note DATE: 03/28/17 TIME: 17:53 Assessment/Plan VTE Prophylaxis VTE Prophylaxis Intervention: SCD's Lines/Catheters IV Catheter Type (from Nrs): portacath Urinary Cath still in place: No Assessment/Plan Assessment/Plan 1.Hyperglycemia sec to Decadron given for chemo 1. C. diff colitis. - negative 2. Diabetes. - Glycemic control 3. Continue postop care for recent surgery for recurrent ovarian cancer. The patient is being followed by Dr. Morris. Exam/Review of Systems Vital Signs Vitals Vital Signs Date Time Temp Pulse Resp B/P Pulse Ox O2 Delivery O2 Flow Rate FiO2 03/28/17 16:30 97.9 92 19 112/51 96 03/28/17 09:30 Room Air Intake and Output 03/27/17 03/27/17 03/28/17 15:00 23:00 07:00 Intake Total 1210 ml 2150 ml Output Total 800 ml 1350 ml Balance 410 ml 800 ml Exam Constitutional: alert, oriented, well developed Cardiovascular: nl pulses, regular rate and rhythm Gastrointestinal: soft, tender Musculoskeletal: nl extremities to inspection Extremities: normal pulses Neurological: nl mental status, nl speech Results Result Diagram: 03/28/17 0438 03/28/17 0438 Results 24 hrs Laboratory Tests Test 03/27/17 20:59 03/28/17 02:12 03/28/17 04:38 03/28/17 08:54 Bedside Glucose 219 249 H 184 White Blood Count 6.1 Red Blood Count 4.17 L Hemoglobin 11.1 L Hematocrit 36.7 L Mean Corpuscular Volume 88.0 Mean Corpuscular Hemoglobin 26.6 L Mean Corpuscular Hemoglobin Concent 30.2 L Red Cell Distribution Width 14.8 H Platelet Count 414 # Mean Platelet Volume 10.0 Neutrophils % Lymphocytes % Monocytes % Eosinophils % Basophils % Nucleated Red Blood Cells % 0.0 Neutrophils # (Manual) 5.3 Lymphocytes # Monocytes # Eosinophils # Basophils # Nucleated Red Blood Cells # Sodium Level 138 Potassium Level 3.5 Chloride Level 104 Carbon Dioxide Level 24 Anion Gap 14 Blood Urea Nitrogen 9 Creatinine 0.51 Glucose Level 221 H Calcium Level 9.4 Test 03/28/17 12:39 Bedside Glucose 181 Medications Medications Current Medications Miscellaneous Information 1 ea NOTE XX ; Start 02/19/17 at 04:30 Glucose (Glutose) 15 gm Q15M PRN PO DECREASED GLUCOSE; Start 02/19/17 at 04:30 Glucose (Glutose) 22.5 gm Q15M PRN PO DECREASED GLUCOSE; Start 02/19/17 at 04:30 Dextrose (D50w Syringe) 25 ml Q15M PRN IV DECREASED GLUCOSE Last administered on 03/11/17 01:20; Admin Dose 25 ML; Start 02/19/17 at 04:30 Dextrose (D50w Syringe) 50 ml Q15M PRN IV DECREASED GLUCOSE; Start 02/19/17 at 04:30 Glucagon (Glucagen) 1 mg Q15M PRN IM DECREASED GLUCOSE; Start 02/19/17 at 04:30 Glucose (Glutose) 15 gm Q15M PRN BUCCAL DECREASED GLUCOSE; Start 02/19/17 at 04: 30 Atorvastatin Calcium (Lipitor) 40 mg DAILY PO Last administered on 03/28/17 08 :43; Admin Dose 40 MG; Start 02/21/17 at 09:00 Metoclopramide HCl (Reglan) 10 mg Q6 IV Last administered on 03/28/17 12:35; Admin Dose 10 MG; Start 02/22/17 at 21:00 Ondansetron HCl (Zofran Inj) 4 mg Q6H PRN IV NAUSEA AND/OR VOMITING Last administered on 03/28/17 08:49; Admin Dose 4 MG; Start 02/23/17 at 15:30 IV Flush (NS 10 ml) 10 ml PRN PRN IV IV PROTOCOL Last administered on 04:21; Admin Dose 10 ML; Start 02/27/17 at 15:00 Nitroglycerin (Nitroglycerin (Sl Tab) 0.4 Mg) 1 tab Q5M PRN SL ANGINA; Start at 07:00 Lorazepam (Ativan) 0.5 mg Q6H PRN IV ANXIETY Last administered on 03/28/17 16: 57; Admin Dose 0.5 MG; Start 03/05/17 at 16:07 Alprazolam (Xanax) 0.5 mg QHS PO Last administered on 03/27/17 21:06; Admin Dose 0.5 MG; Start 03/15/17 at 21:00 Famotidine (Pepcid) 20 mg BID PO Last administered on 03/28/17 08:43; Admin Dose 20 MG; Start 03/15/17 at 21:00 Vancomycin HCl (Vancomycin Oral Syringe) 250 mg Q6 PO Last administered on 03/28 12:35; Admin Dose 250 MG; Start 03/16/17 at 13:30 Enoxaparin Sodium (Lovenox) 40 mg DAILY SC Last administered on 03/28/17 08:45 ; Admin Dose 40 MG; Start 03/18/17 at 09:00 Acetaminophen/ Hydrocodone Bitart ([place] (5/325)) 1 tab Q4H PRN PO PAIN Last administered on 03/26/17 17:58; Admin Dose 1 TAB; Start 03/17/17 at 10:30 Insulin Glargine 25 unit 25 unit DAILY@20 SC Last administered on 03/27/17 21: 04; Admin Dose 25 UNIT; Start 03/21/17 at 20:30 Sodium Chloride (NS) 1,000 ml @ 100 mls/hr Q10H IV Last administered on 17:04; Admin Dose 100 MLS/HR; Start 03/27/17 at 15:30 Methylprednisolone Sodium Succinate (Solu-Medrol) 60 mg Q2H PRN IV REACTION; Start 03/27/17 at 22:00 Meperidine HCl (Demerol) 25 mg Q4H PRN IV REACTON Last administered on 04:29; Admin Dose 25 MG; Start 03/27/17 at 22:00 Diphenhydramine HCl (Benadryl) 25 mg Q4H PRN IV ALLERGIC REACTION; Start at 00:00 Diagnostic Test (Pha) (Accu-Chek) 1 ea 02 XX ; Start 03/28/17 at 02:00 CUATE HAGEN Mar 28, 2017 17:57
[2017-03-28] MEDS: INSULIN GLARGINE [LANtus] 3 ML PEN SC SCH (20:16)
[2017-03-28] MEDS: ALPRAZOLAM 0.5 MG TAB PO SCH (20:17)
[2017-03-28] MEDS: HYDROCODONE/APAP (5/325) TAB PO PRN (20:18)
--- NOTE | 2017-03-28 22:53 | CONS ---
Date/Time of Note Date/Time of Note DATE: 03/28/17 TIME: 22:51 Assessment/Plan Assessment/Plan Chief Complaint/Hosp Course 46 yo female with #recurrent ovarian ca, s/p secondary cytoreductive surgery on 02/23 -surgical path reveals recurrent disease in left pelvic side wall, periureteral region, terminal ileum, ruth-rectal area, pericecal area, small bowel, mesenteric bowel, portion of ileum, colon, common iliac, aortic and pelvic lymph nodes, as well as the perihepatic region -I believe her disease started on return in 03/2016 when her CA 125 was noted to begin to rise. Imaging was done at the time which did not reveal recurrence and her original [employer] [facility] evaluated her at the time and believed her sx were likely secondary to constipation. Her CA 125 did stabilize after than time as did her sx but this is likely when she started to recur -given this her disease free internal was about 24 months -given her long disease free interval, patient was started on carboplatin and taxol -pt ok for discharge when cleared by [facility]. pt will continue chemotherapy as an out patient in our office #BRCA 2 + status -this was only recently discovered after she mentioned her sister was undergoing treatment for breast cancer -pt was scheduled for double mastectomy prior to finding out that her ovarian cancer recurred -we will have to re visit this down the line once she has completed chemotherapy -if her disease recurs again, she would be a candidate for a PARP inhibitor given her +BRCA status #CDiff -continue oral flagyl #DM -given patient is post op, will need to continue tight glycemic control Problems: Consultation Date/Type/Reason Admit Date/Time Feb 19, 2017 at 02:10 Initial Consult Date 03/26/17 Type of Consultation: Oncology Reason for Consultation ovarian cancer, recurrent Referring Provider: MARIA DE JESUS MENDOZA MD 24 HR Interval Summary Free Text/Dictation pt received her Carboplatin and taxol today . tolerating chemotherapy well Exam/Review of Systems Vital Signs Vitals Vital Signs Date Time Temp Pulse Resp B/P Pulse Ox O2 Delivery O2 Flow Rate FiO2 03/28/17 19:03 97.4 86 18 127/56 100 03/28/17 09:30 Room Air Intake and Output 03/27/17 03/27/17 03/28/17 15:00 23:00 07:00 Intake Total 1210 ml 2150 ml Output Total 800 ml 1350 ml Balance 410 ml 800 ml Exam Constitutional: alert, oriented Psych: no complaints Head: normocephalic Eyes: nl conjunctiva ENMT: nl external ears & nose Neck: non-tender, supple Respiratory: clear to auscultation, normal air movement Gastrointestinal: soft Musculoskeletal: nl extremities to inspection Results Result Diagram: 03/28/17 0438 03/28/17 0438 Results 24 hrs Laboratory Tests Test 03/28/17 02:12 03/28/17 04:38 03/28/17 08:54 03/28/17 12:39 Bedside Glucose 249 H 184 181 White Blood Count 6.1 Red Blood Count 4.17 L Hemoglobin 11.1 L Hematocrit 36.7 L Mean Corpuscular Volume 88.0 Mean Corpuscular Hemoglobin 26.6 L Mean Corpuscular Hemoglobin Concent 30.2 L Red Cell Distribution Width 14.8 H Platelet Count 414 # Mean Platelet Volume 10.0 Neutrophils % Lymphocytes % Monocytes % Eosinophils % Basophils % Nucleated Red Blood Cells % 0.0 Neutrophils # (Manual) 5.3 Lymphocytes # Monocytes # Eosinophils # Basophils # Nucleated Red Blood Cells # Sodium Level 138 Potassium Level 3.5 Chloride Level 104 Carbon Dioxide Level 24 Anion Gap 14 Blood Urea Nitrogen 9 Creatinine 0.51 Glucose Level 221 H Calcium Level 9.4 Test 03/28/17 17:59 03/28/17 20:03 Bedside Glucose 188 198 Medications Medications Current Medications Miscellaneous Information 1 ea NOTE XX ; Start 02/19/17 at 04:30 Glucose (Glutose) 15 gm Q15M PRN PO DECREASED GLUCOSE; Start 02/19/17 at 04:30 Glucose (Glutose) 22.5 gm Q15M PRN PO DECREASED GLUCOSE; Start 02/19/17 at 04:30 Dextrose (D50w Syringe) 25 ml Q15M PRN IV DECREASED GLUCOSE Last administered on 03/11/17t 01:20; Admin Dose 25 ML; Start 02/19/17 at 04:30 Dextrose (D50w Syringe) 50 ml Q15M PRN IV DECREASED GLUCOSE; Start 02/19/17 at 04:30 Glucagon (Glucagen) 1 mg Q15M PRN IM DECREASED GLUCOSE; Start 02/19/17 at 04:30 Glucose (Glutose) 15 gm Q15M PRN BUCCAL DECREASED GLUCOSE; Start 02/19/17 at 04: 30 Atorvastatin Calcium (Lipitor) 40 mg DAILY PO Last administered on 03/28/17 08 :43; Admin Dose 40 MG; Start 02/21/17 at 09:00 Metoclopramide HCl (Reglan) 10 mg Q6 IV Last administered on 03/28/17 17:57; Admin Dose 10 MG; Start 02/22/17 at 21:00 Ondansetron HCl (Zofran Inj) 4 mg Q6H PRN IV NAUSEA AND/OR VOMITING Last administered on 03/28/17 08:49; Admin Dose 4 MG; Start 02/23/17 at 15:30 IV Flush (NS 10 ml) 10 ml PRN PRN IV IV PROTOCOL Last administered on 04:21; Admin Dose 10 ML; Start 02/27/17 at 15:00 Nitroglycerin (Nitroglycerin (Sl Tab) 0.4 Mg) 1 tab Q5M PRN SL ANGINA; Start at 07:00 Lorazepam (Ativan) 0.5 mg Q6H PRN IV ANXIETY Last administered on 03/28/17 16: 57; Admin Dose 0.5 MG; Start 03/05/17 at 16:07 Alprazolam (Xanax) 0.5 mg QHS PO Last administered on 03/28/17 20:17; Admin Dose 0.5 MG; Start 03/15/17 at 21:00 Famotidine (Pepcid) 20 mg BID PO Last administered on 03/28/17 20:17; Admin Dose 20 MG; Start 03/15/17 at 21:00 Vancomycin HCl (Vancomycin Oral Syringe) 250 mg Q6 PO Last administered on 03/28 17:57; Admin Dose 250 MG; Start 03/16/17 at 13:30 Enoxaparin Sodium (Lovenox) 40 mg DAILY SC Last administered on 03/28/17 08:45 ; Admin Dose 40 MG; Start 03/18/17 at 09:00 Acetaminophen/ Hydrocodone Bitart ([place] (5/325)) 1 tab Q4H PRN PO PAIN Last administered on 03/28/17 20:18; Admin Dose 1 TAB; Start 03/17/17 at 10:30 Insulin Glargine 25 unit 25 unit DAILY@20 SC Last administered on 03/28/17 20: 16; Admin Dose 25 UNIT; Start 03/21/17 at 20:30 Sodium Chloride (NS) 1,000 ml @ 100 mls/hr Q10H IV Last administered on 17:04; Admin Dose 100 MLS/HR; Start 03/27/17 at 15:30 Methylprednisolone Sodium Succinate (Solu-Medrol) 60 mg Q2H PRN IV REACTION; Start 03/27/17 at 22:00 Meperidine HCl (Demerol) 25 mg Q4H PRN IV REACTON Last administered on 04:29; Admin Dose 25 MG; Start 03/27/17 at 22:00 Diphenhydramine HCl (Benadryl) 25 mg Q4H PRN IV ALLERGIC REACTION; Start at 00:00 Diagnostic Test (Pha) (Accu-Chek) 1 ea 02 XX ; Start 03/28/17 at 02:00 ANTONIO KRAMER M.D. Mar 28, 2017 22:53
[2017-03-29] MEDS: ACCU-CHEK XX SCH (02:40)
[2017-03-29 05:19] LABS: HEMOGLOBIN 10.7 g/dl (12.0-16.0); LYMPHOCYTES # 0.9 10^3/ul (0.8-2.9); LYMPHOCYTES % 6.3 % (15.0-51.0); MEAN CORPUSCULAR HEMOGLOBIN 27.6 pg (29.0-33.0); MEAN CORPUSCULAR HGB CONC 31.5 g/dl (32.0-37.0); MEAN CORPUSCULAR VOLUME 87.6 fl (82.0-101.0); MEAN PLATELET VOLUME 10.2 fl (7.4-10.4); MONOCYTE # 0.4 10^3/ul (0.3-0.9); NEUTROPHILS % 90.1 % (39.0-77.0); PLATELET COUNT 361 10^3/UL (140-415); RED BLOOD COUNT 3.88 10^6/ul (4.20-5.40); RED CELL DISTRIBUTION WIDTH 14.6 % (11.5-14.5); WHITE BLOOD COUNT 13.5 10^3/ul (4.8-10.8)
[2017-03-29 05:31] LABS: CALCIUM 9.1 mg/dl (8.4-10.2); CREATININE 0.5 mg/dl (0.44-1.00); POTASSIUM 3.3 mmol/L (3.5-5.1)
[2017-03-29] MEDS: METOCLOPRAMIDE 10 MG INJ IV SCH ×3 (05:45→18:05)
[2017-03-29] MEDS: SOD CHLORIDE 0.9% 1,000 ML IV SCH ×2 (05:45→17:30)
[2017-03-29] MEDS: VANCOMYCIN HCL 250 MG/5ML POSYG PO SCH ×3 (05:45→18:05)
[2017-03-29] MEDS: HYDROCODONE/APAP (5/325) TAB PO PRN ×2 (05:46→10:20)
[2017-03-29 07:43] VITALS: BP 112/57; RESP 18
[2017-03-29] MEDS: INSULIN ASPART [NOVOLOG] 3 ML PEN SC SCH ×3 (07:50→17:55)
[2017-03-29 07:53] VITALS: BP 115/63; RESP 16
[2017-03-29] MEDS: FAMOTIDINE 20 MG TAB PO SCH (08:30)
[2017-03-29] MEDS: ATORVASTATIN 40 MG TAB PO SCH (08:30)
[2017-03-29] MEDS: ENOXAPARIN 40 MG/0.4 ML SYG SC SCH (08:46)
[2017-03-29] MEDS: LORAZEPAM 2 MG INJ IV PRN (13:36)
[2017-03-29] MEDS ORDERED: POTASSIUM CHLORIDE (SR) 20 MEQ TAB PO STA (14:47)
[2017-03-29] MEDS ORDERED: LORA-441 PO (14:59)
[2017-03-29] MEDS ORDERED: HYDR-3498 PO (14:59)
[2017-03-29] MEDS ORDERED: FAMO20TA18 PO (14:59)
[2017-03-29] MEDS ORDERED: DOCU-144 PO (15:02)
--- NOTE | 2017-03-29 15:37 | DS ---
Date/Time of Note Date/Time of Note DATE: 03/29/17 TIME: 15:37 Discharge Summary Admission/Discharge Info Admit Date/Time Feb 19, 2017 at 02:10 Discharge Date/Time Patient Condition: Stable Hx of Present Illness The patient is a 46-year-old female with history of ovarian cancer, status post primary cytoreduction in February 2014, status post [place] based chemotherapy. Patient noted to have recurrent disease and pelvic nodes on PET scan. Patient presented with increased abdominal pain as well as nausea and vomiting. Patient is admitted for possible secondary cytoreduction by Dr. Morris. Patient has a history of diabetes mellitus type 2 and hyperlipidemia. Patient is started on Dilaudid for pain and Zofran as needed for nausea. Patient denies any fever chills denies any shortness of breath denies any chest pain. Hospital Course 46 yo female with #recurrent ovarian ca, s/p secondary cytoreductive surgery on 02/23 -surgical path reveals recurrent disease in left pelvic side wall, periureteral region, terminal ileum, ruth-rectal area, pericecal area, small bowel, mesenteric bowel, portion of ileum, colon, common iliac, aortic and pelvic lymph nodes, as well as the perihepatic region -I believe her disease started on return in 03/2016 when her CA 125 was noted to begin to rise. Imaging was done at the time which did not reveal recurrence and her original [employer] [facility]C evaluated her at the time and believed her sx were likely secondary to constipation. Her CA 125 did stabilize after than time as did her sx but this is likely when she started to recur -given this her disease free internal was about 24 months -given her long disease free interval, patient was started on carboplatin and taxol -pt ok for discharge when cleared by [facility]. pt will continue chemotherapy as an out patient in our office #BRCA 2 + status -this was only recently discovered after she mentioned her sister was undergoing treatment for breast cancer -pt was scheduled for double mastectomy prior to finding out that her ovarian cancer recurred -we will have to re visit this down the line once she has completed chemotherapy -if her disease recurs again, she would be a candidate for a PARP inhibitor given her +BRCA status #CDiff -continue oral flagyl #DM -given patient is post op, will need to continue tight glycemic control Home Meds Active Scripts Docusate Sodium* (Colace*) 100 Mg Capsule, 100 MG PO BID, #30 CAP Prov:SUSANNAH HAGENBIR 03/29/17 Lorazepam* (Ativan*) 0.5 Mg Tablet, 0.5 MG PO DAILY Y for ANXIETY, #10 TAB Prov:SUSANNAH HAGENBIR 03/29/17 Hydrocodone Bit-Acetaminophen (Hydrocodone Bit-APAP) 5-325MG Tablet, 1 TAB PO Q6H Y for PAIN, #24 TAB Prov:SUSANNAH HAGENBIR 03/29/17 Famotidine* (Famotidine*) 20 Mg Tablet, 20 MG PO BID for 30 Days, TAB Prov:SUSANNAH HAGENBIR 03/29/17 Insulin Glargine* (Lantus*) 100 Unit/Ml Soln, 10 UNIT SC DAILY for 30 Days, #1 VIAL 1 Refill Prov:EUGENE QUINTANILLAAndi 04/06/16 [Hydrocodone/Apap (10/325)] 1 TAB TAB No Conflict Check, 1 TAB PO Q6H Y for pain , #30 Prov:ARLINE QUINTANILLAAlejandro DanielAndi 04/06/16 Reported Medications Atorvastatin* (Atorvastatin*) 40 Mg Tablet, 40 MG PO DAILY, #30 TAB 03/27/16 Metformin Hcl (Glucophage) 500 Mg Tablet, 1000 MG PO WITH BREAKFAST, #30 TAB 03/27/16 Terbinafine Hcl* (Terbinafine Hcl*) 250 Mg Tablet, 250 MG PO DAILY for INFECTION , TAB 03/27/16 Escitalopram Oxalate* (Escitalopram Oxalate*) 10 Mg Tablet, 10 MG PO DAILY Y for DEPRESSION, #30 TAB 03/27/16 Discontinued Reported Medications Ibuprofen* (Ibuprofen*) 600 Mg Tablet, 600 MG PO Q6 Y for PAIN, TAB 03/27/16 Follow-up Plan CBC/BMP in 1 week Primary Care Provider Care Physician No Primary Pending Labs Laboratory Tests Test 03/28/17 17:59 03/28/17 20:03 03/29/17 02:26 03/29/17 04:33 Bedside Glucose 188mg/dL (70-220) 198mg/dL (70-220) 118mg/dL (70-220) Sodium Level 140mmol/L (135-144) Potassium Level 3.3mmol/L (3.5-5.1) Chloride Level 106mmol/L (97-110) Carbon Dioxide Level 27mmol/L (21-31) Anion Gap 10 (8-16) Blood Urea Nitrogen 13mg/dl (7-20) Creatinine 0.50mg/dl (0.44-1.00) Glucose Level 110mg/dl (70-220) Calcium Level 9.1mg/dl (8.4-10.2) Test 03/29/17 04:40 03/29/17 08:32 03/29/17 12:46 White Blood Count 13.510^3/ul (4.8-10.8) Red Blood Count 3.8810^6/ul (4.20-5.40) Hemoglobin 10.7g/dl (12.0-16.0) Hematocrit 34.0% (37.0-47.0) Mean Corpuscular Volume 87.6fl (82.0-101.0) Mean Corpuscular Hemoglobin 27.6pg (29.0-33.0) Mean Corpuscular Hemoglobin Concent 31.5g/dl (32.0-37.0) Red Cell Distribution Width 14.6% (11.5-14.5) Platelet Count 34431^3/UL (140-415) Mean Platelet Volume 10.2fl (7.4-10.4) Neutrophils % 90.1% (39.0-77.0) Lymphocytes % 6.3% (15.0-51.0) Monocytes % 3.0% (0.0-11.0) Eosinophils % 0.0% (0.0-7.0) Basophils % 0.0% (0.0-2.0) Nucleated Red Blood Cells % 0.0/100WBC (0.0-0.0) Neutrophils # (Manual) 12.210^3/ul (1.7-7.5) Lymphocytes # 0.910^3/ul (0.8-2.9) Monocytes # 0.410^3/ul (0.3-0.9) Eosinophils # 0.010^3/ul (0.0-0.5) Basophils # 0.010^3/ul (0.0-0.1) Nucleated Red Blood Cells # 0.010^3/ul (0.0-0.0) Bedside Glucose 85mg/dL (70-220) 137mg/dL (70-220) CUATE HAGEN Mar 29, 2017 15:37
[2017-03-29] MEDS ORDERED: HEPARIN (100 UNITS/ML) 5 ML SYG CATHETER ONE (16:30)
[2017-03-29 17:16] LABS: CALCIUM 8.3 mg/dl (8.4-10.2); CREATININE 0.5 mg/dl (0.44-1.00); POTASSIUM 3.5 mmol/L (3.5-5.1)
== END 2017-03-29 18:50 | disposition home health service (06) | DRG 749 ==
LOC: E/R 22:52 → MS1 02-19 02:10 → REC 02-23 14:21 → ICU 02-23 17:40 → MS1 02-28 20:45 → MS4 03-04 08:14 → MS1 03-05 20:10 → MS4 03-10 23:45 → MS1 03-11 07:00 → MS4 03-11 07:01 → TEL 03-11 07:04 → MS4 03-11 07:10 → PP2 03-12 12:42 → MS1 03-13 01:47
PROC: 3E0336Z Introduction of Nutritional Substance into Peripheral Vein, Percutaneous Approach (ICD-10-PCS; 2017-02-26)
PROC: 02HV33Z Insertion of Infusion Device into Superior Vena Cava, Percutaneous Approach (ICD-10-PCS; 2017-02-27)
PROC: B548ZZA Ultrasonography of Superior Vena Cava, Guidance (ICD-10-PCS; 2017-02-27)
PROC: 0DB80ZZ Excision of Small Intestine, Open Approach (ICD-10-PCS; principal; 2017-03-26)
PROC: 0TBB0ZZ Excision of Bladder, Open Approach (ICD-10-PCS; 2017-03-26)
PROC: 0D5V0ZZ Destruction of Mesentery, Open Approach (ICD-10-PCS; 2017-03-26)
PROC: 0DBP0ZZ Excision of Rectum, Open Approach (ICD-10-PCS; 2017-03-26)
PROC: 0DBV0ZZ Excision of Mesentery, Open Approach (ICD-10-PCS; 2017-03-26)
PROC: 0DBN0ZZ Excision of Sigmoid Colon, Open Approach (ICD-10-PCS; 2017-03-26)
PROC: 07BB0ZZ Excision of Mesenteric Lymphatic, Open Approach (ICD-10-PCS; 2017-03-26)
PROC: 07BD0ZZ Excision of Aortic Lymphatic, Open Approach (ICD-10-PCS; 2017-03-26)
PROC: 07BC0ZZ Excision of Pelvis Lymphatic, Open Approach (ICD-10-PCS; 2017-03-26)
PROC: 0T180ZB Bypass Bilateral Ureters to Bladder, Open Approach (ICD-10-PCS; 2017-03-26)
PROC: 0F500ZZ Destruction of Liver, Open Approach (ICD-10-PCS; 2017-03-26)
PROC: 0T5 Urinary System, Destruction (ICD-10-PCS; 2017-03-26)
DX: C56.9 Malignant neoplasm of unspecified ovary (principal); C78.4 Secondary malignant neoplasm of small intestine; C78.5 Secondary malignant neoplasm of large intestine and rectum; A04.7 Enterocolitis due to Clostridium difficile; I95.9 Hypotension, unspecified; E83.42 Hypomagnesemia; C78.6 Secondary malignant neoplasm of retroperitoneum and peritoneum; C77.8 Secondary and unspecified malignant neoplasm of lymph nodes of multiple regions; C78.7 Secondary malignant neoplasm of liver and intrahepatic bile duct; C79.11 Secondary malignant neoplasm of bladder; C79.19 Secondary malignant neoplasm of other urinary organs; C79.89 Secondary malignant neoplasm of other specified sites; E11.65 Type 2 diabetes mellitus with hyperglycemia; N13.5 Crossing vessel and stricture of ureter without hydronephrosis; D72.829 Elevated white blood cell count, unspecified; E78.5 Hyperlipidemia, unspecified; R00.0 Tachycardia, unspecified; Z87.891 Personal history of nicotine dependence; E87.6 Hypokalemia; R07.9 Chest pain, unspecified; F41.9 Anxiety disorder, unspecified; Z78.1 Physical restraint status; Z15.01 Genetic susceptibility to malignant neoplasm of breast; Z80.3 Family history of malignant neoplasm of breast; Z92.21 Personal history of antineoplastic chemotherapy
CPT/HCPCS: 36415; 36569; 36600; 71010; 71275; 74177; 74270; 76937; 80048; 80053; 80202; 81001; 82150; 82803; 82962; 83036; 83605; 83690; 83735; 84100; 84134; 84439; 84443; 84478; 84484; 84703; 85025; 85049; 85610; 85670; 85730; 86850; 86900; 86901; 86920; 87040; 87070; 87075; 87081; 87086; 87102; 87116; 88307; 88331; 88341; 88342; 93005; 93306; 93970; 96365; 96375; 96376; J9267; J0131; J0690; J0696; J1100; J1170; J1200; J1630; J1642; J1644; J1650; J1815; J2060; J2175; J2250; J2270; J2310; J2354; J2370; J2405; J2543; J2765; J2795; J2916; J2930; J2997; J3010; J3370; J3475; J3480; J7030; J7040; J7050; J7120; J7999; P9045; Q9967

== ENCOUNTER 2017-05-23 13:39 | Inpatient (IN) | payer OTHER ==
[~2017-05-23] VITALS: Ht 149.9 cm; Wt 47.6 kg
[~2017-05-23 13:39] MED LIST changes: +DOCU-144 PO; +FAMO20TA18 PO; +HYDR-3498 PO; -IBUP-1542 PO; +LORA-441 PO
[2017-05-23] MEDS ORDERED: TRAM50TA2 PO (15:25)
[2017-05-23] MEDS ORDERED: CEPH500C PO (15:25)
[2017-05-23 15:30] VITALS: BP 127/61; PULSE 82; RESP 18; Ht 149.9 cm; Wt 47.6 kg
[2017-05-23 16:10] VITALS: PULSE 91
[2017-05-23] MEDS ORDERED: morphine 2 MG INJ IV PRN (17:30)
[2017-05-23] MEDS ORDERED: ZOLPIDEM 5 MG TAB PO PRN (17:30)
[2017-05-23] MEDS ORDERED: ACETAMINOPHEN 325 MG TAB PO PRN (17:30)
[2017-05-23] MEDS ORDERED: ESCITALOPRAM 10 MG TAB PO PRN (17:30)
[2017-05-23] MEDS ORDERED: NACL 0.9% 3 ML SYG IV SCH (17:30)
[2017-05-23 18:55] LABS: CALCIUM 9.1 mg/dl (8.4-10.2); CREATININE 0.57 mg/dl (0.44-1.00); MAGNESIUM 1.2 mg/dl (1.7-2.5)
--- NOTE | 2017-05-23 18:56 | HP ---
Date/Time of Note Date/Time of Note DATE: 05/23/17 TIME: 18:48 Assessment/Plan VTE Prophylaxis VTE Prophylaxis Intervention: LMWH Lines/Catheters IV [facility]from [facility] [place] Assessment/Plan Chief Complaint/Hosp Course 1. Severe hypokalemia secondary to diarrhea Replete 2. Recurrent ovarian cancer Continue to follow-up with oncology as outpatient 3. Weakness Check CBC and will transfuse blood as needed 4. Diabetes Continue metformin Prophylaxis: Lovenox Problems: HPI/ROS Admit Date/Time Admit Date/Time May 23, 2017 at 15:02 Hx of Present Illness Patient is a 46-year-old female with a history of diabetes, C. difficile colitis , BRCA 2 + status as well as recurrent ovarian ca, s/p secondary cytoreductive surgery on 02/23 and currently receiving chemotherapy. On prior hospitalization surgical path revealed recurrent disease in left pelvic side wall, periureteral region, terminal ileum, ruth-rectal area, pericecal area, small bowel, mesenteric bowel, portion of ileum, colon, common iliac, aortic and pelvic lymph nodes, as well as the perihepatic region. Patient last received chemotherapy approximately week ago and reports having persistent diarrhea with nausea/vomiting. Of note the patient was scheduled for double mastectomy prior to finding out that her ovarian cancer recurred and plans for the bilateral mastectomy are currently on hold. Patient does follow-up with Dr. Smith of oncology, patient presented to an outside hospital with complaints of weakness and muscle pain and patient was found to be severely hypokalemic. Patient was transferred for insurance reasons. - PMH/Family/Social Past Medical History As per HPI Past Surgical History Past Surgical Hx: appendectomy Family History Significant Family History: cancer (Sister with breast cancer) Social History Alcohol Use: none Smoking Status: Former smoker Drug Use: none Exam/Review of Systems Vital Signs Vitals Vital Signs Date Time Temp Pulse Resp B/P Pulse Ox O2 Delivery O2 Flow Rate FiO2 05/23/17 16:10 91 05/23/17 15:30 98.7 18 127/61 94 Room Air Exam Constitutional: alert, oriented Head: normocephalic Respiratory: clear to auscultation Cardiovascular: regular rate and rhythm Gastrointestinal: soft, No distended Musculoskeletal: nl extremities to inspection Medications Medications Current Medications Ondansetron HCl (Zofran Inj) 4 mg Q6H PRN IV NAUSEA AND/OR VOMITING; Start 05/23/17 at 17:30 Acetaminophen (Tylenol Tab) 650 mg Q6H PRN PO PAIN LEVEL 1-3 OR FEVER; Start 05/23/17 at 17:30 Acetaminophen/ Hydrocodone Bitart ([place] (5/325)) 1 tab Q6H PRN PO MODERATE PAIN LEVEL 4-6; Start 05/23/17 at 17:30 Morphine Sulfate (morphine) 2 mg Q4H PRN IV SEVERE PAIN LEVEL 7-10; Start 05/23 at 17:30 Zolpidem Tartrate (Ambien) 5 mg QHS PRN PO SLEEP; Start 05/23/17 at 17:30 Atorvastatin Calcium (Lipitor) 40 mg DAILY PO ; Start 05/24/17 at 09:00 Docusate Sodium (Colace) 100 mg BID PO ; Start 05/23/17 at 21:00 Escitalopram Oxalate (Lexapro) 10 mg DAILY PRN PO DEPRESSION; Start 05/23/17 at 17:30 Famotidine (Pepcid) 20 mg BID PO ; Start 05/23/17 at 21:00 Lorazepam (Ativan) 0.5 mg DAILY PRN PO ANXIETY; Start 05/23/17 at 17:30 Terbinafine HCl (Lamisil) 250 mg DAILY PO ; Start 05/24/17 at 09:00 Tramadol HCl (Ultram) 50 mg TID PO ; Start 05/23/17 at 21:00 MIMI BLANCA May 23, 2017 18:56
[2017-05-23 19:26] LABS: POTASSIUM 2.6 mmol/L (3.5-5.1)
[2017-05-23 20:00] VITALS: BP 130/70; RESP 19
[2017-05-23] MEDS: POTASSIUM CHLORIDE 250 ML IVPB SCH (20:18)
[2017-05-23] MEDS: NS + KCL 20 MEQ 1,000 ML IV SCH (20:18)
[2017-05-23] MEDS: traMADol 50 MG TAB PO SCH (20:19)
[2017-05-23] MEDS: FAMOTIDINE 20 MG TAB PO SCH (20:19)
[2017-05-23] MEDS: DOCUSATE SODIUM 100 MG CAP PO SCH (20:19)
[2017-05-23 20:32] VITALS: PULSE 90
[2017-05-23] MEDS ORDERED: MAGNESIUM SULFATE 4 GM/100 ML 100 ML IVPB ONE (21:00)
[2017-05-23] MEDS: ONDANSETRON 4 MG INJ IV PRN (21:35)
[2017-05-23] MEDS ORDERED: METOCLOPRAMIDE 10 MG INJ IV PRN (23:00)
[2017-05-23] MEDS ORDERED: ONDANSETRON INJ 8 MG in DEXTROSE 5% 50 ML IV PRN (23:00)
[2017-05-24] VITALS (12 sets, daily range): BP systolic 127–167; BP diastolic 68–84; PULSE 88–105; RESP 17–20
[2017-05-24] MEDS: POTASSIUM CHLORIDE 250 ML IVPB SCH (00:46)
[2017-05-24] MEDS: NS + KCL 20 MEQ 1,000 ML IV SCH ×2 (07:00→17:58)
[2017-05-24 08:20] LABS: HEMATOCRIT 33.2 % (37.0-47.0); HEMOGLOBIN 10.8 g/dl (12.0-16.0); MEAN CORPUSCULAR HEMOGLOBIN 26.2 pg (29.0-33.0); MEAN CORPUSCULAR HGB CONC 32.5 g/dl (32.0-37.0); MEAN CORPUSCULAR VOLUME 80.4 fl (82.0-101.0); MEAN PLATELET VOLUME 9.8 fl (7.4-10.4); PLATELET COUNT 239 10^3/UL (140-415); RED BLOOD COUNT 4.13 10^6/ul (4.20-5.40); RED CELL DISTRIBUTION WIDTH 17.7 % (11.5-14.5); WHITE BLOOD COUNT 11.2 10^3/ul (4.8-10.8)
[2017-05-24 08:21] LABS: POSITIVE DIFF @See below
[2017-05-24] MEDS: ATORVASTATIN 40 MG TAB PO SCH (08:35)
[2017-05-24] MEDS: DOCUSATE SODIUM 100 MG CAP PO SCH ×2 (08:36→20:00)
[2017-05-24] MEDS: TERBINAFINE 250 MG TAB PO SCH (08:36)
[2017-05-24] MEDS: metFORMIN 500 MG TAB PO SCH (08:36)
[2017-05-24] MEDS: FAMOTIDINE 20 MG TAB PO SCH ×2 (08:36→20:00)
[2017-05-24] MEDS: ENOXAPARIN 40 MG/0.4 ML SYG SC SCH (08:39)
[2017-05-24] MEDS: traMADol 50 MG TAB PO SCH ×3 (08:42→20:00)
[2017-05-24 08:53] LABS: ALBUMIN/GLOBULIN RATIO 1.37; BILIRUBIN,INDIRECT 0.3 mg/dl (0-1.1); BILIRUBIN,TOTAL 0.3 mg/dl (0.2-1.3); CALCIUM 8.7 mg/dl (8.4-10.2); CREATININE 0.56 mg/dl (0.44-1.00); MAGNESIUM 2.2 mg/dl (1.7-2.5); PHOSPHORUS 3.2 mg/dl (2.5-4.9); TOTAL PROTEIN 6.9 g/dl (6.1-8.1)
[2017-05-24] MEDS ORDERED: POTASSIUM CHLORIDE (SR) 20 MEQ TAB PO STA (10:00)
[2017-05-24 10:38] LABS: ANISOCYTOSIS 2+ (0-0); EOSINOPHILS % (M) 1 % (0-7); HYPOCHROMASIA 1+ (0-0); MICROCYTOSIS 1+ (0-0); MONOCYTES % (M) 6 % (0-11); PLATELET ESTIMATE NORMAL; POIKILOCYTOSIS 1+ (0-0); POLYCHROMASIA 3+ (0-0)
[2017-05-24] MEDS ORDERED: POTASSIUM CHLORIDE 250 ML IVPB ONE (11:00)
[2017-05-24] MEDS: ONDANSETRON 4 MG INJ IV PRN (11:35)
--- NOTE | 2017-05-24 16:42 | PN ---
Date/Time of Note Date/Time of Note DATE: 05/24/17 TIME: 16:33 Assessment/Plan VTE Prophylaxis VTE Prophylaxis Intervention: LMWH Lines/Catheters [facility] A CATH Assessment/Plan Chief Complaint/Hosp Course 1. Severe hypokalemia secondary to nausea vomiting-improved Replete Magnesium repleted 2. Recurrent ovarian cancer with liver mass Gynecology oncology to evaluate in-house 3. Weakness likely secondary to chemotherapy and underlying ovarian cancer Patient is mildly anemic but no indication for blood transfusion at this time 4. Diabetes Continue metformin A1c at 6.4 Prophylaxis: Lovenox Problems: Subjective 24 Hr Interval Summary Gastrointestinal: nausea Exam/Review of Systems Vital Signs Vitals Vital Signs Date Time Temp Pulse Resp B/P Pulse Ox O2 Delivery O2 Flow Rate FiO2 05/24/17 15:49 98.4 112 18 131/70 97 05/23/17 15:30 Room Air Intake and Output 05/23/17 05/23/17 05/24/17 14:59 22:59 06:59 Intake Total 220 ml 904 ml Balance 220 ml 904 ml Exam Constitutional: alert, oriented Respiratory: clear to auscultation Cardiovascular: regular rate and rhythm Gastrointestinal: soft, No distended Musculoskeletal: nl extremities to inspection Results Result Diagram: 05/24/17 0747 05/24/17 0747 Results 24 hrs Laboratory Tests Test 05/23/17 18:18 05/24/17 07:47 Sodium Level 130 L 132 L Potassium Level 2.6 *L 3.0 L Chloride Level 83 L 90 L Carbon Dioxide Level 38 H 33 H Anion Gap 12 12 Blood Urea Nitrogen 13 9 Creatinine 0.57 0.56 Glucose Level 157 118 Calcium Level 9.1 8.7 Magnesium Level 1.2 L 2.2 # White Blood Count 11.2 H Red Blood Count 4.13 L Hemoglobin 10.8 L Hematocrit 33.2 L Mean Corpuscular Volume 80.4 L Mean Corpuscular Hemoglobin 26.2 L Mean Corpuscular Hemoglobin Concent 32.5 Red Cell Distribution Width 17.7 #H Platelet Count 239 # Mean Platelet Volume 9.8 Neutrophils % Segmented Neutrophils % (Manual) 60 Band Neutrophils % (Manual) 14 H Lymphocytes % Lymphocytes % (Manual) 19 Monocytes % Monocytes % (Manual) 6 Eosinophils % Eosinophils % (Manual) 1 Basophils % Nucleated Red Blood Cells % 0.0 Neutrophils # Neutrophils # (Manual) 6.9 Band Neutrophils # 1.5 H Absolute Lymphocytes (Manual) 2.1 Lymphocytes # Monocytes # Absolute Monocytes (Manual) 0.6 Eosinophils # Basophils # Nucleated Red Blood Cells # Platelet Estimate NORMAL Polychromasia 3+ Hypochromasia 1+ Poikilocytosis 1+ Anisocytosis 2+ Microcytosis 1+ Macrocytosis 1+ Rouleau 1+ Hemoglobin A1c 6.4 H Phosphorus Level 3.2 Total Bilirubin 0.3 Direct Bilirubin 0.00 Indirect Bilirubin 0.3 Aspartate Amino Transf (AST/SGOT) 19 Alanine Aminotransferase (ALT/SGPT) 31 Alkaline Phosphatase 170 H Total Protein 6.9 Albumin 4.0 Globulin 2.90 Albumin/Globulin Ratio 1.37 Medications Medications Current Medications Ondansetron HCl (Zofran Inj) 4 mg Q6H PRN IV NAUSEA AND/OR VOMITING Last administered on 05/24/17 11:35; Admin Dose 4 MG; Start 05/23/17 at 17:30 Acetaminophen (Tylenol Tab) 650 mg Q6H PRN PO PAIN LEVEL 1-3 OR FEVER; Start 05/23/17 at 17:30 Acetaminophen/ Hydrocodone Bitart ([place] (5/325)) 1 tab Q6H PRN PO MODERATE PAIN LEVEL 4-6; Start 05/23/17 at 17:30 Morphine Sulfate (morphine) 2 mg Q4H PRN IV SEVERE PAIN LEVEL 7-10; Start 05/23 at 17:30 Zolpidem Tartrate (Ambien) 5 mg QHS PRN PO SLEEP; Start 05/23/17 at 17:30 Atorvastatin Calcium (Lipitor) 40 mg DAILY PO Last administered on 05/24/17 08 :35; Admin Dose 40 MG; Start 05/24/17 at 09:00 Docusate Sodium (Colace) 100 mg BID PO Last administered on 05/24/17 08:36; Admin Dose 100 MG; Start 05/23/17 at 21:00 Escitalopram Oxalate (Lexapro) 10 mg DAILY PRN PO DEPRESSION; Start 05/23/17 at 17:30 Famotidine (Pepcid) 20 mg BID PO Last administered on 05/24/17 08:36; Admin Dose 20 MG; Start 05/23/17 at 21:00 Lorazepam (Ativan) 0.5 mg DAILY PRN PO ANXIETY; Start 05/23/17 at 17:30 Terbinafine HCl (Lamisil) 250 mg DAILY PO Last administered on 05/24/17 08:36 ; Admin Dose 250 MG; Start 05/24/17 at 09:00 Tramadol HCl (Ultram) 50 mg TID PO Last administered on 05/24/17 13:47; Admin Dose 50 MG; Start 05/23/17 at 21:00 Enoxaparin Sodium 40 mg 40 mg DAILY SC Last administered on 05/24/17 08:39; Admin Dose 40 MG; Start 05/24/17 at 09:00 Potassium Chloride/Sodium Chloride (NS-KCl 20 Meq) 1,000 ml @ 100 mls/hr Q10H IV Last administered on 05/23/17 20:18; Admin Dose 100 MLS/HR; Start 05/23/17 at 21:00 Metoclopramide HCl 10 mg 10 mg Q6H PRN IV NAUSEA AND VOMITING Last administered on 05/23/17 23:32; Admin Dose 10 MG; Start 05/23/17 at 23:00 Ondansetron HCl/ Dextrose (Zofran Inj/D5W) 54 ml @ 108 mls/hr Q6H PRN IV NAUSEA AND/OR VOMITING Last administered on 05/23/17 23:55; Admin Dose 108 MLS/ HR; Start 05/23/17 at 23:00 MIMI BLANCA May 24, 2017 16:42
[2017-05-25] VITALS (13 sets, daily range): BP systolic 111–127; BP diastolic 55–75; PULSE 81–150; RESP 15–19
[2017-05-25] MEDS: HYDROCODONE/APAP (5/325) TAB PO PRN ×2 (01:47→20:37)
[2017-05-25] MEDS: NS + KCL 20 MEQ 1,000 ML IV SCH ×2 (01:48→11:27)
[2017-05-25 08:49] LABS: HEMATOCRIT 33.1 % (37.0-47.0); HEMOGLOBIN 10.8 g/dl (12.0-16.0); MEAN CORPUSCULAR HEMOGLOBIN 26.7 pg (29.0-33.0); MEAN CORPUSCULAR HGB CONC 32.6 g/dl (32.0-37.0); MEAN CORPUSCULAR VOLUME 81.9 fl (82.0-101.0); MEAN PLATELET VOLUME 9.5 fl (7.4-10.4); PLATELET COUNT 240 10^3/UL (140-415); RED BLOOD COUNT 4.04 10^6/ul (4.20-5.40); RED CELL DISTRIBUTION WIDTH 17.5 % (11.5-14.5); WHITE BLOOD COUNT 13.7 10^3/ul (4.8-10.8)
[2017-05-25 08:56] LABS: POSITIVE DIFF @See below
[2017-05-25] MEDS: FAMOTIDINE 20 MG TAB PO SCH ×2 (08:59→20:37)
[2017-05-25] MEDS: metFORMIN 500 MG TAB PO SCH (08:59)
[2017-05-25] MEDS: ATORVASTATIN 40 MG TAB PO SCH (08:59)
[2017-05-25] MEDS: TERBINAFINE 250 MG TAB PO SCH (08:59)
[2017-05-25] MEDS: traMADol 50 MG TAB PO SCH ×3 (08:59→20:37)
[2017-05-25] MEDS: DOCUSATE SODIUM 100 MG CAP PO SCH ×2 (09:00→20:38)
[2017-05-25] MEDS: ENOXAPARIN 40 MG/0.4 ML SYG SC SCH (09:01)
[2017-05-25 09:10] LABS: CALCIUM 9.1 mg/dl (8.4-10.2); CREATININE 0.56 mg/dl (0.44-1.00)
[2017-05-25] MEDS: POTASSIUM CHLORIDE 250 ML IVPB SCH ×2 (11:27→16:45)
[2017-05-25 13:18] LABS: ANISOCYTOSIS 1+ (0-0); EOSINOPHILS % (M) 1 % (0-7); MICROCYTOSIS 1+ (0-0); MONOCYTES % (M) 12 % (0-11); OVALOCYTES 1+ (0-0); PLATELET ESTIMATE NORMAL; POIKILOCYTOSIS 1+ (0-0); POLYCHROMASIA 2+ (0-0)
--- NOTE | 2017-05-25 15:15 | PN ---
Date/Time of Note Date/Time of Note DATE: 05/25/17 TIME: 15:15 Assessment/Plan VTE Prophylaxis VTE Prophylaxis Intervention: LMWH Lines/Catheters IV C[facility]ter Type (from [facility]): PORT A CATH Assessment/Plan Chief Complaint/Hosp Course 1. Severe hypokalemia secondary to nausea vomiting-improved Replete Magnesium repleted 2. Recurrent ovarian cancer with liver mass Gynecology oncology to evaluate in-house 3. Weakness likely secondary to chemotherapy and underlying ovarian cancer Patient is mildly anemic but no indication for blood transfusion at this time 4. Diabetes Continue metformin A1c at 6.4 Prophylaxis: Lovenox Problems: Subjective 24 Hr Interval Summary Constitutional: no complaints Exam/Review of Systems Vital Signs Vitals Vital Signs Date Time Temp Pulse Resp B/P Pulse Ox O2 Delivery O2 Flow Rate FiO2 05/25/17 12:09 94 05/25/17 11:35 98.0 18 111/55 98 05/23/17 15:30 Room Air Intake and Output 05/24/17 05/24/17 05/25/17 15:00 23:00 07:00 Intake Total 1920 ml 520 ml Balance 1920 ml 520 ml Exam Constitutional: alert, oriented Respiratory: clear to auscultation Cardiovascular: regular rate and rhythm Gastrointestinal: soft, No distended Musculoskeletal: nl extremities to inspection Results Result Diagram: 05/25/1782605/25/17 0827 Results 24 hrs Laboratory Tests Test 05/25/17 08:27 White Blood Count 13.7 #H Red Blood Count 4.04 L Hemoglobin 10.8 L Hematocrit 33.1 L Mean Corpuscular Volume 81.9 L Mean Corpuscular Hemoglobin 26.7 L Mean Corpuscular Hemoglobin Concent 32.6 Red Cell Distribution Width 17.5 H Platelet Count 240 Mean Platelet Volume 9.5 Neutrophils % Segmented Neutrophils % (Manual) 65 Band Neutrophils % (Manual) 7 H Lymphocytes % Lymphocytes % (Manual) 15 Monocytes % Monocytes % (Manual) 12 H Eosinophils % Eosinophils % (Manual) 1 Basophils % Nucleated Red Blood Cells % 0.0 Neutrophils # Neutrophils # (Manual) 9.0 H Band Neutrophils # 0.9 H Absolute Lymphocytes (Manual) 2.0 Lymphocytes # Monocytes # Absolute Monocytes (Manual) 1.6 H Eosinophils # Basophils # Nucleated Red Blood Cells # Platelet Estimate NORMAL Polychromasia 2+ Poikilocytosis 1+ Anisocytosis 1+ Microcytosis 1+ Ovalocytes 1+ Sodium Level 136 Potassium Level 3.0 L Chloride Level 98 Carbon Dioxide Level 30 Anion Gap 11 Blood Urea Nitrogen 7 Creatinine 0.56 Glucose Level 105 Calcium Level 9.1 Medications Medications Current Medications Ondansetron HCl (Zofran Inj) 4 mg Q6H PRN IV NAUSEA AND/OR VOMITING Last administered on 05/24/17 11:35; Admin Dose 4 MG; Start 05/23/17 at 17:30 Acetaminophen (Tylenol Tab) 650 mg Q6H PRN PO PAIN LEVEL 1-3 OR FEVER; Start 05/23/17 at 17:30 Acetaminophen/ Hydrocodone Bitart ([place] (5/325)) 1 tab Q6H PRN PO MODERATE PAIN LEVEL 4-6 Last administered on 05/25/17 01:47; Admin Dose 1 TAB; Start at 17:30 Morphine Sulfate (morphine) 2 mg Q4H PRN IV SEVERE PAIN LEVEL 7-10; Start 05/23 at 17:30 Zolpidem Tartrate (Ambien) 5 mg QHS PRN PO SLEEP; Start 05/23/17 at 17:30 Atorvastatin Calcium (Lipitor) 40 mg DAILY PO Last administered on 05/25/17 08 :59; Admin Dose 40 MG; Start 05/24/17 at 09:00 Docusate Sodium (Colace) 100 mg BID PO Last administered on 05/24/17 20:00; Admin Dose 100 MG; Start 05/23/17 at 21:00 Escitalopram Oxalate (Lexapro) 10 mg DAILY PRN PO DEPRESSION; Start 05/23/17 at 17:30 Famotidine (Pepcid) 20 mg BID PO Last administered on 05/25/17 08:59; Admin Dose 20 MG; Start 05/23/17 at 21:00 Lorazepam (Ativan) 0.5 mg DAILY PRN PO ANXIETY; Start 05/23/17 at 17:30 Terbinafine HCl (Lamisil) 250 mg DAILY PO Last administered on 05/25/17 08:59 ; Admin Dose 250 MG; Start 05/24/17 at 09:00 Tramadol HCl (Ultram) 50 mg TID PO Last administered on 05/25/17 12:39; Admin Dose 50 MG; Start 05/23/17 at 21:00 Enoxaparin Sodium 40 mg 40 mg DAILY SC Last administered on 05/25/17 09:01; Admin Dose 40 MG; Start 05/24/17 at 09:00 Potassium Chloride/Sodium Chloride (NS-KCl 20 Meq) 1,000 ml @ 100 mls/hr Q10H IV Last administered on 05/25/17 11:27; Admin Dose 100 MLS/HR; Start 05/23/17 at 21:00 Metoclopramide HCl 10 mg 10 mg Q6H PRN IV NAUSEA AND VOMITING Last administered on 05/23/17 23:32; Admin Dose 10 MG; Start 05/23/17 at 23:00 Ondansetron HCl 8 mg/Dextrose 54 ml @ 108 mls/hr Q6H PRN IV NAUSEA AND/OR VOMITING Last administered on 05/23/17 23:55; Admin Dose 108 MLS/HR; Start 05/23/17 at 23:00 Potassium Chloride (KCl 40 MEQ/250 ML NS) 250 ml @ 62.5 mls/hr Q4H IVPB Last administered on 05/25/17 11:27; Admin Dose 62.5 MLS/HR; Start 05/25/17 at 11:30 ; Stop 05/25/17 at 19:29 MIMI BLANCA May 25, 2017 15:15
[2017-05-25] MEDS: LORAZEPAM 0.5 MG TAB PO PRN (16:43)
--- NOTE | 2017-05-25 17:39 | CONS ---
Date/Time of Note Date/Time of Note DATE: 05/25/17 TIME: 17:31 Assessment/Plan Assessment/Plan Chief Complaint/Hosp Course 46 yo female with #recurrent ovarian ca, s/p secondary cytoreductive surgery on 02/23 -s/p cycle 3 of carboplatin/ taxol on 05/17 -will need to resume chemotherapy with cycle 4 as scheduled -will likely need to dose reduce chemotherapy by 20% given her grade 4 nausea #Hypokalemia -2/2 to nausea/vomiting and diarrhea -sx are now greatly improved -appreciate hospitalist management for K+ supplementation #Liver Metastatis-this is appears to be a single site of metastasis -Dr. Paez aware and plans to resect lesion -this will likely happen after completion of 6 cycles of chemo #Nausea -will continue emend premed with sancuso patch #Anxiety-Ativan 0.5mg q 12 hours written for #BRCA 2 + status-this was only recently discovered after she mentioned her sister was undergoing treatment for breast cancer -pt was scheduled for double mastectomy prior to finding out that her ovarian cancer recurred -we will have to re visit this down the line once she has completed chemotherapy -if her disease recurs again, she would be a candidate for a PARP inhibitor given her +BRCA status #DM-continue tight glycemic control while on chemotherapy as she is receiving steroids premedications Problems: Consultation Date/Type/Reason Admit Date/Time May 23, 2017 at 15:02 Date of Consultation: May 25, 2017 Type of Consultation: Oncology Reason for Consultation recurrent ovarian cancer Referring Provider: MIMI BLANCA of Present Illness 46-year-old BRCA 2 positive female whose history is as follows -March of 2014 she was diagnosed with high grade pap serous ovarian cancer , pathologic stage T3c, N1, STAGE IIIC that was noted to invade both her ovaries, fallopian tubes, omentum, colon, bladder, appendix, cecum, and diaphragm with 1/13 lymph nodes positive for cancer. The patient underwent optimal debulking surgery by Dr. Hammond. 04/2014 - 08/2014: Pt went on to receive 6 cycles of dose dense Carboplatin AUC of 6 to be given every three weeks, as well as Taxol 80 mg/sq m every week. 04/2016 - pt admitted to [facility] for abdominal pain. CA 125 was elevated to 30's and patient was evaluated by [facility] for recurrence. MRI of pelvis was done but there was no evidence of recurrence at that time 09/2016 - PET /CT negative01/2017 - CA 125 was found to be 541 with a He4 of 121. 01/27/17 - PET CT demonstrated new hypermetabolic nodules in retroperitoneum and pelvis measuring up to 1cm02/23/17 - pt underwent cytoreductive surgery: modified posterior exenteration with low anastomosis, Small bowel resection and anastamosis x2, Ureteral dissection with repositioning bilaterally, Extensive cytoreduction, Common iliac and aortic LND, Superficial bladder resection and repair. Surgical path reveals recurrent disease in left pelvic side wall, periureteral region, terminal ileum, ruth-rectal area, pericecal area, small bowel, mesenteric bowel, portion of ileum, colon, common iliac, aortic and pelvic lymph nodes, as well as the perihepatic region 05/17/17: Received 3st cycle of Carboplatin / Taxol q 3 week dose for recurrent disease. Now admitted for hypokalemia secondary to chemotherapy Constitutional: no complaints Gastrointestinal: decreased appetite, diarrhea, nausea Musculoskeletal: bone/joint pain Past Medical History thyroid d/o,High Cholesterol, Diabetes, Depression Past Surgical History Past Surgical Hx: appendectomy Family History Significant Family History: other (sister with breast cancer) Social History Alcohol Use: none Smoking Status: Former smoker Drug Use: none Exam/Review of Systems Vital Signs Vitals Vital Signs Date Time Temp Pulse Resp B/P Pulse Ox O2 Delivery O2 Flow Rate FiO2 05/25/17 16:33 150 05/25/17 15:29 98.0 16 122/68 97 05/23/17 15:30 Room Air Intake and Output 05/24/17 05/24/17 05/25/17 15:00 23:00 07:00 Intake Total 1920 ml 520 ml Balance 1920 ml 520 ml Exam Constitutional: alert, frail, oriented Head: normocephalic Eyes: nl conjunctiva ENMT: nl external ears & nose Neck: non-tender, supple Respiratory: clear to auscultation Cardiovascular: regular rate and rhythm Gastrointestinal: soft Musculoskeletal: nl extremities to inspection, nl gait and stance Results Result Diagram: 05/25/17 0827 05/25/17 0827 Results 24 hrs Laboratory Tests Test 05/25/17 08:27 White Blood Count 13.7 #H Red Blood Count 4.04 L Hemoglobin 10.8 L Hematocrit 33.1 L Mean Corpuscular Volume 81.9 L Mean Corpuscular Hemoglobin 26.7 L Mean Corpuscular Hemoglobin Concent 32.6 Red Cell Distribution Width 17.5 H Platelet Count 240 Mean Platelet Volume 9.5 Neutrophils % Segmented Neutrophils % (Manual) 65 Band Neutrophils % (Manual) 7 H Lymphocytes % Lymphocytes % (Manual) 15 Monocytes % Monocytes % (Manual) 12 H Eosinophils % Eosinophils % (Manual) 1 Basophils % Nucleated Red Blood Cells % 0.0 Neutrophils # Neutrophils # (Manual) 9.0 H Band Neutrophils # 0.9 H Absolute Lymphocytes (Manual) 2.0 Lymphocytes # Monocytes # Absolute Monocytes (Manual) 1.6 H Eosinophils # Basophils # Nucleated Red Blood Cells # Platelet Estimate NORMAL Polychromasia 2+ Poikilocytosis 1+ Anisocytosis 1+ Microcytosis 1+ Ovalocytes 1+ Sodium Level 136 Potassium Level 3.0 L Chloride Level 98 Carbon Dioxide Level 30 Anion Gap 11 Blood Urea Nitrogen 7 Creatinine 0.56 Glucose Level 105 Calcium Level 9.1 Medications Medications Current Medications Ondansetron HCl (Zofran Inj) 4 mg Q6H PRN IV NAUSEA AND/OR VOMITING Last administered on 05/24/17 11:35; Admin Dose 4 MG; Start 05/23/17 at 17:30 Acetaminophen (Tylenol Tab) 650 mg Q6H PRN PO PAIN LEVEL 1-3 OR FEVER; Start 05/23/17 at 17:30 Acetaminophen/ Hydrocodone Bitart ([place] (5/325)) 1 tab Q6H PRN PO MODERATE PAIN LEVEL 4-6 Last administered on 05/25/17 01:47; Admin Dose 1 TAB; Start at 17:30 Morphine Sulfate (morphine) 2 mg Q4H PRN IV SEVERE PAIN LEVEL 7-10; Start 05/23 at 17:30 Zolpidem Tartrate (Ambien) 5 mg QHS PRN PO SLEEP; Start 05/23/17 at 17:30 Atorvastatin Calcium (Lipitor) 40 mg DAILY PO Last administered on 05/25/17 08 :59; Admin Dose 40 MG; Start 05/24/17 at 09:00 Docusate Sodium (Colace) 100 mg BID PO Last administered on 05/24/17 20:00; Admin Dose 100 MG; Start 05/23/17 at 21:00 Escitalopram Oxalate (Lexapro) 10 mg DAILY PRN PO DEPRESSION; Start 05/23/17 at 17:30 Famotidine (Pepcid) 20 mg BID PO Last administered on 05/25/17 08:59; Admin Dose 20 MG; Start 05/23/17 at 21:00 Lorazepam (Ativan) 0.5 mg DAILY PRN PO ANXIETY Last administered on 05/25/17 16:43; Admin Dose 0.5 MG; Start 05/23/17 at 17:30 Terbinafine HCl (Lamisil) 250 mg DAILY PO Last administered on 05/25/17 08:59 ; Admin Dose 250 MG; Start 05/24/17 at 09:00 Tramadol HCl (Ultram) 50 mg TID PO Last administered on 05/25/17 12:39; Admin Dose 50 MG; Start 05/23/17 at 21:00 Enoxaparin Sodium 40 mg 40 mg DAILY SC Last administered on 05/25/17 09:01; Admin Dose 40 MG; Start 05/24/17 at 09:00 Potassium Chloride/Sodium Chloride (NS-KCl 20 Meq) 1,000 ml @ 100 mls/hr Q10H IV Last administered on 05/25/17 11:27; Admin Dose 100 MLS/HR; Start 05/23/17 at 21:00 Metoclopramide HCl 10 mg 10 mg Q6H PRN IV NAUSEA AND VOMITING Last administered on 05/23/17 23:32; Admin Dose 10 MG; Start 05/23/17 at 23:00 Ondansetron HCl 8 mg/Dextrose 54 ml @ 108 mls/hr Q6H PRN IV NAUSEA AND/OR VOMITING Last administered on 05/23/17 23:55; Admin Dose 108 MLS/HR; Start 05/23/17 at 23:00 Potassium Chloride (KCl 40 MEQ/250 ML NS) 250 ml @ 62.5 mls/hr Q4H IVPB Last administered on 05/25/17 16:45; Admin Dose 62.5 MLS/HR; Start 05/25/17 at 11:30 ; Stop 05/25/17 at 19:29 ANTONIO KRAMER M.D. May 25, 2017 17:39
[2017-05-26] VITALS (12 sets, daily range): BP systolic 105–129; BP diastolic 56–88; PULSE 74–98; RESP 16–19
[2017-05-26] MEDS: NS + KCL 20 MEQ 1,000 ML IV SCH ×2 (06:32→09:00)
[2017-05-26] MEDS: ATORVASTATIN 40 MG TAB PO SCH (08:28)
[2017-05-26] MEDS: FAMOTIDINE 20 MG TAB PO SCH ×2 (08:28→21:44)
[2017-05-26] MEDS: DOCUSATE SODIUM 100 MG CAP PO SCH ×2 (08:28→21:44)
[2017-05-26] MEDS: traMADol 50 MG TAB PO SCH ×3 (08:28→21:45)
[2017-05-26] MEDS: metFORMIN 500 MG TAB PO SCH (08:28)
[2017-05-26] MEDS: TERBINAFINE 250 MG TAB PO SCH (08:28)
[2017-05-26] MEDS: ENOXAPARIN 40 MG/0.4 ML SYG SC SCH (08:29)
[2017-05-26 08:43] LABS: BASOPHIL # 0.1 10^3/ul (0.0-0.1); BASOPHILS % 0.7 % (0.0-2.0); EOSINOPHILS % 0.2 % (0.0-7.0); HEMATOCRIT 31.9 % (37.0-47.0); HEMOGLOBIN 10.5 g/dl (12.0-16.0); LYMPHOCYTES # 2.6 10^3/ul (0.8-2.9); LYMPHOCYTES % 19.1 % (15.0-51.0); MEAN CORPUSCULAR HEMOGLOBIN 26.8 pg (29.0-33.0); MEAN CORPUSCULAR HGB CONC 32.9 g/dl (32.0-37.0); MEAN CORPUSCULAR VOLUME 81.4 fl (82.0-101.0); MEAN PLATELET VOLUME 10.2 fl (7.4-10.4); MONOCYTE # 1.1 10^3/ul (0.3-0.9); MONOCYTES % 8.2 % (0.0-11.0); NEUTROPHIL # 9.7 10^3/ul (1.6-7.5); NEUTROPHILS % 69.8 % (39.0-77.0); PLATELET COUNT 233 10^3/UL (140-415); RED BLOOD COUNT 3.92 10^6/ul (4.20-5.40); RED CELL DISTRIBUTION WIDTH 17.8 % (11.5-14.5); WHITE BLOOD COUNT 13.8 10^3/ul (4.8-10.8)
[2017-05-26 09:02] LABS: CALCIUM 8.8 mg/dl (8.4-10.2); CREATININE 0.52 mg/dl (0.44-1.00); PHOSPHORUS 2.9 mg/dl (2.5-4.9); POTASSIUM 3.3 mmol/L (3.5-5.1)
[2017-05-26 09:06] LABS: MAGNESIUM 0.8 mg/dl (1.7-2.5)
[2017-05-26 09:18] LABS: POSITIVE DIFF @See below
[2017-05-26] MEDS ORDERED: POTASSIUM CHLORIDE (SR) 20 MEQ TAB PO STA (11:19)
[2017-05-26] MEDS ORDERED: MAGNESIUM SULFATE 4 GM/100 ML 100 ML IVPB ONE (12:00)
[2017-05-26] MEDS ORDERED: MAGNESIUM OXIDE 400 MG TAB PO ONE (12:00)
[2017-05-26] MEDS ORDERED: POTASSIUM CHLORIDE 250 ML IVPB ONE (12:00)
[2017-05-26] MEDS: LORAZEPAM 0.5 MG TAB PO PRN (15:00)
[2017-05-26] MEDS: HYDROCODONE/APAP (5/325) TAB PO PRN (15:01)
--- NOTE | 2017-05-26 18:03 | PN ---
Date/Time of Note Date/Time of Note DATE: 05/26/17 TIME: 18:02 Assessment/Plan VTE Prophylaxis VTE Prophylaxis Intervention: LMWH Lines/Catheters IV Catheter Type (from Nrs): NILES CATH Assessment/Plan Chief Complaint/Hosp Course 1. Severe hypokalemia secondary to nausea vomiting-improved Replete Replete magnesium 2. Recurrent ovarian cancer with liver mass Gynecology oncology to evaluate in-house 3. Weakness likely secondary to chemotherapy and underlying ovarian cancer Patient is mildly anemic but no indication for blood transfusion at this time 4. Diabetes Continue metformin A1c at 6.4 Prophylaxis: Lovenox Problems: Subjective 24 Hr Interval Summary Constitutional: no complaints Exam/Review of Systems Vital Signs Vitals Vital Signs Date Time Temp Pulse Resp B/P Pulse Ox O2 Delivery O2 Flow Rate FiO2 05/26/17 16:24 98.0 104 18 129/88 97 05/23/17 15:30 Room Air Intake and Output 05/25/17 05/25/17 05/26/17 15:00 23:00 07:00 Intake Total 1370 ml Balance 1370 ml Exam Constitutional: alert, oriented Respiratory: clear to auscultation Cardiovascular: regular rate and rhythm Gastrointestinal: soft, No distended Musculoskeletal: nl extremities to inspection Results Result Diagram: 05/26/17 0716 05/26/17 0716 Results 24 hrs Laboratory Tests Test 05/26/17 07:16 White Blood Count 13.8 H Red Blood Count 3.92 L Hemoglobin 10.5 L Hematocrit 31.9 L Mean Corpuscular Volume 81.4 L Mean Corpuscular Hemoglobin 26.8 L Mean Corpuscular Hemoglobin Concent 32.9 Red Cell Distribution Width 17.8 H Platelet Count 233 Mean Platelet Volume 10.2 Neutrophils % 69.8 Lymphocytes % 19.1 Monocytes % 8.2 Eosinophils % 0.2 Basophils % 0.7 Nucleated Red Blood Cells % 0.0 Neutrophils # 9.7 H Lymphocytes # 2.6 Monocytes # 1.1 H Eosinophils # 0.0 Basophils # 0.1 Nucleated Red Blood Cells # 0.0 Sodium Level 137 Potassium Level 3.3 L Chloride Level 101 Carbon Dioxide Level 27 Anion Gap 12 Blood Urea Nitrogen 6 L Creatinine 0.52 Glucose Level 88 Calcium Level 8.8 Phosphorus Level 2.9 Magnesium Level 0.8 *L Medications Medications Current Medications Ondansetron HCl (Zofran Inj) 4 mg Q6H PRN IV NAUSEA AND/OR VOMITING Last administered on 05/24/17 11:35; Admin Dose 4 MG; Start 05/23/17 at 17:30 Acetaminophen (Tylenol Tab) 650 mg Q6H PRN PO PAIN LEVEL 1-3 OR FEVER; Start 05/23/17 at 17:30 Acetaminophen/ Hydrocodone Bitart ([place] (5/325)) 1 tab Q6H PRN PO MODERATE PAIN LEVEL 4-6 Last administered on 05/26/17 15:01; Admin Dose 1 TAB; Start 05/23/17 at 17:30 Morphine Sulfate (morphine) 2 mg Q4H PRN IV SEVERE PAIN LEVEL 7-10; Start 05/23 at 17:30 Zolpidem Tartrate (Ambien) 5 mg QHS PRN PO SLEEP; Start 05/23/17 at 17:30 Atorvastatin Calcium (Lipitor) 40 mg DAILY PO Last administered on 05/26/17 08:28; Admin Dose 40 MG; Start 05/24/17 at 09:00 Docusate Sodium (Colace) 100 mg BID PO Last administered on 05/26/17 08:28; Admin Dose 100 MG; Start 05/23/17 at 21:00 Escitalopram Oxalate (Lexapro) 10 mg DAILY PRN PO DEPRESSION; Start 05/23/17 at 17:30 Famotidine (Pepcid) 20 mg BID PO Last administered on 05/26/17 08:28; Admin Dose 20 MG; Start 05/23/17 at 21:00 Lorazepam (Ativan) 0.5 mg DAILY PRN PO ANXIETY Last administered on 05/26/17 15:00; Admin Dose 0.5 MG; Start 05/23/17 at 17:30 Terbinafine HCl (Lamisil) 250 mg DAILY PO Last administered on 05/26/17 08:28 ; Admin Dose 250 MG; Start 05/24/17 at 09:00 Tramadol HCl (Ultram) 50 mg TID PO Last administered on 05/26/17 12:49; Admin Dose 50 MG; Start 05/23/17 at 21:00 Enoxaparin Sodium 40 mg 40 mg DAILY SC Last administered on 05/26/17 08:29; Admin Dose 40 MG; Start 05/24/17 at 09:00 Potassium Chloride/Sodium Chloride (NS-KCl 20 Meq) 1,000 ml @ 100 mls/hr Q10H IV Last administered on 05/26/17 06:32; Admin Dose 100 MLS/HR; Start at 21:00 Metoclopramide HCl 10 mg 10 mg Q6H PRN IV NAUSEA AND VOMITING Last administered on 05/23/17 23:32; Admin Dose 10 MG; Start 05/23/17 at 23:00 Ondansetron HCl/ Dextrose (Zofran Inj/D5W) 54 ml @ 108 mls/hr Q6H PRN IV NAUSEA AND/OR VOMITING Last administered on 05/23/17 23:55; Admin Dose 108 MLS/ HR; Start 05/23/17 at 23:00 MIMI BLANCA May 26, 2017 18:03
[2017-05-27] VITALS (8 sets, daily range): BP systolic 108–113; BP diastolic 58–60; PULSE 75–87; RESP 18
[2017-05-27] MEDS: NS + KCL 20 MEQ 1,000 ML IV SCH (00:10)
[2017-05-27 06:16] LABS: HEMATOCRIT 35.2 % (37.0-47.0); HEMOGLOBIN 11.3 g/dl (12.0-16.0); MEAN CORPUSCULAR HEMOGLOBIN 26.5 pg (29.0-33.0); MEAN CORPUSCULAR HGB CONC 32.1 g/dl (32.0-37.0); MEAN CORPUSCULAR VOLUME 82.4 fl (82.0-101.0); MEAN PLATELET VOLUME 9.4 fl (7.4-10.4); PLATELET COUNT 242 10^3/UL (140-415); RED BLOOD COUNT 4.27 10^6/ul (4.20-5.40); RED CELL DISTRIBUTION WIDTH 18.1 % (11.5-14.5); WHITE BLOOD COUNT 18.1 10^3/ul (4.8-10.8)
[2017-05-27 06:42] LABS: POSITIVE DIFF @See below
[2017-05-27 06:49] LABS: CALCIUM 8.8 mg/dl (8.4-10.2); CREATININE 0.61 mg/dl (0.44-1.00); MAGNESIUM 1.6 mg/dl (1.7-2.5); PHOSPHORUS 3.2 mg/dl (2.5-4.9); POTASSIUM 3.7 mmol/L (3.5-5.1)
[2017-05-27] MEDS: ENOXAPARIN 40 MG/0.4 ML SYG SC SCH (08:57)
[2017-05-27] MEDS: metFORMIN 500 MG TAB PO SCH (08:57)
[2017-05-27] MEDS: FAMOTIDINE 20 MG TAB PO SCH (08:58)
[2017-05-27] MEDS: DOCUSATE SODIUM 100 MG CAP PO SCH (08:58)
[2017-05-27] MEDS: TERBINAFINE 250 MG TAB PO SCH (08:58)
[2017-05-27] MEDS: traMADol 50 MG TAB PO SCH ×2 (08:58→12:20)
[2017-05-27] MEDS: ATORVASTATIN 40 MG TAB PO SCH (08:58)
[2017-05-27] MEDS ORDERED: POTASSIUM CHLORIDE (SR) 20 MEQ TAB PO STA (09:53)
[2017-05-27] MEDS ORDERED: POTA10TA37 PO (10:00)
[2017-05-27] MEDS ORDERED: MAGNESIUM SULFATE 2 GM/50 ML 50 ML IVPB ONE (10:00)
[2017-05-27] MEDS ORDERED: MAGN400T28 PO (10:00)
--- NOTE | 2017-05-27 10:01 | PDOCDIS ---
Discharge Instructions CONDITION Patient Condition: Good HOME CARE INSTRUCTIONS: Diet Instructions: Regular ACTIVITY: Activity Restrictions: No Restrictions FOLLOW UP/APPOINTMENTS Follow-up Plan F/U WITH YOUR PCP IN 1-2 WEEKS, F/U WITH YOUR ONCOLOGIST SCHEDULED MIMI BLANCA May 27, 2017 10:01
[2017-05-27] MEDS ORDERED: ONDA-43 PO (11:15)
--- NOTE | 2017-05-27 12:40 | DS ---
Date/Time of Note Date/Time of Note DATE: 05/27/17 TIME: 12:35 Discharge Summary Admission/Discharge Info Admit Date/Time May 23, 2017 at 15:02 Discharge Date/Time May 27, 2017 Discharge Diagnosis 1. Severe hypokalemia and hypomagnesemia secondary to nausea vomiting-resolved DC with p.o. potassium and magnesium as well as Zofran 2. Recurrent ovarian cancer with liver mass Follow-up with oncologist Dr. Smith as an outpatient 3. Weakness likely secondary to chemotherapy and underlying ovarian cancer- improved Patient is mildly anemic but no indication for blood transfusion at this time 4. Diabetes Continue metformin A1c at 6.4 Patient Condition: Good Hospital Course Patient is a 46-year-old female with a history of diabetes, C. difficile colitis , BRCA 2 + status as well as recurrent ovarian ca, s/p secondary cytoreductive surgery on 02/23 and currently receiving chemotherapy. On prior hospitalization surgical path revealed recurrent disease in left pelvic side wall, periureteral region, terminal ileum, ruth-rectal area, pericecal area, small bowel, mesenteric bowel, portion of ileum, colon, common iliac, aortic and pelvic lymph nodes, as well as the perihepatic region. Patient presented to an outside hospital with complaints of weakness and muscle pain and patient was found to be severely hypokalemic. Patient was transferred for insurance reasons, patient was found to be severely depleted in potassium and magnesium and was repleted over the course of several days. Oncology was aware of patient to be admitted and recommended the patient follow-up with oncology as an outpatient. Patient overall condition improved, weakness resolved. Of note patient was found to be mildly anemic but there was no indication for blood transfusion. On the day of discharge patient's vitals, labs and physical exam stable she had no further acute complaints questions were answered. - Home Meds Active Scripts Ondansetron Hcl* (Zofran*) 4 Mg Tab, 4 MG PO Q6H Y for NAUSEA AND OR VOMITING, # 30 TAB Prov:MIMI BLANCA 05/27/17 Potassium Chloride* (K-Dur*) 10 Meq Tab.prt.sr, 10 MEQ PO DAILY, #60 TAB Prov:MIMI BLANCA 05/27/17 Magnesium Oxide* (Magnesium Oxide*) 400 Mg Tablet, 400 MG PO DAILY, #60 TAB Prov:MIMI BLANCA 05/27/17 Docusate Sodium* (Colace*) 100 Mg Capsule, 100 MG PO BID, #30 CAP Prov:SUSANNAH HAGENBIR 03/29/17 Lorazepam* (Ativan*) 0.5 Mg Tablet, 0.5 MG PO DAILY Y for ANXIETY, #10 TAB Prov:XIAOCUATE 03/29/17 Hydrocodone Bit-Acetaminophen (Hydrocodone Bit-APAP) 5-325MG Tablet, 1 TAB PO Q6H Y for PAIN, #24 TAB Prov:XIAOCUATE 03/29/17 Famotidine* (Famotidine*) 20 Mg Tablet, 20 MG PO BID for 30 Days, TAB Prov:XIAOCUATE 03/29/17 [Hydrocodone/[place] (10/325)] 1 TAB TAB No Conflict Check, 1 TAB PO Q6H Y for pain , #30 Prov:EUGENE QUINTANILLA 04/06/16 Reported Medications Cephalexin* (Cephalexin*) 500 Mg Capsule, 500 MG PO Q12, #28 CAP 05/23/17 Tramadol HCl (Tramadol HCl) 50 Mg Tablet, 50 MG PO TID, #90 TAB 05/23/17 Atorvastatin* (Atorvastatin*) 40 Mg Tablet, 40 MG PO DAILY, #30 TAB 03/27/16 Metformin Hcl (Glucophage) 500 Mg Tablet, 1000 MG PO WITH BREAKFAST, #30 TAB 03/27/16 Terbinafine Hcl* (Terbinafine Hcl*) 250 Mg Tablet, 250 MG PO DAILY for INFECTION , TAB 03/27/16 Escitalopram Oxalate* (Escitalopram Oxalate*) 10 Mg Tablet, 10 MG PO DAILY Y for DEPRESSION, #30 TAB 03/27/16 Discontinued Scripts Insulin Glargine* (Lantus*) 100 Unit/Ml Soln, 10 UNIT SC DAILY for 30 Days, #1 VIAL 1 Refill Prov:EUGENE QUINTANILLA 04/06/16 Follow-up Plan F/U WITH YOUR PCP IN 1-2 WEEKS, F/U WITH YOUR ONCOLOGIST SCHEDULED Primary Care Provider Care Physician No Primary Time spent on discharge: > 30 minutes MIMI BLANCA May 27, 2017 12:39
== END 2017-05-27 14:48 | disposition home or self-care (01) | DRG 641 ==
LOC: MS4 15:02
PROVIDERS: ADMIT Internal Medicine; ATTEND Internal Medicine
DX: E87.6 Hypokalemia (principal); C78.5 Secondary malignant neoplasm of large intestine and rectum; C78.7 Secondary malignant neoplasm of liver and intrahepatic bile duct; C78.6 Secondary malignant neoplasm of retroperitoneum and peritoneum; E83.42 Hypomagnesemia; I10 Essential (primary) hypertension; E78.5 Hyperlipidemia, unspecified; E11.9 Type 2 diabetes mellitus without complications; F41.9 Anxiety disorder, unspecified; F32.9 Major depressive disorder, single episode, unspecified; D64.9 Anemia, unspecified; K52.9 Noninfective gastroenteritis and colitis, unspecified; R11.2 Nausea with vomiting, unspecified; T45.1X5A Adverse effect of antineoplastic and immunosuppressive drugs, initial encounter; Y92.019 Unspecified place in single-family (private) house as the place of occurrence of the external cause; Z85.43 Personal history of malignant neoplasm of ovary; Z79.4 Long term (current) use of insulin; Z87.891 Personal history of nicotine dependence
CPT/HCPCS: 80048; 80053; 83036; 83735; 84100; 85025; J1650; J2405; J2765; J3475; J3480

== ENCOUNTER 2017-06-12 23:28 | Emergency (ER) | payer SELFPAY ==
[~2017-06-12] VITALS: Ht 162.6 cm; Wt 46.4 kg
[~2017-06-12 23:28] MED LIST changes: +CEPH500C PO; -LANT3I SC; +MAGN400T28 PO; +ONDA-43 PO; +POTA10TA37 PO; +TRAM50TA2 PO
[2017-06-12 23:31] VITALS: Ht 162.6 cm; Wt 46.4 kg
== END 2017-06-12 23:37 | disposition left against medical advice (07) ==
LOC: E/R 23:28
DX: Z53.21 Procedure and treatment not carried out due to patient leaving prior to being seen by health care provider (principal)

== ENCOUNTER 2017-06-13 09:57 | Inpatient (IN) | payer OTHER ==
[~2017-06-13] VITALS: Ht 154.9 cm; Wt 48.0 kg
[2017-06-13 13:00] VITALS: BP 110/61; PULSE 91; RESP 19
[2017-06-13] MEDS ORDERED: NACL 0.9% 3 ML SYG IV SCH (13:30)
[2017-06-13] MEDS ORDERED: IBUPROFEN 600 MG TAB PO PRN (13:30)
[2017-06-13] MEDS ORDERED: NA PHOSPHATE/BIPHOS 133 ML ENEMA PR ONE (14:00)
[2017-06-13] MEDS ORDERED: HYDROmorphONE 1 MG/ML SYG IV PRN (14:00)
[2017-06-13 14:05] LABS: BASOPHILS % 0.3 % (0.0-2.0); EOSINOPHILS % 0.6 % (0.0-7.0); HEMATOCRIT 32.8 % (37.0-47.0); HEMOGLOBIN 10.9 g/dl (12.0-16.0); LYMPHOCYTES # 1.3 10^3/ul (0.8-2.9); LYMPHOCYTES % 36.5 % (15.0-51.0); MEAN CORPUSCULAR HEMOGLOBIN 27.4 pg (29.0-33.0); MEAN CORPUSCULAR HGB CONC 33.2 g/dl (32.0-37.0); MEAN CORPUSCULAR VOLUME 82.4 fl (82.0-101.0); MEAN PLATELET VOLUME 8.4 fl (7.4-10.4); MONOCYTE # 0.1 10^3/ul (0.3-0.9); MONOCYTES % 3.9 % (0.0-11.0); NEUTROPHIL # 2.1 10^3/ul (1.6-7.5); NEUTROPHILS % 58.1 % (39.0-77.0); PLATELET COUNT 363 10^3/UL (140-415); RED BLOOD COUNT 3.98 10^6/ul (4.20-5.40); RED CELL DISTRIBUTION WIDTH 19.9 % (11.5-14.5); WHITE BLOOD COUNT 3.6 10^3/ul (4.8-10.8)
[2017-06-13] MEDS: ONDANSETRON 4 MG INJ IV PRN (14:07)
--- NOTE | 2017-06-13 14:09 | HP ---
Date/Time of Note Date/Time of Note DATE: 06/13/17 TIME: 13:59 Assessment/Plan VTE Prophylaxis VTE Prophylaxis Intervention: LMWH Assessment/Plan Chief Complaint/Hosp Course 47 yo female with metastatic ovarian cancer s/p cytoreductive surgery and 3 cycles chemotherapy presenting with concern for SBO From imaging, not clear if this is ileus vs mechanical SBO. Presence of stool in colon perhaps more suggestive of ileus - Will give enema from below - NG tube to intermittent suction for now - Try to avoid opiates if possible so as not to worsen ileus/constipation, though in good deal of pain now' - Dr Dong to consult Ovarian cancer with mets: - Management per Eric Dong and Luis Discharge plan pending Problems: HPI/ROS Admit Date/Time Admit Date/Time Jun 13, 2017 at 12:33 Hx of Present Illness 47 yo female with ovarian cancer with met to liver on chemotherapy who is transferred from [facility] ED for management of SBO. The patient underwent cytoreductive surgery 02/23 with low rectal resection and anastamosis as well as bilateral UD, small bowel resection and anastamosis x2. Is now s/p 3 cycles chemo, most recently given on Jun 07. Over past few days has had worsening abdominal discomfort as well as nausea and vomiting since chemo cycle. Unable to have a BM. Went to [facility] where CT scan was performed demonstratin. Multiple dilated small bolwe loops suspicious for SBO 2. Moderate amount of stool in the colon and rectum NG tube was placed. Muliple doses of IV pain meds were given as well as zofran Patient currently reporting pain in belly. PMH/Family/Social Past Surgical History Past Surgical Hx: appendectomy Exam/Review of Systems Exam Exam Alopecia Comfortable appearance, NAD, Aox3 RRR, no m/r/g NG tube in place Breathing comfortably, no w/r/r Abdomen soft, very mildly tender to palpation, no rebound, no guarding No edema Constitutional: alert, oriented, well developed Psych: nl mood/affect, no complaints Head: atraumatic, normocephalic Eyes: EOMI, PERRL, nl conjunctiva, nl lids, nl sclera ENMT: nl external ears & nose, nl lips & teeth, nl nasal mucosa & septum Neck: non-tender, supple Respiratory: clear to auscultation, normal air movement Cardiovascular: nl pulses, regular rate and rhythm Gastrointestinal: nl liver, spleen, non-tender, soft Musculoskeletal: nl extremities to inspection Extremities: normal pulses Neurological: QUALITY COMPLIANCE MANAGER II-XII intact, nl mental status, nl speech, nl strength Skin: nl turgor, No rash or lesions Lymph: nl lymph nodes Medications Medications Current Medications Ondansetron HCl (Zofran Inj) 4 mg Q6H PRN IV NAUSEA AND/OR VOMITING; Start at 13:30 Ibuprofen (Motrin) 600 mg Q6H PRN PO PAIN LEVEL 1-3; Start 06/13/17 at 13:30 Acetaminophen/ Hydrocodone Bitart ([place] (5/325)) 1 tab Q6H PRN PO MODERATE PAIN LEVEL 4-6; Start 06/13/17 at 13:30 Enoxaparin Sodium (Lovenox) 40 mg DAILY SC ; Start 06/14/17 at 09:00 Hydromorphone HCl (Dilaudid) 1 mg Q4H PRN IV PAIN LEVEL 6-10; Start 06/13/17 at 14:00 SHERLYN AMADOR MD Jun 13, 2017 14:09
[2017-06-13 14:21] LABS: INR 0.91; PROTIME 12.2 Sec (12.2-14.2)
[2017-06-13 14:23] LABS: ALBUMIN 3.6 g/dl (3.3-4.9); ALBUMIN/GLOBULIN RATIO 1.05; BILIRUBIN,INDIRECT 0.5 mg/dl (0-1.1); BILIRUBIN,TOTAL 0.5 mg/dl (0.2-1.3); CALCIUM 9.4 mg/dl (8.4-10.2); CREATININE 0.6 mg/dl (0.44-1.00)
[2017-06-13] MEDS ORDERED: LACTATED RINGER'S 1,000 ML IV SCH (14:30)
[2017-06-13] MEDS: LACTATED RINGER'S 1,000 ML IV SCH (14:49)
[2017-06-13 15:11] VITALS: BP 109/57; RESP 18
[2017-06-13] MEDS: KETOROLAC 15 MG INJ IV PRN (16:21)
[2017-06-13] MEDS ORDERED: POTASSIUM CHLORIDE 250 ML IVPB ONE (18:30)
[2017-06-13 19:43] VITALS: BP 117/55; RESP 18
[2017-06-14] MEDS: KETOROLAC 15 MG INJ IV PRN ×3 (00:31→14:58)
[2017-06-14 00:38] VITALS: Ht 154.9 cm; Wt 48.0 kg
[2017-06-14 01:37] VITALS: BP 100/54; RESP 18
[2017-06-14 05:56] LABS: BASOPHILS % 0.5 % (0.0-2.0); EOSINOPHILS % 0.7 % (0.0-7.0); HEMATOCRIT 26.6 % (37.0-47.0); HEMOGLOBIN 8.9 g/dl (12.0-16.0); LYMPHOCYTES # 1.6 10^3/ul (0.8-2.9); LYMPHOCYTES % 37.6 % (15.0-51.0); MEAN CORPUSCULAR HEMOGLOBIN 27.7 pg (29.0-33.0); MEAN CORPUSCULAR HGB CONC 33.5 g/dl (32.0-37.0); MEAN CORPUSCULAR VOLUME 82.9 fl (82.0-101.0); MONOCYTE # 0.2 10^3/ul (0.3-0.9); MONOCYTES % 4.4 % (0.0-11.0); NEUTROPHIL # 2.4 10^3/ul (1.6-7.5); NEUTROPHILS % 56.1 % (39.0-77.0); PLATELET COUNT 314 10^3/UL (140-415); RED BLOOD COUNT 3.21 10^6/ul (4.20-5.40); RED CELL DISTRIBUTION WIDTH 20.1 % (11.5-14.5); WHITE BLOOD COUNT 4.3 10^3/ul (4.8-10.8)
[2017-06-14 06:41] LABS: BILIRUBIN,INDIRECT 0.4 mg/dl (0-1.1); BILIRUBIN,TOTAL 0.4 mg/dl (0.2-1.3); CALCIUM 8.7 mg/dl (8.4-10.2); CREATININE 0.57 mg/dl (0.44-1.00)
[2017-06-14] MEDS: LACTATED RINGER'S 1,000 ML IV SCH (07:30)
[2017-06-14 07:34] LABS: POTASSIUM 2.9 mmol/L (3.5-5.1)
[2017-06-14 07:37] VITALS: BP 101/62; RESP 19
[2017-06-14] MEDS ORDERED: INFLUENZA VIRUS VACCINE 0.5 ML SYG IM* ONE ×2 (09:00)
[2017-06-14] MEDS: ENOXAPARIN 40 MG/0.4 ML SYG SC SCH (09:05)
[2017-06-14] MEDS: HYDROCODONE/APAP (5/325) TAB PO PRN ×2 (10:43→16:34)
[2017-06-14] MEDS: CEPASTAT LOZENGE MT PRN ×3 (10:46→22:16)
[2017-06-14] MEDS: POTASSIUM CHLORIDE 250 ML IVPB SCH ×2 (10:48→15:00)
--- NOTE | 2017-06-14 11:03 | CONS ---
Date/Time of Note Date/Time of Note DATE: 06/14/17 TIME: 10:51 Assessment/Plan Assessment/Plan Chief Complaint/Hosp Course 46 yo female with #recurrent ovarian ca, s/p secondary cytoreductive surgery on 02/23 -surgical path reveals recurrent disease in left pelvic side wall, periureteral region, terminal ileum, ruth-rectal area, pericecal area, small bowel, mesenteric bowel, portion of ileum, colon, common iliac, aortic and pelvic lymph nodes, as well as the perihepatic region -given this her disease free internal was about 24 months pt was restarted on carboplatin and taxol. pt received her 4th cycle on 06/07. -given her long disease free interval, patient was started on on 03/28 -since starting therapy CA 125 is down to 18.2 on 06/02/17 down from 07 from 477 when checked 12/2016 at time of recurrence #SBO -this is either secondary to adhesions or tumor -Dr. Paez to evaluate the patient from a surgical standpoint -continue conservative management in the mean time #Blurry vision -Check MRI of the brain with IV contrast #Grade 2 nausea -pt already on high dose antiemetics as an out patient - continue IV Zofran and Reglan as inpatient #Liver Metastasis -this is appears to be a single site of metastasis -Dr. Paez aware and plans to resect lesion -this will likely happen after completion of 6 cycles of chemo #Anxiety -Ativan 0.5mg q 12 hours written for #BRCA 2 + status -this was only recently discovered after she mentioned her sister was undergoing treatment for breast cancer -pt was scheduled for double mastectomy prior to finding out that her ovarian cancer recurred -we will have to re visit this down the line once she has completed chemotherapy -if her disease recurs again, she would be a candidate for a PARP inhibitor given her +BRCA status #DM -continue tight glycemic control while on chemotherapy as she is receiving steroids premedications A total of 40 minutes of face to face time was spent speaking with the patient, of which greater than 50% was spent in counseling and coordination of care and the detailed question and answer session. Problems: Consultation Date/Type/Reason Admit Date/Time Jun 13, 2017 at 12:33 Date of Consultation: Jun 14, 2017 Type of Consultation: Oncology Reason for Consultation ovarian cancer Referring Provider: SHERLYN AMADOR MD Hx of Present Illness 46yearold BRCA 2 positive female whose history is as follows -March of 2014 she was diagnosed with high grade pap serous ovarian cancer, pathologic stage T3c, N1, STAGE IIIC that was noted to invade both her ovaries, fallopian tubes, omentum, colon, bladder, appendix, cecum, and diaphragm with 1/ lymph nodes positive for cancer. The patient underwent optimal debulking surgery by Dr. Hammond. -04/2014: Pt went on to receive 6 cycles of dose dense Carboplatin AUC of 6 to be given every three weeks, as well as Taxol 80 mg/sq m every week. -04/2016 pt admitted to [facility] for abdominal pain. CA 125 was elevated to 30's and patient was evaluated by [facility] for recurrence. MRI of pelvis was done but there was no evidence of recurrence at that time -09/2016 PET/CT negative -01/2017 CA 125 was found to be 541 with a He4 of 121. -01/27/17 PETCT demonstrated new hypermetabolic nodules in retroperitoneum and pelvis measuring up to 1cm -02/23/17 pt underwent cytoreductive surgery: modified posterior exenteration with low anastomosis, Small bowel resection and anastamosis x2, Ureteral dissection with repositioning bilaterally, Extensive cytoreduction, Common iliac and aortic LND, Superficial bladder resection and repair. Surgical path reveals recurrent disease in left pelvic side wall, periureteral region, terminal ileum, perirectal area, pericecal area, small bowel, mesenteric bowel, portion of ileum, colon, common iliac, aortic and pelvic lymph nodes, as well as the perihepatic region 03/28/17: Received 1st cycle of Carboplatin / Taxol q 3 week dose for recurrent disease. Pt had a 24 mo disease free interval 04/20/17: Abd MRI confimed liver mass in the interior lobe of liver measuring 2.2 cm. also seen is a 5mm right retroperitoneal impact stable 05/2017 admitted to [facility] for grade 3 nausea following last neulasta injection and IVF CURRENT: Pt received her cycle 4 day 1 dose of Carboplatin and Taxol on 06/07/17. ON she was admitted with abdominal pain and nausea with vomiting. Pt had a CT scan done at [facility] which demonstrated multiple dilated small bowel loops suspicious for SBO. Pt now has an NGT placed but still feels as if an area of her bowel is blocked. Constitutional: poor po Eyes: no complaints ENT: no complaints Respiratory: no complaints Cardiovascular: no complaints Gastrointestinal: decreased appetite, nausea, passing stool, vomiting Musculoskeletal: bone/joint pain Skin: no complaints Neurologic: no complaints Past Medical History thyroid d/o,High Cholesterol, Diabetes, Depression. Past Surgical History Appendectomy, CSx2, Primary Cytoreduction 2013 Secondary cytoreduction 02/2017 Past Surgical Hx: appendectomy Family History Significant Family History: no pertinent family hx Social History Alcohol Use: none Smoking Status: Never smoker Drug Use: none Exam/Review of Systems Vital Signs Vitals Vital Signs Date Time Temp Pulse Resp B/P Pulse Ox O2 Delivery O2 Flow Rate FiO2 06/14/17 07:37 98.2 72 19 101/62 98 06/13/17 13:00 Room Air Intake and Output 06/13/17 06/13/17 06/14/17 14:59 22:59 06:59 Intake Total 425 ml 875 ml Output Total 600 ml Balance -175 ml 875 ml Exam Constitutional: alert, frail, oriented Psych: no complaints Head: normocephalic Eyes: nl conjunctiva ENMT: nl external ears & nose, other (NGT in place) Neck: non-tender, supple Respiratory: clear to auscultation Cardiovascular: regular rate and rhythm Gastrointestinal: tender (LLQ) Musculoskeletal: nl extremities to inspection Extremities: normal pulses Results Result Diagram: 06/14/1714 06/14/1714 Results 24 hrs Laboratory Tests Test 06/13/17 13:54 06/14/17 05:14 White Blood Count 3.6 #L 4.3 L Red Blood Count 3.98 L 3.21 L Hemoglobin 10.9 L 8.9 L Hematocrit 32.8 L 26.6 L Mean Corpuscular Volume 82.4 82.9 Mean Corpuscular Hemoglobin 27.4 L 27.7 L Mean Corpuscular Hemoglobin Concent 33.2 33.5 Red Cell Distribution Width 19.9 H 20.1 H Platelet Count 363 # 314 Mean Platelet Volume 8.4 9.0 Neutrophils % 58.1 56.1 Lymphocytes % 36.5 37.6 Monocytes % 3.9 4.4 Eosinophils % 0.6 0.7 Basophils % 0.3 0.5 Nucleated Red Blood Cells % 0.0 0.0 Neutrophils # 2.1 2.4 Lymphocytes # 1.3 1.6 Monocytes # 0.1 L 0.2 L Eosinophils # 0.0 0.0 Basophils # 0.0 0.0 Nucleated Red Blood Cells # 0.0 0.0 Prothrombin Time 12.2 Prothrombin Time Ratio 1.0 INR International Normalized Ratio 0.91 Sodium Level 139 141 Potassium Level 3.0 L 2.9 *L Chloride Level 95 L 100 Carbon Dioxide Level 34 H 31 Anion Gap 13 13 Blood Urea Nitrogen 12 14 Creatinine 0.60 0.57 Glucose Level 114 83 Calcium Level 9.4 8.7 Total Bilirubin 0.5 0.4 Direct Bilirubin 0.00 0.00 Indirect Bilirubin 0.5 0.4 Aspartate Amino Transf (AST/SGOT) 20 41 Alanine Aminotransferase (ALT/SGPT) 37 29 Alkaline Phosphatase 98 77 Total Protein 7.0 6.0 #L Albumin 3.6 3.0 L Globulin 3.40 H 3.00 Albumin/Globulin Ratio 1.05 1.00 Medications Medications Current Medications Ondansetron HCl (Zofran Inj) 4 mg Q6H PRN IV NAUSEA AND/OR VOMITING Last administered on 06/13/17 14:07; Admin Dose 4 MG; Start 06/13/17 at 13:30 Acetaminophen/ Hydrocodone Bitart ([place] (5/325)) 1 tab Q6H PRN PO MODERATE PAIN LEVEL 4-6 Last administered on 06/14/17 10:43; Admin Dose 1 TAB; Start 06/13/17 at 13:30 Enoxaparin Sodium (Lovenox) 40 mg DAILY SC Last administered on 06/14/17 09: 05; Admin Dose 40 MG; Start 06/14/17 at 09:00 Ketorolac Tromethamine 15 mg 15 mg Q6H PRN IV PAIN Last administered on 07:28; Admin Dose 15 MG; Start 06/13/17 at 14:30; Stop 06/16/17 at 14:29 Lactated Ringer's 1,000 ml @ 75 mls/hr [id number] IV Last administered on 07:30; Admin Dose 75 MLS/HR; Start 06/13/17 at 14:30; Stop 06/14/17 at 20 :00 Potassium Chloride (KCl 40 MEQ/250 ML NS) 250 ml @ 62.5 mls/hr Q4H IVPB Last administered on 06/14/17 10:48; Admin Dose 62.5 MLS/HR; Start 06/14/17 at 09: 00; Stop 06/14/17 at 16:59 Phenol (Cepastat Lozenge) 1 lozenge Q1H PRN MT SORE THROAT Last administered on 06/14/17 10:46; Admin Dose 1 LOZENGE; Start 06/14/17 at 10:00 ANTONIO KRAMER M.D. Jun 14, 2017 11:03
--- NOTE | 2017-06-14 12:19 | PN ---
Date/Time of Note Date/Time of Note DATE: 06/14/17 TIME: 12:16 Assessment/Plan VTE Prophylaxis VTE Prophylaxis Intervention: LMWH Lines/Catheters IV Catheter Type (from Nrsg): Peripheral IV Assessment/Plan Chief Complaint/Hosp Course 47 yo female with metastatic ovarian cancer s/p cytoreductive surgery and 3 cycles chemotherapy presenting with concern for SBO SBO - Unclear if related to adhesion vs tumor vs ileus from imaging, regardless now passing flatus and stool - Trial of clear diet today - NG tube to intermittent suction if symptoms recur - Try to avoid opiates if possible so as not to worsen ileus/constipation - Dr Dong to consult for surgical management Ovarian cancer with mets: - Management per Eric Dong and Luis Hypokalemia: - IV potassium repletion Chemotherapy induced pancytopenia is stable Discharge plan pending Problems: Subjective 24 Hr Interval Summary Free Text/Dictation Had bowel movements last night followign enema Today is passing gas Abdominal pain improved Wants to try a diet Exam/Review of Systems Vital Signs Vitals Vital Signs Date Time Temp Pulse Resp B/P Pulse Ox O2 Delivery O2 Flow Rate FiO2 06/14/17 07:37 98.2 72 19 101/62 98 06/13/17 13:00 Room Air Intake and Output 06/13/17 06/13/17 06/14/17 14:59 22:59 06:59 Intake Total 425 ml 875 ml Output Total 600 ml Balance -175 ml 875 ml Exam Abdomen soft nt nd NG tube in place Appears comfortable Constitutional: alert, oriented, well developed Psych: nl mood/affect, no complaints Head: atraumatic, normocephalic Eyes: EOMI, PERRL, nl conjunctiva, nl lids, nl sclera ENMT: nl external ears & nose, nl lips & teeth, nl nasal mucosa & septum Neck: non-tender, supple Respiratory: clear to auscultation, normal air movement Cardiovascular: nl pulses, regular rate and rhythm Gastrointestinal: nl liver, spleen, non-tender, soft Musculoskeletal: nl extremities to inspection, nl gait and stance Extremities: normal pulses Neurological: PRODUCT MGR II-XII intact, nl mental status, nl speech, nl strength Skin: nl turgor, No rash or lesions Lymph: nl lymph nodes Results Result Diagram: 11/29/17 0514 11/29/17 0514 Results 24 hrs Laboratory Tests Test 06/13/17 13:54 06/14/17 05:14 White Blood Count 3.6 #L 4.3 L Red Blood Count 3.98 L 3.21 L Hemoglobin 10.9 L 8.9 L Hematocrit 32.8 L 26.6 L Mean Corpuscular Volume 82.4 82.9 Mean Corpuscular Hemoglobin 27.4 L 27.7 L Mean Corpuscular Hemoglobin Concent 33.2 33.5 Red Cell Distribution Width 19.9 H 20.1 H Platelet Count 363 # 314 Mean Platelet Volume 8.4 9.0 Neutrophils % 58.1 56.1 Lymphocytes % 36.5 37.6 Monocytes % 3.9 4.4 Eosinophils % 0.6 0.7 Basophils % 0.3 0.5 Nucleated Red Blood Cells % 0.0 0.0 Neutrophils # 2.1 2.4 Lymphocytes # 1.3 1.6 Monocytes # 0.1 L 0.2 L Eosinophils # 0.0 0.0 Basophils # 0.0 0.0 Nucleated Red Blood Cells # 0.0 0.0 Prothrombin Time 12.2 Prothrombin Time Ratio 1.0 INR International Normalized Ratio 0.91 Sodium Level 139 141 Potassium Level 3.0 L 2.9 *L Chloride Level 95 L 100 Carbon Dioxide Level 34 H 31 Anion Gap 13 13 Blood Urea Nitrogen 12 14 Creatinine 0.60 0.57 Glucose Level 114 83 Calcium Level 9.4 8.7 Total Bilirubin 0.5 0.4 Direct Bilirubin 0.00 0.00 Indirect Bilirubin 0.5 0.4 Aspartate Amino Transf (AST/SGOT) 20 41 Alanine Aminotransferase (ALT/SGPT) 37 29 Alkaline Phosphatase 98 77 Total Protein 7.0 6.0 #L Albumin 3.6 3.0 L Globulin 3.40 H 3.00 Albumin/Globulin Ratio 1.05 1.00 Medications Medications Current Medications Ondansetron HCl (Zofran Inj) 4 mg Q6H PRN IV NAUSEA AND/OR VOMITING Last administered on 06/13/17 14:07; Admin Dose 4 MG; Start 06/13/17 at 13:30 Acetaminophen/ Hydrocodone Bitart ([place] (5/325)) 1 tab Q6H PRN PO MODERATE PAIN LEVEL 4-6 Last administered on 06/14/17 10:43; Admin Dose 1 TAB; Start 06/13/17 at 13:30 Enoxaparin Sodium (Lovenox) 40 mg DAILY SC Last administered on 06/14/17 09: 05; Admin Dose 40 MG; Start 06/14/17 at 09:00 Ketorolac Tromethamine 15 mg 15 mg Q6H PRN IV PAIN Last administered on 07:28; Admin Dose 15 MG; Start 06/13/17 at 14:30; Stop 06/16/17 at 14:29 Lactated Ringer's 1,000 ml @ 75 mls/hr [id number] IV Last administered on 07:30; Admin Dose 75 MLS/HR; Start 06/13/17 at 14:30; Stop 06/14/17 at 20 :00 Potassium Chloride (KCl 40 MEQ/250 ML NS) 250 ml @ 62.5 mls/hr Q4H IVPB Last administered on 06/14/17 10:48; Admin Dose 62.5 MLS/HR; Start 06/14/17 at 09: 00; Stop 06/14/17 at 16:59 Phenol (Cepastat Lozenge) 1 lozenge Q1H PRN MT SORE THROAT Last administered on 06/14/17 10:46; Admin Dose 1 LOZENGE; Start 06/14/17 at 10:00 SHERLYN AMADOR MD Jun 14, 2017 12:19
--- NOTE | 2017-06-14 12:31 | RADRPT ---
PROCEDURE: XR Abdomen CLINICAL INDICATION: Small bowel obstruction TECHNIQUE: An AP supine radiograph of the abdomen was submitted. COMPARISON: 03/25/2017 FINDINGS: Since the previous study, an NG tube is been placed with the tip well into the stomach. The catheter previously seen project over the inferior abdomen is no longer present. Anastomotic kumar are aga in seen within the left abdomen and pelvis. Surgical clips are again seen in the left pelvis. There are moderately distended segments of small bowel seen in the central abdomen with air seen thr oughout the colon compatible with a worsening partial obstruction. No organomegaly or discrete mass is identified. No pathological calcification is identified. Faint contrast is seen within colon and within the bladder. The osseous elements appear unremarkable. IMPRESSION: 1. Interval placement of an NG tube and removal of the drainage catheter from the inferior abdomen. 2. Previous abdominal surgery. 3. Findings compatible with partial mid small bowel obstruction, worsened from the previous. Physician Fortunato Date Time Electronically viewed and signed by Physician Fortunato on 06/14/2017 12:31 /
[2017-06-14 14:48] VITALS: BP 121/57; RESP 19
[2017-06-14 18:36] LABS: CALCIUM 8.4 mg/dl (8.4-10.2); CREATININE 0.53 mg/dl (0.44-1.00); POTASSIUM 3.5 mmol/L (3.5-5.1)
[2017-06-14] MEDS: HYDROmorphONE 1 MG/ML SYG IV PRN (19:19)
[2017-06-14 19:52] VITALS: BP 116/58; RESP 20
[2017-06-15] MEDS: ONDANSETRON 4 MG INJ IV PRN ×3 (00:02→16:18)
[2017-06-15] MEDS: KETOROLAC 15 MG INJ IV PRN ×2 (00:06→21:19)
[2017-06-15] MEDS: HYDROmorphONE 1 MG/ML SYG IV PRN ×4 (02:10→18:12)
[2017-06-15 02:42] VITALS: BP 111/64; RESP 20
[2017-06-15] MEDS: CEPASTAT LOZENGE MT PRN ×2 (06:45→21:17)
[2017-06-15 07:23] VITALS: BP 107/54; RESP 18
[2017-06-15] MEDS: ENOXAPARIN 40 MG/0.4 ML SYG SC SCH (08:56)
[2017-06-15] MEDS ORDERED: BARIUM SULF 2% 450 ML BTL (BERRY SMOOTHIE) PO ONE (11:00)
[2017-06-15] MEDS ORDERED: LORAZEPAM 2 MG INJ IV ONE (11:30)
[2017-06-15 11:39] LABS: BASOPHILS % 0.2 % (0.0-2.0); EOSINOPHILS % 0.4 % (0.0-7.0); HEMATOCRIT 27.6 % (37.0-47.0); HEMOGLOBIN 9.2 g/dl (12.0-16.0); LYMPHOCYTES # 1.4 10^3/ul (0.8-2.9); LYMPHOCYTES % 27.3 % (15.0-51.0); MEAN CORPUSCULAR HEMOGLOBIN 27.9 pg (29.0-33.0); MEAN CORPUSCULAR HGB CONC 33.3 g/dl (32.0-37.0); MEAN CORPUSCULAR VOLUME 83.6 fl (82.0-101.0); MEAN PLATELET VOLUME 8.6 fl (7.4-10.4); MONOCYTE # 0.2 10^3/ul (0.3-0.9); MONOCYTES % 3.8 % (0.0-11.0); NEUTROPHIL # 3.6 10^3/ul (1.6-7.5); NEUTROPHILS % 67.7 % (39.0-77.0); PLATELET COUNT 340 10^3/UL (140-415); WHITE BLOOD COUNT 5.3 10^3/ul (4.8-10.8)
[2017-06-15] MEDS ORDERED: IOHEXOL 14.3 MG(I)/ML (ADULT) BTL PO ONE (12:00)
[2017-06-15 12:09] LABS: CALCIUM 8.6 mg/dl (8.4-10.2); CREATININE 0.5 mg/dl (0.44-1.00)
[2017-06-15 13:26] VITALS: BP 124/60; RESP 20
--- NOTE | 2017-06-15 13:38 | PN ---
Date/Time of Note Date/Time of Note DATE: 06/15/17 TIME: 13:36 Assessment/Plan VTE Prophylaxis VTE Prophylaxis Intervention: LMWH Lines/Catheters IV Catheter Type (from Nrs): Peripheral IV Assessment/Plan Chief Complaint/Hosp Course 47 yo female with metastatic ovarian cancer s/p cytoreductive surgery and 3 cycles chemotherapy presenting with concern for SBO SBO - Unclear if related to adhesion vs tumor vs ileus from imaging, regardless now passing flatus and stool so seems resolved. However still marked pain in belly , will repeat CT scan - Trial of clear diet today - Dr Dong to consult for surgical management, he is aware, await recommendations Ovarian cancer with mets: - Management per Eric Dong and Luis Hypokalemia: - IV potassium repletion Chemotherapy induced pancytopenia is stable Discharge plan pending Problems: Subjective 24 Hr Interval Summary Free Text/Dictation NG tube self removed Had BM, passing flatus Tolerating PO Still with abdominal pain, nausea Exam/Review of Systems Vital Signs Vitals Vital Signs Date Time Temp Pulse Resp B/P Pulse Ox O2 Delivery O2 Flow Rate FiO2 06/15/17 13:26 98.1 95 20 124/60 100 06/13/17 13:00 Room Air Intake and Output 06/14/17 06/14/17 06/15/17 14:59 22:59 06:59 Intake Total 250 ml 1250 ml 200 ml Output Total 700 ml 700 ml Balance 250 ml 550 ml -500 ml Exam Constitutional: alert, oriented, well developed Psych: nl mood/affect, no complaints Head: atraumatic, normocephalic Eyes: EOMI, PERRL, nl conjunctiva, nl lids, nl sclera ENMT: nl external ears & nose, nl lips & teeth, nl nasal mucosa & septum Neck: non-tender, supple Respiratory: clear to auscultation, normal air movement Cardiovascular: nl pulses, regular rate and rhythm Gastrointestinal: nl liver, spleen, non-tender, soft Musculoskeletal: nl extremities to inspection, nl gait and stance Extremities: normal pulses Neurological: [employer]ACH II-XII intact, nl mental status, nl speech, nl strength Skin: nl turgor, No rash or lesions Lymph: nl lymph nodes Results Result Diagram: 06/15/17 1107 06/15/17 1108 Results 24 hrs Laboratory Tests Test 06/14/17 17:50 06/15/17 11:07 06/15/17 11:08 Sodium Level 137 136 Potassium Level 3.5 3.0 L Chloride Level 101 97 Carbon Dioxide Level 26 29 Anion Gap 14 13 Blood Urea Nitrogen 11 6 L Creatinine 0.53 0.50 Glucose Level 134 # 125 Calcium Level 8.4 8.6 White Blood Count 5.3 # Red Blood Count 3.30 L Hemoglobin 9.2 L Hematocrit 27.6 L Mean Corpuscular Volume 83.6 Mean Corpuscular Hemoglobin 27.9 L Mean Corpuscular Hemoglobin Concent 33.3 Red Cell Distribution Width 20.0 H Platelet Count 340 Mean Platelet Volume 8.6 Neutrophils % 67.7 Lymphocytes % 27.3 Monocytes % 3.8 Eosinophils % 0.4 Basophils % 0.2 Nucleated Red Blood Cells % 0.0 Neutrophils # 3.6 Lymphocytes # 1.4 Monocytes # 0.2 L Eosinophils # 0.0 Basophils # 0.0 Nucleated Red Blood Cells # 0.0 Medications Medications Current Medications Ondansetron HCl (Zofran Inj) 4 mg Q6H PRN IV NAUSEA AND/OR VOMITING Last administered on 06/15/17 07:52; Admin Dose 4 MG; Start 06/13/17 at 13:30 Acetaminophen/ Hydrocodone Bitart ([place] (5/325)) 1 tab Q6H PRN PO MODERATE PAIN LEVEL 4-6 Last administered on 06/14/17 16:34; Admin Dose 1 TAB; Start 06/13/17 at 13:30 Enoxaparin Sodium (Lovenox) 40 mg DAILY SC Last administered on 06/15/17 08: 56; Admin Dose 40 MG; Start 06/14/17 at 09:00 Ketorolac Tromethamine (Toradol) 15 mg Q6H PRN IV PAIN Last administered on 00:06; Admin Dose 15 MG; Start 06/13/17 at 14:30; Stop 06/16/17 at 14: 29 Phenol (Cepastat Lozenge) 1 lozenge Q1H PRN MT SORE THROAT Last administered on 06/15/17 06:45; Admin Dose 1 LOZENGE; Start 06/14/17 at 10:00 Hydromorphone HCl (Dilaudid) 1 mg Q6H PRN IV SEVERE PAIN LEVEL 7-10 Last administered on 06/15/17t 12:20; Admin Dose 1 MG; Start 06/14/17 at 19:00 SHERLYN AMADOR MD Jun 15, 2017 13:38
--- NOTE | 2017-06-15 14:08 | RADRPT ---
PROCEDURE: XR Abdomen 1 View. CLINICAL INDICATION: Abdominal pain and distension. TECHNIQUE: AP abdomen x-ray. COMPARISON: ABDOMEN 06/14/2017 FINDINGS: Gas is seen scattered throughout the right colon, transverse colon and left colon. Multiple gas kev led, dilated loops of small bowel measuring up to approximately 3.2 cm continue be identified in the mid abdomen. No organomegaly is identified. Surgical clips are identified in the left pelvis. The osseous structures are intact. IMPRESSION: Continued presence of multiple gas filled, dilated loops of small bowel in the midabdomen. Appearanc e is similar to prior exam and remains compatible with small bowel ileus or obstruction. Interval nasogastric tube removal. If further characterization of the abdomen is needed CT should be considered. RPTAT: AA .Austyn Bryan MD, Date Time Electronically viewed and signed by .Austyn Bryan MD, on 06/15/2017 14:08 .P/
[2017-06-15] MEDS: POTASSIUM CHLORIDE 250 ML IVPB SCH ×2 (14:42→23:57)
[2017-06-15] MEDS ORDERED: SOD CHLORIDE 0.9% 100 ML ONE (15:07)
[2017-06-15] MEDS ORDERED: IOHEXOL 300MG/ML 150 ML BTL ONE (15:07)
--- NOTE | 2017-06-15 17:18 | CONS ---
Date/Time of Note Date/Time of Note DATE: 06/15/17 TIME: :17 Assessment/Plan Assessment/Plan Chief Complaint/Hosp Course 46 yo female with #recurrent ovarian ca, s/p secondary cytoreductive surgery on 02/23 -surgical path reveals recurrent disease in left pelvic side wall, periureteral region, terminal ileum, ruth-rectal area, pericecal area, small bowel, mesenteric bowel, portion of ileum, colon, common iliac, aortic and pelvic lymph nodes, as well as the perihepatic region -given this her disease free internal was about 24 months pt was restarted on carboplatin and taxol. pt received her 4th cycle on 06/07. -given her long disease free interval, patient was started on on 03/28 -since starting therapy CA 125 is down to 18.2 on 06/02/17 down from 07 from 477 when checked 12/2016 at time of recurrence #SBO -this is either secondary to adhesions or tumor. need to follow up CT scan -f/u recs from Dr. Paez to evaluate the patient from a surgical standpoint -continue conservative management in the mean time #Blurry vision -Check MRI of the brain with IV contrast #Grade 2 nausea -pt already on high dose antiemetics as an out patient - continue IV Zofran and Reglan as inpatient #Liver Metastasis -this is appears to be a single site of metastasis -Dr. Paez aware and plans to resect lesion -this will likely happen after completion of 6 cycles of chemo #Anxiety -Ativan 0.5mg q 12 hours written for #BRCA 2 + status -this was only recently discovered after she mentioned her sister was undergoing treatment for breast cancer -pt was scheduled for double mastectomy prior to finding out that her ovarian cancer recurred -we will have to re visit this down the line once she has completed chemotherapy -if her disease recurs again, she would be a candidate for a PARP inhibitor given her +BRCA status #DM -continue tight glycemic control while on chemotherapy as she is receiving steroids premedications A total of 40 minutes of face to face time was spent speaking with the patient, of which greater than 50% was spent in counseling and coordination of care and the detailed question and answer session. Problems: Consultation Date/Type/Reason Admit Date/Time Jun 13, 2017 at 12:33 Initial Consult Date 06/14/17 Type of Consultation: Oncology Reason for Consultation SBO Referring Provider: SHERLYN AMADOR MD 24 HR Interval Summary Free Text/Dictation pt still with abdominal pain. Exam/Review of Systems Vital Signs Vitals Vital Signs Date Time Temp Pulse Resp B/P Pulse Ox O2 Delivery O2 Flow Rate FiO2 06/15/17 13:26 98.1 95 20 124/60 100 06/13/17 13:00 Room Air Intake and Output 06/14/17 06/14/17 06/15/17 15:00 23:00 07:00 Intake Total 250 ml 1250 ml 200 ml Output Total 700 ml 700 ml Balance 250 ml 550 ml -500 ml Exam Constitutional: alert, oriented Psych: no complaints Head: normocephalic Eyes: nl conjunctiva ENMT: nl external ears & nose Neck: non-tender, supple Respiratory: clear to auscultation Cardiovascular: regular rate and rhythm Gastrointestinal: tender Musculoskeletal: nl extremities to inspection, nl gait and stance Results Result Diagram: 06/15/17 1107 06/15/17 1108 Results 24 hrs Laboratory Tests Test 06/14/17 17:50 06/15/17 11:07 06/15/17 11:08 06/15/17 14:39 Sodium Level 137 136 Potassium Level 3.5 3.0 L Chloride Level 101 97 Carbon Dioxide Level 26 29 Anion Gap 14 13 Blood Urea Nitrogen 11 6 L Creatinine 0.53 0.50 Glucose Level 134 # 125 Calcium Level 8.4 8.6 White Blood Count 5.3 # Red Blood Count 3.30 L Hemoglobin 9.2 L Hematocrit 27.6 L Mean Corpuscular Volume 83.6 Mean Corpuscular Hemoglobin 27.9 L Mean Corpuscular Hemoglobin Concent 33.3 Red Cell Distribution Width 20.0 H Platelet Count 340 Mean Platelet Volume 8.6 Neutrophils % 67.7 Lymphocytes % 27.3 Monocytes % 3.8 Eosinophils % 0.4 Basophils % 0.2 Nucleated Red Blood Cells % 0.0 Neutrophils # 3.6 Lymphocytes # 1.4 Monocytes # 0.2 L Eosinophils # 0.0 Basophils # 0.0 Nucleated Red Blood Cells # 0.0 Urine Test NEGATIVE Medications Medications Current Medications Ondansetron HCl (Zofran Inj) 4 mg Q6H PRN IV NAUSEA AND/OR VOMITING Last administered on 06/15/17t 16:18; Admin Dose 4 MG; Start 06/13/17 at 13:30 Acetaminophen/ Hydrocodone Bitart ([place] (5/325)) 1 tab Q6H PRN PO MODERATE PAIN LEVEL 4-6 Last administered on 06/14/17 16:34; Admin Dose 1 TAB; Start 06/13/17 at 13:30 Enoxaparin Sodium (Lovenox) 40 mg DAILY SC Last administered on 06/15/17 08: 56; Admin Dose 40 MG; Start 06/14/17 at 09:00 Ketorolac Tromethamine (Toradol) 15 mg Q6H PRN IV PAIN Last administered on 00:06; Admin Dose 15 MG; Start 06/13/17 at 14:30; Stop 06/16/17 at 14: 29 Phenol (Cepastat Lozenge) 1 lozenge Q1H PRN MT SORE THROAT Last administered on 06/15/17 06:45; Admin Dose 1 LOZENGE; Start 06/14/17 at 10:00 Hydromorphone HCl 1 mg 1 mg Q6H PRN IV SEVERE PAIN LEVEL 7-10 Last administered on 06/15/17 12:20; Admin Dose 1 MG; Start 06/14/17 at 19:00 Potassium Chloride (KCl 40 MEQ/250 ML NS) 250 ml @ 62.5 mls/hr Q4H IVPB Last administered on 06/15/17 14:42; Admin Dose 62.5 MLS/HR; Start 06/15/17 at 15: 00; Stop 06/15/17 at 22:59 ANTONIO KRAMER M.D. Jun 15, 2017 17:18
--- NOTE | 2017-06-15 19:10 | RADRPT ---
PROCEDURE: CT SCAN OF THE ABDOMEN AND PELVIS with IV CONTRAST CLINICAL INDICATION: Small bowel obstruction, abdominal pain, cancer TECHNIQUE: Utilizing the multi-slice spiral CT scanner, Transaxial images were obtained through the abdomen and pelvis with IV contrast. Additional sagittal, coronal, MPR images were also obtained. DICOM images are available Radiation Dose: CTDI vol 5.56 mGy, DLP 291.84 mGy-cm. One of more of the following dose reduction techniques were utilized: -automatic exposure control -adjustment of the mA and/or kV according to patient size -Use of iterative reconstruction technique Contrast used: 80 cc Omnipaque-300 COMPARISON: CT angiogram 03/17/2017 FINDINGS: Limited slices through the lung bases are clear of any pleural effusions, pulmonary nodules or pneum othorax. There is a catheter noted in the SVC. CT Abdomen Normal liver with patent portal and hepatic veins, distended stomach with oral contrast. Normal sple en, pancreas, gallbladder, adrenals are seen. CBD measures 7 mm at the pancreatic head. Right kidney demonstrates nonenhancing low density 1.3 cm lesion suggestive of cyst. Both kidneys demonstrate mi ld hydroureteronephrosis in presence of a distended bladder. There is contrast in the large bowel. D ilated small bowel loops are noted in the mid abdomen with wall thickening and mesenteric fat strand ing noted. No free air or abscess seen. Small bowel loops in the lower mid abdomen are decompressed. CT pelvis: Contrast is seen in the rectosigmoid colon with sutures in the distal sigmoid colon seen . Distended bladder, surgical clips in the pelvis and left adnexa is noted. No pelvic ascites seen. Osseous structures do not demonstrate any lytic or dense lesions. IMPRESSION: Abnormal thickening and dilatation of small bowel in the midabdomen with decompressed loops of small bowel in the lower mid abdomen suggestive of small bowel partial obstruction. There is contrast in the large bowel noted thereby excluding complete mechanical obstruction. Distended bladder. No liver lesions seen. Right kidney lesion, probably cyst with mild bilateral hydronephrosis noted in presence of a distend ed bladder. RPTAT: AAOO Physician Phuc Date Time Electronically viewed and signed by Physician Phuc on 06/15/2017 19:09 MB/
[2017-06-15 19:20] VITALS: BP 114/64; RESP 18
[2017-06-15] MEDS: DEXTROSE 5%-0.45% NACL 1,000 ML IV SCH (21:15)
[2017-06-15] MEDS: METOCLOPRAMIDE 10 MG INJ IV SCH (21:15)
[2017-06-16] MEDS: HYDROmorphONE 1 MG/ML SYG IV PRN ×5 (00:03→23:07)
[2017-06-16 00:13] VITALS: BP 105/55; RESP 20
[2017-06-16] MEDS: METOCLOPRAMIDE 10 MG INJ IV SCH ×4 (01:55→18:07)
[2017-06-16] MEDS: CEPASTAT LOZENGE MT PRN ×2 (06:07→21:08)
[2017-06-16] MEDS ORDERED: GLUCAGON 1 MG INJ IM PRN (07:30)
[2017-06-16] MEDS ORDERED: GLUCOSE GEL 15 GRAM TUBE BUCCAL PRN (07:30)
[2017-06-16] MEDS ORDERED: DEXTROSE 50% 50 ML SYRINGE IV PRN ×2 (07:30)
[2017-06-16] MEDS ORDERED: GLUCOSE GEL 15 GRAM TUBE PO PRN ×2 (07:30)
[2017-06-16] MEDS: INSULIN ASPART [NOVOLOG] 3 ML PEN SC SCH ×4 (07:50→21:00)
[2017-06-16 07:52] VITALS: BP 106/52; RESP 18
[2017-06-16] MEDS ORDERED: INSULIN ASPART [NOVOLOG] 3 ML PEN SC SCH (09:00)
[2017-06-16] MEDS: ENOXAPARIN 40 MG/0.4 ML SYG SC SCH (09:01)
[2017-06-16 10:35] LABS: CALCIUM 8.5 mg/dl (8.4-10.2); CREATININE 0.52 mg/dl (0.44-1.00); POTASSIUM 3.2 mmol/L (3.5-5.1)
--- NOTE | 2017-06-16 11:46 | CONS ---
Date/Time of Note Date/Time of Note DATE: 06/16/17 TIME: 11:44 Assessment/Plan Assessment/Plan Chief Complaint/Hosp Course 46 yo female with #recurrent ovarian ca, s/p secondary cytoreductive surgery on 02/23 -surgical path reveals recurrent disease in left pelvic side wall, periureteral region, terminal ileum, ruth-rectal area, pericecal area, small bowel, mesenteric bowel, portion of ileum, colon, common iliac, aortic and pelvic lymph nodes, as well as the perihepatic region -given this her disease free internal was about 24 months pt was restarted on carboplatin and taxol. pt received her 4th cycle on 06/07. -given her long disease free interval, patient was started on on 03/28 -since starting therapy CA 125 is down to 18.2 on 06/02/17 down from 07 from 477 when checked 12/2016 at time of recurrence #SBO -this is either secondary to adhesions or tumor. CT A?P wit IV contrast also demonstrates partial SBO -f/u recs from Dr. Paez to evaluate the patient from a surgical standpoint -continue conservative management in the mean time. NGT now discontinued #Blurry vision -Check MRI of the brain with IV contrast #Grade 2 nausea -pt already on high dose antiemetics as an out patient - continue IV Zofran and Reglan as inpatient #Liver Metastasis -this is appears to be a single site of metastasis -Current CT does not visualize the mass -Dr. Paez aware and plans to resect lesion -this will likely happen after completion of 6 cycles of chemo #Anxiety -Ativan 0.5mg q 12 hours written for #BRCA 2 + status -this was only recently discovered after she mentioned her sister was undergoing treatment for breast cancer -pt was scheduled for double mastectomy prior to finding out that her ovarian cancer recurred -we will have to re visit this down the line once she has completed chemotherapy -if her disease recurs again, she would be a candidate for a PARP inhibitor given her +BRCA status #DM -continue tight glycemic control while on chemotherapy as she is receiving steroids premedications A total of 40 minutes of face to face time was spent speaking with the patient, of which greater than 50% was spent in counseling and coordination of care and the detailed question and answer session. Problems: Consultation Date/Type/Reason Admit Date/Time Jun 13, 2017 at 12:33 Initial Consult Date 06/14/17 Type of Consultation: Oncology Reason for Consultation recurrent ovarian cancer Referring Provider: SHERLYN AMADOR MD 24 HR Interval Summary Free Text/Dictation pt tolerating a soft diet but still feels like food gets stuck in her intestine. states the surgeons at [facility] told her she needed surgery Exam/Review of Systems Vital Signs Vitals Vital Signs Date Time Temp Pulse Resp B/P Pulse Ox O2 Delivery O2 Flow Rate FiO2 06/16/17 07:52 98.0 77 18 106/52 98 06/13/17 13:00 Room Air Intake and Output 06/15/17 06/15/17 06/16/17 15:00 23:00 07:00 Intake Total 660 ml 1480 ml Balance 660 ml 1480 ml Exam Constitutional: alert, oriented Psych: no complaints Head: atraumatic, normocephalic Eyes: nl conjunctiva ENMT: nl external ears & nose Neck: non-tender, supple Respiratory: clear to auscultation Cardiovascular: regular rate and rhythm Musculoskeletal: nl extremities to inspection, nl gait and stance Extremities: normal pulses Results Result Diagram: 06/15/17 1107 06/16/17 0936 Results 24 hrs Laboratory Tests Test 06/15/17 14:39 06/16/17 00:37 06/16/17 08:56 06/16/17 09:36 Urine Test NEGATIVE Bedside Glucose 105 121 Sodium Level 138 Potassium Level 3.2 L Chloride Level 99 Carbon Dioxide Level 29 Anion Gap 13 Blood Urea Nitrogen 3 L Creatinine 0.52 Glucose Level 124 Calcium Level 8.5 Medications Medications Current Medications Ondansetron HCl (Zofran Inj) 4 mg Q6H PRN IV NAUSEA AND/OR VOMITING Last administered on 06/15/17 16:18; Admin Dose 4 MG; Start 06/13/17 at 13:30 Acetaminophen/ Hydrocodone Bitart ([place] (5/325)) 1 tab Q6H PRN PO MODERATE PAIN LEVEL 4-6 Last administered on 06/14/17 16:34; Admin Dose 1 TAB; Start 06/13/17 at 13:30 Enoxaparin Sodium (Lovenox) 40 mg DAILY SC Last administered on 06/16/17 09:01 ; Admin Dose 40 MG; Start 06/14/17 at 09:00 Ketorolac Tromethamine (Toradol) 15 mg Q6H PRN IV PAIN Last administered on 21:19; Admin Dose 15 MG; Start 06/13/17 at 14:30; Stop 06/16/17 at 14: 29 Phenol (Cepastat Lozenge) 1 lozenge Q1H PRN MT SORE THROAT Last administered on 06/16/17 06:07; Admin Dose 1 LOZENGE; Start 06/14/17 at 10:00 Hydromorphone HCl (Dilaudid) 1 mg Q6H PRN IV SEVERE PAIN LEVEL 7-10 Last administered on 06/16/17 10:28; Admin Dose 1 MG; Start 06/14/17 at 19:00 Metoclopramide HCl 10 mg 10 mg Q6 IV Last administered on 06/16/17 05:54; Admin Dose 10 MG; Start 06/15/17 at 21:30 Dextrose/Sodium Chloride (D5-1/2ns) 1,000 ml @ 60 mls/hr [id number] IV Last administered on 06/15/17 21:15; Admin Dose 60 MLS/HR; Start 06/15/17 at 21:00 Diagnostic Test (Pha) (Accu-Chek) 1 ea 02 XX ; Start 06/17/17 at 02:00 Miscellaneous Information 1 ea NOTE XX ; Start 06/16/17 at 07:30 Glucose (Glutose) 15 gm Q15M PRN PO DECREASED GLUCOSE; Start 06/16/17 at 07:30 Glucose (Glutose) 22.5 gm Q15M PRN PO DECREASED GLUCOSE; Start 06/16/17 at 07: 30 Dextrose (D50w Syringe) 25 ml Q15M PRN IV DECREASED GLUCOSE; Start 06/16/17 at 07:30 Dextrose (D50w Syringe) 50 ml Q15M PRN IV DECREASED GLUCOSE; Start 06/16/17 at 07:30 Glucagon (Glucagen) 1 mg Q15M PRN IM DECREASED GLUCOSE; Start 06/16/17 at 07:30 Glucose (Glutose) 15 gm Q15M PRN BUCCAL DECREASED GLUCOSE; Start 06/16/17 at 07 :30 ANTONIO KRAMER M.D. Jun 16, 2017 11:46
[2017-06-16] MEDS ORDERED: IOHEXOL 14.3 MG(I)/ML (ADULT) BTL PO SCH (14:00)
--- NOTE | 2017-06-16 14:32 | PN ---
Date/Time of Note Date/Time of Note DATE: 06/16/17 TIME: 14:31 Assessment/Plan VTE Prophylaxis VTE Prophylaxis Intervention: LMWH Lines/Catheters IV Catheter Type (from Nrs): Peripheral IV Assessment/Plan Chief Complaint/Hosp Course 47 yo female with metastatic ovarian cancer s/p cytoreductive surgery and 3 cycles chemotherapy presenting with SBO SBO - Unclear if related to adhesion vs tumor. This is not an ileus. Still present on CT. Await Dr Dong consultation regarding need for surgery now - Continue clear diet - Dr Dong to consult for surgical management, he is aware, await recommendations Ovarian cancer with mets: - Management per Eric Dong and Luis Hypokalemia: - IV potassium repletion Chemotherapy induced pancytopenia is stable Discharge plan pending Problems: Subjective 24 Hr Interval Summary Free Text/Dictation Still with abdominal pain, mild nausea but no vomiting Await consultation from Letitia Exam/Review of Systems Vital Signs Vitals Vital Signs Date Time Temp Pulse Resp B/P Pulse Ox O2 Delivery O2 Flow Rate FiO2 06/16/17 07:52 98.0 77 18 106/52 98 06/13/17 13:00 Room Air Intake and Output 06/15/17 06/15/17 06/16/17 15:00 23:00 07:00 Intake Total 660 ml 1480 ml Balance 660 ml 1480 ml Exam Constitutional: alert, oriented, well developed Psych: nl mood/affect, no complaints Head: atraumatic, normocephalic Eyes: EOMI, PERRL, nl conjunctiva, nl lids, nl sclera ENMT: nl external ears & nose, nl lips & teeth, nl nasal mucosa & septum Neck: non-tender, supple Respiratory: clear to auscultation, normal air movement Cardiovascular: nl pulses, regular rate and rhythm Gastrointestinal: nl liver, spleen, non-tender, soft Musculoskeletal: nl extremities to inspection, nl gait and stance Extremities: normal pulses Neurological: JEWEL STRIPPER II-XII intact, nl mental status, nl speech, nl strength Skin: nl turgor, No rash or lesions Lymph: nl lymph nodes Results Result Diagram: 06/15/17 1107 06/16/17 0936 Results 24 hrs Laboratory Tests Test 06/15/17 14:39 06/16/17 00:37 06/16/17 08:56 06/16/17 09:36 Urine Test NEGATIVE Bedside Glucose 105 121 Sodium Level 138 Potassium Level 3.2 L Chloride Level 99 Carbon Dioxide Level 29 Anion Gap 13 Blood Urea Nitrogen 3 L Creatinine 0.52 Glucose Level 124 Calcium Level 8.5 Test 06/16/17 12:41 Bedside Glucose 107 Medications Medications Current Medications Ondansetron HCl (Zofran Inj) 4 mg Q6H PRN IV NAUSEA AND/OR VOMITING Last administered on 06/15/17 16:18; Admin Dose 4 MG; Start 06/13/17 at 13:30 Acetaminophen/ Hydrocodone Bitart ([place] (5/325)) 1 tab Q6H PRN PO MODERATE PAIN LEVEL 4-6 Last administered on 06/14/17 16:34; Admin Dose 1 TAB; Start 06/13/17 at 13:30 Enoxaparin Sodium (Lovenox) 40 mg DAILY SC Last administered on 06/16/17 09:01 ; Admin Dose 40 MG; Start 06/14/17 at 09:00 Phenol (Cepastat Lozenge) 1 lozenge Q1H PRN MT SORE THROAT Last administered on 06/16/17 06:07; Admin Dose 1 LOZENGE; Start 06/14/17 at 10:00 Hydromorphone HCl (Dilaudid) 1 mg Q6H PRN IV SEVERE PAIN LEVEL 7-10 Last administered on 06/16/17 10:28; Admin Dose 1 MG; Start 06/14/17 at 19:00 Metoclopramide HCl 10 mg 10 mg Q6 IV Last administered on 06/16/17 12:32; Admin Dose 10 MG; Start 06/15/17 at 21:30 Dextrose/Sodium Chloride (D5-1/2ns) 1,000 ml @ 60 mls/hr [id number] IV Last administered on 06/15/17 21:15; Admin Dose 60 MLS/HR; Start 06/15/17 at 21:00 Diagnostic Test (Pha) (Accu-Chek) 1 ea 02 XX ; Start 06/17/17 at 02:00 Miscellaneous Information 1 ea NOTE XX ; Start 06/16/17 at 07:30 Glucose (Glutose) 15 gm Q15M PRN PO DECREASED GLUCOSE; Start 06/16/17 at 07:30 Glucose (Glutose) 22.5 gm Q15M PRN PO DECREASED GLUCOSE; Start 06/16/17 at 07: 30 Dextrose (D50w Syringe) 25 ml Q15M PRN IV DECREASED GLUCOSE; Start 06/16/17 at 07:30 Dextrose (D50w Syringe) 50 ml Q15M PRN IV DECREASED GLUCOSE; Start 06/16/17 at 07:30 Glucagon (Glucagen) 1 mg Q15M PRN IM DECREASED GLUCOSE; Start 06/16/17 at 07:30 Glucose (Glutose) 15 gm Q15M PRN BUCCAL DECREASED GLUCOSE; Start 06/16/17 at 07 :30 SHERLYN AMADOR MD Jun 16, 2017 14:32
[2017-06-16 14:45] VITALS: BP 96/51; RESP 18
[2017-06-16] MEDS ORDERED: POTASSIUM CHLORIDE 250 ML IVPB ONE (15:00)
[2017-06-16] MEDS: DEXTROSE 5%-0.45% NACL 1,000 ML IV SCH (15:50)
--- NOTE | 2017-06-16 20:08 | PN ---
Date/Time of Note Date/Time of Note DATE: 06/16/17 TIME: 20:03 Assessment/Plan VTE Prophylaxis VTE Prophylaxis Intervention: LMWH Lines/Catheters IV Catheter Type (from Nrsg): Peripheral IV Assessment/Plan Assessment/Plan A- improved a bit P- continue rx and repeat CT tomorrow;issue is surgery vs ongoing chemo Subjective 24 Hr Interval Summary Free Text/Dictation Pt indicates ongoing nausea with no vomiting since early yesterday and OOB more. Eats poorly. Exam/Review of Systems Vital Signs Vitals Vital Signs Date Time Temp Pulse Resp B/P Pulse Ox O2 Delivery O2 Flow Rate FiO2 06/16/17 14:45 97.8 71 18 96/51 94 06/13/17 13:00 Room Air Intake and Output 06/15/17 06/15/17 06/16/17 15:00 23:00 07:00 Intake Total 660 ml 1480 ml Balance 660 ml 1480 ml Exam Resp- clear CVS- NSR Abd- soft with some ongoing distension relive to yesterday Ext- NT Results Result Diagram: 06/15/17 1107 06/16/17 0936 Results 24 hrs Laboratory Tests Test 06/16/17 00:37 06/16/17 08:56 06/16/17 09:36 06/16/17 12:41 Bedside Glucose 105 121 107 Sodium Level 138 Potassium Level 3.2 L Chloride Level 99 Carbon Dioxide Level 29 Anion Gap 13 Blood Urea Nitrogen 3 L Creatinine 0.52 Glucose Level 124 Calcium Level 8.5 Test 06/16/17 17:39 Bedside Glucose 119 Medications Medications Current Medications Ondansetron HCl (Zofran Inj) 4 mg Q6H PRN IV NAUSEA AND/OR VOMITING Last administered on 06/15/17 16:18; Admin Dose 4 MG; Start 06/13/17 at 13:30 Acetaminophen/ Hydrocodone Bitart ([place] (5/325)) 1 tab Q6H PRN PO MODERATE PAIN LEVEL 4-6 Last administered on 06/14/17 16:34; Admin Dose 1 TAB; Start 06/13/17 at 13:30 Enoxaparin Sodium (Lovenox) 40 mg DAILY SC Last administered on 06/16/17 09:01 ; Admin Dose 40 MG; Start 06/14/17 at 09:00 Phenol (Cepastat Lozenge) 1 lozenge Q1H PRN MT SORE THROAT Last administered on 06/16/17 06:07; Admin Dose 1 LOZENGE; Start 06/14/17 at 10:00 Hydromorphone HCl (Dilaudid) 1 mg Q6H PRN IV SEVERE PAIN LEVEL 7-10 Last administered on 06/16/17 16:52; Admin Dose 1 MG; Start 06/14/17 at 19:00 Metoclopramide HCl 10 mg 10 mg Q6 IV Last administered on 06/16/17 18:07; Admin Dose 10 MG; Start 06/15/17 at 21:30 Dextrose/Sodium Chloride (D5-1/2ns) 1,000 ml @ 60 mls/hr [id number] IV Last administered on 06/16/17 15:50; Admin Dose 60 MLS/HR; Start 06/15/17 at 21:00 Diagnostic Test (Pha) (Accu-Chek) 1 ea 02 XX ; Start 06/17/17 at 02:00 Miscellaneous Information 1 ea NOTE XX ; Start 06/16/17 at 07:30 Glucose (Glutose) 15 gm Q15M PRN PO DECREASED GLUCOSE; Start 06/16/17 at 07:30 Glucose (Glutose) 22.5 gm Q15M PRN PO DECREASED GLUCOSE; Start 06/16/17 at 07: 30 Dextrose (D50w Syringe) 25 ml Q15M PRN IV DECREASED GLUCOSE; Start 06/16/17 at 07:30 Dextrose (D50w Syringe) 50 ml Q15M PRN IV DECREASED GLUCOSE; Start 06/16/17 at 07:30 Glucagon (Glucagen) 1 mg Q15M PRN IM DECREASED GLUCOSE; Start 06/16/17 at 07:30 Glucose (Glutose) 15 gm Q15M PRN BUCCAL DECREASED GLUCOSE; Start 06/16/17 at 07 :30 MARIA DE JESUS MENDOZA MD Jun 16, 2017 20:08
[2017-06-16 20:16] VITALS: BP 120/61; RESP 20
[2017-06-17] MEDS: METOCLOPRAMIDE 10 MG INJ IV SCH ×4 (00:03→19:29)
[2017-06-17] MEDS: ACCU-CHEK XX SCH (02:00)
[2017-06-17 03:03] VITALS: BP 125/72; RESP 20
[2017-06-17] MEDS: HYDROmorphONE 1 MG/ML SYG IV PRN ×4 (05:29→23:08)
[2017-06-17] MEDS: CEPASTAT LOZENGE MT PRN ×2 (05:34→20:49)
[2017-06-17] MEDS: DEXTROSE 5%-0.45% NACL 1,000 ML IV SCH ×2 (06:26→21:33)
[2017-06-17] MEDS: INSULIN ASPART [NOVOLOG] 3 ML PEN SC SCH ×4 (07:50→20:47)
[2017-06-17 08:28] VITALS: BP 98/52; RESP 18
[2017-06-17] MEDS: ENOXAPARIN 40 MG/0.4 ML SYG SC SCH (09:09)
[2017-06-17] MEDS ORDERED: SOD CHLORIDE 0.9% 100 ML ONE (12:19)
[2017-06-17] MEDS ORDERED: IOHEXOL 300MG/ML 150 ML BTL ONE (12:19)
[2017-06-17 12:43] LABS: CALCIUM 8.9 mg/dl (8.4-10.2); CREATININE 0.47 mg/dl (0.44-1.00); POTASSIUM 3.1 mmol/L (3.5-5.1)
[2017-06-17] MEDS: POTASSIUM CHLORIDE 250 ML IVPB SCH ×3 (13:53→20:46)
--- NOTE | 2017-06-17 14:43 | PN ---
Date/Time of Note Date/Time of Note DATE: 06/17/17 TIME: 14:42 Assessment/Plan VTE Prophylaxis VTE Prophylaxis Intervention: LMWH Lines/Catheters IV Catheter Type (from Nrs): Peripheral IV Assessment/Plan Chief Complaint/Hosp Course 47 yo female with metastatic ovarian cancer s/p cytoreductive surgery and 3 cycles chemotherapy presenting with SBO SBO - Unclear if related to adhesion vs tumor - Repeat CT today to evaluate - May need surgery, decision per Dr Dong - NG removed, tolerating clears and passing flatus/BM Ovarian cancer with mets: - Management per Eric Dong and Luis Hypokalemia: - IV potassium repletion Chemotherapy induced pancytopenia is stable Discharge plan pending Problems: Subjective 24 Hr Interval Summary Free Text/Dictation Tolerating PO, still some mild abd pain, nausea Seen by Dr Dong who recommends repeat CT scan Exam/Review of Systems Vital Signs Vitals Vital Signs Date Time Temp Pulse Resp B/P Pulse Ox O2 Delivery O2 Flow Rate FiO2 06/17/17 08:28 98.0 80 18 98/52 99 06/13/17 13:00 Room Air Intake and Output 06/16/17 06/16/17 06/17/17 15:00 23:00 07:00 Intake Total 1090 ml 1120 ml Output Total 700 ml 3 ml Balance 390 ml 1117 ml Exam Constitutional: alert, oriented, well developed Psych: nl mood/affect, no complaints Head: atraumatic, normocephalic Eyes: EOMI, PERRL, nl conjunctiva, nl lids, nl sclera ENMT: nl external ears & nose, nl lips & teeth, nl nasal mucosa & septum Neck: non-tender, supple Respiratory: clear to auscultation, normal air movement Cardiovascular: nl pulses, regular rate and rhythm Gastrointestinal: nl liver, spleen, non-tender, soft Musculoskeletal: nl extremities to inspection, nl gait and stance Extremities: normal pulses Neurological: [employer] II-XII intact, nl mental status, nl speech, nl strength Skin: nl turgor, No rash or lesions Lymph: nl lymph nodes Results Result Diagram: 06/15/17 1107 06/17/17 1208 Results 24 hrs Laboratory Tests Test 06/16/17 17:39 06/16/17 20:58 06/17/17 08:33 06/17/17 12:08 Bedside Glucose 119 152 106 Sodium Level 137 Potassium Level 3.1 L Chloride Level 96 L Carbon Dioxide Level 28 Anion Gap 16 Blood Urea Nitrogen 2 L Creatinine 0.47 Glucose Level 139 Calcium Level 8.9 Test 06/17/17 13:29 Bedside Glucose 140 Medications Medications Current Medications Ondansetron HCl (Zofran Inj) 4 mg Q6H PRN IV NAUSEA AND/OR VOMITING Last administered on 06/15/17 16:18; Admin Dose 4 MG; Start 06/13/17 at 13:30 Acetaminophen/ Hydrocodone Bitart ([place] (5/325)) 1 tab Q6H PRN PO MODERATE PAIN LEVEL 4-6 Last administered on 06/14/17 16:34; Admin Dose 1 TAB; Start 06/13/17 at 13:30 Enoxaparin Sodium (Lovenox) 40 mg DAILY SC Last administered on 06/17/17 09:09 ; Admin Dose 40 MG; Start 06/14/17 at 09:00 Phenol (Cepastat Lozenge) 1 lozenge Q1H PRN MT SORE THROAT Last administered on 06/17/17 05:34; Admin Dose 1 LOZENGE; Start 06/14/17 at 10:00 Hydromorphone HCl (Dilaudid) 1 mg Q6H PRN IV SEVERE PAIN LEVEL 7-10 Last administered on 06/17/17 13:28; Admin Dose 1 MG; Start 06/14/17 at 19:00 Metoclopramide HCl 10 mg 10 mg Q6 IV Last administered on 06/17/17 13:28; Admin Dose 10 MG; Start 06/15/17 at 21:30 Dextrose/Sodium Chloride (D5-1/2ns) 1,000 ml @ 60 mls/hr [id number] IV Last administered on 06/17/17 06:26; Admin Dose 60 MLS/HR; Start 06/15/17 at 21:00 Diagnostic Test (Pha) (Accu-Chek) 1 ea 02 XX ; Start 06/17/17 at 02:00 Miscellaneous Information 1 ea NOTE XX ; Start 06/16/17 at 07:30 Glucose (Glutose) 15 gm Q15M PRN PO DECREASED GLUCOSE; Start 06/16/17 at 07:30 Glucose (Glutose) 22.5 gm Q15M PRN PO DECREASED GLUCOSE; Start 06/16/17 at 07: 30 Dextrose (D50w Syringe) 25 ml Q15M PRN IV DECREASED GLUCOSE; Start 06/16/17 at 07:30 Dextrose (D50w Syringe) 50 ml Q15M PRN IV DECREASED GLUCOSE; Start 06/16/17 at 07:30 Glucagon (Glucagen) 1 mg Q15M PRN IM DECREASED GLUCOSE; Start 06/16/17 at 07:30 Glucose 15 gm 15 gm Q15M PRN BUCCAL DECREASED GLUCOSE; Start 06/16/17 at 07:30 Potassium Chloride (KCl 40 MEQ/250 ML NS) 250 ml @ 62.5 mls/hr Q4H IVPB Last administered on 06/17/17t 13:53; Admin Dose 62.5 MLS/HR; Start 06/17/17 at 10:30 ; Stop 06/17/17 at 18:29 SHERLYN AMADOR MD Jun 17, 2017 14:43
[2017-06-17 16:43] VITALS: BP 110/56; RESP 18
--- NOTE | 2017-06-17 16:53 | RADRPT ---
PROCEDURE: CT abdomen and pelvis with contrast. CLINICAL INDICATION: Small bowel obstruction TECHNIQUE: CT scan of the abdomen and pelvis with oral contrast was performed and is reconstructed at 2.5 mm contiguous axial intervals from the dome of the diaphragm to the inferior pubic rami.. T he patient was scanned with intravenous contrast. Sagittal and coronal reformatted images were obta ined from the axial source images. The calculated radiation dose measures 219 mGy centimeters. The C TDI measures an for mGy. Individualized dose optimization technique was used for the performance of this exam. This included 1. Automated exposure control. 2. Adjustment of the mA and / or kV according to the patient's size. 3. Use of iterative reconstructed technique. COMPARISON: CT abdomen pelvis June 15, 2017. FINDINGS: The lung bases are clear of any infiltrate or nodule. No effusion is seen. The liver is of normal size, contour and attenuation with no mass or ductal dilatation. No gallston es are visualized. No splenic, adrenal or pancreatic abnormalities present. Kidneys enhance symmetrically and are of normal size and contour. No hydronephrosis, calculus or m asses seen. Ureters are of normal course and caliber with no stone. No bladder mass or stone is pr esent. Uterus is been removed. No adnexal mass is identified. There is no aneurysm. No adenopathy is present. No bowel mass or obstruction is present. There is moderate dilatation of the small bowel diffusely and there is diffuse mural thickening of the small bowel. Contrast passes from the small bowel into the colon and rectum with no evidence of obstruction. There is a 2.7 by 1.8 cm focal fluid collecti on in the anterior right lower quadrant. There is no rim enhancement or gas to suggest abscess. The appendix is not confidently visualized, however, no inflamed appendix is seen.. No phlegmon or pneu moperitoneum is visualized. The osseous structures are intact. IMPRESSION: Diffuse dilatation and wall thickening of small bowel without evidence of obstruction or mass. Quest ion resolving small bowel obstruction. Focal fluid collection in the anterior right lower quadrant without dural enhancement or gas. This l ikely represents a small seroma. Right renal cyst. Post hysterectomy. .Girma Del Toro MD, Date Time Electronically viewed and signed by .Girma Del Toro MD, on 06/17/2017 16:52 .A/
[2017-06-17 19:30] VITALS: BP 114/59; RESP 18
[2017-06-17 20:21] LABS: CALCIUM 8.6 mg/dl (8.4-10.2); CREATININE 0.48 mg/dl (0.44-1.00); POTASSIUM 3.3 mmol/L (3.5-5.1)
[2017-06-17] MEDS ORDERED: MAGNESIUM SULFATE 2 GM/50 ML 50 ML IVPB ONE (21:30)
[2017-06-18] MEDS: METOCLOPRAMIDE 10 MG INJ IV SCH ×5 (00:32→23:36)
[2017-06-18] MEDS: ACCU-CHEK XX SCH (02:00)
[2017-06-18 02:06] VITALS: BP 102/51; RESP 18
[2017-06-18] MEDS: POTASSIUM CHLORIDE 250 ML IVPB SCH (04:45)
[2017-06-18] MEDS: HYDROmorphONE 1 MG/ML SYG IV PRN ×3 (06:14→22:01)
[2017-06-18 07:34] VITALS: BP 105/64; RESP 18
[2017-06-18] MEDS: INSULIN ASPART [NOVOLOG] 3 ML PEN SC SCH ×4 (07:50→21:00)
[2017-06-18 08:50] LABS: HEMATOCRIT 28.1 % (37.0-47.0); HEMOGLOBIN 9.3 g/dl (12.0-16.0); MEAN CORPUSCULAR HGB CONC 33.1 g/dl (32.0-37.0); MEAN CORPUSCULAR VOLUME 84.6 fl (82.0-101.0); MEAN PLATELET VOLUME 8.7 fl (7.4-10.4); PLATELET COUNT 336 10^3/UL (140-415); RED BLOOD COUNT 3.32 10^6/ul (4.20-5.40); RED CELL DISTRIBUTION WIDTH 21.1 % (11.5-14.5); WHITE BLOOD COUNT 2.6 10^3/ul (4.8-10.8)
[2017-06-18 09:07] LABS: POSITIVE DIFF @See below
[2017-06-18] MEDS: ENOXAPARIN 40 MG/0.4 ML SYG SC SCH (09:20)
[2017-06-18 09:27] LABS: ALANINE AMINOTRANSFERASE 37 IU/L (13-69); ALBUMIN 3.5 g/dl (3.3-4.9); ALBUMIN/GLOBULIN RATIO 1.16; ALKALINE PHOSPHATASE 94 IU/L (42-121); ANION GAP 12 (8-16); ASPARTATE AMINO TRANSFERASE 27 IU/L (15-46); BILIRUBIN,INDIRECT 0.1 mg/dl (0-1.1); BILIRUBIN,TOTAL 0.1 mg/dl (0.2-1.3); CALCIUM 8.5 mg/dl (8.4-10.2); CARBON DIOXIDE 29 mmol/L (21-31); CHLORIDE 100 mmol/L (97-110); CREATININE 0.52 mg/dl (0.44-1.00); GLUCOSE 127 mg/dl (70-220); POTASSIUM 4.2 mmol/L (3.5-5.1); SODIUM 137 mmol/L (135-144); TOTAL PROTEIN 6.5 g/dl (6.1-8.1)
[2017-06-18 09:35] LABS: BLOOD UREA NITROGEN < 2 mg/dl (7-20)
[2017-06-18] MEDS ORDERED: MAGNESIUM SULFATE 2 GM/50 ML 50 ML IVPB ONE (10:00)
[2017-06-18] MEDS: HYDROCODONE/APAP (5/325) TAB PO PRN ×2 (11:32→17:38)
[2017-06-18] MEDS: KETOROLAC 15 MG INJ IV PRN (13:23)
[2017-06-18 14:00] VITALS: BP 91/50; RESP 18
--- NOTE | 2017-06-18 14:25 | PN ---
Date/Time of Note Date/Time of Note DATE: 06/18/17 TIME: 14:22 Assessment/Plan VTE Prophylaxis VTE Prophylaxis Intervention: LMWH Lines/Catheters IV Catheter Type (from Nrs): Peripheral IV Urinary Cath still in place: No Assessment/Plan Chief Complaint/Hosp Course 47 yo female with metastatic ovarian cancer s/p cytoreductive surgery and 3 cycles chemotherapy presenting with SBO SBO - Seems this was related to adhseive disease as no caustive tumor seen on CT - Resolved on CT from 06/17 - Advance diet to full liquids - Await further recommendantions on surgical management per Dr Spann Ovarian cancer with mets: - Management per Eric Dong and Luis Hypokalemia: - IV potassium repletion Hypomagnesmia: - IV Mg repletion Chemotherapy induced pancytopenia is stable Discharge plan pending decision from Dr Hutson regarding need for surgery or not. If no need for surgery she can be discharged if tolerating PO normally Problems: Subjective 24 Hr Interval Summary Free Text/Dictation Repeat CT shows resolution of SBO, bowel inflammation persists Patient tolerating clears, requests advancing diet Passing flatus Still with abdominal pain requiring IV dilaudid Exam/Review of Systems Vital Signs Vitals Vital Signs Date Time Temp Pulse Resp B/P Pulse Ox O2 Delivery O2 Flow Rate FiO2 06/18/17 07:34 97.8 79 18 105/64 97 Intake and Output 06/17/17 06/17/17 06/18/17 14:59 22:59 06:59 Intake Total 1250 ml 1190 ml Output Total 3 ml Balance 1250 ml 1187 ml Exam Comfortable appearing, pleasant, AOx3 RRR Alopecia Clear lungs, nonlabored Abdomen soft, minimally tender to palpation in LLQ, no rebound or guarding Results Result Diagram: 06/18/17 0813 06/18/17 0813 Results 24 hrs Laboratory Tests Test 06/17/17 18:13 06/17/17 19:15 06/17/17 20:45 06/18/17 08:13 Bedside Glucose 93 106 Sodium Level 138 137 Potassium Level 3.3 L 4.2 Chloride Level 98 100 Carbon Dioxide Level 29 29 Anion Gap 14 12 Blood Urea Nitrogen 3 L < 2 L Creatinine 0.48 0.52 Glucose Level 95 # 127 Calcium Level 8.6 8.5 Magnesium Level 0.7 *L 1.8 White Blood Count 2.6 #L Red Blood Count 3.32 L Hemoglobin 9.3 L Hematocrit 28.1 L Mean Corpuscular Volume 84.6 Mean Corpuscular Hemoglobin 28.0 L Mean Corpuscular Hemoglobin Concent 33.1 Red Cell Distribution Width 21.1 H Platelet Count 336 Mean Platelet Volume 8.7 Neutrophils % Lymphocytes % Monocytes % Eosinophils % Basophils % Nucleated Red Blood Cells % 0.0 Neutrophils # Lymphocytes # Monocytes # Eosinophils # Basophils # Nucleated Red Blood Cells # Total Bilirubin 0.1 L Direct Bilirubin 0.00 Indirect Bilirubin 0.1 Aspartate Amino Transf (AST/SGOT) 27 Alanine Aminotransferase (ALT/SGPT) 37 Alkaline Phosphatase 94 Total Protein 6.5 Albumin 3.5 Globulin 3.00 Albumin/Globulin Ratio 1.16 Test 06/18/17 08:38 06/18/17 12:26 Bedside Glucose 115 125 Medications Medications Current Medications Ondansetron HCl (Zofran Inj) 4 mg Q6H PRN IV NAUSEA AND/OR VOMITING Last administered on 06/15/17 16:18; Admin Dose 4 MG; Start 06/13/17 at 13:30 Acetaminophen/ Hydrocodone Bitart ([place] (5/325)) 1 tab Q6H PRN PO MODERATE PAIN LEVEL 4-6 Last administered on 06/18/17 11:32; Admin Dose 1 TAB; Start at 13:30 Enoxaparin Sodium (Lovenox) 40 mg DAILY SC Last administered on 06/18/17 09:20 ; Admin Dose 40 MG; Start 06/14/17 at 09:00 Phenol (Cepastat Lozenge) 1 lozenge Q1H PRN MT SORE THROAT Last administered on 06/17/17 20:49; Admin Dose 1 LOZENGE; Start 06/14/17 at 10:00 Metoclopramide HCl 10 mg 10 mg Q6 IV Last administered on 06/18/17 13:12; Admin Dose 10 MG; Start 06/15/17 at 21:30 Dextrose/Sodium Chloride (D5-1/2ns) 1,000 ml @ 60 mls/hr [id number] IV Last administered on 06/17/17 21:33; Admin Dose 60 MLS/HR; Start 06/15/17 at 21:00 Diagnostic Test (Pha) (Accu-Chek) 1 ea 02 XX ; Start 06/17/17 at 02:00 Miscellaneous Information 1 ea NOTE XX ; Start 06/16/17 at 07:30 Glucose (Glutose) 15 gm Q15M PRN PO DECREASED GLUCOSE; Start 06/16/17 at 07:30 Glucose (Glutose) 22.5 gm Q15M PRN PO DECREASED GLUCOSE; Start 06/16/17 at 07: 30 Dextrose (D50w Syringe) 25 ml Q15M PRN IV DECREASED GLUCOSE; Start 06/16/17 at 07:30 Dextrose (D50w Syringe) 50 ml Q15M PRN IV DECREASED GLUCOSE; Start 06/16/17 at 07:30 Glucagon (Glucagen) 1 mg Q15M PRN IM DECREASED GLUCOSE; Start 06/16/17 at 07:30 Glucose (Glutose) 15 gm Q15M PRN BUCCAL DECREASED GLUCOSE; Start 06/16/17 at 07 :30 Hydromorphone HCl (Dilaudid) 1 mg Q4H PRN IV pain Last administered on 06:14; Admin Dose 1 MG; Start 06/17/17 at 23:00 Ketorolac Tromethamine (Toradol) 15 mg Q6H PRN IV PAIN Last administered on 13:23; Admin Dose 15 MG; Start 06/18/17 at 13:30; Stop 06/21/17 at 13:29 SHERLYN AMADOR MD Jun 18, 2017 14:25
[2017-06-18 20:10] VITALS: BP 104/60; RESP 16
[2017-06-18] MEDS: CEPASTAT LOZENGE MT PRN (20:29)
--- NOTE | 2017-06-18 22:11 | QN ---
Documentation Comment Agree feels better but issue is whether we are dealing with small volume tumor or scar tissue and her SBO is recurrent. The SBO is recurrent but it would be ideal to complete chemo before surg eval. Will discuss. MARIA DE JESUS MENDOZA MD Jun 18, 2017 22:11
[2017-06-19 01:44] VITALS: BP 115/59; RESP 16
[2017-06-19] MEDS: ACCU-CHEK XX SCH (02:00)
[2017-06-19] MEDS: HYDROmorphONE 1 MG/ML SYG IV PRN ×4 (02:23→17:47)
[2017-06-19] MEDS: METOCLOPRAMIDE 10 MG INJ IV SCH ×3 (05:09→17:47)
[2017-06-19] MEDS: CEPASTAT LOZENGE MT PRN (06:00)
[2017-06-19] MEDS: INSULIN ASPART [NOVOLOG] 3 ML PEN SC SCH ×3 (07:50→17:47)
[2017-06-19 08:11] VITALS: BP 128/63; RESP 19
[2017-06-19] MEDS: KETOROLAC 15 MG INJ IV PRN (08:36)
[2017-06-19] MEDS: ENOXAPARIN 40 MG/0.4 ML SYG SC SCH (08:44)
[2017-06-19 15:30] VITALS: BP 121/61; RESP 19
[2017-06-19] MEDS: HYDROCODONE/APAP (5/325) TAB PO PRN (15:47)
--- NOTE | 2017-06-19 16:36 | PN ---
Date/Time of Note Date/Time of Note DATE: 06/19/17 TIME: 16:07 Assessment/Plan VTE Prophylaxis VTE Prophylaxis Intervention: LMWH Lines/Catheters IV Catheter Type (from Nrsg): PORT A CATH, NO ACCESS. Urinary Cath still in place: No Assessment/Plan Chief Complaint/Hosp Course 1. SBO-resolving -Advance diet as tolerated - Resolved on CT from 06/17 -Follow-up on oncology and gynecology oncology recommendation 2. Ovarian cancer with mets - Management per Eric Dong and Luis 3. Hypokalemia/mag -Repleted 4. Chemotherapy induced pancytopenia-stable Prophylaxis: Lovenox Problems: Subjective 24 Hr Interval Summary Constitutional: no complaints Exam/Review of Systems Vital Signs Vitals Vital Signs Date Time Temp Pulse Resp B/P Pulse Ox O2 Delivery O2 Flow Rate FiO2 06/19/17 08:11 98.0 71 19 128/63 98 Intake and Output 06/18/17 06/18/17 06/19/17 15:00 23:00 07:00 Intake Total 190 ml 1500 ml 480 ml Output Total 3 ml 780 ml Balance 190 ml 1497 ml -300 ml Exam Constitutional: alert, oriented Respiratory: clear to auscultation Cardiovascular: regular rate and rhythm Gastrointestinal: soft, No distended Musculoskeletal: nl extremities to inspection Results Result Diagram: 06/18/1713 06/18/17 0813 Results 24 hrs Laboratory Tests Test 06/18/17 17:40 06/18/17 20:28 06/19/17 08:25 06/19/17 12:53 Bedside Glucose 143 96 94 113 Medications Medications Current Medications Ondansetron HCl (Zofran Inj) 4 mg Q6H PRN IV NAUSEA AND/OR VOMITING Last administered on 06/15/17 16:18; Admin Dose 4 MG; Start 06/13/17 at 13:30 Acetaminophen/ Hydrocodone Bitart ([place] (5/325)) 1 tab Q6H PRN PO MODERATE PAIN LEVEL 4-6 Last administered on 06/19/17 15:47; Admin Dose 1 TAB; Start at 13:30 Enoxaparin Sodium (Lovenox) 40 mg DAILY SC Last administered on 06/19/17 08:44 ; Admin Dose 40 MG; Start 06/14/17 at 09:00 Phenol (Cepastat Lozenge) 1 lozenge Q1H PRN MT SORE THROAT Last administered on 06/19/17 06:00; Admin Dose 1 LOZENGE; Start 06/14/17 at 10:00 Metoclopramide HCl (Reglan) 10 mg Q6 IV Last administered on 06/19/17 12:54; Admin Dose 10 MG; Start 06/15/17 at 21:30 Diagnostic Test (Pha) (Accu-Chek) 1 ea 02 XX ; Start 06/17/17 at 02:00 Miscellaneous Information 1 ea NOTE XX ; Start 06/16/17 at 07:30 Glucose (Glutose) 15 gm Q15M PRN PO DECREASED GLUCOSE; Start 06/16/17 at 07:30 Glucose (Glutose) 22.5 gm Q15M PRN PO DECREASED GLUCOSE; Start 06/16/17 at 07: 30 Dextrose (D50w Syringe) 25 ml Q15M PRN IV DECREASED GLUCOSE; Start 06/16/17 at 07:30 Dextrose (D50w Syringe) 50 ml Q15M PRN IV DECREASED GLUCOSE; Start 06/16/17 at 07:30 Glucagon (Glucagen) 1 mg Q15M PRN IM DECREASED GLUCOSE; Start 06/16/17 at 07:30 Glucose (Glutose) 15 gm Q15M PRN BUCCAL DECREASED GLUCOSE; Start 06/16/17 at 07 :30 Hydromorphone HCl (Dilaudid) 1 mg Q4H PRN IV pain Last administered on 12:54; Admin Dose 1 MG; Start 06/17/17 at 23:00 Ketorolac Tromethamine (Toradol) 15 mg Q6H PRN IV PAIN Last administered on 08:36; Admin Dose 15 MG; Start 06/18/17 at 13:30; Stop 06/21/17 at 13:29 MIMI BLANCA Jun 19, 2017 16:36
--- NOTE | 2017-06-19 16:56 | CONS ---
Date/Time of Note Date/Time of Note DATE: 06/19/17 TIME: 16:53 Assessment/Plan Assessment/Plan Chief Complaint/Hosp Course 46 yo female with #recurrent ovarian ca, s/p secondary cytoreductive surgery on 02/23 -surgical path reveals recurrent disease in left pelvic side wall, periureteral region, terminal ileum, ruth-rectal area, pericecal area, small bowel, mesenteric bowel, portion of ileum, colon, common iliac, aortic and pelvic lymph nodes, as well as the perihepatic region -given this her disease free internal was about 24 months pt was restarted on carboplatin and taxol. pt received her 4th cycle on 06/07. -given her long disease free interval, patient was started on on 03/28 -since starting therapy CA 125 is down to 18.2 on 06/02/17 down from 07 from 477 when checked 12/2016 at time of recurrence -continue chemotherapy as an out patient. #SBO -this is either secondary to adhesions or tumor. CT A/P wit IV contrast also demonstrates partial SBO -f/u recs from Dr. Paez to evaluate the patient from a surgical standpoint. may plan for surgery after chemotherapy has completed -pt is now tolerating her diet #Blurry vision -resolved #Liver Metastasis -this is appears to be a single site of metastasis -Current CT does not visualize the mass -Dr. Paez aware and plans to resect lesion -this will likely happen after completion of 6 cycles of chemo #Anxiety -Ativan 0.5mg q 12 hours written for #BRCA 2 + status -this was only recently discovered after she mentioned her sister was undergoing treatment for breast cancer -pt was scheduled for double mastectomy prior to finding out that her ovarian cancer recurred -we will have to re visit this down the line once she has completed chemotherapy -if her disease recurs again, she would be a candidate for a PARP inhibitor given her +BRCA status #DM -continue tight glycemic control while on chemotherapy as she is receiving steroids premedications A total of 40 minutes of face to face time was spent speaking with the patient, of which greater than 50% was spent in counseling and coordination of care and the detailed question and answer session. Problems: Consultation Date/Type/Reason Admit Date/Time Jun 13, 2017 at 12:33 Initial Consult Date 06/14/17 Type of Consultation: Oncology Reason for Consultation recurrent metastatic ovarian cancer Referring Provider: SHERLYN AMADOR MD 24 HR Interval Summary Free Text/Dictation pt tolerating pureed diet. having normal bowel movements Exam/Review of Systems Vital Signs Vitals Vital Signs Date Time Temp Pulse Resp B/P Pulse Ox O2 Delivery O2 Flow Rate FiO2 06/19/17 08:11 98.0 71 19 128/63 98 Intake and Output 06/18/17 06/18/17 06/19/17 15:00 23:00 07:00 Intake Total 190 ml 1500 ml 480 ml Output Total 3 ml 780 ml Balance 190 ml 1497 ml -300 ml Exam Constitutional: alert, oriented Head: normocephalic Eyes: nl conjunctiva ENMT: nl external ears & nose Neck: non-tender, supple Respiratory: clear to auscultation Cardiovascular: regular rate and rhythm Gastrointestinal: soft, tender (improved) Results Result Diagram: 06/18/17 0813 06/18/17 0813 Results 24 hrs Laboratory Tests Test 06/18/17 17:40 06/18/17 20:28 06/19/17 08:25 06/19/17 12:53 Bedside Glucose 143 96 94 113 Medications Medications Current Medications Ondansetron HCl (Zofran Inj) 4 mg Q6H PRN IV NAUSEA AND/OR VOMITING Last administered on 06/15/17 16:18; Admin Dose 4 MG; Start 06/13/17 at 13:30 Acetaminophen/ Hydrocodone Bitart ([place] (5/325)) 1 tab Q6H PRN PO MODERATE PAIN LEVEL 4-6 Last administered on 06/19/17 15:47; Admin Dose 1 TAB; Start at 13:30 Enoxaparin Sodium (Lovenox) 40 mg DAILY SC Last administered on 06/19/17 08:44 ; Admin Dose 40 MG; Start 06/14/17 at 09:00 Phenol (Cepastat Lozenge) 1 lozenge Q1H PRN MT SORE THROAT Last administered on 06/19/17 06:00; Admin Dose 1 LOZENGE; Start 06/14/17 at 10:00 Metoclopramide HCl (Reglan) 10 mg Q6 IV Last administered on 06/19/17 12:54; Admin Dose 10 MG; Start 06/15/17 at 21:30 Diagnostic Test (Pha) (Accu-Chek) 1 ea 02 XX ; Start 06/17/17 at 02:00 Miscellaneous Information 1 ea NOTE XX ; Start 06/16/17 at 07:30 Glucose (Glutose) 15 gm Q15M PRN PO DECREASED GLUCOSE; Start 06/16/17 at 07:30 Glucose (Glutose) 22.5 gm Q15M PRN PO DECREASED GLUCOSE; Start 06/16/17 at 07: 30 Dextrose (D50w Syringe) 25 ml Q15M PRN IV DECREASED GLUCOSE; Start 06/16/17 at 07:30 Dextrose (D50w Syringe) 50 ml Q15M PRN IV DECREASED GLUCOSE; Start 06/16/17 at 07:30 Glucagon (Glucagen) 1 mg Q15M PRN IM DECREASED GLUCOSE; Start 06/16/17 at 07:30 Glucose (Glutose) 15 gm Q15M PRN BUCCAL DECREASED GLUCOSE; Start 06/16/17 at 07 :30 Hydromorphone HCl (Dilaudid) 1 mg Q4H PRN IV pain Last administered on 12:54; Admin Dose 1 MG; Start 06/17/17 at 23:00 Ketorolac Tromethamine (Toradol) 15 mg Q6H PRN IV PAIN Last administered on 08:36; Admin Dose 15 MG; Start 06/18/17 at 13:30; Stop 06/21/17 at 13:29 ANTONIO KRAMER M.D. Jun 19, 2017 16:56
--- NOTE | 2017-06-19 17:40 | PDOCDIS ---
Discharge Instructions CONDITION Patient Condition: Good HOME CARE INSTRUCTIONS: Diet Instructions: Regular ACTIVITY: Activity Restrictions: No Restrictions FOLLOW UP/APPOINTMENTS Follow-up Plan Follow-up with your PCP in 1-2 weeks, follow-up with Dr. Smith as scheduled MIMI BLANCA Jun 19, 2017 17:40
--- NOTE | 2017-06-19 17:46 | DS ---
Date/Time of Note Date/Time of Note DATE: 06/19/17 TIME: 17:41 Discharge Summary Admission/Discharge Info Admit Date/Time Jun 13, 2017 at 12:33 Discharge Date/Time June 19, 2017 Discharge Diagnosis 1. SBO-resolved -Now tolerating a diet - Resolved on CT from 06/17 2. Ovarian cancer with mets -Follow-up with oncology and gynecology oncology as outpatient 3. Hypokalemia/mag -Repleted 4. Chemotherapy induced pancytopenia-stable Patient Condition: Good Hospital Course Patient is a 47 yo female with ovarian cancer with met to liver on chemotherapy who is transferred from [place] ED for management of SBO. The patient underwent cytoreductive surgery 02/23 with low rectal resection, small bowel resection, patient is s/p 3 cycles chemo, most recently given on Jun 07. Patient had not had a bowel movement, CT scan abdomen at outside hospital showed SBO, an NG tube was placed patient was given medications for pain control. Patient was seen by oncology and gynecology oncology, patient SBO did ultimately resolve patient was able tolerate a p.o. diet, repeat CT abdomen several days prior to discharge did show resolving SBO. Patient was cleared for discharge per oncology and gynecology oncology patient was a follow-up with them as an outpatient. The day of discharge patient's vitals, labs and physical exam were stable she had no acute complaints questions answered. Patient was tolerating p.o. diet Home Meds Active Scripts Ondansetron Hcl* (Zofran*) 4 Mg Tab, 4 MG PO Q6H Y for NAUSEA AND OR VOMITING, # 30 TAB Prov:MIMI BLANCA 05/27/17 Potassium Chloride* (K-Dur*) 10 Meq Tab.prt.sr, 10 MEQ PO DAILY, #60 TAB Prov:MIMI BLANCA 05/27/17 Magnesium Oxide* (Magnesium Oxide*) 400 Mg Tablet, 400 MG PO DAILY, #60 TAB Prov:MIMI BLANCA 05/27/17 Docusate Sodium* (Colace*) 100 Mg Capsule, 100 MG PO BID, #30 CAP Prov:CUATE HAGEN 03/29/17 Lorazepam* (Ativan*) 0.5 Mg Tablet, 0.5 MG PO DAILY Y for ANXIETY, #10 TAB Prov:CUATE HAGEN 03/29/17 Hydrocodone Bit-Acetaminophen (Hydrocodone Bit-APAP) 5-325MG Tablet, 1 TAB PO Q6H Y for PAIN, #24 TAB Prov:SUSANNAH HAGENBIR 03/29/17 Famotidine* (Famotidine*) 20 Mg Tablet, 20 MG PO BID for 30 Days, TAB Prov:SUSANNAH HAGENBIR 03/29/17 [Hydrocodone/Apap (10/325)] 1 TAB TAB No Conflict Check, 1 TAB PO Q6H Y for pain , #30 Prov:EUGENE QUINTANILLAAndi 04/06/16 Reported Medications Cephalexin* (Cephalexin*) 500 Mg Capsule, 500 MG PO Q12, #28 CAP 05/23/17 Tramadol HCl (Tramadol HCl) 50 Mg Tablet, 50 MG PO TID, #90 TAB 05/23/17 Atorvastatin* (Atorvastatin*) 40 Mg Tablet, 40 MG PO DAILY, #30 TAB 03/27/16 Metformin Hcl (Glucophage) 500 Mg Tablet, 1000 MG PO WITH BREAKFAST, #30 TAB 03/27/16 Terbinafine Hcl* (Terbinafine Hcl*) 250 Mg Tablet, 250 MG PO DAILY for INFECTION , TAB 03/27/16 Escitalopram Oxalate* (Escitalopram Oxalate*) 10 Mg Tablet, 10 MG PO DAILY Y for DEPRESSION, #30 TAB 03/27/16 Follow-up Plan Follow-up with your PCP in 1-2 weeks, follow-up with Dr. Smith as scheduled Primary Care Provider Not On Staff Doctor Time spent on discharge: > 30 minutes MIMI BLANCA Jun 19, 2017 17:45
[2017-06-19 19:07] VITALS: BP 144/69; RESP 16
== END 2017-06-19 19:30 | disposition home or self-care (01) | DRG 388 ==
LOC: MS1 12:33 → UNDODISIN 06-14 18:00 → MS1 06-17 21:30
PROVIDERS: ADMIT Family Medicine; ATTEND Family Medicine
DX: K56.51 Intestinal adhesions [bands], with partial obstruction (principal); D61.810 Antineoplastic chemotherapy induced pancytopenia; C78.7 Secondary malignant neoplasm of liver and intrahepatic bile duct; C77.8 Secondary and unspecified malignant neoplasm of lymph nodes of multiple regions; C56.1 Malignant neoplasm of right ovary; C56.2 Malignant neoplasm of left ovary; H53.8 Other visual disturbances; R11.0 Nausea; F41.9 Anxiety disorder, unspecified; E11.9 Type 2 diabetes mellitus without complications; E87.6 Hypokalemia
CPT/HCPCS: 74000; 74177; 80048; 80053; 82962; 83735; 84703; 85025; 85610; 90686; J1170; J1650; J1815; J1885; J2060; J2405; J2765; J3475; J3480; J7042; J7120; Q9967

== ENCOUNTER 2017-09-03 18:44 | Inpatient (IN) | END 2017-09-12 17:05 | disposition home or self-care (01) | DRG 314 ==

== ENCOUNTER 2018-01-16 18:14 | Inpatient (IN) | END 2018-01-25 13:15 | disposition home or self-care (01) | DRG 329 ==

== ENCOUNTER 2018-02-25 02:33 | Inpatient (IN) | END 2018-03-02 19:26 | disposition home health service (06) | DRG 863 ==

== ENCOUNTER 2018-03-10 12:32 | Inpatient (IN) | END 2018-03-13 18:45 | disposition home health service (06) | DRG 862 ==

== ENCOUNTER 2018-04-08 09:51 | Emergency (ER) | END 2018-04-08 15:54 | disposition home or self-care (01) ==

== ENCOUNTER 2018-05-01 19:03 | Inpatient (IN) | END 2018-05-04 21:40 | disposition home or self-care (01) | DRG 394 ==

== ENCOUNTER 2019-03-14 10:59 | Day surgery (SDC) | payer OTHER ==
[~2019-03-14] VITALS: Ht 149.9 cm; Wt 39.0 kg
[~2019-03-14 10:59] MED LIST changes: -ATOR40TA68 PO; -CEPH500C PO; +CLIN300C10 PO; -DOCU-144 PO; -ESCI10TA48 PO; -FAMO20TA18 PO; -HYDR-3498 PO; +HYDR-4011 PO; -Hydrocodone/Apap (10/325) PO; +LEVO750T25 PO; -LORA-441 PO; -MAGN400T28 PO; -METF500T PO; +NITR100C7 PO; -ONDA-43 PO; -POTA10TA37 PO; -TERB250T9 PO; -TRAM50TA2 PO
[2019-03-14 11:55] VITALS: Ht 149.9 cm; Wt 39.0 kg
[2019-03-14 12:22] VITALS: BP 118/63; PULSE 74; RESP 16
[2019-03-14] MEDS ORDERED: PROPOFOL 20 ML ONE ×2 (14:48→15:23)
== END 2019-03-14 17:11 | disposition home or self-care (01) ==
LOC: GIL 10:59
PROVIDERS: ATTEND Internal Medicine Gastroenterology
DX: K64.8 Other hemorrhoids (principal)
CPT/HCPCS: 88305